=== PATIENT | female | born 1985 | race Hispanic/Latino ===

== ENCOUNTER 2018-03-04 10:01 | Emergency (ER) | payer OTHER, SELFPAY ==
--- OUTSIDE RECORDS SUMMARY | 2018-03-04 10:04 | XMS REPORT | Clinical Summary ---
:1985 Author Organization [facility] Address [address] [place] [address] Care Team Providers Name Role Phone Fany Escobar MD Primary Care Provider Allergies No Known Allergies Current Medications Prescription Sig. Disp. Refills Start Date End Date Status amoxicillin-pot Take 1 tablet by 20 tablet 0 06/23/2017 07/03/2017 clavulanate mouth 2 (two) (AUGMENTIN) 875-125 times a day for mg per tablet 10 days. traMADol-acetaminophe Take 1 tablet by 30 tablet 0 06/23/2017 06/28/2017 n (ULTRACET) 37.5-325 mouth every 6 mg per tablet (six) hours as needed for moderate pain for up to 5 days. amoxicillin-pot Take 1 tablet by 28 tablet 0 06/30/2017 07/14/2017 clavulanate mouth 2 (two) (AUGMENTIN) 875-125 times a day for mg per tablet 14 days. 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 Encounters Date Type Specialty Care Team Description 07/14/2017 Office Visit General Surgery Daisy Jalloh MD Diverticulitis of large intestine without perforation or abscess without bleeding (Primary Dx) 06/30/2017 Office Visit General Surgery Daisy Jalloh MD Diverticulitis of large intestine without perforation or abscess without bleeding (Primary Dx) 06/20/2017 - Hospital General Internal Alberto Albert Diverticulitis of 06/23/2017 Encounter Medicine jaylin Carl MD without perforation or Topher Whitehead abscess sandoval Wright MD bleeding (Primary Dx) after 03/03/2017 Social History Tobacco Use Types Packs/Day Years Used Date Never Smoker Alcohol Use Drinks/Week oz/Week Comments Yes socially Sex Assigned at Date Recorded Not on file Last Filed Vital Signs Vital Sign Reading Time Taken Blood Pressure 112/72 06/23/2017 12:00 PM CDT Pulse 79 06/23/2017 12:00 PM CDT Temperature 36 C (96.8 F) 06/23/2017 12:00 PM CDT Respiratory Rate 16 06/23/2017 12:00 PM CDT Oxygen Saturation 100% 06/23/2017 12:00 PM CDT Inhaled Oxygen Concentration - - Weight 79.4 kg (175 lb) 06/30/2017 10:12 AM CDT Height 157.5 cm (5' 2") 06/30/2017 10:12 AM CDT Body Mass Index 32.01 06/30/2017 10:12 AM CDT Plan of Treatment Health Maintenance Due Date Last Done Comments PAP SMEAR 2004 INFLUENZA VACCINE 05/30/2018 Results Estimated GFR (06/22/2017 4:33 AM)Only the most recent of2 resultswithin the time period is included. Component Value Ref Range GFR Non Af Amer >90 mL/min/1.73 m2 GFR Af Amer >90 mL/min/1.73 m2 Comment: Chronic kidney disease: <60 mL/min/1.73m2 Kidney failure: <15 mL/min/1.73m2 The estimated GFR is calculated from the IDMS-traceable Modification of Diet in Renal Disease Equation. The accuracy of the calculation is poor when the creatinine is normal. Calculated values >90 mL/min/1.73m2 are not reported. This equation has not been validated in children (<18 years), women, the elderly (>70 years), or ethnic groups other than Caucasians and Americans. Specimen Performing Laboratory Plasma specimen [facility] [address] [place] [address] CBC with platelet and differential (06/22/2017 4:33 AM)Only the most recent of2 resultswithin the time period is included. Component Value Ref Range WBC 5.6 4.5 - 11.0 k/uL RBC 3.92 (L) 4.20 - 5.50 m/uL HGB 12.4 12.0 - 16.0 g/dL HCT 36.8 (L) 37.0 - 47.0 % MCV 93.9 82.0 - 100.0 fL MCH 31.6 27.0 - 34.0 pg MCHC 33.7 31.0 - 37.0 g/dL RDW - SD 42.8 37.0 - 55.0 fL MPV 9.3 6.9 - 11.0 fL Platelet count 246 150 - 400 K/uL Nucleated RBC 0.00 /100 WBC Neutrophils 52.6 39.0 - 69.0 % Lymphocytes 37.1 25.0 - 45.0 % Monocytes 7.9 0.0 - 10.0 % Eosinophils 2.0 0.0 - 5.0 % Basophils 0.2 0.0 - 1.0 % Immature granulocytes 0.2 0.0 - 1.0 % Specimen Performing Laboratory Blood [facility] [address] [place] [phone] Basic metabolic panel (06/22/2017 4:33 AM) Component Value Ref Range Sodium 136 135 - 148 mEq/L Potassium 3.5 3.5 - 5.0 mEq/L Chloride 101 98 - 112 mEq/L CO2 23 (L) 24 - 31 mEq/L Anion gap 12 7 - 15 mEq/L Comment: Starting from January , anion gap calculation no longer incorporates potassium. Please note the change. BUN 5 (L) 6 - 20 mg/dL Creatinine 0.6 0.5 - 0.9 mg/dL Glucose 74 65 - 99 mg/dL Calcium 8.4 8.3 - 10.2 mg/dL Specimen Performing Laboratory Plasma specimen [facility] [address] [place] [id number] ECG ED Preliminary Interpretation - NOT AN ORDER (06/20/2017 6:49 PM) Narrative Alberto Albert MD 06/20/20176:49 PM ECG ED Preliminary Interpretation - Not an Order Performed by: ALBERTO ALBERT Authorized by: ALBERTO ALBERT ECG reviewed by ED Physician in the absence of a refinery process engineer: yes Interpretation: Interpretation: normal Rate: ECG rate:81 ECG rate assessment: normal Rhythm: Rhythm: sinus rhythm Ectopy: Ectopy: none QRS: QRS axis:Normal QRS intervals:Normal Conduction: Conduction: normal ST segments: ST segments:Normal T waves: T waves: normal CT Abdomen Pelvis W Contrast (06/20/2017 4:03 PM) Specimen Performing Laboratory [facility] [address] [place] [address] Narrative EXAMINATION:CT ABDOMEN PELVIS W CONTRAST CLINICAL HISTORY:Abdominal pain TECHNIQUE: Multiple axial images of the abdomen and pelvis were obtained following intravenous administration of iodinated contrast. Sagittal and coronal computerized reformatted images were also obtained. Approximately 100 cc of Omnipaque 300 was used. Oral contrast was also used. All CT scan performed using radiation dose reduction techniques. Technical factors are evaluated and adjusted to ensure appropriate moderation of exposure. Automated dose management technology is applied to adjust the radiation dose to minimize expose whileachieving a diagnostic quality image. COMPARISON:None. FINDINGS: Lung bases: The lung bases are clear. The visualized portion of the heart and thoracic aorta are unremarkable. Liver: There is no intrahepatic biliary dilatation or mass. The liver is normal in attenuation, contour and size. Gallbladder: Surgically absent.. Pancreas: The pancreas is normal in caliber and attenuation. No inflammatory process. The pancreatic duct is within normal limits. Spleen: The spleen is normal in appearance.. Kidneys and ureters: The kidneys function symmetrically. There is no enhancing renal lesion. No hydronephrosis or renal stone. The ureters are normal in course and caliber. Adrenal glands: Unremarkable. GI tract: The small bowel is normal in course and caliber. Scattered diverticula are seen of the descending colon and sigmoid colon. A short segment of luminal narrowing is seen of the distal sigmoid colon, series 3. The image #[id number]. Moderate retained fecal debris seen throughout the colon. The colon is otherwise unremarkable. No bowel wall thickening is identified. There is no acute inflammatory process. The appendix is surgically absent. No right lower quadrant inflammation is seen. The stomach is unremarkable. Ascites: None. Pelvis: The urinary bladder is within normal limits. Probable 2 cm right ovarian cyst is noted. Limited evaluation of the uterus and ovaries are otherwise unremarkable.. Bones: Unremarkable. Retroperitoneum: No retroperitoneal or mesenteric lymphadenopathy is seen. The abdominal aorta is normal in course and caliber. The visceral and mesenteric vascular branches are patent. Abdominal wall: A small umbilical hernia with fat is noted.. IMPRESSION: Mild diverticulosis.. Focal area of short segment luminal narrowing of the distal sigmoid colon, suggestive of focal spasm. No CT evidence of colitis or bowel obstruction. Moderate constipation noted. [facility]-[id number] Procedure Note Interface, Radiology Results Incoming - 06/20/2017 4:18 PM CDT EXAMINATION: CT ABDOMEN PELVIS W CONTRAST CLINICAL HISTORY: Abdominal pain TECHNIQUE: Multiple axial images of the abdomen and pelvis were obtained following intravenous administration of iodinated contrast. Sagittal and coronal computerized reformatted images were also obtained. Approximately 100 cc of Omnipaque 300 was used. Oral contrast was also used. All CT scan performed using radiation dose reduction techniques. Technical factors are evaluated and adjusted to ensure appropriate moderation of exposure. Automated dose management technology is applied to adjust the radiation dose to minimize expose while achieving a diagnostic quality image. COMPARISON: None. FINDINGS: Lung bases: The lung bases are clear. The visualized portion of the heart and thoracic aorta are unremarkable. Liver: There is no intrahepatic biliary dilatation or mass. The liver is normal in attenuation, contour and size. Gallbladder: Surgically absent.. Pancreas: The pancreas is normal in caliber and attenuation. No inflammatory process. The pancreatic duct is within normal limits. Spleen: The spleen is normal in appearance.. Kidneys and ureters: The kidneys function symmetrically. There is no enhancing renal lesion. No hydronephrosis or renal stone. The ureters are normal in course and caliber. Adrenal glands: Unremarkable. GI tract: The small bowel is normal in course and caliber. Scattered diverticula are seen of the descending colon and sigmoid colon. A short segment of luminal narrowing is seen of the distal sigmoid colon, series 3. The image #[id number]. Moderate retained fecal debris seen throughout the colon. The colon is otherwise unremarkable. No bowel wall thickening is identified. There is no acute inflammatory process. The appendix is surgically absent. No right lower quadrant inflammation is seen. The stomach is unremarkable. Ascites: None. Pelvis: The urinary bladder is within normal limits. Probable 2 cm right ovarian cyst is noted. Limited evaluation of the uterus and ovaries are otherwise unremarkable.. Bones: Unremarkable. Retroperitoneum: No retroperitoneal or mesenteric lymphadenopathy is seen. The abdominal aorta is normal in course and caliber. The visceral and mesenteric vascular branches are patent. Abdominal wall: A small umbilical hernia with fat is noted.. IMPRESSION: Mild diverticulosis.. Focal area of short segment luminal narrowing of the distal sigmoid colon, suggestive of focal spasm. No CT evidence of colitis or bowel obstruction. Moderate constipation noted. [facility]-[id number] ECG 12 lead (06/20/2017 2:52 PM) Component Value Ref Range Ventricular rate 81 Atrial rate 81 GA interval 168 QRSD interval 86 QT interval 382 QTC interval 443 P axis 1 15 QRS axis 1 5 T wave axis 18 EKG impression Normal sinus rhythm-Normal ECG-No previous ECGs available- Specimen Performing Laboratory [facility] MUSE [address] [place] [address] Beta hydroxybutyrate (06/20/2017 1:23 PM) Component Value Ref Range Beta hydroxybutyrate 0.05 0.02 - 0.27 mmol/L Specimen Performing Laboratory Blood [facility]INE [address] [place] [phone] Blood culture, aerobic & anaerobic (06/20/2017 1:23 PM)Only the most recent of2 resultswithin the time period is included. Component Value Ref Range Blood culture isolate No growth after 5 days of incubation. Comment: Specimen Information Specimen Source: Blood Specimen Site: Forearm, left Specimen Performing Laboratory Blood - Forearm, left [facility] DEPARTMENT OF PATHOLOGY AND GENOMIC MEDICINE [address] [place] [id number] Partial thromboplastin time, activated (06/20/2017 1:23 PM) Component Value Ref Range PTT 27.7 23.0 - 36.0 sec Comment: PTT therapeutic range for unfractionated heparin is 61.0-112.0 seconds which corresponds to Anti-Xa 0.3-0.7 U/ml. Specimen Performing Laboratory Blood [facility] DEPARTMENT OF PATHOLOGY AND [facility] [address] [place] [address] Prothrombin time with INR (06/20/2017 1:23 PM) Component Value Ref Range Prothrombin time 12.9 12.0 - 15.0 sec INR 1.0 Comment: The International Normalized Ratio (INR) is a therapeutic monitoring tool for patients who are stable on oral anticoagulant therapy. An INR of 2.0-3.0 is suggested for deep vein thrombosis/pulmonary embolism. Specimen Performing Laboratory Blood [facility] PATHOLOG[facility] GENOMIC MEDICINE [address] [place] [phone] hCG qualitative, serum screen (06/20/2017 1:23 PM) Component Value Ref Range hCG qualitative, serum NegativeComment: Sensitivity of HCG test: 25 mIU/mL Specimen Performing Laboratory Blood [facility] PATHOLOGY AND GENOMIC MEDICINE [address] [place] [phone] Magnesium level (06/20/2017 1:23 PM) Component Value Ref Range Magnesium 2.1 1.6 - 2.6 mg/dL Specimen Performing Laboratory Plasma specimen [facility] OF PATHOLOGY AND [address] [address] Lipase level (06/20/2017 1:23 PM) Component Value Ref Range Lipase 23 13 - 60 U/L Specimen Performing Laboratory Plasma specimen [facility] OF PATHOLOGY AND [address] [address] Lactic acid level (06/20/2017 1:23 PM) Component Value Ref Range Lactic acid 1.3 0.5 - 2.2 mmol/L Specimen Performing Laboratory Plasma specimen [facility] OF PATHOLOGY AND GENOMIC [address] [address] Venous blood gas (06/20/2017 1:23 PM) Component Value Ref Range pH, venous 7.30 (L) 7.32 - 7.42 pCO2, venous 54 (H) 45 - 51 mmHg pO2, venous 25 25 - 40 mmHg Base excess, venous -1 -2 - 2 mEq/L O2 saturation, venous 38 (L) 40 - 70 % Bicarbonate, venous 25.8 21.0 - 28.0 mmol/L Specimen Performing Laboratory Blood [facility] OF PATHOLOGY AND [address] [address] Amylase level (06/20/2017 1:23 PM) Component Value Ref Range Amylase 25 13 - 73 U/L Specimen Performing Laboratory Plasma specimen [facility] OF PATHOLOGY AND [address] [address] Comprehensive metabolic panel (06/20/2017 1:23 PM) Component Value Ref Range Sodium 139 135 - 148 mEq/L Potassium 4.0 3.5 - 5.0 mEq/L Chloride 102 98 - 112 mEq/L CO2 25 24 - 31 mEq/L Anion gap 12 7 - 15 mEq/L Comment: Starting from January , anion gap calculation no longer incorporates potassium. Please note the change. BUN 8 6 - 20 mg/dL Creatinine 0.6 0.5 - 0.9 mg/dL Glucose 80 65 - 99 mg/dL Calcium 9.4 8.3 - 10.2 mg/dL Protein 8.1 6.3 - 8.3 g/dL Albumin 4.6 3.5 - 5.0 g/dL A/G ratio 1.3 0.7 - 3.8 Alkaline phosphatase 59 35 - 104 U/L AST 13 10 - 35 U/L ALT 12 5 - 50 U/L Total bilirubin 0.3 0.2 - 1.2 mg/dL Specimen Performing Laboratory Plasma specimen [facility] OF PATHOLOGY AND GENOMIC MEDICINE [address] [place], [place] [id number] Urinalysis screen and microscopy, with reflex to culture (06/20/2017 1:20 PM) Component Value Ref Range Specimen site Clean catch Color, UA Straw Appearance, UA Clear Specific gravity, UA 1.005 1.001 - 1.030 pH, UA 6.0 5.0 - 9.0 Protein, UA Negative Negative Glucose, UA Negative Negative Ketones, UA Negative Negative Bilirubin, UA Negative Negative Blood, UA Negative Negative Nitrite, UA Negative Negative Urobilinogen, UA <2.0 <2.0 E.U./dL Leukocyte esterase, UA Negative Negative Round epithelial cells, UA <1 0 - 5 /HPF WBC, UA <1 0 - 4 /HPF RBC, UA 1 0 - 2 /HPF Bacteria, UA Few None seen Yeast, UA None seen Yeast with pseudohyphae, UA None seen Specimen Performing Laboratory Urine [facility] OF PATHOLOGY AND GENOMIC MEDICINE [address] [place] [phone] Urine culture (06/20/2017 1:20 PM) Component Value Ref Range Urine culture SEE COMMENTComment: Bacteriuria screen negative. Specimen Performing Laboratory [facility] OF PATHOLOGY AND GENOMIC MEDICINE [address] [place] [address] after 03/03/2017 Insurance Payer Benefit Plan / Group Subscriber ID Type Phone Address [facility] xxxxxxxxx O Home: [address] [phone] [place], [place] [address]
[2018-03-04 11:11] LABS: Urine Blood TRACE (NEG); Urine Glucose NEGATIVE (NEG); Urine Protein NEGATIVE (NEG); Urine Specific Gravity 1.015 (1.005-1.030); Urine pH 7.5 (5.0-7.0)
[2018-03-04 11:12] LABS: Absolute Lymphocytes (CBC) 2.3 K/uL (0.7-4.9); Absolute Monocytes 0.6 K/uL (0.1-1.3); Absolute Neutrophil 4.5 K/uL (1.8-8.0); Basophils % 0.5 % (0-1.3); Eosinophils % 2.4 % (0-4.4); Hematocrit 40.4 % (36.0-45.0); Lymphocytes % 30.1 % (15.3-44.8); MCH 30.6 pg (27.0-35.0); MCV 92.4 fL (80-100); Monocytes % 7.7 % (3.3-12.3); RBC Red Blood Cell Count 4.38 M/uL (3.86-4.86)
[2018-03-04 11:17] LABS: Bicarbonate 27 mEq/L (21-31); Glucose Level 87 mg/dL (65-120); Lipase 15 U/L (22-51); Potassium 3.8 mEq/L (3.6-5.0); Sodium Level 136 mEq/L (135-145)
[2018-03-04 11:23] LABS: ALT/SGPT 85 IU/L (10-60); AST/SGOT 35 IU/L (10-42); Albumin 4.3 g/dL (3.2-5.5); Alkaline Phosphatase 86 IU/L (42-121); BUN Blood Urea Nitrogen 11 mg/dL (6-20); Bilirubin Direct 0.1 mg/dL (0-0.2); Bilirubin Total 0.9 mg/dL (0.3-1.2); Protein, Total 8.1 g/dL (6.0-8.3)
[2018-03-04 11:33] LABS: HCG, Quantitative < 5.0 mIU/mL (<5)
[2018-03-04 11:48] LABS: Urine Bacteria <20 /HPF (<20); Urine Culture Reflex Order NOT NEEDED; Urine RBC <5 /HPF (NONE SEEN)
--- NOTE | 2018-03-04 12:34 | RAD REPORT ---
EXAM DESCRIPTION: CT - Stone Protocol - 03/04/2018 12:26 pm CLINICAL HISTORY: Flank pain. COMPARISON: 12/24/2017 TECHNIQUE: Axial images were obtained without oral or IV contrast. Lack of contrast limits solid org an and vascular assessment. The [id number] spans the entirety of the system partially obscuring uppermost abdomen and lung bases. Coronal reformatted images were obtained and reviewed. All CT scans are performed using dose optimization technique as appropriate and may include automated exposure control or mA/KV adjustment according to patient size. FINDINGS: The lower lung duong are clear. Imaged portions of the liver and spleen show no suspicious findings on non-contrast imaging. The panc reas and adrenal glands are normal. No pathologic lymphadenopathy in the abdomen or pelvis. Small fat containing umbilical hernia. No urinary tract stones or obstructive uropathy. No bowel obstruction, free air, free fluid or abscess. Appendectomy. No significant bony abnormality. IMPRESSION: No urinary tract stones or obstructive uropathy.
[2018-03-04] MEDS ORDERED: KETOROLAC 30 MG/ML INJ ONE (12:58)
--- NOTE | 2018-03-04 14:08 | RAD REPORT ---
EXAM DESCRIPTION: US - Pelvis Complete - 03/04/2018 1:49 pm CLINICAL HISTORY: Pelvic pain. COMPARISON: 05/17/2017 FINDINGS: The uterus is normal in size, shape and echotexture. The uterus measures 10.0 x 7.0 x 4.3 cm. The endometrial stripe measures 13 mm, normal. Both ovaries are normal in size, shape and echotexture. The right ovary measures 3.8 x 3.4 x 1.4 cm. The left ovary measures 3.0 x 2.1 x 1.4 cm. No ovarian or parovarian lesions. No adnexal masses. Normal Doppler blood flow was demonstrated to both ovaries. IMPRESSION: Unremarkable study.
--- NOTE | 2018-03-04 14:13 | EDPHYS ---
Physician Documentation [facility] Name: Mary Torres Age: 32 yrs Sex: Female : 1985 Arrival Date: 03/04/2018 Time: 10:04 Bed 8 Private MD: ED Physician Conor Tam HPI: 03/04 10:56 This 32 yrs old Female presents to ER via Ambulatory with complaints of rn Abdominal Pain. 10:56 The patient presents with abdominal pain in the lower abdomen. Onset: The rn symptoms/episode began/occurred 2. day(s) ago. The symptoms do not radiate. Associated signs and symptoms: Pertinent positives: nausea, Pertinent negatives: blood in stools, chest pain, constipation, diarrhea, dysuria, fever, vaginal discharge, vomiting blood. Modifying factors: The symptoms are alleviated by nothing, the symptoms are aggravated by touching the area. Severity of pain: At its worst the pain was mild in the emergency department the pain is unchanged. The patient has experienced similar episodes in the past. Reports hx of diverticulitis, this feels different, + lower abd pain, report 4 + preg tests at home, today was negative, no vaginal discharge/bleeding, no diarrhea, + nausea, has had tubal ligation.. 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 - Social history:: Smoking status: Patient/guardian denies using tobacco. - Family history:: not pertinent. - Hospitalizations: : No recent hospitalization is reported. ROS: 10:56 Constitutional: Negative for fever, chills, and weight loss, Eyes: Negative for injury, rn pain, redness, and discharge, Cardiovascular: Negative for chest pain, palpitations, and edema, Respiratory: Negative for shortness of breath, cough, wheezing, and pleuritic chest pain, Abdomen/GI: + abdominal pain and nausea : Negative for injury, bleeding, discharge, and swelling, MS/Extremity: Negative for injury and deformity, Skin: Negative for injury, rash, and discoloration, Neuro: Negative for headache, weakness, numbness, tingling, and seizure. Exam: 10:56 Constitutional: This is a well developed, well nourished patient who is awake, alert, rn and in no acute distress. Head/Face: Normocephalic, atraumatic. Eyes: Pupils equal round and reactive to light, extra-ocular motions intact. Lids and lashes normal. Conjunctiva and sclera are non-icteric and not injected. Cornea within normal limits. Periorbital areas with no swelling, redness, or edema. Cardiovascular: Regular rate and rhythm with a normal S1 and S2. No gallops, murmurs, or rubs. Normal PMI, no JVD. No pulse deficits. Respiratory: Lungs have equal breath sounds bilaterally, clear to auscultation and percussion. No rales, rhonchi or wheezes noted. No increased work of breathing, no retractions or nasal flaring. Abdomen/GI: soft, + suprapubic and LLQ tenderness, no rebound MS/ Extremity: Pulses equal, no cyanosis. Neurovascular intact. Full, normal range of motion. Equal circumference. Neuro: Awake and alert, GCS 15, oriented to person, place, time, and situation. Cranial nerves II-XII grossly intact. Motor strength 5/5 in all extremities. Sensory grossly intact. Vital Signs: 10:16 BP 123 / 89; Pulse 94; Resp 16; Temp 98.5; Pulse Ox 97% on R/A; Weight 81.65 kg; Height aj 5 ft. 2 in. (157.48 cm); Pain 8/10; 11:01 BP 119 / 78; Pulse 63; Resp 16; Pulse Ox 98% ; jl7 12:00 BP 110 / 80; Pulse 64; Resp 16; Pulse Ox 98% ; jl7 13:00 BP 115 / 78; Pulse 62; Resp 16; Pulse Ox 98% ; jl7 14:00 BP 111 / 79; Pulse 63; Resp 16; Pulse Ox 98% ; jl7 10:16 Body Mass Index 32.92 (81.65 kg, 157.48 cm) aj MDM: 10:20 Patient medically screened. rn 12:40 Differential diagnosis: appendicitis, diverticulitis, non-specific abd pain, rn Ureterolithiasis, urinary tract infection. 14:11 Data reviewed: vital signs, nurses notes, lab test result(s), radiologic studies, CT rn scan, ultrasound, and as a result, I will discharge patient. Counseling: I had a detailed discussion with the patient and/or guardian regarding: the historical points, exam findings, and any diagnostic results supporting the discharge/admit diagnosis, lab results, radiology results, the need for outpatient follow up, to return to the emergency department if symptoms worsen or persist or if there are any questions or concerns that arise at home. Special discussion: Based on the patient's Hx, exam, and Dx evaluation, there is no indication for emergent surgery or inpatient Tx. It is understood by the patient/guardian that if the Sx's persist or worsen they need to return immediately for re-evaluation. I discussed with the patient/guardian in detail that at this point there is no indication for admission to the hospital. It is understood, however, that if the symptoms persist or worsen the patient needs to return immediately for re-evaluation. 03/04 10:30 Order name: Quantitative Hcg; Complete Time: 03/04 10:30 Order name: Abo/rh Typing; Complete Time: 12: 03/04 10:30 Order name: Basic Metabolic Panel; Complete Time: 03/04 10:30 Order name: CBC with Diff; Complete Time: 03/04 10:30 Order name: Creatinine for Radiology; Complete Time: 03/04 10:30 Order name: Hepatic Function; Complete Time: 03/04 10:21 Order name: Urine Dipstick-Ancillary (obtain specimen); Complete Time: 10:56 03/04 10:30 Order name: Lipase; Complete Time: 03/04 10:30 Order name: Urine Microscopic Only; Complete Time: 12:35 03/04 10:39 Order name: Urine Dipstick--Ancillary (enter results); Complete Time: 03/04 10:39 Order name: Urine --Ancillary (enter results); Complete Time: 03/04 11:48 Order name: CT Stone Protocol; Complete Time: 12:35 03/04 12:43 Order name: US Pelvis Complete; Complete Time: 14:10 03/04 10:21 Order name: Urine Test (obtain specimen); Complete Time: 10:56 rn 03/04 10:30 Order name: IV Saline Lock; Complete Time: :56 rn 03/04 10:30 Order name: Labs collected and sent; Complete Time: :56 rn 03/04 10:30 Order name: NPO; Complete Time: 10:56 rn Administered Medications: 13:02 Drug: TORadol 30 mg Route: IVP; Site: right antecubital; jl7 13:30 Follow up: Response: No adverse reaction; Pain is decreased jl7 Disposition: 03/04/18 14:13 Discharged to Home. Impression: Lower abdominal pain, unspecified. - Condition is Stable. - Discharge Instructions: Abdominal Pain, Adult. - Medication Reconciliation Form, Thank You Letter, Antibiotic Education, Prescription Opioid Use form. - Follow up: Private Physician; When: As needed; Reason: Recheck today's complaints, Re-evaluation by your physician. - Problem is new. - Symptoms have improved. Signatures: Dispatcher [employer] EDNidia Bell RN Conor Tapia MD MD rn Leal, Jahala, RN RN jl7 Corrections: (The following items were deleted from the chart) 14:30 14:13 03/04/2018 14:13 Discharged to Home. Impression: Lower abdominal pain, jl7 unspecified. Condition is Stable. Forms are Medication Reconciliation Form, Thank You Letter, Antibiotic Education, Prescription Opioid Use. Follow up: Private Physician; When: As needed; Reason: Recheck today's complaints, Re-evaluation by your physician. Problem is new. Symptoms have improved. rn
--- NOTE | 2018-03-04 14:13 | ER ---
Nurse's Notes [facility] Name: Mary Torres Age: 32 yrs Sex: Female : 1985 Arrival Date: 03/04/2018 Time: 10:04 Bed 8 Private MD: Diagnosis: Lower abdominal pain, unspecified Presentation: 03/04 10:15 Presenting complaint: Patient states: LLQ pain since yesterday. + UPT at home. Denies aj bleeding. Transition of care: patient was not received from another setting of care. Onset of symptoms was March 03, 2018. Initial Sepsis Screen: Does the patient meet any 2 criteria? No. Patient's initial sepsis screen is negative. Does the patient have a suspected source of infection? No. Patient's initial sepsis screen is negative. Care prior to arrival: None. 10:15 Method Of Arrival: Ambulatory aj 10:15 Acuity: MARCELA 3 aj Triage Assessment: 10:16 General: Appears in no apparent distress. uncomfortable, Behavior is calm, cooperative, aj appropriate for age. Pain: Complains of pain in suprapubic area and left inguinal area Pain currently is 8 out of 10 on a pain scale. Neuro: Level of Consciousness is awake, alert, obeys commands, Oriented to person, place, time, situation, Appropriate for age. Respiratory: Airway is patent Respiratory effort is even, unlabored, Respiratory pattern is regular, symmetrical. GI: Reports nausea. : Reports pain in left lower quadrant(s). 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 - Social history:: Smoking status: Patient/guardian denies using tobacco. - Family history:: not pertinent. - Hospitalizations: : No recent hospitalization is reported. Screenin:01 Abuse screen: Denies threats or abuse. Denies injuries from another. Nutritional jl7 screening: No deficits noted. Tuberculosis screening: No symptoms or risk factors identified. Fall Risk IV access (20 points). Total Sanchez Fall Scale indicates No Risk (0-24 pts). Assessment: 10:20 General: Appears in no apparent distress. uncomfortable, Behavior is calm, cooperative, jl7 appropriate for age. Pain: Complains of pain in suprapubic area and left lower quadrant Pain does not radiate. Pain currently is 8 out of 10 on a pain scale. Quality of pain is described as pressure, sharp, Pain began 2-3 days ago. Is continuous. Neuro: Level of Consciousness is awake, alert, obeys commands, Oriented to person, place, time, situation. Cardiovascular: Patient's skin is warm and dry. Respiratory: Airway is patent Respiratory effort is even, unlabored, Respiratory pattern is regular, symmetrical. GI: Bowel sounds present X 4 quads. Abd is soft X 4 quads Abdomen is tender to palpation in suprapubic area and left lower quadrant. : No signs and/or symptoms were reported regarding the genitourinary system. Derm: Skin is pink, warm \T\ dry. Musculoskeletal: No signs and/or symptoms reported regarding the musculoskeletal system. 11:20 Reassessment: Patient and/or family updated on plan of care and expected duration. Pain jl7 level reassessed. Patient is alert, oriented x 3, equal unlabored respirations, skin warm/dry/pink. 12:20 Reassessment: Patient and/or family updated on plan of care and expected duration. Pain jl7 level reassessed. Patient is alert, oriented x 3, equal unlabored respirations, skin warm/dry/pink. 13:20 Reassessment: Patient and/or family updated on plan of care and expected duration. Pain jl7 level reassessed. Patient is alert, oriented x 3, equal unlabored respirations, skin warm/dry/pink. Vital Signs: 10:16 BP 123 / 89; Pulse 94; Resp 16; Temp 98.5; Pulse Ox 97% on R/A; Weight 81.65 kg; Height aj 5 ft. 2 in. (157.48 cm); Pain 8/10; 11:01 BP 119 / 78; Pulse 63; Resp 16; Pulse Ox 98% ; jl7 12:00 BP 110 / 80; Pulse 64; Resp 16; Pulse Ox 98% ; jl7 13:00 BP 115 / 78; Pulse 62; Resp 16; Pulse Ox 98% ; jl7 14:00 BP 111 / 79; Pulse 63; Resp 16; Pulse Ox 98% ; jl7 10:16 Body Mass Index 32.92 (81.65 kg, 157.48 cm) ED Course: 10:04 Patient arrived in ED. sb2 10:16 Triage completed. aj 10:16 Arm band placed on right wrist. Patient placed in an exam room. aj 10:19 Rodrigo Westfall RN is Primary Nurse. jl7 10:20 Conor Tam MD is Attending Physician. rn 10:50 Initial lab(s) drawn, by mi, sent to lab. Urine collected: clean catch specimen, clear. jl7 Inserted saline lock: 20 gauge in right antecubital area, using aseptic technique. Blood collected. 11:01 Patient has correct armband on for positive identification. Bed in low position. Call jl7 light in reach. Side rails up X 1. Pulse ox on. NIBP on. 12:26 CT Stone Protocol In Process Unspecified. EDMS 12:26 CT completed. Patient tolerated procedure well. Patient moved back from CT. vr 12:45 Radiology exam delayed due to pt filling bladder for u/s exam. ap2 13:29 Ultrasound completed. Patient tolerated well. ap2 14:00 No provider procedures requiring assistance completed. jl7 14:29 IV discontinued, intact, bleeding controlled, No redness/swelling at site. Pressure jl7 dressing applied. Administered Medications: 13:02 Drug: TORadol 30 mg Route: IVP; Site: right antecubital; jl7 13:30 Follow up: Response: No adverse reaction; Pain is decreased jl7 Outcome: 14:13 Discharge ordered by . rn 14:29 Discharged to home ambulatory. jl7 14:29 Condition: stable 14:29 Discharge instructions given to patient, Instructed on discharge instructions, follow up and referral plans. Demonstrated understanding of instructions, follow-up care. 14:30 Patient left the ED. jl7 Signatures: Dispatcher [employer] EDMS Nidia Chang RN RN aj Nieto, Roman, MD MD rn Davis, Victoria vr Rodrigo Westfall, DUARTE RAMACHANDRAN jlDebora Gardiner ap2 Romana Angelo sb2 Corrections: (The following items were deleted from the chart) 13:53 13:50 In radiology for Pelvis Complete+US.RAD.BRZ. EDAL ap2 14:29 14:00 IV discontinued, intact, bleeding controlled, No redness/swelling at site. jl7 Pressure dressing applied, jl7
== END 2018-03-04 14:30 | disposition home or self-care (01) ==
LOC: ER 10:01
DX: R10.30 Lower abdominal pain, unspecified (principal); Z88.5 Allergy status to narcotic agent
CPT/HCPCS: 36415; 74176; 76377; 76856; 80048; 80076; 81003; 81015; 81025; 83690; 84702; 85025; 86900; 86901; 96374; 99284

== ENCOUNTER 2018-03-13 18:53 | Emergency (ER) | payer OTHER ==
--- OUTSIDE RECORDS SUMMARY | 2018-03-13 18:55 | XMS REPORT | Clinical Summary ---
:1985 Author Organization [facility] Address [address] [place] [address] Care Team Providers Name Role Phone Fany [...] sandoval Wright MD bleeding (Primary Dx) after 03/12/2017 Social History Tobacco Use Types Packs/Day Years [...] and Americans. Specimen Performing Laboratory Plasma specimen [facility] DEPARTMENT OF PATHOLOGY AND GENOMIC MEDICINE [address] [place] [address] CBC with platelet and differential (06/22/2017 4:33 [...] - 1.0 % Specimen Performing Laboratory Blood [facility] DEPARTMENT OF PATHOLOGY AND GENOMIC MEDICINE [address] [place] [address] Basic metabolic panel (06/22/2017 4:33 AM) Component [...] 10.2 mg/dL Specimen Performing Laboratory Plasma specimen [facility] DEPARTMENT OF PATHOLOGY AND GENOMIC MEDICINE [address] [place] [address] ECG ED Preliminary Interpretation - NOT AN ORDER (06/20/2017 6:49 PM) Narrative Alberto Albert MD 06/20/20176:49 PM ECG ED Preliminary Interpretation - Not an Order Performed by: ALBERTO ALBERT Authorized by: ALBERTO ALBERT ECG reviewed by ED Physician in the absence of a vocational education teacher: yes Interpretation: Interpretation: normal Rate: ECG rate:81 ECG rate assessment: normal Rhythm: Rhythm: sinus rhythm Ectopy: Ectopy: none QRS: QRS axis:Normal QRS intervals:Normal Conduction: Conduction: normal ST segments: ST segments:Normal T waves: T waves: normal CT Abdomen Pelvis W Contrast (06/20/2017 4:03 PM) Specimen Performing Laboratory [facility] [address] [place] [address] Narrative EXAMINATION:CT ABDOMEN PELVIS W CONTRAST CLINICAL [...] or bowel obstruction. Moderate constipation noted. [facility]-[id number] Procedure Note Interface, Radiology Results Incoming - [...] or bowel obstruction. Moderate constipation noted. [facility]-[id number] ECG 12 lead (06/20/2017 2:52 PM) Component Value Ref Range Ventricular rate 81 Atrial rate 81 VT interval 168 QRSD interval 86 QT interval 382 QTC interval 443 P axis 1 15 QRS axis 1 5 T wave axis 18 EKG impression Normal sinus rhythm-Normal ECG-No previous ECGs available- Specimen Performing Laboratory [facility] [address] [place] [address] Beta hydroxybutyrate (06/20/2017 1:23 PM) Component Value Ref Range Beta hydroxybutyrate 0.05 0.02 - 0.27 mmol/L Specimen Performing Laboratory Blood [facility] DEPARTMENT OF PATHOLOGY AND GENOMIC MEDICINE [address] [place] [address] Blood culture, aerobic & anaerobic (06/20/2017 1:23 PM)Only the most recent of2 resultswithin the time period is included. Component Value Ref Range Blood culture isolate No growth after 5 days of incubation. Comment: Specimen Information Specimen Source: Blood Specimen Site: Forearm, left Specimen Performing Laboratory Blood - Forearm, left [facility] DEPARTMENT OF PATHOLOGY AND GENOMIC MEDICINE [address] [place] [address] Partial thromboplastin time, activated (06/20/2017 1:23 PM) Component Value Ref Range PTT 27.7 23.0 - 36.0 sec Comment: PTT therapeutic range for unfractionated heparin is 61.0-112.0 seconds which corresponds to Anti-Xa 0.3-0.7 U/ml. Specimen Performing Laboratory Blood [facility] DEPARTMENT OF PATHOLOGY AND [facility] MEDICINE [address] [place] [address] Prothrombin time with INR (06/20/2017 1:23 PM) Component Value Ref Range Prothrombin time 12.9 12.0 - 15.0 sec INR 1.0 Comment: The International Normalized Ratio (INR) is a therapeutic monitoring tool for patients who are stable on oral anticoagulant therapy. An INR of 2.0-3.0 is suggested for deep vein thrombosis/pulmonary embolism. Specimen Performing Laboratory Blood [facility] DEPARTMENT OF PATHOLOGY AND GENOMIC MEDICINE [address] [place] [address] hCG qualitative, serum screen (06/20/2017 1:23 PM) Component Value Ref Range hCG qualitative, serum NegativeComment: Sensitivity of HCG test: 25 mIU/mL Specimen Performing Laboratory Blood [facility] DEPARTMENT OF PATHOLOGY AND GENOMIC MEDICINE [address] [place] [address] Magnesium level (06/20/2017 1:23 PM) Component Value Ref Range Magnesium 2.1 1.6 - 2.6 mg/dL Specimen Performing Laboratory Plasma specimen [facility] DEPARTMENT OF PATHOLOGY AND [address] [address] Lipase level (06/20/2017 1:23 PM) Component Value Ref Range Lipase 23 13 - 60 U/L Specimen Performing Laboratory Plasma specimen [facility] DEPARTMENT OF PATHOLOGY AND [address] [address] Lactic acid level (06/20/2017 1:23 PM) Component Value Ref Range Lactic acid 1.3 0.5 - 2.2 mmol/L Specimen Performing Laboratory Plasma specimen [facility] DEPARTMENT OF PATHOLOGY AND GENOMIC [address] [address] Venous blood gas (06/20/2017 1:23 PM) Component Value Ref Range pH, venous 7.30 (L) 7.32 - 7.42 pCO2, venous 54 (H) 45 - 51 mmHg pO2, venous 25 25 - 40 mmHg Base excess, venous -1 -2 - 2 mEq/L O2 saturation, venous 38 (L) 40 - 70 % Bicarbonate, venous 25.8 21.0 - 28.0 mmol/L Specimen Performing Laboratory Blood [facility] DEPARTMENT OF PATHOLOGY AND [address] [address] Amylase level (06/20/2017 1:23 PM) Component Value Ref Range Amylase 25 13 - 73 U/L Specimen Performing Laboratory Plasma specimen [facility] DEPARTMENT OF PATHOLOGY AND [address] [address] Comprehensive metabolic panel (06/20/2017 1:23 PM) Component [...] 1.2 mg/dL Specimen Performing Laboratory Plasma specimen [facility] DEPARTMENT OF PATHOLOGY AND GENOMIC MEDICINE [address] [place], [place] [address] Urinalysis screen and microscopy, with reflex to [...] UA None seen Specimen Performing Laboratory Urine [facility] DEPARTMENT OF PATHOLOGY AND GENOMIC MEDICINE [address] [place] [address] Urine culture (06/20/2017 1:20 PM) Component Value Ref Range Urine culture SEE COMMENTComment: Bacteriuria screen negative. Specimen Performing Laboratory [facility] DEPARTMENT OF PATHOLOGY AND GENOMIC MEDICINE [address] [place] [address] after 03/12/2017 Insurance Payer Benefit Plan / Group Subscriber ID Type Phone Address [facility] O Home: [address] [phone] [place] [id number]
[2018-03-13 19:41] LABS: Urine Blood 2+ (NEG); Urine Glucose NEGATIVE (NEG); Urine Protein NEGATIVE (NEG); Urine Specific Gravity <1.005 (1.005-1.030); Urine pH 5.5 (5.0-7.0)
[2018-03-13] MEDS ORDERED: KETOROLAC 30 MG/ML INJ ONE (19:44)
--- NOTE | 2018-03-13 20:16 | RAD REPORT ---
EXAM DESCRIPTION: RAD - Chest Pa And Lat (2 Views) - 03/13/2018 8:02 pm CLINICAL HISTORY: Chest pain. Shortness of breath. COMPARISON: 02/24/2016 FINDINGS: The lungs are clear. The heart is normal in size. No displaced fractures. IMPRESSION: No acute or concerning finding suspected.
--- NOTE | 2018-03-13 20:28 | EDPHYS ---
Physician Documentation [facility] Name: Mary Torres Age: 32 yrs Sex: Female : 1985 Arrival Date: 03/13/2018 Time: 18:58 Bed 27 Private MD: None, None ED Physician Louis Costello HPI: 03/13 20:24 This 32 yrs old Female presents to ER via Ambulatory with complaints of Chest gs Pain. 20:24 The patient or guardian reports chest pain that is located primarily in the anterior gs chest wall, left. The pain radiates to left neck, Associated signs and symptoms: Pertinent negatives: abdominal pain, cough, diaphoresis, dizziness, shortness of breath, syncope, vomiting. The chest pain is described as sharp. Duration: The patient or guardian reports multiple episodes, that are intermittent, that wax and wane, with no pattern. Modifying factors: the symptoms are aggravated by movement, twisting torso. Severity of pain: At its worst the pain was moderate in the emergency department the pain has improved mildly. The patient has not experienced similar symptoms in the past. 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 - Social history:: Smoking status: Patient/guardian denies using tobacco, Patient/guardian denies using alcohol, street drugs. ROS: 20:24 All other systems are negative. gs Exam: 20:24 Head/Face: Normocephalic, atraumatic. Eyes: Pupils equal round and reactive to light, gs extra-ocular motions intact. Lids and lashes normal. Conjunctiva and sclera are non-icteric and not injected. Cornea within normal limits. Periorbital areas with no swelling, redness, or edema. ENT: Nares patent. No nasal discharge, no septal abnormalities noted. Tympanic membranes are normal and external auditory canals are clear. Oropharynx with no redness, swelling, or masses, exudates, or evidence of obstruction, uvula midline. Mucous membranes moist. Neck: Trachea midline, no thyromegaly or masses palpated, and no cervical lymphadenopathy. Supple, full range of motion without nuchal rigidity, or vertebral point tenderness. No Meningismus. 20:24 Cardiovascular: Regular rate and rhythm with a normal S1 and S2. No gallops, murmurs, or rubs. Normal PMI, no JVD. No pulse deficits. Respiratory: Lungs have equal breath sounds bilaterally, clear to auscultation and percussion. No rales, rhonchi or wheezes noted. No increased work of breathing, no retractions or nasal flaring. Abdomen/GI: Soft, non-tender, with normal bowel sounds. No distension or tympany. No guarding or rebound. No evidence of tenderness throughout. Back: No spinal tenderness. No costovertebral tenderness. Full range of motion. Skin: Warm, dry with normal turgor. Normal color with no rashes, no lesions, and no evidence of cellulitis. MS/ Extremity: Pulses equal, no cyanosis. Neurovascular intact. Full, normal range of motion. Neuro: Awake and alert, GCS 15, oriented to person, place, time, and situation. Cranial nerves II-XII grossly intact. Motor strength 5/5 in all extremities. Sensory grossly intact. Cerebellar exam normal. Normal gait. 20:24 Constitutional: The patient appears alert, awake. 20:24 Chest/axilla: Palpation: tenderness, inter scapula area on left reproduces symptoms. 20:24 ECG was reviewed by the Attending Physician. Vital Signs: 19:28 BP 119 / 91; Pulse 87; Resp 18 S; Temp 98.9(O); Pulse Ox 100% on R/A; Weight 81.65 kg bb (R); Height 5 ft. 2 in. (157.48 cm) (R); Pain 9/10; 20:40 BP 118 / 76; Pulse 85; Resp 17; Pulse Ox 100% on R/A; Pain 7/10; ed1 19:28 Body Mass Index 32.92 (81.65 kg, 157.48 cm) bb MDM: 19:35 Patient medically screened. gs 20:24 Differential diagnosis: chest wall pain, pleurisy, pneumonia, pneumothorax. Data gs reviewed: vital signs, nurses notes. Counseling: I had a detailed discussion with the patient and/or guardian regarding: the historical points, exam findings, and any diagnostic results supporting the discharge/admit diagnosis, lab results, radiology results. Medication response: Toradol markedly relieved the patient's pain. 20:28 ED course: pain description cw with ms thorax pain, coming mostly from upper medial gs scapular area and is tender will put on nsaids. 03/13 19:39 Order name: Urine Dipstick--Ancillary (enter results); Complete Time: 20:30 mw2 03/13 19:39 Order name: Urine --Ancillary (enter results); Complete Time: 20:30 mw2 03/13 19:35 Order name: XRAY Chest Pa And Lat (2 Views); Complete Time: 20:30 gs EC:24 Rate is 79 beats/min. Rhythm is regular. QRS interval is normal. QT interval is normal. gs No Q waves. T waves are Normal. No ST changes noted. Clinical impression: Normal ECG. Interpreted by me. Administered Medications: 19:47 Drug: TORadol 30 mg Route: IM; Site: left deltoid; ed1 20:37 Follow up: Response: Pain is decreased ed1 Disposition: 03/13/18 20:27 Discharged to Home. Impression: Chest pain, unspecified, Dorsalgia. - Condition is Stable. - Discharge Instructions: Nonspecific Chest Pain. - Prescriptions for Naprosyn 500 mg Oral Tablet - take 1 tablet by ORAL route 2 times per day take with food; 20 tablet. - Medication Reconciliation Form, Thank You Letter, Antibiotic Education, Prescription Opioid Use form. - Follow up: Private Physician; When: 2 - 3 days; Reason: Re-evaluation by your physician. Signatures: Dispatcher [employer] EDMS Bernie Hernández RN RN Maria A Shaw, INTERNATIONAL MANAGER INTERNATIONAL MANAGER ed1 Louis Costello MD MD gs Corrections: (The following items were deleted from the chart) 20:41 20:27 03/13/2018 20:27 Discharged to Home. Impression: Chest pain, unspecified; ed1 Dorsalgia. Condition is Stable. Forms are Medication Reconciliation Form, Thank You Letter, Antibiotic Education, Prescription Opioid Use. Follow up: Private Physician; When: 2 - 3 days; Reason: Re-evaluation by your physician.
--- NOTE | 2018-03-13 20:28 | ER ---
Nurse's Notes [facility] Name: Mary Torres Age: 32 yrs Sex: Female : 1985 Arrival Date: 03/13/2018 Time: 18:58 Bed 27 Private MD: None, None Diagnosis: Chest pain, unspecified;Dorsalgia Presentation: 03/13 19:12 Presenting complaint: Patient states: she has been having chest pain radiating to her bb left side of neck and left arm with SOB since Monday. Transition of care: patient was not received from another setting of care. Onset of symptoms was March 10, 2018. Initial Sepsis Screen: Does the patient meet any 2 criteria? No. Patient's initial sepsis screen is negative. Does the patient have a suspected source of infection? No. Patient's initial sepsis screen is negative. Care prior to arrival: None. 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 - Social history:: Smoking status: Patient/guardian denies using tobacco, Patient/guardian denies using alcohol, street drugs. Screenin:30 Abuse screen: Denies threats or abuse. Denies injuries from another. Nutritional ed1 screening: No deficits noted. Tuberculosis screening: No symptoms or risk factors identified. Fall Risk None identified. Assessment: 19:30 Pain: Complains of pain in chest Pain radiates to left arm Pain currently is 9 out of ed1 10 on a pain scale. Quality of pain is described as sharp, shooting, Pain began 2-3 days ago. Is intermittent. Cardiovascular: Reports chest pain, Heart tones S1 S2 present Capillary refill < 3 seconds in bilateral fingers JVD is absent Patient's skin is warm and dry. 20:37 Reassessment: Patient appears in no apparent distress at this time. Patient and/or ed1 family updated on plan of care and expected duration. Pain level reassessed. Patient is alert, oriented x 3, equal unlabored respirations, skin warm/dry/pink. Patient states feeling better. Patient states symptoms have improved. Vital Signs: 19:28 BP 119 / 91; Pulse 87; Resp 18 S; Temp 98.9(O); Pulse Ox 100% on R/A; Weight 81.65 kg bb (R); Height 5 ft. 2 in. (157.48 cm) (R); Pain 9/10; 20:40 BP 118 / 76; Pulse 85; Resp 17; Pulse Ox 100% on R/A; Pain 7/10; ed1 19:28 Body Mass Index 32.92 (81.65 kg, 157.48 cm) ED Course: 18:58 Patient arrived in ED. mr 18:58 None, None is Private Physician. mr 19:13 Louis Costello MD is Attending Physician. gs 19:18 Maria A Somers LVN is Primary Nurse. ed1 19:28 Triage completed. bb 19:28 Arm band placed on Patient placed in an exam room, on a stretcher, on academic success coordinator, bb on pulse oximetry. EKG completed in triage. Results shown to MD. 19:30 Patient has correct armband on for positive identification. Placed in gown. Bed in low ed1 position. Call light in reach. restrooms or lounges maid on. Pulse ox on. NIBP on. 19:30 Patient maintains SpO2 saturation greater than 95% on room air. ed1 19:58 Patient moved to radiology via wheelchair. bb2 19:59 X-ray completed. Patient tolerated procedure well. bb2 19:59 XRAY Chest Pa And Lat (2 Views) In Process Unspecified. EDMS 20:37 No provider procedures requiring assistance completed. Patient did not have IV access ed1 during this emergency room visit. Administered Medications: 19:47 Drug: TORadol 30 mg Route: IM; Site: left deltoid; ed1 20:37 Follow up: Response: Pain is decreased ed1 Outcome: 20:27 Discharge ordered by MD. gs 20:37 Discharged to home ambulatory. ed1 20:37 Condition: good 20:37 Discharge instructions given to patient, Instructed on discharge instructions, follow up and referral plans. Demonstrated understanding of instructions, follow-up care. 20:41 Patient left the ED. ed1 Signatures: Dispatcher [employer] Noemí Duenas mr Bernie Hernández, RN RN bb Maria A Somers, KASEY BRYANN ed1 Louis Costello MD MD gs Joy Boogie bb2
--- NOTE | 2018-03-14 08:48 | EKG ---
Test Date: 2018-03-13 Test Time: 19:26:03 Applications Development Analyst: ERNESTINA MEASUREMENT RESULTS: Intervals: Rate: 79 MN: 178 QRSD: 92 QT: 378 QTc: 433 [place]: P: 33 MN: 178 QRS: 35 T: 26 INTERPRETIVE STATEMENTS: Normal sinus rhythm Normal ECG Compared to ECG 02/24/2016 16:10:12 No significant changes Electronically Signed On 03-14-18 08:48:03 CDT by Obi Celaya
== END 2018-03-13 20:41 | disposition home or self-care (01) ==
LOC: ER 18:53
DX: M54.9 Dorsalgia, unspecified (principal); Z88.5 Allergy status to narcotic agent
CPT/HCPCS: 71046; 81003; 81025; 93005; 96372; 99284

== ENCOUNTER 2018-09-05 14:18 | Emergency (ER) | payer BC, OTHER ==
--- OUTSIDE RECORDS SUMMARY | 2018-09-05 14:34 | XMS REPORT | Summary of Care ---
:1985 Author Organization [facility] Address [address] [place] [id number]- Encounter HQ Jaymie(AVELINA) [id number] Date(s): 02/27/16 - 02/27/[address] [address]- Discharge Diagnosis: Chest pain Discharge Disposition: Home Attending Physician: Leon Christensen MD Vital Signs Most recent to oldest [Reference Range]: 1 2 Height 157.48 cm (02/27/16 6:12 PM) Temperature Oral [96.4-99.1 DegF] 98.0 DegF 99.1 DegF (02/27/16 8:00 PM) (02/27/16 6:12 PM) Blood Pressure [90-140/60-90 mmHg] 132/82 mmHg 146/90 mmHg (02/27/16 8:00 PM) *HI* (02/27/16 6:12 PM) Respiratory Rate [14-20 BRMIN] 18 BRMIN 20 BRMIN (02/27/16 8:00 PM) (02/27/16 6:12 PM) Peripheral Pulse Rate [60-100 bpm] 86 bpm 112 bpm (02/27/16 8:00 PM) *HI* (02/27/16 6:12 PM) Weight 75 kg (02/27/16 6:12 PM) Body Mass Index 30.24 m2 (02/27/16 6:12 PM) Problem List No data available for this section Allergies, Adverse Reactions, Alerts Substance Reaction Severity Status NKDA Active Medications No data available for this section Results ELECTROLYTES Most recent to oldest [Reference Range]: 1 Sodium Lvl [135-145 mEq/L] 143 mEq/L (02/27/16 6:55 PM) Potassium Lvl [3.5-5.1 mEq/L] 3.5 mEq/L (02/27/16 6:55 PM) Chloride Lvl [95-109 mEq/L] 107 mEq/L (02/27/16 6:55 PM) CO2 [24-32 mEq/L] 26 mEq/L (02/27/16 6:55 PM) AGAP [10.0-20.0 mEq/L] 13.5 mEq/L (02/27/16 6:55 PM) CHEM PANEL Most recent to oldest [Reference Range]: 1 Creatinine Lvl [0.50-1.40 mg/dL] 0.77 mg/dL (02/27/16 6:55 PM) eGFR 102 mL/min/1.73m2 1 *NA* (02/27/16 6:55 PM) BUN [7-22 mg/dL] 10 mg/dL (02/27/16 6:55 PM) B/C Ratio [6-25] 13 (02/27/16 6:55 PM) Glucose Lvl [70-99 mg/dL] 119 mg/dL *HI* (02/27/16 6:55 PM) Total Protein [6.4-8.4 g/dL] 7.3 g/dL (02/27/16 6:55 PM) Albumin Lvl [3.5-5.0 g/dL] 3.5 g/dL (02/27/16 6:55 PM) Globulin [2.0-4.0 g/dL] 3.8 g/dL (02/27/16 6:55 PM) A/G Ratio [0.7-1.6] 0.9 (02/27/16 6:55 PM) Calcium Lvl [8.5-10.5 mg/dL] 8.3 mg/dL *LOW* (02/27/16 6:55 PM) ALT [0-65 unit/L] 31 unit/L (02/27/16 6:55 PM) AST [0-37 unit/L] 9 unit/L (02/27/16 6:55 PM) Alk Phos [39-136 unit/L] 77 unit/L (02/27/16 6:55 PM) Bili Total [0.2-1.3 mg/dL] 0.2 mg/dL (02/27/16 6:55 PM) 1Result Comment: The eGFR is calculated using the CKD-EPI formula. In most young , healthy individualsthe eGFR will be >90 mL/min/1.73m2. The eGFR declines with age. An eGFR of 60-89 may be normal in some populations, particularly the elderly, for whom the CKD-EPI formula has not been extensively validated. Use of the eGFR is not recommended in the following populations: Individuals with unstable creatinine concentrations, including patients and those with serious co-morbid conditions. Patients with extremes in muscle mass or diet. The data above are obtained from the National Kidney Disease Education Program ( NKDEP) which additionally recommends that when the eGFR is used in patients with extremes of body mass index for purposesof drug dosing, the eGFR should be multiplied by the estimated BMI.CARDIAC ENZYMES Most recent to oldest [Reference Range]: 1 Total CK [12-191 unit/L] 44 unit/L (02/27/16 6:55 PM) CK MB [0.5-3.6 ng/mL] <0.5 ng/mL (02/27/16 6:55 PM) CK MB Index [0.0-2.5] <1.1 (02/27/16 6:55 PM) Troponin-I [0.00-0.40 ng/mL] <0.02 ng/mL (02/27/16 6:55 PM) DRUG SCREEN Most recent to oldest [Reference Range]: 1 U Amph Scr [Negative] Negative *NA* (02/27/16 7:10 PM) U Rosalia Scr [Negative] Negative *NA* (02/27/16 7:10 PM) U Benzodia Scr [Negative] Negative *NA* (02/27/16 7:10 PM) U Cocaine Scr [Negative] Negative *NA* (02/27/16 7:10 PM) U Opiate Scr [Negative] Negative *NA* (02/27/16 7:10 PM) U Phencyc Scr [Negative] Negative *NA* (02/27/16 7:10 PM) U Cannab Scr [Negative] Negative *NA* (02/27/16 7:10 PM) UDS Note See Note *NA* (02/27/16 7:10 PM) URINE CHEM Most recent to oldest [Reference Range]: 1 U Preg [Negative] Negative (02/27/16 7:10 PM) URINE AND STOOL Most recent to oldest [Reference Range]: 1 UA Turbidity [Clear] Clear (02/27/16 7:10 PM) UA Color [Yellow] Light Yellow *NA* (02/27/16 7:10 PM) UA pH [5.0-8.0] 6.0 (02/27/16 7:10 PM) UA Spec Grav [<=1.030] 1.013 (02/27/16 7:10 PM) UA Glucose [Negative mg/dL] Negative mg/dL *NA* (02/27/16 7:10 PM) UA Blood [Negative] Negative (02/27/16 7:10 PM) UA Ketones Negative *NA* (02/27/16 7:10 PM) UA Protein [Negative mg/dL] Negative mg/dL (02/27/16 7:10 PM) UA Urobilinogen [0.1-1.0 mg/dL] <=1.0 mg/dL *NA* (02/27/16 7:10 PM) UA Bili [Negative] Negative *NA* (02/27/16 7:10 PM) UA Leuk Est [Negative] Small *ABN* (02/27/16 7:10 PM) UA Nitrite [Negative] Negative (02/27/16 7:10 PM) UA WBC [0-5 /HPF] <1 /HPF (02/27/16 7:10 PM) UA RBC [0-2 /HPF] 1 /HPF (02/27/16 7:10 PM) UA Sq Epi [Few /LPF] Moderate /LPF *ABN* (02/27/16 7:10 PM) UA Mucus [None Seen /LPF] Few /LPF *NA* (02/27/16 7:10 PM) HEMATOLOGY Most recent to oldest [Reference Range]: 1 WBC [3.7-10.4 K/CMM] 7.6 K/CMM (02/27/16 6:55 PM) RBC [4.20-5.40 M/CMM] 3.99 M/CMM *LOW* (02/27/16 6:55 PM) Hgb [12.0-16.0 g/dL] 12.6 g/dL (02/27/16 6:55 PM) Hct [36.0-48.0 %] 38.2 % (02/27/16 6:55 PM) MCV [80.0-98.0 fL] 95.7 fL (02/27/16 6:55 PM) MCH [27.0-31.0 pg] 31.7 pg *HI* (02/27/16 6:55 PM) MCHC [32.0-36.0 g/dL] 33.1 g/dL (02/27/16 6:55 PM) RDW [11.5-14.5 %] 12.6 % (02/27/16 6:55 PM) Platelet [133-450 K/CMM] 287 K/CMM (02/27/16 6:55 PM) MPV [7.4-10.4 fL] 7.5 fL (02/27/16 6:55 PM) Segs [45.0-75.0 %] 56.4 % (02/27/16 6:55 PM) Lymphocytes [20.0-40.0 %] 36.3 % (02/27/16 6:55 PM) Monocytes [2.0-12.0 %] 6.3 % (02/27/16 6:55 PM) Eosinophils [0.0-4.0 %] 0.8 % (02/27/16 6:55 PM) Basophils [0.0-1.0 %] 0.2 % (02/27/16 6:55 PM) Segs-Bands # [1.5-8.1 K/CMM] 4.3 K/CMM (02/27/16 6:55 PM) Lymphocytes # [1.0-5.5 K/CMM] 2.7 K/CMM (02/27/16 6:55 PM) Monocytes # [0.0-0.8 K/CMM] 0.5 K/CMM (02/27/16 6:55 PM) Eosinophils # [0.0-0.5 K/CMM] 0.1 K/CMM (02/27/16 6:55 PM) Basophils # [0.0-0.2 K/CMM] 0.0 K/CMM (02/27/16 6:55 PM) Macrocyte [None Seen] 1+ *ABN* (02/27/16 6:55 PM) D-Dimer <0.22 ug/mL FEU *NA* (02/27/16 6:55 PM) Immunizations No data available for this section Procedures No data available for this section Social History Social History Type Response Smoking Status Former smoker; Type: Cigarettes; Exposure to Tobacco Smoke None ; Cigarette Smoking Last 365 Days No; Reg Smoking Cessation Counseling No Assessment and Plan No data available for this section
--- OUTSIDE RECORDS SUMMARY | 2018-09-05 14:34 | XMS REPORT ---
:1985 Author Organization [employer] Care Team Providers Name Role Phone [employer] Provider Role Unavailable Allergies, Adverse Reactions, Alerts Substance Reaction Event Type MORPHINE Info Not Available Drug Allergy Problems Problem Type Condition Code Onset Dates Condition Status Assessment Trigger finger of right thumb M65.311 Active Assessment Pain of left thumb M79.645 Active Assessment Trigger finger of left thumb M65.312 Active Assessment Right wrist pain M25.531 Active Problem Pain in right hand M79.641 Active Problem Right wrist pain M25.531 Active Problem Pain of left thumb M79.645 Active Assessment Pain in right hand M79.641 Active Problem Trigger finger of right thumb M65.311 Active Problem Trigger finger of left thumb M65.312 Active Medications Medication Code System Code Instructions Start Date End Date Status Dosage Ibuprofen [facility] [id number] 600 MG Oral Active TK 1 T PO Q 6 H PRN P SCALE 4 TO 6 Results No Known Results Summary Purpose PrimeloopinicalWorks Submission
--- OUTSIDE RECORDS SUMMARY | 2018-09-05 14:34 | XMS REPORT | Continuity of Care Document ---
:1985 Author Organization Interface Problems Problem Status Onset Classification Date Comments Source Date Reported Discharge 03/01/2016 [facility] Diagnosis: [facility] Chest pain SOB/ CHEST Active [facility] PAIN/ DIZZY [facility] Medications Medication Details Route Status Patient Ordering Order Source Instructions Provider Date Allergies, Adverse Reactions, Alerts Substance Category Reaction Severity Reaction Status Date Comments Source type Reported Immunizations Immunization Date Given Site Status Last Updated Comments Source Results Order Name Results Value Reference Date Interpretation Comments Source Range DRUG SCREEN U Phencyc Negative Negative 02/27 [facility] (02/27/16 7:10 PM) DRUG SCREEN U Cannab Scr Negative Negative 02/27 [facility] (02/27/16 7:10 PM) DRUG SCREEN U Opiate Scr Negative Negative 02/27 [facility] (02/27/16 7:10 PM) DRUG SCREEN U Cocaine Negative Negative 02/27 [facility] (02/27/16 7:10 PM) DRUG SCREEN U Rosalia Scr Negative Negative 02/27 [facility] (02/27/16 7:10 PM) DRUG SCREEN U Benzodia Negative Negative 02/27 [facility] (02/27/16 7:10 PM) DRUG SCREEN UDS Note See Note 02/27 [facility] (02/27/16 7:10 PM) DRUG SCREEN U Amph Scr Negative Negative 02/27 [facility] (02/27/16 7:10 PM) URINE AND UA <=1.0 0.1 - 1.0 02/27 [facility] Urobilinogen mg/dL [facility] URINE AND UA Ketones Negative 02/27 [facility] URINE AND UA pH 6.0 5.0 - 8.0 02/27 [facility]OOL [facility] URINE AND UA Turbidity Clear Clear 02/27 STOOL [facility] (02/27/16 7:10 PM) [facility] URINE AND UA Spec Grav 1.013 <=1.030 02/27 STOOL [facility] URINE AND UA Color Light Yellow Yellow 02/27 STOOL [facility] *NA* [facility] (02/27/16 7:10 PM) URINE AND UA Blood Negative Negative 02/27 [facility]OL [facility] (02/27/16 7:10 PM) [facility] URINE AND UA Nitrite Negative Negative 02/27 [facility]OOL [facility] (02/27/16 7:10 PM) [facility] URINE AND UA RBC 1 /HPF 0 - 2 02/27 STOOL [facility] URINE AND UA Mucus Few /LPF None Seen 02/27 [facility]OOL /LPF [facility] URINE AND UA Sq Epi Moderate Few /LPF 02/27 [facility]OL /LPF [facility] URINE AND UA WBC null 0 - 5 02/27 [facility] URINE AND UA Leuk Est Small Negative 02/27 [facility] *ABN* [facility] (02/27/16 7:10 PM) URINE AND UA Protein Negative Negative 02/27 [facility] mg/dL mg/dL [facility] URINE AND UA Bili Negative Negative 02/27 STOOL [facility] *NA* [facility] (02/27/16 7:10 PM) URINE AND UA Glucose Negative Negative 02/27 [facility]OOL mg/dL mg/dL [facility] URINE CHEM U Preg Negative Negative 02/27 [facility] (02/27/16 7:10 PM) [facility] CARDIAC CK MB null 0.5 - 3.6 02/26 [facility] CARDIAC Total CK 44 unit/L 12 - 191 02/26 EN[facility]YMES [facility] CARDIAC Troponin-I null 0.00 - 02/26 ENZYMES 0.40 [facility] CARDIAC CK MB Index null 0.0 - 2.5 02/26 ENZYMES [facility] ELECTROLYTE Potassium 3.5 meq/L 3.5 - 5.1 02/26 S Lvl [facility] ELECTROLYTE Sodium Lvl 143 meq/L 135 - 145 02/26 S [facility] ELECTROLYTE Calcium Lvl 8.3 mg/dL 8.5 - 10.5 02/26 S [facility] ELECTROLYTE Chloride Lvl 107 meq/L 95 - 109 02/26 S [facility] ELECTROLYTE Globulin 3.8 g/dL 2.0 - 4.0 02/26 [facility] ELECTROLYTE A/G Ratio 0.9 0.7 - 1.6 02/26 [facility] ELECTROLYTE eGFR 102 02/26 Result Comment: The eGFR is calculated using the CKD-EPI formula. In most young, healthy individuals the eGFR will be > 90 mL/min/1.73m2. The eGFR declines with age. An eGFR of 60-89 may be normal in mL/min/1.7 /2016 some populations, particularly the elderly, for whom the CKD-EPI formula has not been extensively validated. Use of the eGFR is not recommended in the following populations: [address] Individuals with unstable creatinine concentrations, including patients and those with serious co-morbid conditions. Patients with extremes in muscle mass or diet. The data above are obtained from the National Kidney Disease Education Program (NKDEP) which additionally recommends that when the eGFR is used in patients with extremes of body mass index for purposes of drug dosing, the eGFR should be multiplied by the estimated BMI. ELECTROLYTE Glucose Lvl 119 mg/dL 70 - 99 02/26 [facility] ELECTROLYTE Albumin Lvl 3.5 g/dL 3.5 - 5.0 02/26 [facility] ELECTROLYTE BUN 10 mg/dL 7 - 22 02/26 [facility] ELECTROLYTE Creatinine 0.77 mg/dL 0.50 - 02/26 Lvl 1.40 [facility] ELECTROLYTE CO2 26 meq/L 24 - 32 02/26 [facility] ELECTROLYTE Total 7.3 g/dL 6.4 - 8.4 02/26 S [facility] ELECTROLYTE ALT 31 unit/L 0 - 65 02/26 [facility] ELECTROLYTE AST 9 unit/L 0 - 37 02/26 [facility] ELECTROLYTE Alk Phos 77 unit/L 39 - 136 02/26 [facility] ELECTROLYTE Bili Total 0.2 mg/dL 0.2 - 1.3 02/26 [facility] ELECTROLYTE AGAP 13.5 meq/L 10.0 - 02/26 S 20.0 [facility] ELECTROLYTE B/C Ratio 13 6 - 25 02/26 [facility] HEMATOLOGY D-Dimer null 02/26 [facility] HEMATOLOGY MPV 7.5 fL 7.4 - 10.4 02/26 [facility] HEMATOLOGY WBC 7.6 K/CMM 3.7 - 10.4 02/26 [facility] HEMATOLOGY Hgb 12.6 g/dL 12.0 - 02/26 MH 16.0 /2015 [facility] HEMATOLOGY RBC 3.99 M/CMM 4.20 - 02/26 MH 5.40 /2015 [facility] HEMATOLOGY MCV 95.7 fL 80.0 - 02/26 MH 98.0 /2015 [facility] HEMATOLOGY MCHC 33.1 g/dL 32.0 - 02/26 MH 36.0 [facility] HEMATOLOGY RDW 12.6 % 11.5 - 02/26 MH 14.5 /2015 [facility] HEMATOLOGY MCH 31.7 pg 27.0 - 02/26 MH 31.0 [facility] HEMATOLOGY Platelet 287 K/CMM 133 - 450 02/26 [facility] HEMATOLOGY Hct 38.2 % 36.0 - 02/26 MH 48.0 /2015 [facility] HEMATOLOGY Monocytes 6.3 % 2.0 - 12.0 02/26 [facility] HEMATOLOGY Lymphocytes 2.7 K/CMM 1.0 - 5.5 02/26 MH # /2015 [facility] HEMATOLOGY Eosinophils 0.8 % 0.0 - 4.0 02/26 [facility] HEMATOLOGY Basophils 0.2 % 0.0 - 1.0 02/26 [facility] HEMATOLOGY Segs-Bands # 4.3 K/CMM 1.5 - 8.1 02/26 [facility] HEMATOLOGY Monocytes # 0.5 K/CMM 0.0 - 0.8 02/26 [facility] HEMATOLOGY Eosinophils 0.1 K/CMM 0.0 - 0.5 02/26 # /2015 [facility] HEMATOLOGY Basophils # 0.0 K/CMM 0.0 - 0.2 02/26 [facility] HEMATOLOGY Macrocyte 1+ None Seen 02/26 [facility]* [facility] (02/27/16 6:55 PM) HEMATOLOGY Segs 56.4 % 45.0 - 02/26 MH 75.0 [facility] HEMATOLOGY Lymphocytes 36.3 % 20.0 - 02/26 MH 40.0 [facility] Chest 1view Chest 1view Clinical History : , Chest pain 02/26 - DX DX /2015 - [facility] Exam : Portable AP view of the chest 02/27/2016 6:15 PM CDT Read by: Juni Hutchinson MD Dictated Date/time: 02/27/16 19:13 Electronically Signed by: Juni Hutchinson MD 02/27/16 19:13 FINAL REPORT Comparisons : none Findings : The lungs are clear without focal consolidation or pleural effusion. The heart is normal in size. The mediastinal contours are normal in appearance. The thoracic spine is age appropriate. The shoulders are unremarkable. Limited evaluation of the upper abdomen demonstrates no gross abnormalities. Impression: No acute cardiopulmonary disease Vital Signs Vital Sign Value Date Comments Source Temperature Oral (F) 98.0 F 02/28/2016 [facility] Systolic (mm Hg) 132 02/28/2016 [facility] Diastolic (mm Hg) 82 02/28/2016 [facility] Heart Rate 86 02/28/2016 [facility] Respitory Rate 18 02/28/2016 [facility] Heart Rate 112 02/27/2016 [facility] Respitory Rate 20 02/27/2016 [facility] Temperature Oral (F) 99.1 F 02/27/2016 [facility] Systolic (mm Hg) 146 02/27/2016 [facility] Diastolic (mm Hg) 90 02/27/2016 [facility] Weight 75 02/27/2016 [facility] Height 157.48 cm 02/27/2016 [facility] BMI Calculated 30.24 02/27/2016 [facility] Encounters Location Location Encounter Encounter Reason Attending ADM DC Status Source Details Type Number For Provider Date Date Visit [facility] [id number] Ejieroghene 02/26 02/27 [facility] [place] /2015 [facility] Hospital Procedures Procedure Code Date Perfomer Comments Source
--- OUTSIDE RECORDS SUMMARY | 2018-09-05 14:34 | XMS REPORT | Clinical Summary ---
:1985 Author Organization [facility] Address [address] [place] [address] Care Team Providers Name Role Phone Fany Escobar MD Primary Care Provider Allergies Active Allergy Reactions Severity Noted Date Comments Morphine 04/04/2018 Migraine Current Medications Prescription Sig. Disp. Refills Start Date End Date Status levoFLOXacin Take 1 tablet 4 tablet 0 03/30/2018 04/01/2018 (LEVAQUIN) 500 MG (500 mg tablet total) by mouth daily for 2 days. NON FORMULARY Take by 04/06/2018 Discontinued mouth. Flagyl, dose unknown Lactobacillus Take 1 tablet 90 tablet 0 04/06/2018 05/06/2018 acidoph-L.bulgar by mouth 3 (FLORANEX) 1 million (three) times cell tablet a day for 30 days. Active Problems Problem Noted Date Left lower quadrant pain 04/04/2018 Diverticulitis of large intestine without perforation or abscess without 06/20 bleeding Sigmoid stricture (HCC) 06/20/2017 Encounters Date Type Specialty Care Team Description 04/13/2018 Office Visit General Surgery Daisy Jalloh MD Diverticulitis of large intestine without perforation or abscess without bleeding (Primary Dx) 04/04/2018 - Emergency General Internal Mark Valentino Left lower quadrant 04/06/2018 Medicine Dereck RUFFIN MD pain (Primary Dx) Jeferson Albert MD Lakhva, Asma, MD Philips, Mary Clifford, MD 03/30/2018 Office Visit General Surgery Daisy Jalloh MD Diverticulitis of large intestine without perforation or abscess without bleeding (Primary Dx); Sigmoid stricture after 09/04/2017 Social History Tobacco Use Types Packs/Day Years Used Date Never Smoker Smokeless Tobacco: Never Used Alcohol Use Drinks/Week oz/Week Comments Yes socially Sex Assigned at Date Recorded Not on file Last Filed Vital Signs Vital Sign Reading Time Taken Blood Pressure 106/57 04/06/2018 11:39 AM CDT Pulse 54 04/06/2018 11:39 AM CDT Temperature 36.2 C (97.2 F) 04/06/2018 11:39 AM CDT Respiratory Rate 18 04/06/2018 11:39 AM CDT Oxygen Saturation 99% 04/06/2018 11:39 AM CDT Inhaled Oxygen Concentration - - Weight 79.4 kg (175 lb) 04/13/2018 11:02 AM CDT Height 162.6 cm (5' 4") 04/13/2018 11:02 AM CDT Body Mass Index 30.04 04/13/2018 11:02 AM CDT Plan of Treatment Date Type Specialty Care Team Description 10/12/2018 Office Visit [place] [id number] [id number] Health Maintenance Due Date Last Done Comments CERVICAL CANCER SCREENING 2004 INFLUENZA VACCINE 05/30/2018 Procedures Procedure Name Priority Date/Time Associated Comments Diagnosis ZZESTIMATED GFR Routine 04/06/2018 4:20 Results for this AM CDT procedure are in the results section. BASIC METABOLIC PANEL Routine 04/06/2018 4:20 Results for this AM CDT procedure are in the results section. HC COMPLETE BLD COUNT Routine 04/06/2018 4:20 Results for this W/AUTO DIFF AM CDT procedure are in the results section. GASTROINTESTINAL PANEL Routine 04/05/2018 10:00 Results for this PM CDT procedure are in the results section. ZZESTIMATED GFR Routine 04/05/2018 5:10 Results for this AM CDT procedure are in the results section. COMPREHENSIVE METABOLIC Routine 04/05/2018 5:10 Results for this PANEL AM CDT procedure are in the results section. HC COMPLETE BLD COUNT Routine 04/05/2018 5:10 Results for this W/AUTO DIFF AM CDT procedure are in the results section. LACTIC ACID LEVEL, Routine 04/05/2018 1:05 Results for this SEPSIS - NOW AND REPEAT AM CDT procedure are in 2X EVERY 3 HOURS the results section. CLOSTRIDIUM DIFFICILE Routine 04/04/2018 9:20 Results for this TOXIN PM CDT procedure are in the results section. URINALYSIS, AUTOMATED STAT 04/04/2018 8:30 Results for this WITH MICROSCOPY PM CDT procedure are in the results section. VENOUS BLOOD GAS Routine 04/04/2018 8:30 Results for this PM CDT procedure are in the results section. GRAM STAIN Routine 04/04/2018 8:30 Results for this PM CDT procedure are in the results section. URINE CULTURE Routine 04/04/2018 8:30 Results for this PM CDT procedure are in the results section. CT ABDOMEN PELVIS W STAT 04/04/2018 7:35 Results for this CONTRAST PM CDT procedure are in the results section. VENOUS BLOOD GAS STAT 04/04/2018 6:04 Results for this PM CDT procedure are in the results section. BLOOD CULTURE, AEROBIC & Routine 04/04/2018 5:48 Results for this ANAEROBIC PM CDT procedure are in the results section. BLOOD CULTURE, AEROBIC & Routine 04/04/2018 5:43 Results for this ANAEROBIC PM CDT procedure are in the results section. LACTIC ACID LEVEL, Timed 04/04/2018 5:42 Results for this SEPSIS - NOW AND REPEAT PM CDT procedure are in 2X EVERY 3 HOURS the results section. ZZESTIMATED GFR STAT 04/04/2018 5:00 Results for this PM CDT procedure are in the results section. LIPASE LEVEL STAT 04/04/2018 5:00 Results for this PM CDT procedure are in the results section. AMYLASE LEVEL STAT 04/04/2018 5:00 Results for this PM CDT procedure are in the results section. BETA HYDROXYBUTYRATE STAT 04/04/2018 5:00 Results for this PM CDT procedure are in the results section. HCG QUALITATIVE, SERUM STAT 04/04/2018 5:00 Results for this SCREEN PM CDT procedure are in the results section. PARTIAL THROMBOPLASTIN STAT 04/04/2018 5:00 Results for this TIME (PTT) PM CDT procedure are in the results section. PROTHROMBIN TIME WITH STAT 04/04/2018 5:00 Results for this INR PM CDT procedure are in the results section. MAGNESIUM LEVEL STAT 04/04/2018 5:00 Results for this PM CDT procedure are in the results section. COMPREHENSIVE METABOLIC STAT 04/04/2018 5:00 Results for this PANEL PM CDT procedure are in the results section. HC COMPLETE BLD COUNT STAT 04/04/2018 5:00 Results for this W/AUTO DIFF PM CDT procedure are in the results section. after 09/04/2017 Results Estimated GFR (04/06/2018 4:20 AM)Only the most recent of3 resultswithin the time period is included. GFR Non Af Amer >90 mL/min/1.73 m2 [facility] DEPARTMENT OF PATHOLOGY AND GENOMIC MEDICINE GFR Af Amer >90 mL/min/1.73 m2 [facility] DEPARTMENT OF Comment: PATHOLOGY AND GENOMIC Chronic kidney disease: <60 mL/min/1.73m2 MEDICINE Kidney failure: <15 mL/min/1.73m2 The estimated GFR is calculated from the IDMS-traceable Modification of Diet in Renal Disease Equation. The accuracy of the calculation is poor when the creatinine is normal. Calculated values >90 mL/min/1.73m2 are not reported. This equation has not been validated in children (<18 years), women, the elderly (>70 years), or ethnic groups other than Caucasians and Americans. Specimen Plasma specimen Performing Organization Address City/State/Zipcode Phone Number [facility] DEPARTMENT OF PATHOLOGY [address] [place] [address] AND [employer] [facility] CBC with platelet and differential (04/06/2018 4:20 AM)Only the most recent of3 resultswithin the time period is included. WBC 6.3 4.5 - 11.0 k/uL [facility] DEPARTMENT OF PATHOLOGY AND GENOMIC MEDICINE RBC 3.83 (L) 4.20 - 5.50 m/uL [facility] DEPARTMENT OF PATHOLOGY AND GENOMIC MEDICINE HGB 12.1 12.0 - 16.0 g/dL [facility] DEPARTMENT OF PATHOLOGY AND GENOMIC MEDICINE HCT 35.7 (L) 37.0 - 47.0 % [facility] DEPARTMENT OF PATHOLOGY AND GENOMIC MEDICINE MCV 93.2 82.0 - 100.0 fL [facility] DEPARTMENT OF PATHOLOGY AND GENOMIC MEDICINE MCH 31.6 27.0 - 34.0 pg [facility] DEPARTMENT OF PATHOLOGY AND GENOMIC MEDICINE MCHC 33.9 31.0 - 37.0 g/dL [facility] DEPARTMENT OF PATHOLOGY AND GENOMIC MEDICINE RDW - SD 43.8 37.0 - 55.0 fL [facility] DEPARTMENT OF PATHOLOGY AND GENOMIC MEDICINE MPV 9.2 6.9 - 11.0 fL [facility] DEPARTMENT OF PATHOLOGY AND GENOMIC MEDICINE Platelet count 257 150 - 400 K/uL [facility] DEPARTMENT OF PATHOLOGY AND GENOMIC MEDICINE Nucleated RBC 0.00 /100 WBC [facility] DEPARTMENT OF PATHOLOGY AND GENOMIC MEDICINE Neutrophils 52.9 39.0 - 69.0 % [facility] DEPARTMENT OF PATHOLOGY AND GENOMIC MEDICINE Lymphocytes 36.3 25.0 - 45.0 % [facility] DEPARTMENT OF PATHOLOGY AND GENOMIC MEDICINE Monocytes 7.6 0.0 - 10.0 % [facility] DEPARTMENT OF PATHOLOGY AND GENOMIC MEDICINE Eosinophils 2.7 0.0 - 5.0 % [facility] DEPARTMENT OF PATHOLOGY AND GENOMIC MEDICINE Basophils 0.3 0.0 - 1.0 % [facility] DEPARTMENT OF PATHOLOGY AND GENOMIC MEDICINE Immature granulocytes 0.2 0.0 - 1.0 % [facility] DEPARTMENT OF PATHOLOGY AND GENOMIC MEDICINE Specimen Blood Performing Organization Address City/[facility] Phone Number [facility] DEPARTMENT OF PATHOLOGY [address] [place] [address] AND [employer] Basic metabolic panel (04/06/2018 4:20 AM) Sodium 138 135 - 148 mEq/L [facility] DEPARTMENT OF PATHOLOGY AND GENOMIC MEDICINE Potassium 3.7 3.5 - 5.0 mEq/L [facility] DEPARTMENT OF PATHOLOGY AND GENOMIC MEDICINE Chloride 104 98 - 112 mEq/L [facility] DEPARTMENT OF PATHOLOGY AND GENOMIC MEDICINE CO2 21 (L) 24 - 31 mEq/L [facility] DEPARTMENT OF PATHOLOGY AND GENOMIC MEDICINE Anion gap 13@ANIO 7 - 15 mEq/L [facility] DEPARTMENT OF PATHOLOGY AND GENOMIC MEDICINE BUN 5 (L) 6 - 20 mg/dL [facility] DEPARTMENT OF PATHOLOGY AND GENOMIC MEDICINE Creatinine 0.7 0.5 - 0.9 mg/dL [facility] DEPARTMENT OF PATHOLOGY AND GENOMIC MEDICINE Glucose 83 65 - 99 mg/dL [facility] DEPARTMENT OF PATHOLOGY AND GENOMIC MEDICINE Calcium 8.1 (L) 8.3 - 10.2 mg/dL [facility] DEPARTMENT OF PATHOLOGY AND GENOMIC MEDICINE Specimen Plasma specimen Performing Organization Address City/[facility] Centercode Phone Number [facility] DEPARTMENT OF PATHOLOGY [address] [place] [id number] AND [employer] Gastrointestinal panel (04/05/2018 10:00 PM) Gastrointestinal panel Negative for all pathogens tested: [facility] DEPARTMENT OF Negative for Salmonella PATHOLOGY AND GENOMIC Negative for Campylobacter MEDICINE Negative for Diarrheagenic E coli/Shigella Negative for Shiga-like toxin-producing E coli Negative for Plesiomonas shigelloides Negative for Yersinia enterocolitica Negative for Vibrio species Negative for Clostridium difficile (Toxin A/B) Negative for Cryptosporidium Negative for Giardia lamblia Negative for Cyclospora cayeteanensis Negative for Entamoeba histolytica Negative for Adenovirus F 40/41 Negative for Astrovirus Negative for Norovirus GI/GII Negative for Rotavirus A Negative for Sapovirus Negative for Clostridium difficile toxin Negative for E coli 0157 This real-time PCR assay detects the presence of nucleic acids (RNA or DNA) for the gastrointestinal pathogens listed. A result of "Not-detected" does not exclude the possibility of the presence of one or more pathogens at concentrations less than the detectable limits of the assay. Comment: Specimen Information Specimen Source: Stool Specimen Site: Nonpreserved Specimen Stool - Nonpreserved Performing Organization Address City/State/Zipcode Phone Number [facility] DEPARTMENT OF PATHOLOGY AND [address] [place] [address] [employer] [facility] Comprehensive metabolic panel (04/05/2018 5:10 AM)Only the most recent of2 resultswithin the time period is included. Sodium 139 135 - 148 mEq/L [facility] DEPARTMENT OF PATHOLOGY AND GENOMIC MEDICINE Potassium 3.9 3.5 - 5.0 mEq/L [facility] DEPARTMENT OF PATHOLOGY AND GENOMIC MEDICINE Chloride 106 98 - 112 mEq/L [facility] DEPARTMENT OF PATHOLOGY AND GENOMIC MEDICINE CO2 22 (L) 24 - 31 mEq/L [facility] DEPARTMENT OF PATHOLOGY AND GENOMIC MEDICINE Anion gap 11@ANIO 7 - 15 mEq/L [facility] DEPARTMENT OF PATHOLOGY AND GENOMIC MEDICINE BUN 7 6 - 20 mg/dL [facility] DEPARTMENT OF PATHOLOGY AND GENOMIC MEDICINE Creatinine 0.7 0.5 - 0.9 mg/dL [facility] DEPARTMENT OF PATHOLOGY AND GENOMIC MEDICINE Glucose 86 65 - 99 mg/dL [facility] DEPARTMENT OF PATHOLOGY AND GENOMIC MEDICINE Calcium 7.9 (L) 8.3 - 10.2 mg/dL [facility] DEPARTMENT OF PATHOLOGY AND GENOMIC MEDICINE Protein 6.3 6.3 - 8.3 g/dL [facility] DEPARTMENT OF PATHOLOGY AND GENOMIC MEDICINE Albumin 3.3 (L) 3.5 - 5.0 g/dL [facility] DEPARTMENT OF PATHOLOGY AND GENOMIC MEDICINE A/G ratio 1.1 0.7 - 3.8 [facility] DEPARTMENT OF PATHOLOGY AND GENOMIC MEDICINE Alkaline phosphatase 61 35 - 104 U/L [facility] DEPARTMENT OF PATHOLOGY AND GENOMIC MEDICINE AST 18 10 - 35 U/L [facility] DEPARTMENT OF PATHOLOGY AND GENOMIC MEDICINE ALT 16 5 - 50 U/L [facility] DEPARTMENT OF PATHOLOGY AND GENOMIC MEDICINE Total bilirubin 0.5 0.2 - 1.2 mg/dL [facility] DEPARTMENT OF PATHOLOGY AND GENOMIC MEDICINE Specimen Plasma specimen Performing Organization Address City/[facility]/Zipcode Phone Number [facility] DEPARTMENT OF PATHOLOGY [address] [place] [address] AND [facility] Lactic acid level, SEPSIS - Now and repeat 2x every 3 hours (04/05/2018 1:05 AM )Only the most recent of2 resultswithin the time period is included. Lactic acid 0.6 0.5 - 2.2 mmol/L [facility] DEPARTMENT OF PATHOLOGY AND GENOMIC MEDICINE Specimen Plasma specimen Performing Organization Address City/[facility] Centercode Phone Number [facility] DEPARTMENT OF PATHOLOGY [id number] [place] [phone] AND [facility] C difficile toxin (04/04/2018 9:20 PM) Clostridium difficile No Clostridium difficle toxin present [facility] DEPARTMENT OF toxin Comment: PATHOLOGY AND GENOMIC Specimen Information MEDICINE Specimen Source: Stool Specimen Site: Nonpreserved Specimen Stool - Nonpreserved Performing Organization Address City/[facility] Centercode Phone Number [facility] DEPARTMENT OF PATHOLOGY AND [address] [place] [phone] [place] [address] MEDICINE Urinalysis, automated with microscopy (04/04/2018 8:30 PM) Color, UA Yellow [facility] DEPARTMENT OF PATHOLOGY AND GENOMIC MEDICINE Appearance, UA Sl Cloudy [facility] DEPARTMENT OF PATHOLOGY AND GENOMIC MEDICINE Specific gravity, UA 1.014 1.001 - 1.030 [facility] DEPARTMENT OF PATHOLOGY AND GENOMIC MEDICINE pH, UA 6.0 5.0 - 9.0 [facility] DEPARTMENT OF PATHOLOGY AND GENOMIC MEDICINE Protein, UA Negative Negative [facility] DEPARTMENT OF PATHOLOGY AND GENOMIC MEDICINE Glucose, UA Negative Negative [facility] DEPARTMENT OF PATHOLOGY AND GENOMIC MEDICINE Ketones, UA Negative Negative [facility] DEPARTMENT OF PATHOLOGY AND GENOMIC MEDICINE Bilirubin, UA Negative Negative [facility] DEPARTMENT OF PATHOLOGY AND GENOMIC MEDICINE Blood, UA Negative Negative [facility] DEPARTMENT OF PATHOLOGY AND GENOMIC MEDICINE Nitrite, UA Negative Negative [facility] DEPARTMENT OF PATHOLOGY AND GENOMIC MEDICINE Urobilinogen, UA <2.0 <2.0 E.U./dL [facility] DEPARTMENT OF PATHOLOGY AND GENOMIC MEDICINE Leukocyte esterase, UA Moderate (A) Negative [facility] DEPARTMENT OF PATHOLOGY AND GENOMIC MEDICINE Epithelial cells, UA 7 /HPF [facility] DEPARTMENT OF PATHOLOGY AND GENOMIC MEDICINE Round epithelial cells, UA <1 0 - 5 /HPF [facility] DEPARTMENT OF PATHOLOGY AND GENOMIC MEDICINE WBC, UA 3 0 - 4 /HPF [facility] DEPARTMENT OF PATHOLOGY AND GENOMIC MEDICINE RBC, UA 1 0 - 5 /HPF [facility] DEPARTMENT OF PATHOLOGY AND GENOMIC MEDICINE Bacteria, UA Few None seen [facility] DEPARTMENT OF PATHOLOGY AND GENOMIC MEDICINE Yeast, UA None seen [facility] DEPARTMENT OF PATHOLOGY AND GENOMIC MEDICINE Yeast with pseudohyphae, UA None seen [facility] DEPARTMENT OF PATHOLOGY AND GENOMIC MEDICINE Specimen Urine Performing Organization Address City/[facility]/Zipcode Phone Number [facility] DEPARTMENT OF PATHOLOGY [address] [place] [address] AND GENOMIC MEDICINE Gram stain (04/04/2018 8:30 PM) Gram stain result Few WBC's [facility] DEPARTMENT OF PATHOLOGY Occasional Gram positive rods AND GENOMIC MEDICINE Comment: Specimen Information Specimen Source: Urine Specimen Site: Urine, clean catch Specimen Urine - Urine, clean catch Performing Organization Address City/[facility]ercode Phone Number [facility] DEPARTMENT OF PATHOLOGY AND [address] [place] [phone] [place] [address] MEDICINE Urine culture (04/04/2018 8:30 PM) Urine culture isolate Lactobacillus species [facility] DEPARTMENT OF 10-4 cfu/ml PATHOLOGY AND GENOMIC (A) MEDICINE Comment: Specimen Information Specimen Source: Urine Specimen Site: Urine, clean catch Urine culture isolate Mixed Gram positive kim [facility] DEPARTMENT OF <10-1 cfu/ml PATHOLOGY AND GENOMIC (A) MEDICINE Specimen Urine - Urine, clean catch Performing Organization Address City/[facility] Centercoco Phone Number [facility] DEPARTMENT OF PATHOLOGY AND [address] [place] [phone] [facility] Venous blood gas (04/04/2018 8:30 PM)Only the most recent of2 resultswithin the time period is included. pH, venous 7.37 7.32 - 7.42 [facility] DEPARTMENT OF PATHOLOGY AND GENOMIC MEDICINE pCO2, venous 43 (L) 45 - 51 mmHg [facility] DEPARTMENT OF PATHOLOGY AND GENOMIC MEDICINE pO2, venous 51 (H) 25 - 40 mmHg [facility] DEPARTMENT OF PATHOLOGY AND GENOMIC MEDICINE Base excess, venous -1 -2 - 2 mEq/L [facility] DEPARTMENT OF PATHOLOGY AND GENOMIC MEDICINE O2 saturation, venous 83 (H) 40 - 70 % [facility] DEPARTMENT OF PATHOLOGY AND GENOMIC MEDICINE Bicarbonate, venous 23.9 21.0 - 28.0 mmol/L [facility] DEPARTMENT OF PATHOLOGY AND GENOMIC MEDICINE Specimen Blood Performing Organization Address City/[facility] Centercode Phone Number [facility] DEPARTMENT OF PATHOLOGY [address] [facility] [place] [address] [address] [employer] MEDICINE CT Abdomen Pelvis W Contrast (04/04/2018 7:35 PM) Narrative Performed At EXAMINATION:CT ABDOMEN PELVIS W CONTRAST [facility] CLINICAL HISTORY:IV and PO contrastAbdominal painLLQ2 weekshx of diverticulitiscurrently taking abx without improvement TECHNIQUE: Multiple axial images of the abdomen and pelvis were obtained following intravenous administration of iodinated contrast. Sagittal and coronal computerized reformatted images were also obtained. CT imaging was performed with iterative reconstruction technique and/or automated exposure control to reduce radiation dose. COMPARISON:06/20/2017 FINDINGS: Abdomen: Heart size is within normal limits.. Lung bases are within normal limits.. Liver is fatty. Gallbladder is absent. Spleen, pancreas, and adrenals are within normal limits. Kidneys are also within normal limits. The abdominal aorta is unremarkable. Appendix is not seen. Pelvis: There is no enlarged pelvic lymph node.Bladder is unremarkable.Bones are age appropriate.Sigmoid diverticula are present without evidence of diverticulitis. IMPRESSION: Fatty liver. [facility]-[id number] Procedure Note Interface, Radiology Results Incoming - 04/04/2018 7:53 PM CDT EXAMINATION: CT ABDOMEN PELVIS W CONTRAST CLINICAL HISTORY: IV and PO contrast Abdominal pain LLQ 2 weeks hx of diverticulitis currently taking abx without improvement TECHNIQUE: Multiple axial images of the abdomen and pelvis were obtained following intravenous administration of iodinated contrast. Sagittal and coronal computerized reformatted images were also obtained. CT imaging was performed with iterative reconstruction technique and/or automated exposure control to reduce radiation dose. COMPARISON: 06/20/2017 FINDINGS: Abdomen: Heart size is within normal limits.. Lung bases are within normal limits.. Liver is fatty. Gallbladder is absent. Spleen, pancreas, and adrenals are within normal limits. Kidneys are also within normal limits. The abdominal aorta is unremarkable. Appendix is not seen. Pelvis: There is no enlarged pelvic lymph node. Bladder is unremarkable. Bones are age appropriate. Sigmoid diverticula are present without evidence of diverticulitis. IMPRESSION: Fatty liver. [facility]-[id number] Performing Organization Address City/State/Zipcode Phone Number [facility] [address] [place] [address] Blood culture, aerobic & anaerobic (04/04/2018 5:48 PM)Only the most recent of2 resultswithin the time period is included. Blood culture isolate No growth after 5 days of incubation. [facility] DEPARTMENT OF Comment: PATHOLOGY AND GENOMIC Specimen Information MEDICINE Specimen Source: Blood Specimen Site: Antecubital, right Specimen Blood - Antecubital, right Performing Organization Address City/State/Zipcode Phone Number [facility] DEPARTMENT OF PATHOLOGY AND [address] [place] [address] [facility] MEDICINE Beta hydroxybutyrate (04/04/2018 5:00 PM) Beta hydroxybutyrate 0.05 0.02 - 0.27 mmol/L [facility] DEPARTMENT OF PATHOLOGY AND GENOMIC MEDICINE Specimen Blood Performing Organization Address [facility] Centercode Phone Number [facility] DEPARTMENT OF PATHOLOGY [address] [place] [address] AND [facility] Partial thromboplastin time, activated (04/04/2018 5:00 PM) PTT 27.9 23.0 - 36.0 sec [facility] DEPARTMENT OF Comment: PATHOLOGY AND GENOMIC PTT therapeutic range for unfractionated heparin is MEDICINE 61.0-112.0 seconds which corresponds to Anti-Xa 0.3-0.7 U/ml. Specimen Blood Performing Organization Address [facility] Centercode Phone Number [facility] DEPARTMENT OF PATHOLOGY [address] [place] [address] AND [facility] Prothrombin time with INR (04/04/2018 5:00 PM) Prothrombin time 12.1 12.0 - 15.0 sec [facility] DEPARTMENT OF PATHOLOGY AND GENOMIC MEDICINE INR 0.9 [facility] DEPARTMENT OF Comment: PATHOLOGY AND GENOMIC The International Normalized Ratio (INR) is a therapeutic MEDICINE monitoring tool for patients who are stable on oral anticoagulant therapy. An INR of 2.0-3.0 is suggested for deep vein thrombosis/pulmonary embolism. Specimen Blood Performing Organization Address City/[facility] Centercode Phone Number [facility] DEPARTMENT OF PATHOLOGY [phone] [place] [address] AND [facility] hCG qualitative, serum screen (04/04/2018 5:00 PM) hCG qualitative, serum NegativeComment: [facility] DEPARTMENT OF Sensitivity of HCG test: 25 PATHOLOGY AND GENOMIC mIU/mL MEDICINE Specimen Blood Performing Organization Address City/[facility] Cent[facility]ode Phone Number [facility] DEPARTMENT OF PATHOLOGY [address] [place] [address]. [place] [address] AND GENOMIC MEDICINE Magnesium level (04/04/2018 5:00 PM) Magnesium 2.1 1.6 - 2.6 mg/dL [facility] DEPARTMENT OF PATHOLOGY AND GENOMIC MEDICINE Specimen Plasma specimen Performing Organization Address City/[facility]/Zipcode Phone Number [facility] DEPARTMENT OF PATHOLOGY [address] [place] [address]. [place] [address] AND GENOMIC MEDICINE Lipase level (04/04/2018 5:00 PM) Lipase 20 13 - 60 U/L [facility] DEPARTMENT OF PATHOLOGY AND GENOMIC MEDICINE Specimen Plasma specimen Performing Organization Address City/[facility] Centercode Phone Number [facility] DEPARTMENT OF PATHOLOGY [address] [place] [address]. [place] [address] AND GENOMIC MEDICINE Amylase level (04/04/2018 5:00 PM) Amylase 22 13 - 73 U/L [facility] DEPARTMENT OF PATHOLOGY AND GENOMIC MEDICINE Specimen Plasma specimen Performing Organization Address [facility] Centercoco Phone Number [facility] DEPARTMENT OF PATHOLOGY [address] [place] [address]. [place] [address] AND GENOMIC MEDICINE after 09/04/2017 Insurance Payer Benefit Plan / Group Subscriber ID Type Phone Address AETNA AETNA HMO,POS,EPO, MC/EC xxxxxxxxxx HMO MEDICAID MEDICAID xxxxxxxxx Medicaid Home: [address] [phone] [place] [id number]
--- NOTE | 2018-09-05 16:11 | EDPHYS ---
Physician Documentation [facility] Name: Mary Torres Age: 33 yrs Sex: Female : 1985 Arrival Date: 09/05/2018 Time: 14:20 Bed 28 Private MD: Fany Escobar K ED Physician Conor Tam HPI: 09/05 15:38 This 33 yrs old Female presents to ER via Ambulatory with complaints of Flu kb Symptoms. 15:38 The patient presents with sore throat. The patient describes throat pain as constant. kb Onset: The symptoms/episode began/occurred yesterday. Severity of symptoms: At their worst the symptoms were moderate, in the emergency department the symptoms are unchanged. Modifying factors: The symptoms are alleviated by nothing, the symptoms are aggravated by swallowing, Patient's oral intake status: good. Associated signs and symptoms: Pertinent positives: cough, fever, flu-like symptoms, myalgias, headache, Sore throat. The patient has not experienced similar symptoms in the past. The patient has not recently seen a physician. 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 - Social history:: Smoking status: Patient/guardian denies using tobacco. - Ebola Screening: : Patient denies travel to an Ebola-affected area in the 21 days before illness onset. ROS: 15:38 Neck: Negative for injury, pain, and swelling, Cardiovascular: Negative for chest pain, kb palpitations, and edema, Abdomen/GI: Negative for abdominal pain, nausea, vomiting, diarrhea, and constipation, Back: Negative for injury and pain, MS/Extremity: Negative for injury and deformity, Skin: Negative for injury, rash, and discoloration. 15:38 Constitutional: Positive for body aches, fatigue, fever, malaise, Negative for chills, poor PO intake, weight loss. 15:38 ENT: Positive for sore throat. 15:38 Respiratory: Positive for cough, with no reported sputum. 15:38 Neuro: Positive for headache. Exam: 15:38 Constitutional: This is a well developed, well nourished patient who is awake, alert, kb and in no acute distress. Head/Face: Normocephalic, atraumatic. ENT: Nares patent. No nasal discharge, no septal abnormalities noted. Tympanic membranes are normal and external auditory canals are clear. Oropharynx with no redness, swelling, or masses, exudates, or evidence of obstruction, uvula midline. Mucous membranes moist. Neck: Trachea midline, no thyromegaly or masses palpated, and no cervical lymphadenopathy. Supple, full range of motion without nuchal rigidity, or vertebral point tenderness. No Meningismus. Chest/axilla: Normal chest wall appearance and motion. Nontender with no deformity. No lesions are appreciated. Cardiovascular: Regular rate and rhythm with a normal S1 and S2. No gallops, murmurs, or rubs. Normal PMI, no JVD. No pulse deficits. Respiratory: Lungs have equal breath sounds bilaterally, clear to auscultation and percussion. No rales, rhonchi or wheezes noted. No increased work of breathing, no retractions or nasal flaring. Abdomen/GI: Soft, non-tender, with normal bowel sounds. No distension or tympany. No guarding or rebound. No evidence of tenderness throughout. Skin: Warm, dry with normal turgor. Normal color with no rashes, no lesions, and no evidence of cellulitis. MS/ Extremity: Pulses equal, no cyanosis. Neurovascular intact. Full, normal range of motion. Neuro: Awake and alert, GCS 15, oriented to person, place, time, and situation. Cranial nerves II-XII grossly intact. Motor strength 5/5 in all extremities. Sensory grossly intact. Cerebellar exam normal. Normal gait. Vital Signs: 14:39 BP 119 / 76; Pulse 80; Resp 16; Temp 98.4; Pulse Ox 100% on R/A; Weight 83.91 kg (R); aj1 Height 5 ft. 2 in. (157.48 cm) (R); Pain 8/10; 14:39 Body Mass Index 33.84 (83.91 kg, 157.48 cm) aj1 MDM: 14:41 Patient medically screened. kb 15:39 Data reviewed: vital signs, nurses notes. Data interpreted: Pulse oximetry: on room air kb is 100 %. Interpretation: normal. 16:10 Counseling: I had a detailed discussion with the patient and/or guardian regarding: the kb historical points, exam findings, and any diagnostic results supporting the discharge/admit diagnosis, lab results, the need for outpatient follow up, a family practitioner, to return to the emergency department if symptoms worsen or persist or if there are any questions or concerns that arise at home. 09/05 15:03 Order name: Strep; Complete Time: 15:29 kb 09/05 15:03 Order name: Flu; Complete Time: 16:05 kb 09/05 15:27 Order name: Throat Culture EDMS Administered Medications: No medications were administered Disposition: 16:54 Co-signature as Attending Physician, Conor Tam MD. rn Disposition: 09/05/18 16:10 Discharged to Home. Impression: Acute pharyngitis. - Condition is Stable. - Discharge Instructions: Pharyngitis, [id number], Viral Respiratory Infection, [id number]. - Medication Reconciliation Form, Thank You Letter, Antibiotic Education, Prescription Opioid Use form. - Follow up: Emergency Department; When: As needed; Reason: Worsening of condition. Follow up: Private Physician; When: 2 - 3 days; Reason: Recheck today's complaints, Continuance of care, Re-evaluation by your physician. Signatures: Dispatcher [employer] EDMS Becka Seay, PROTECTION SPECIALIST-C PROTECTION SPECIALIST-Monet Echevarria RN RN aj1 Conor Tam MD MD rn Reaves, Karey, RN RN kr2 Corrections: (The following items were deleted from the chart) 16:14 16:10 09/05/2018 16:10 Discharged to Home. Impression: Acute pharyngitis. Condition is kr2 Stable. Forms are Medication Reconciliation Form, Thank You Letter, Antibiotic Education, Prescription Opioid Use. Follow up: Emergency Department; When: As needed; Reason: Worsening of condition. Follow up: Private Physician; When: 2 - 3 days; Reason: Recheck today's complaints, Continuance of care, Re-evaluation by your physician. kb
--- NOTE | 2018-09-05 16:11 | ER ---
Nurse's Notes [facility] Name: Mary Torres Age: 33 yrs Sex: Female : 1985 Arrival Date: 09/05/2018 Time: 14:20 Bed 28 Private MD: Fany Escobar K Diagnosis: Acute pharyngitis Presentation: 09/05 14:35 Presenting complaint: Patient states: Sore throat, headache, body aches, fever, nausea aj1 since yesterday. TMax of 101.2. Transition of care: patient was not received from another setting of care. Onset of symptoms was September 04, 2018. Risk Assessment: Do you want to hurt yourself or someone else? Patient reports no desire to harm self or others. Initial Sepsis Screen: Does the patient meet any 2 criteria? No. Patient's initial sepsis screen is negative. Does the patient have a suspected source of infection? No. Patient's initial sepsis screen is negative. Care prior to arrival: None. 14:35 Method Of Arrival: Ambulatory aj1 14:35 Acuity: MARCELA 4 aj1 Triage Assessment: 14:39 General: Appears in no apparent distress. comfortable, Behavior is calm, cooperative, aj1 appropriate for age. Pain: Pain currently is 8 out of 10 on a pain scale. EENT: Reports difficulty swallowing sore throat. Neuro: Level of Consciousness is awake, alert, obeys commands. Cardiovascular: Patient's skin is warm and dry. Respiratory: Airway is patent Respiratory effort is even, unlabored, Respiratory pattern is regular, symmetrical. 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 - Social history:: Smoking status: Patient/guardian denies using tobacco. - Ebola Screening: : Patient denies travel to an Ebola-affected area in the 21 days before illness onset. Screenin:45 Abuse screen: Denies threats or abuse. Denies injuries from another. Nutritional kr2 screening: No deficits noted. Tuberculosis screening: No symptoms or risk factors identified. Fall Risk None identified. Assessment: 14:45 General: Appears in no apparent distress. comfortable, well groomed, well developed, kr2 Behavior is calm, cooperative, appropriate for age. Pain: Complains of pain in entire body Pain currently is 6 out of 10 on a pain scale. Quality of pain is described as aching, Pain began 1 day ago. Is continuous, Alleviated by nothing. Neuro: Level of Consciousness is awake, alert, obeys commands, Oriented to person, place, time, situation. Cardiovascular: Capillary refill < 3 seconds in bilateral fingers Patient's skin is warm and dry. Respiratory: Reports cough that is dry, Airway is patent Respiratory effort is even, unlabored, Respiratory pattern is regular, symmetrical. GI: Abdomen is flat, non-distended, Reports nausea, Patient currently denies vomiting. : Denies burning with urination. EENT: Nares are clear bilaterally Oral mucosa is moist. EENT: Throat is pink. Derm: Skin is intact, is healthy with good turgor, Skin is pink, warm \T\ dry. Musculoskeletal: Circulation, motion, and sensation intact. 16:03 Reassessment: Patient appears in no apparent distress at this time. Patient and/or kr2 family updated on plan of care and expected duration. Pain level reassessed. Patient is alert, oriented x 3, equal unlabored respirations, skin warm/dry/pink. Vital Signs: 14:39 BP 119 / 76; Pulse 80; Resp 16; Temp 98.4; Pulse Ox 100% on R/A; Weight 83.91 kg (R); aj1 Height 5 ft. 2 in. (157.48 cm) (R); Pain 8/10; 14:39 Body Mass Index 33.84 (83.91 kg, 157.48 cm) aj1 ED Course: 14:20 Patient arrived in ED. as 14:21 Fany Escobar MD is Private Physician. as 14:38 Triage completed. aj1 14:38 Becka Seay FNP-C [facility]. kb 14:38 Conor Tam MD is Attending Physician. kb 14:39 Arm band placed on Patient placed in an exam room. aj1 14:45 Patient has correct armband on for positive identification. Bed in low position. Call kr2 light in reach. Side rails up X 1. Pulse ox on. NIBP on. Head of bed elevated. 16:01 Janneth Castorena, RN is Primary Nurse. kr2 16:14 No provider procedures requiring assistance completed. Patient did not have IV access kr2 during this emergency room visit. Administered Medications: No medications were administered Outcome: 16:10 Discharge ordered by . kb 16:14 Discharged to home ambulatory. kr2 16:14 Condition: good 16:14 Discharge instructions given to patient, Instructed on discharge instructions, follow up and referral plans. Demonstrated understanding of instructions, follow-up care. 16:14 Patient left the ED. kr2 Signatures: Becka Seay, PRECINCT POLICE CAPTAIN-C PRECINCT POLICE CAPTAIN-CkMonet Coronel, RN RN aj1 Swati Ambrosio as Janneth Castorena, RN RN kr2
== END 2018-09-05 16:14 | disposition home or self-care (01) ==
LOC: ER 14:18
DX: J02.9 Acute pharyngitis, unspecified (principal); Z88.5 Allergy status to narcotic agent
CPT/HCPCS: 87070; 87081; 87804; 99283

== ENCOUNTER 2019-01-12 17:46 | Emergency (ER) | payer BC ==
--- OUTSIDE RECORDS SUMMARY | 2019-01-12 17:49 | XMS REPORT | Clinical Summary ---
:1985 Author Organization [facility] Address [address] [place] [address] Care Team Providers Name Role Phone Fany Escobar MD Primary Care Provider Allergies Active Allergy Reactions Severity Noted Date Comments Morphine 04/04/2018 Migraine Medications Medication Sig Dispensed Refills Start Date End Date Status levoFLOXacin Take 1 tablet 4 tablet 0 03/30/2018 (LEVAQUIN) 500 MG (500 mg total) 8 tablet by mouth daily for 2 days. NON FORMULARY Take by mouth. 0 Discontinued Flagyl, dose 8 unknown Lactobacillus Take 1 tablet 90 tablet 0 04/06/2018 acidoph-L.bulgar by mouth 3 8 (FLORANEX) 1 million (three) times cell tablet a day for 30 days. acetaminophen-codein Take 1-2 15 tablet 0 10/13/2018 e (TYLENOL WITH tablets by 8 CODEINE #3) 300-30 mouth every 6 mg per tablet (six) hours as needed for moderate pain for up to 4 days. ondansetron ODT Take 1 tablet 15 tablet 0 10/13/2018 (ZOFRAN ODT) 4 MG (4 mg total) 8 disintegrating by mouth every tablet 8 (eight) hours as needed for nausea or vomiting for up to 5 days. 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 Encounters Date Type Specialty Care Team Description 10/12/2018 - Emergency Emergency Medicine Ayush Herring, Left lower quadrant 10/13/2018 pain (Primary Dx) 04/13/2018 Office Visit General Surgery Daisy Jalloh [...] without bleeding (Primary Dx); Sigmoid stricture after 01/11/2018 Social History Tobacco Use Types Packs/Day Years Used Date Never Smoker Smokeless Tobacco: Never Used Alcohol Use Drinks/Week oz/Week Comments Yes socially Sex Assigned at Date Recorded Not on file Job Start Date Occupation Industry Not on file Not on file Not on file Travel History Travel Start Travel End No recent travel history available. Last Filed Vital Signs Vital Sign Reading Time Taken Blood Pressure 128/82 10/13/2018 1:50 AM [employer] Pulse 67 10/13/2018 1:50 AM [employer] Temperature 35.7 C (96.3 F) 10/13/2018 12:37 AM [employer] Respiratory Rate 16 10/13/2018 1:50 AM [employer] Oxygen Saturation 100% 10/13/2018 1:50 AM [employer] Inhaled Oxygen Concentration - - Weight 79.4 kg (175 lb) 04/13/2018 11:02 AM CDT Height 162.6 cm (5' 4") 04/13/2018 11:02 AM CDT Body Mass Index 30.04 04/13/2018 11:02 AM CDT Plan of Treatment Health Maintenance Due Date Last Done Comments CERVICAL CANCER SCREENING 2004 INFLUENZA VACCINE 05/30/2018 Procedures Procedure Name Priority Date/Time Associated Comments Diagnosis CT ABDOMEN PELVIS W STAT 10/13/2018 12:32 Results for this CONTRAST AM [employer] procedure are in the results section. ESTIMATED GFR STAT 10/12/2018 11:15 Results for this PM [employer] procedure are in the results section. LIPASE LEVEL STAT 10/12/2018 11:15 Results for this PM [employer] procedure are in the results section. AMYLASE LEVEL STAT 10/12/2018 11:15 Results for this PM [employer] procedure are in the results section. COMPREHENSIVE METABOLIC STAT 10/12/2018 11:15 Results for this PANEL PM [employer] procedure are in the results section. HC COMPLETE BLD COUNT STAT 10/12/2018 11:15 Results for this W/AUTO DIFF PM [employer] procedure are in the results section. URINALYSIS SCREEN AND STAT 10/12/2018 8:50 Results for this MICROSCOPY, WITH REFLEX PM [employer] procedure are in TO CULTURE the results section. HCG QUALITATIVE, URINE STAT 10/12/2018 8:50 Results for this SCREEN PM [employer] procedure are in the results section. URINE CULTURE STAT 10/12/2018 8:50 Results for this PM [employer] procedure are in the results section. ZZESTIMATED GFR Routine 04/06/2018 4:20 Results for [...] procedure are in the results section. after 01/11/[address] Abdomen Pelvis W Contrast (10/13/2018 12:32 AM [employer])Only the most recent of2 resultswithin the time period is included. Narrative Performed At CT ABDOMEN PELVIS W CONTRAST [facility] CLINICAL INDICATION:LLQ Abdominal Painhistory of diverticulitis TECHNIQUE: Multidetector CT of the abdomen and pelvis was performed following intravenous administration of iodinated contrast with multiplanar reformats. CT scans are performed using radiation dose reduction techniques (iterative reconstruction and/or automated exposure control). Technical factors are evaluated and adjusted to ensure appropriate moderation of exposure. Automated dose management technology is applied to adjust radiation exposure while achieving a diagnostic quality image. COMPARISON:10/13/2018 abdomen/pelvis CT. FINDINGS: Lung bases:Clear. Liver:Normal. Gallbladder and biliary:The gallbladder is absent. Clips within the gallbladder fossa. Pancreas:Normal. Spleen:Normal. Gastrointestinal:Large and small bowel are normal in caliber. Diffuse colon diverticulosis without evidence of acute inflammatory change. Prior appendectomy. Adrenals:Normal. Kidneys and ureters:No mass or hydronephrosis. Urinary bladder:Normal. Lymph nodes:No enlarged lymph nodes in the abdomen or pelvis. Peritoneum:No ascites or free air. Vascular:Unremarkable. Reproductive organs:Uterus is normal. Unremarkable adnexae. Abdominal wall:Unremarkable. Bones:No acute osseous abnormalities. IMPRESSION: Negative CT for acute pathology within the abdomen and pelvis. [facility]-[id number] Procedure Note Interface, Radiology Results Incoming - 10/13/2018 12:[address] [address] ABDOMEN PELVIS W CONTRAST CLINICAL INDICATION: LLQ Abdominal Pain history of diverticulitis TECHNIQUE: Multidetector CT of the abdomen and pelvis was performed following intravenous administration of iodinated contrast with multiplanar reformats. CT scans are performed using radiation dose reduction techniques (iterative reconstruction and/or automated exposure control). Technical factors are evaluated and adjusted to ensure appropriate moderation of exposure. Automated dose management technology is applied to adjust radiation exposure while achieving a diagnostic quality image. COMPARISON: 10/13/2018 abdomen/pelvis CT. FINDINGS: Lung bases: Clear. Liver: Normal. Gallbladder and biliary: The gallbladder is absent. Clips within the gallbladder fossa. Pancreas: Normal. Spleen: Normal. Gastrointestinal: Large and small bowel are normal in caliber. Diffuse colon diverticulosis without evidence of acute inflammatory change. Prior appendectomy. Adrenals: Normal. Kidneys and ureters: No mass or hydronephrosis. Urinary bladder: Normal. Lymph nodes: No enlarged lymph nodes in the abdomen or pelvis. Peritoneum: No ascites or free air. Vascular: Unremarkable. Reproductive organs: Uterus is normal. Unremarkable adnexae. Abdominal wall: Unremarkable. Bones: No acute osseous abnormalities. IMPRESSION: Negative CT for acute pathology within the abdomen and pelvis. [facility]-[id number] Performing Organization Address City/State/Zipcode Phone Number [facility] [address] [place] [address] Estimated GFR (10/12/2018 11:15 PM [employer]) Estimated GFR >=90 mL/min/1.73 m2 [facility] CatergoryUnitsInterpretation G1 >=90 Normal or high G2 60-89Mildly decreased [id number] to moderately decreased [id number] to severely decreased G4 15-29Severely decreased G5 <15Kidney failure The eGFR was calculated using the Chronic Kidney Disease Epidemiology Collaboration (CKD-EPI) equation. Interpretation is based on recommendations of the National Kidney Foundation-Kidney Disease Outcomes Quality Initiative (NKF-KDOQI) published in 2014. Specimen Plasma specimen Performing Organization Address City/State/Zipcode Phone Number [facility] DEPARTMENT OF PATHOLOGY [address] [place] [address] AND GENOMIC MEDICINE [facility] [address] [place] [address] HOSPITAL CBC with platelet and differential (10/12/2018 11:15 PM [employer])Only the most recent of4 resultswithin the time period is included. WBC 9.8 4.5 - 11.0 k/uL [facility] RBC 4.11 (L) 4.20 - 5.50 m/uL [facility] HGB 13.0 12.0 - 16.0 g/dL [facility] HCT 39.1 37.0 - 47.0 % [facility] MCV 95.1 82.0 - 100.0 fL [facility] MCH 31.6 27.0 - 34.0 pg [facility] MCHC 33.2 31.0 - 37.0 g/dL [facility] RDW - SD 42.9 37.0 - 55.0 fL [facility] MPV 9.8 6.9 - 11.0 fL [facility] Platelet count 295 150 - 400 K/uL [facility] Nucleated RBC 0.00 /100 WBC [facility] Neutrophils 52.4 39.0 - 69.0 % [facility] Lymphocytes 38.7 25.0 - 45.0 % [facility] Monocytes 6.4 0.0 - 10.0 % [facility] Eosinophils 2.0 0.0 - 5.0 % [facility] Basophils 0.3 0.0 - 1.0 % [facility] Immature granulocytes 0.2 0.0 - 1.0 % [facility] Specimen Blood Performing Organization Address City/State/Zipcode Phone Number [facility] DEPARTMENT OF PATHOLOGY [address] [place] [address] Lipase level (10/12/2018 11:15 PM [employer])Only the most recent of2 resultswithin the time period is included. Lipase 25 13 - 60 U/L [facility] Specimen Plasma specimen Performing Organization Address City/[facility]/Zipcode Phone Number [facility] DEPARTMENT OF PATHOLOGY [address] [place] [address] Amylase level (10/12/2018 11:15 PM [employer])Only the most recent of2 resultswithin the time period is included. Amylase 23 13 - 73 U/L [facility] Specimen Plasma specimen Performing Organization Address City/[facility] Phone Number [facility] DEPARTMENT OF PATHOLOGY [address] [place] [address] Comprehensive metabolic panel (10/12/2018 11:15 PM [employer])Only the most recent of3 resultswithin the time period is included. Sodium 139 135 - 148 mEq/L [facility] Potassium 4.1 3.5 - 5.0 mEq/L [facility] Chloride 102 98 - 112 mEq/L [facility] CO2 25 24 - 31 mEq/L [facility] Anion gap 12@ANIO 7 - 15 mEq/L [facility] BUN 12 6 - 20 mg/dL [facility] Creatinine 0.76 0.50 - 0.90 mg/dL [facility] Glucose 93 65 - 99 mg/dL [facility] Calcium 9.5 8.3 - 10.2 mg/dL [facility] Protein 7.8 6.3 - 8.3 g/dL [facility] Albumin 4.5 3.5 - 5.0 g/dL [facility] A/G ratio 1.4 0.7 - 3.8 [facility] Alkaline phosphatase 82 35 - 104 U/L [facility] AST 19 10 - 35 U/L [facility] ALT 12 5 - 50 U/L [facility] Total bilirubin <0.2 0.2 - 1.2 mg/dL [facility] Specimen Plasma specimen Performing Organization Address City/[facility]/Zipcode Phone Number [facility] DEPARTMENT OF PATHOLOGY [address] [place] [address] AND GENOMIC MEDICINE [facility] [address] Urinalysis screen and microscopy, with reflex to culture (10/12/2018 8:50 PM [employer]) Specimen site Clean catch [facility] Color, UA Straw [facility] Appearance, UA Clear [facility] Specific gravity, UA 1.009 1.001 - 1.030 [facility] pH, UA 7.0 5.0 - 9.0 [facility] Protein, UA Negative Negative [facility] Glucose, UA Negative Negative [facility] Ketones, UA Negative Negative [facility] Bilirubin, UA Negative Negative [facility] Blood, UA Negative Negative [facility] Nitrite, UA Negative Negative [facility] Urobilinogen, UA <2.0 <2.0 E.U./dL [facility] Leukocyte esterase, UA Negative Negative [facility] Epithelial cells, UA 4 /HPF [facility] Round epithelial cells, UA <1 0 - 5 /HPF [facility] WBC, UA <1 0 - 4 /HPF [facility] RBC, UA 1 0 - 5 /HPF [facility] Bacteria, UA Few None seen [facility] Yeast, UA None seen [facility] Yeast with pseudohyphae, UA None seen [facility] Specimen Urine Performing Organization Address City/State/[facility] Cent[facility] Phone Number [facility] DEPARTMENT OF PATHOLOGY [address] [place] [address] hCG qualitative, urine screen (10/12/2018 8:50 PM [employer]) hCG qualitative, urine NegativeComment: [facility] Sensitivity of HCG test: 25 [facility] mIU/ml Specimen Urine Performing Organization Address [facility] Cent[facility]ode Phone Number [facility] DEPARTMENT OF PATHOLOGY [address] [place] [address] Urine culture (10/12/2018 8:50 PM [employer])Only the most recent of2 resultswithin the time period is included. Urine culture SEE COMMENTComment: Bacteriuria [facility] screen negative. HOSPITAL Performing Organization Address [facility] Phone Number [facility] DEPARTMENT OF PATHOLOGY [address] [place] [address] Estimated GFR (04/06/2018 4:20 AM CDT)Only the most recent of3 resultswithin the time period is included. GFR Non Af Amer >90 mL/min/1.73 m2 [facility] DEPARTMENT OF PATHOLOGY AND GENOMIC MEDICINE GFR Af Amer >90 mL/min/1.73 m2 [facility] DEPARTMENT OF Comment: PATHOLOGY AND GENOMIC Chronic [...] Americans. Specimen Plasma specimen Performing Organization Address City/[facility] Phone Number [facility] DEPARTMENT OF PATHOLOGY [address] [place] [address]. [place] [address] AND [facility] Basic metabolic panel (04/06/2018 4:20 AM CDT) Sodium 138 135 - 148 mEq/L [facility] DEPARTMENT OF PATHOLOGY AND GENOMIC MEDICINE Potassium 3.7 3.5 - 5.0 mEq/L [facility] DEPARTMENT OF PATHOLOGY AND GENOMIC MEDICINE Chloride 104 98 - 112 mEq/L [facility] DEPARTMENT OF PATHOLOGY AND GENOMIC MEDICINE CO2 21 (L) 24 - 31 mEq/L [facility] DEPARTMENT OF PATHOLOGY AND GENOMIC MEDICINE Anion gap 13@ANIO 7 - 15 mEq/L [facility] DEPARTMENT OF PATHOLOGY AND GENOMIC MEDICINE BUN 5 (L) 6 - 20 mg/dL [facility] DEPARTMENT OF PATHOLOGY AND GENOMIC MEDICINE Creatinine 0.7 0.5 - 0.9 mg/dL [facility] DEPARTMENT OF PATHOLOGY AND GENOMIC MEDICINE Glucose 83 65 - 99 mg/dL [facility] DEPARTMENT OF PATHOLOGY AND GENOMIC MEDICINE Calcium 8.1 (L) 8.3 - 10.2 mg/dL [facility] DEPARTMENT OF PATHOLOGY AND GENOMIC MEDICINE Specimen Plasma specimen Performing Organization Address City/State/Zipcode Phone Number [facility] DEPARTMENT OF PATHOLOGY [address] [place] [address] AND [employer] MEDICINE Gastrointestinal panel (04/05/2018 10:00 PM CDT) Gastrointestinal panel Negative for all pathogens tested: [facility] DEPARTMENT OF Negative for Salmonella PATHOLOGY AND [...] Nonpreserved Performing Organization Address City/State/Zipcode Phone Number [facility] DEPARTMENT OF PATHOLOGY AND [address] [place] [address] CORD:[facility] Lactic acid level, SEPSIS - Now and repeat 2x every 3 hours (04/05/2018 1:05 AM CDT)Only the most recent of2 resultswithin the time period is included. Lactic acid 0.6 0.5 - 2.2 mmol/L [facility] DEPARTMENT OF PATHOLOGY AND GENOMIC MEDICINE Specimen Plasma specimen Performing Organization Address City/State/Zipcode Phone Number [facility] DEPARTMENT OF PATHOLOGY [address] [place] [address] AND [facility] C difficile toxin (04/04/2018 9:20 PM CDT) Clostridium difficile No Clostridium difficle toxin present [facility] DEPARTMENT OF toxin Comment: PATHOLOGY AND GENOMIC Specimen Information MEDICINE Specimen Source: Stool Specimen Site: Nonpreserved Specimen Stool - Nonpreserved Performing Organization Address City/State/Zipcode Phone Number [facility] DEPARTMENT OF PATHOLOGY AND [address] [place] [address] [facility] Urinalysis, automated with microscopy (04/04/2018 8:30 PM CDT) Color, UA Yellow [facility] DEPARTMENT OF PATHOLOGY AND GENOMIC MEDICINE Appearance, UA Sl Cloudy [facility] DEPARTMENT OF PATHOLOGY AND GENOMIC MEDICINE Specific gravity, UA 1.014 1.001 - 1.030 [facility] DEPARTMENT OF PATHOLOGY AND GENOMIC MEDICINE pH, UA 6.0 5.0 - 9.0 [facility] DEPARTMENT OF PATHOLOGY AND GENOMIC MEDICINE Protein, UA Negative Negative [facility] DEPARTMENT OF PATHOLOGY AND GENOMIC MEDICINE Glucose, UA Negative Negative [facility] DEPARTMENT OF PATHOLOGY AND GENOMIC MEDICINE Ketones, UA Negative Negative [facility] DEPARTMENT OF PATHOLOGY AND GENOMIC MEDICINE Bilirubin, UA Negative Negative [facility] DEPARTMENT OF PATHOLOGY AND GENOMIC MEDICINE Blood, UA Negative Negative [facility] DEPARTMENT OF PATHOLOGY AND GENOMIC MEDICINE Nitrite, UA Negative Negative [facility] DEPARTMENT OF PATHOLOGY AND GENOMIC MEDICINE Urobilinogen, UA <2.0 <2.0 E.U./dL [facility] DEPARTMENT OF PATHOLOGY AND GENOMIC MEDICINE Leukocyte esterase, UA Moderate (A) Negative [facility] DEPARTMENT OF PATHOLOGY AND GENOMIC MEDICINE Epithelial cells, UA 7 /HPF [facility] DEPARTMENT OF PATHOLOGY AND GENOMIC MEDICINE Round epithelial cells, UA <1 0 - 5 /HPF [facility] DEPARTMENT OF PATHOLOGY AND GENOMIC MEDICINE WBC, UA 3 0 - 4 /HPF [facility] DEPARTMENT OF PATHOLOGY AND GENOMIC MEDICINE RBC, UA 1 0 - 5 /HPF [facility] DEPARTMENT OF PATHOLOGY AND GENOMIC MEDICINE Bacteria, UA Few None seen [facility] DEPARTMENT OF PATHOLOGY AND GENOMIC MEDICINE Yeast, UA None seen [facility] DEPARTMENT OF PATHOLOGY AND GENOMIC MEDICINE Yeast with pseudohyphae, UA None seen [facility] DEPARTMENT OF PATHOLOGY AND GENOMIC MEDICINE Specimen Urine Performing Organization Address City/[facility]/Zipcode Phone Number [facility] DEPARTMENT OF PATHOLOGY [id number] [place] [address] AND [facility] MEDICINE Gram stain (04/04/2018 8:30 PM CDT) Gram stain result Few WBC's [facility] DEPARTMENT OF PATHOLOGY Occasional Gram positive rods AND GENOMIC MEDICINE Comment: Specimen Information Specimen Source: Urine Specimen Site: Urine, clean catch Specimen Urine - Urine, clean catch Performing Organization Address City/[facility]/Zipcode Phone Number [facility] DEPARTMENT OF PATHOLOGY AND [address] [place] [address] [facility] Venous blood gas (04/04/2018 8:30 PM CDT)Only the most recent of2 resultswithin the time period is included. pH, venous 7.37 7.32 - 7.42 [facility] DEPARTMENT OF PATHOLOGY AND GENOMIC MEDICINE pCO2, venous 43 (L) 45 - 51 mmHg [facility] DEPARTMENT OF PATHOLOGY AND GENOMIC MEDICINE pO2, venous 51 (H) 25 - 40 mmHg [facility] DEPARTMENT OF PATHOLOGY AND GENOMIC MEDICINE Base excess, venous -1 -2 - 2 mEq/L [facility] DEPARTMENT OF PATHOLOGY AND GENOMIC MEDICINE O2 saturation, venous 83 (H) 40 - 70 % [facility] DEPARTMENT OF PATHOLOGY AND GENOMIC MEDICINE Bicarbonate, venous 23.9 21.0 - 28.0 mmol/L [facility] DEPARTMENT OF PATHOLOGY AND GENOMIC MEDICINE Specimen Blood Performing Organization Address City/[facility] Phone Number [facility] DEPARTMENT OF PATHOLOGY [id number] [place] [id number] AND [facility] Blood culture, aerobic & anaerobic (04/04/2018 5:48 PM CDT)Only the most recent of2 resultswithin the time period is included. Blood culture isolate No growth after 5 days of incubation. [facility] DEPARTMENT OF Comment: PATHOLOGY AND GENOMIC Specimen Information MEDICINE Specimen Source: Blood Specimen Site: Antecubital, right Specimen Blood - Antecubital, right Performing Organization Address City/State/Zipcode Phone Number [facility] DEPARTMENT OF PATHOLOGY AND [address] [place] [address] [facility] MEDICINE Beta hydroxybutyrate (04/04/2018 5:00 PM CDT) Beta hydroxybutyrate 0.05 0.02 - 0.27 mmol/L [facility] DEPARTMENT OF PATHOLOGY AND GENOMIC MEDICINE Specimen Blood Performing Organization Address [facility]ode Phone Number [facility] DEPARTMENT OF PATHOLOGY [address] [place] [address]. [place] [address] AND [facility] Partial thromboplastin time, activated (04/04/2018 5:00 PM CDT) PTT 27.9 23.0 - 36.0 sec [facility] DEPARTMENT OF Comment: PATHOLOGY AND [facility] PTT therapeutic range for unfractionated heparin is MEDICINE 61.0-112.0 seconds which corresponds to Anti-Xa 0.3-0.7 U/ml. Specimen Blood Performing Organization Address [facility] Phone Number [facility] DEPARTMENT OF PATHOLOGY [address] [place] [address]. [place] [address] AND [facility] Prothrombin time with INR (04/04/2018 5:00 PM CDT) Prothrombin time 12.1 12.0 - 15.0 sec [facility] DEPARTMENT OF PATHOLOGY AND GENOMIC MEDICINE INR 0.9 [facility] DEPARTMENT OF Comment: PATHOLOGY AND GENOMIC The International Normalized Ratio (INR) is a therapeutic MEDICINE monitoring tool for patients who are stable on oral anticoagulant therapy. An INR of 2.0-3.0 is suggested for deep vein thrombosis/pulmonary embolism. Specimen Blood Performing Organization Address [facility] Phone Number [facility] DEPARTMENT OF PATHOLOGY [address] [place] [address]. [place] [address] AND [facility] hCG qualitative, serum screen (04/04/2018 5:00 PM CDT) hCG qualitative, serum NegativeComment: [facility] DEPARTMENT OF Sensitivity of HCG test: 25 PATHOLOGY AND GENOMIC mIU/mL MEDICINE Specimen Blood Performing Organization Address [facility] Phone Number [facility] DEPARTMENT OF PATHOLOGY [address] [place] [address] AND [facility] Magnesium level (04/04/2018 5:00 PM CDT) Magnesium 2.1 1.6 - 2.6 mg/dL [facility] DEPARTMENT OF PATHOLOGY AND GENOMIC MEDICINE Specimen Plasma specimen Performing Organization Address City/[facility]/Zipcode Phone Number [facility] DEPARTMENT OF PATHOLOGY [address] [place] [address]. [place], [place] [address] AND GENOMIC MEDICINE after 01/11/2018 Insurance Payer Benefit Plan / Group Subscriber ID Type Phone Address [facility] OUT OF STATE xxxxxxxxxxxxxxx PPO Advance Directives Patient has advance care planning documents on file. For more information, please contact:Raciel [id number] [place] [address]
--- OUTSIDE RECORDS SUMMARY | 2019-01-12 17:49 | XMS REPORT ---
[...] Start Date End Date Status Dosage Ibuprofen [facility] [id number] 600 MG Oral Active TK 1 T PO Q 6 H PRN P SCALE 4 TO 6 Results No Known Results Summary Purpose MxBiode[employer]Works Submission
--- OUTSIDE RECORDS SUMMARY | 2019-01-12 17:49 | XMS REPORT ---
:1985 [facility] Address [address] [place] [address] Care Team Providers Name Role Phone Unavailable Unavailable Unavailable Problems This patient has no known problems. Allergies, Adverse Reactions, Alerts This patient has no known allergies or adverse reactions. Medications This patient has no known medications.
[2019-01-12 18:48] LABS: Absolute Lymphocytes (CBC) 2.7 K/uL (0.7-4.9); Absolute Monocytes 0.7 K/uL (0.1-1.3); Absolute Neutrophil 8.1 K/uL (1.8-8.0); Basophils % 0.7 % (0-1.3); Eosinophils % 1.5 % (0-4.4); Hematocrit 39.5 % (36.0-45.0); Lymphocytes % 23.4 % (15.3-44.8); MPV 7.7 fL (7.6-11.3); Monocytes % 5.6 % (3.3-12.3); RBC Red Blood Cell Count 4.33 M/uL (3.86-4.86)
[2019-01-12] MEDS ORDERED: FENTANYL CITR 100 MCG/2 ML ONE ×2 (18:52→21:51)
[2019-01-12] MEDS ORDERED: NA CHLORIDE 0.9% 1,000 ML ONE (18:53)
[2019-01-12] MEDS ORDERED: ONDANSETRON 4 MG/2 ML VIAL ONE (18:53)
[2019-01-12 19:09] LABS: ALT/SGPT 21 U/L (12-78); AST/SGOT 13 U/L (15-37); Albumin 3.9 g/dL (3.4-5.0); Alkaline Phosphatase 85 U/L (45-117); BUN Blood Urea Nitrogen 11 mg/dL (7-18); Bicarbonate 26 mmol/L (21-32); Bilirubin Direct 0.1 mg/dL (0-0.2); Bilirubin Total 0.6 mg/dL (0.2-1.0); Glucose Level 87 mg/dL (74-106); Lipase 70 U/L (73-393); Potassium 3.8 mmol/L (3.5-5.1); Protein, Total 7.9 g/dL (6.4-8.2); Sodium Level 137 mmol/L (136-145)
--- NOTE | 2019-01-12 19:48 | RAD REPORT ---
EXAM DESCRIPTION: CTAbdomen Pelvis W Contrast - 01/12/2019 7:42 pm CLINICAL HISTORY: Abdominal pain. LLQ abdominal pain COMPARISON: Abdomen Pelvis W Contrast dated 12/24/2017; Abdomen Pelvis W Contrast dated 06/02/2017 TECHNIQUE: Biphasic CT imaging of the abdomen and pelvis was performed with 100 ml non-ionic IV cont rast. All CT scans are performed using dose optimization technique as appropriate and may include automated exposure control or mA/KV adjustment according to patient size. FINDINGS: The lung bases are clear.Cholecystectomy clips. The liver, spleen, pancreas, adrenal glands and kidneys are within normal limits. No bowel obstruction, free air, free fluid or abscess. Sigmoid diverticulosis is present. There is garcia btle peridiverticular fat stranding in the left lower quadrant. Appendectomy. No evidence of signifi cant lymphadenopathy. No suspicious bony findings. IMPRESSION: Early/subtle findings of acute diverticulitis in the left lower quadrant sigmoid colon.
[2019-01-12 19:57] LABS: Urine Blood TRACE (NEG); Urine Glucose NEGATIVE (NEG); Urine Protein NEGATIVE (NEG); Urine Specific Gravity 1.025 (1.005-1.030); Urine pH 5.5 (5.0-7.0)
--- NOTE | 2019-01-12 20:22 | ER ---
Nurse's Notes [facility] Name: Mary Torres Age: 33 yrs Sex: Female : 1985 Arrival Date: 01/12/2019 Time: 17:48 Bed 5 Private MD: Fany Escobar K Diagnosis: Diverticulitis of large intestine without perforation or abscess without bleeding Presentation: 01/12 18:05 Presenting complaint: Patient states: abd pain to LLQ radiating to left flank/left low aa5 back that began 3-4 days ago. Pt reports nausea, denies vomiting. Pt denies urinary symptoms. Transition of care: patient was not received from another setting of care. Onset of symptoms was December 2018. Risk Assessment: Do you want to hurt yourself or someone else? Patient reports no desire to harm self or others. Initial Sepsis Screen: Does the patient meet any 2 criteria? No. Patient's initial sepsis screen is negative. Does the patient have a suspected source of infection? No. Patient's initial sepsis screen is negative. Care prior to arrival: None. 18:05 Method Of Arrival: Ambulatory aa5 18:05 Acuity: MARCELA 3 aa5 Triage Assessment: 18:21 General: Appears in no apparent distress. uncomfortable, Behavior is calm, cooperative, hj appropriate for age. Pain: Complains of pain in L flank. 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 - Social history:: Smoking status: Patient/guardian denies using tobacco. - Ebola Screening: : No symptoms or risks identified at this time. Screenin:21 Abuse screen: Denies threats or abuse. Denies injuries from another. Nutritional hj screening: No deficits noted. Tuberculosis screening: No symptoms or risk factors identified. Fall Risk None identified. Assessment: 18:22 General: Appears in no apparent distress. uncomfortable, Behavior is calm, cooperative, hj appropriate for age. Pain: Complains of pain in L flank. Neuro: Level of Consciousness is awake, alert, obeys commands, Oriented to person, place, time, situation, Appropriate for age. Cardiovascular: Capillary refill < 3 seconds Patient's skin is warm and dry. Respiratory: Airway is patent Respiratory effort is even, unlabored, Respiratory pattern is regular, symmetrical. GI: No signs and/or symptoms were reported involving the gastrointestinal system. : No signs and/or symptoms were reported regarding the genitourinary system. EENT: No signs and/or symptoms were reported regarding the EENT system. Derm: No signs and/or symptoms reported regarding the dermatologic system. Musculoskeletal: No signs and/or symptoms reported regarding the musculoskeletal system. 19:07 Reassessment: Patient appears in no apparent distress at this time. Patient and/or jd3 family updated on plan of care and expected duration. Pain level reassessed. Patient is alert, oriented x 3, equal unlabored respirations, skin warm/dry/pink. awaiting CT Patient states feeling better. 19:07 Pain: Complains of pain in posterior aspect of right lateral abdomen and left lower jd3 quadrant. 20:18 Reassessment: Patient appears in no apparent distress at this time. Patient and/or jd3 family updated on plan of care and expected duration. Pain level reassessed. Patient is alert, oriented x 3, equal unlabored respirations, skin warm/dry/pink. awaiting orders form provider. 21:47 Reassessment: Patient appears in no apparent distress at this time. Patient and/or jd3 family updated on plan of care and expected duration. Pain level reassessed. Patient is alert, oriented x 3, equal unlabored respirations, skin warm/dry/pink. Patient states feeling better. Vital Signs: 18:07 BP 123 / 99; Pulse 84; Resp 16 S; Temp 97.5(TE); Pulse Ox 99% on R/A; Weight 86.18 kg aa5 (R); Height 5 ft. 2 in. (157.48 cm) (R); Pain 10/10; 19:07 BP 102 / 72; Pulse 62; Resp 17 S; Pulse Ox 95% on R/A; jd3 20:19 BP 94 / 58; Pulse 69; Resp 16 S; Pulse Ox 100% on R/A; jd3 21:47 BP 99 / 65; Pulse 63; Resp 17 S; Pulse Ox 100% on R/A; jd3 18:07 Body Mass Index 34.75 (86.18 kg, 157.48 cm) aa5 ED Course: 17:48 Patient arrived in ED. rg4 17:48 Fany Escobar MD is Private Physician. rg4 18:05 Arm band placed on. aa5 18:06 Triage completed. aa5 18:14 Perico Hale, DUARTE is Primary Nurse. hj 18:21 Ezekiel Mayo NP is PHCP. pm1 18:21 Conor Tam MD is Attending Physician. pm1 18:22 Patient has correct armband on for positive identification. Placed in gown. Bed in low hj position. Call light in reach. Side rails up X 1. Adult w/ patient. 18:30 Urine collected: clean catch specimen, cloudy, honey colored. jb1 18:40 Inserted saline lock: 20 gauge in right antecubital area, using aseptic technique. pc1 18:41 Inserted saline lock: 22 gauge in right forearm, using aseptic technique. pc1 18:45 Basic Metabolic Panel Sent. hj 18:45 CBC with Diff Sent. hj 18:45 Creatinine for Radiology Sent. hj 18:45 Hepatic Function Sent. hj 18:46 Lipase Sent. hj 19:43 CT Abd/Pelvis - W/Contrast: IV contrast only In Process Unspecified. EDMS 21:48 No provider procedures requiring assistance completed. IV discontinued, intact, jd3 bleeding controlled, No redness/swelling at site. Pressure dressing applied. Administered Medications: 18:35 Drug: NS 0.9% 1000 ml Route: IV; Rate: 1000 ml; Site: right antecubital; hj 18:44 Follow up: IV Status: Infusion continued hj 18:35 Drug: fentaNYL (PF) 50 mcg Route: IVP; Site: right antecubital; hj 18:45 Follow up: Response: No adverse reaction; Pain is decreased hj 18:35 Drug: Zofran 4 mg Route: IVP; Site: right antecubital; hj 18:45 Follow up: Response: No adverse reaction; Nausea is decreased hj 20:35 Drug: Flagyl 500 mg Volume: 100 ml; Route: IVPB; Rate: 200 ml/hr; Infused Over: 30 ea mins; Site: right antecubital; 21:47 Follow up: Response: No adverse reaction; IV Status: Completed infusion jd3 20:35 Drug: Cipro 500 mg Route: PO; ea 21:46 Follow up: Response: No adverse reaction jd3 21:40 Drug: fentaNYL (PF) 25 mcg Route: IVP; Site: right antecubital; jd3 21:46 Follow up: Response: Medication administered at discharge. jd3 Outcome: 20:19 Discharge ordered by MD. pm1 21:48 Discharged to home ambulatory, with family. jd3 21:48 Condition: stable 21:48 Discharge instructions given to patient, family, Instructed on discharge instructions, follow up and referral plans. medication usage, Demonstrated understanding of instructions, follow-up care, medications, Prescriptions given X 4. 21:50 Patient left the ED. jd3 Signatures: Dispatcher [employer] EDMS Jeferson Cowan jb1 Shauna Cruz, RN RN aa5 Perico Hale RN RN hj Ezekiel Mayo, SLUBBER OPERATOR SLUBBER OPERATOR pm1 Henna Smith rg4 Kristan Marc RN RN ea Davies, Jonathon, RN RN jd3 Cantu, Patrick pc1 Corrections: (The following items were deleted from the chart) 19:09 19:07 Reassessment: Patient appears in no apparent distress at this time. Patient jd3 and/or family updated on plan of care and expected duration. Pain level reassessed. Patient is alert, oriented x 3, equal unlabored respirations, skin warm/dry/pink. jd3
--- NOTE | 2019-01-12 20:22 | EDPHYS ---
Physician Documentation [facility] Name: Mary Torres Age: 33 yrs Sex: Female : 1985 Arrival Date: 01/12/2019 Time: 17:48 Bed 5 Private MD: Fany Escobar K ED Physician Conor Tam HPI: 01/12 18:25 This 33 yrs old Female presents to ER via Ambulatory with complaints of Left pm1 Flank Pain and LLQ pain. 18:26 The patient presents with abdominal pain in the left lower quadrant. Onset: The pm1 symptoms/episode began/occurred 4 day(s) ago. The symptoms radiate to the left flank. Associated signs and symptoms: Pertinent positives: nausea, Loose stool, Pertinent negatives: diarrhea, dysuria, fever. The symptoms are described as achy. Modifying factors: The symptoms are alleviated by nothing, the symptoms are aggravated by nothing. Severity of pain: in the emergency department the pain is actually worse. The patient has experienced similar episodes in the past, several times, today's symptoms are similar, to previous diverticulitis. The patient has not recently seen a physician. 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 - Social history:: Smoking status: Patient/guardian denies using tobacco. - Ebola Screening: : No symptoms or risks identified at this time. ROS: 18:26 Constitutional: Negative for fever, chills, and weight loss, Eyes: Negative for injury, pm1 pain, redness, and discharge, ENT: Negative for injury, pain, and discharge, Neck: Negative for injury, pain, and swelling, Cardiovascular: Negative for chest pain, palpitations, and edema, Respiratory: Negative for shortness of breath, cough, wheezing, and pleuritic chest pain. 18:26 : Negative for injury, bleeding, discharge, and swelling, MS/Extremity: Negative for injury and deformity, Skin: Negative for injury, rash, and discoloration, Neuro: Negative for headache, weakness, numbness, tingling, and seizure. 18:26 Abdomen/GI: Positive for abdominal pain, nausea, Negative for vomiting, diarrhea, constipation. 18:26 Back: Positive for flank pain, on the left. Exam: 18:26 Constitutional: This is a well developed, well nourished patient who is awake, alert, pm1 and in no acute distress. Head/Face: Normocephalic, atraumatic. Eyes: Pupils equal round and reactive to light, extra-ocular motions intact. Lids and lashes normal. Conjunctiva and sclera are non-icteric and not injected. Cornea within normal limits. Periorbital areas with no swelling, redness, or edema. ENT: Nares patent. No nasal discharge, no septal abnormalities noted. Tympanic membranes are normal and external auditory canals are clear. Oropharynx with no redness, swelling, or masses, exudates, or evidence of obstruction, uvula midline. Mucous membranes moist. Neck: Trachea midline, no thyromegaly or masses palpated, and no cervical lymphadenopathy. Supple, full range of motion without nuchal rigidity, or vertebral point tenderness. No Meningismus. Chest/axilla: Normal chest wall appearance and motion. Nontender with no deformity. No lesions are appreciated. Cardiovascular: Regular rate and rhythm with a normal S1 and S2. No gallops, murmurs, or rubs. Normal PMI, no JVD. No pulse deficits. Respiratory: Lungs have equal breath sounds bilaterally, clear to auscultation and percussion. No rales, rhonchi or wheezes noted. No increased work of breathing, no retractions or nasal flaring. Back: No spinal tenderness. No costovertebral tenderness. Full range of motion. Skin: Warm, dry with normal turgor. Normal color with no rashes, no lesions, and no evidence of cellulitis. MS/ Extremity: Pulses equal, no cyanosis. Neurovascular intact. Full, normal range of motion. Neuro: Awake and alert, GCS 15, oriented to person, place, time, and situation. Cranial nerves II-XII grossly intact. Motor strength 5/5 in all extremities. Sensory grossly intact. Cerebellar exam normal. Normal gait. 18:26 Abdomen/GI: Inspection: abdomen appears normal, Bowel sounds: normal, Palpation: soft, mild abdominal tenderness, in the left lower quadrant, mass, is not appreciated, rebound tenderness, is not appreciated. Vital Signs: 18:07 BP 123 / 99; Pulse 84; Resp 16 S; Temp 97.5(TE); Pulse Ox 99% on R/A; Weight 86.18 kg aa5 (R); Height 5 ft. 2 in. (157.48 cm) (R); Pain 10/10; 19:07 BP 102 / 72; Pulse 62; Resp 17 S; Pulse Ox 95% on R/A; jd3 20:19 BP 94 / 58; Pulse 69; Resp 16 S; Pulse Ox 100% on R/A; jd3 21:47 BP 99 / 65; Pulse 63; Resp 17 S; Pulse Ox 100% on R/A; jd3 18:07 Body Mass Index 34.75 (86.18 kg, 157.48 cm) aa5 MDM: 18:21 Patient medically screened. pm1 18:29 Data reviewed: vital signs. Data interpreted: Pulse oximetry: on room air is 99 %. pm1 Interpretation: normal. 20:18 Counseling: I had a detailed discussion with the patient and/or guardian regarding: the pm1 historical points, exam findings, and any diagnostic results supporting the discharge/admit diagnosis, lab results, radiology results, the need for outpatient follow up, to return to the emergency department if symptoms worsen or persist or if there are any questions or concerns that arise at home. 01/12 18:25 Order name: Basic Metabolic Panel; Complete Time: 20:15 pm1 01/12 18:25 Order name: CBC with Diff; Complete Time: 19:09 pm1 01/12 18:25 Order name: Creatinine for Radiology; Complete Time: 19:08 pm1 01/12 18:25 Order name: Hepatic Function; Complete Time: 20:15 pm1 01/12 18:25 Order name: Lipase; Complete Time: 20:15 pm1 01/12 18:34 Order name: Urine Dipstick--Ancillary (enter results); Complete Time: 20:15 eb 01/12 18:25 Order name: CT Abd/Pelvis - W/Contrast: IV contrast only; Complete Time: 20:15 pm1 01/12 18:34 Order name: Urine --Ancillary (enter results); Complete Time: 20:15 eb 01/12 18:25 Order name: IV Saline Lock; Complete Time: 18:44 pm1 01/12 18:25 Order name: Labs collected and sent; Complete Time: 18:44 pm1 Administered Medications: 18:35 Drug: NS 0.9% 1000 ml Route: IV; Rate: 1000 ml; Site: right antecubital; hj 18:44 Follow up: IV Status: Infusion continued hj 18:35 Drug: fentaNYL (PF) 50 mcg Route: IVP; Site: right antecubital; hj 18:45 Follow up: Response: No adverse reaction; Pain is decreased hj 18:35 Drug: Zofran 4 mg Route: IVP; Site: right antecubital; hj 18:45 Follow up: Response: No adverse reaction; Nausea is decreased hj 20:35 Drug: Flagyl 500 mg Volume: 100 ml; Route: IVPB; Rate: 200 ml/hr; Infused Over: 30 ea mins; Site: right antecubital; 21:47 Follow up: Response: No adverse reaction; IV Status: Completed infusion jd3 20:35 Drug: Cipro 500 mg Route: PO; ea 21:46 Follow up: Response: No adverse reaction jd3 21:40 Drug: fentaNYL (PF) 25 mcg Route: IVP; Site: right antecubital; jd3 21:46 Follow up: Response: Medication administered at discharge. jd3 Disposition: 01/13 09:59 Co-signature as Attending Physician, Conor Tam MD. rn Disposition: 01/12/19 20:19 Discharged to Home. Impression: Diverticulitis of large intestine without perforation or abscess without bleeding. - Condition is Stable. - Discharge Instructions: Diverticulitis. - Prescriptions for Bentyl 20 mg Oral Tablet - take 1 tablet by ORAL route every 6 hours As needed; 20 tablet. Flagyl 500 mg Oral Tablet - take 1 tablet by ORAL route every 8 hours for 10 days; 30 tablet. Zofran 4 mg Oral Tablet - take 1 tablet by ORAL route every 12 hours As needed; 20 tablet. Cipro 500 mg Oral Tablet - take 1 tablet by ORAL route every 12 hours for 10 days; 20 tablet. - Medication Reconciliation Form, Thank You Letter, Antibiotic Education, Prescription Opioid Use form. - Follow up: Emergency Department; When: As needed; Reason: Worsening of condition. Follow up: Private Physician; When: 2 - 3 days; Reason: Recheck today's complaints, Continuance of care, Re-evaluation by your physician. - Problem is new. - Symptoms have improved. Signatures: Dispatcher [employer] EDMS Conor Tam MD MD rn Calderon, Audri RN RN aa5 Perico Hale RN RN Ezekiel Mayo, LINE SERVICE PERSON LINE SERVICE PERSON pm1 Kristan Marc RN Jose Bennett ea, RN RN jd3 Corrections: (The following items were deleted from the chart) 01/12 21:50 20:19 01/12/2019 20:19 Discharged to Home. Impression: Diverticulitis of large jd3 intestine without perforation or abscess without bleeding. Condition is Stable. Forms are Medication Reconciliation Form, Thank You Letter, Antibiotic Education, Prescription Opioid Use. Follow up: Emergency Department; When: As needed; Reason: Worsening of condition. Follow up: Private Physician; When: 2 - 3 days; Reason: Recheck today's complaints, Continuance of care, Re-evaluation by your physician. Problem is new. Symptoms have improved. pm1
[2019-01-12] MEDS ORDERED: METRONIDAZOLE 500mg IVPB 500 MG/100 ML BAG IV ONE (20:45)
[2019-01-12] MEDS ORDERED: CIPROFLOXACIN HCL 500 MG TAB ONE (20:45)
== END 2019-01-12 21:50 | disposition home or self-care (01) ==
LOC: ER 17:46
DX: K57.32 Diverticulitis of large intestine without perforation or abscess without bleeding (principal); Z88.5 Allergy status to narcotic agent
CPT/HCPCS: 36415; 74177; 80048; 80076; 81003; 81025; 83690; 85025; 96365; 96375; 99284; J2405; J3010; J7030; Q9967

== ENCOUNTER 2019-03-18 21:06 | Emergency (ER) | payer BC ==
--- OUTSIDE RECORDS SUMMARY | 2019-03-18 21:09 | XMS REPORT ---
[...] Start Date End Date Status Dosage Ibuprofen [facility] [id number] 600 MG Oral Active TK 1 T PO Q 6 H PRN P SCALE 4 TO 6 Results No Known Results Summary Purpose [employer]S Interactive[employer]Works Submission
--- OUTSIDE RECORDS SUMMARY | 2019-03-18 21:09 | XMS REPORT ---
:1985 [facility] Address [address] [place] [id number] Care Team Providers Name Role Phone Unavailable Unavailable Unavailable Problems This patient has no known problems. Allergies, Adverse Reactions, Alerts This patient has no known allergies or adverse reactions. Medications This patient has no known medications.
--- OUTSIDE RECORDS SUMMARY | 2019-03-18 21:09 | XMS REPORT | Clinical Summary ---
:1985 Author Organization [facility] Address [address] [place] [address] Care Team Providers Name Role Phone Fany [...] or vomiting for up to 5 days. ciprofloxacin Take 1 tablet 14 tablet 0 03/04/2019 (CIPRO) 500 MG (500 mg total) 9 tablet by mouth 2 (two) times a day for 7 days. metroNIDAZOLE Take 1 tablet 21 tablet 0 03/04/2019 (FLAGYL) 500 MG (500 mg total) 9 tablet by mouth 3 (three) times a day for 7 days. ondansetron ODT Take 1 tablet 15 tablet 0 03/04/2019 (ZOFRAN ODT) 4 MG (4 mg total) 9 disintegrating by mouth every tablet 8 (eight) hours as needed for nausea or vomiting for up to 5 days. 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 Encounters Date Type Specialty Care Team Description 03/07/2019 Office Visit General Surgery Daisy Jalloh MD Sigmoid stricture (HCC) (Primary Dx) 03/04/2019 Emergency Emergency Medicine Danielle Gonzalez Diverticulitis ( Primary Dx); Crespo MD Abdominal pain, unspecified abdominal location; Diarrhea, unspecified type; Nausea 10/12/2018 - Emergency Emergency Medicine Ayush Herring, Left lower quadrant 10/13/2018 pain (Primary Dx) 04/13/2018 Office Visit General Surgery Daisy Jalloh MD Diverticulitis of large intestine without perforation or abscess without bleeding (Primary Dx) 04/04/2018 - Emergency General Internal Mark Valentino Left lower quadrant 04/06/2018 Medicine Dereck RUFFIN MD pain (Primary Dx) Jeferson Albert MD Lakhva, MD John Massey Mary Clifford, MD 03/30/2018 Office Visit General Surgery Daisy Jalloh MD Diverticulitis of large intestine without perforation or abscess without bleeding (Primary Dx); Sigmoid stricture after 03/17/2018 Social History Tobacco Use Types Packs/Day Years [...] Vital Sign Reading Time Taken Blood Pressure 119/68 03/04/2019 3:31 PM CDT Pulse 64 03/04/2019 3:31 PM CDT Temperature 36.6 C (97.9 F) 03/04/2019 3:31 PM CDT Respiratory Rate 18 03/04/2019 3:31 PM CDT Oxygen Saturation 100% 03/04/2019 3:31 PM CDT Inhaled Oxygen Concentration - - Weight 79.4 kg (175 lb) 04/13/2018 11:02 AM CDT Height 157.5 cm (5' 2") 03/04/2019 12:11 PM CDT Body Mass Index 30.04 04/13/2018 11:02 AM CDT Plan of Treatment Health Maintenance Due Date Last Done Comments CERVICAL CANCER SCREENING 2004 INFLUENZA VACCINE 05/30/2019 Procedures Procedure Name Priority Date/Time Associated Comments Diagnosis CT ABDOMEN PELVIS W STAT 03/04/2019 2:59 Results for this CONTRAST PM CDT procedure are in the results section. ESTIMATED GFR STAT 03/04/2019 1:35 Results for this PM CDT procedure are in the results section. HCG QUALITATIVE, SERUM STAT 03/04/2019 1:35 Results for this SCREEN PM CDT procedure are in the results section. LIPASE LEVEL STAT 03/04/2019 1:35 Results for this PM CDT procedure are in the results section. COMPREHENSIVE METABOLIC STAT 03/04/2019 1:35 Results for this PANEL PM CDT procedure are in the results section. HC COMPLETE BLD COUNT STAT 03/04/2019 1:35 Results for this W/AUTO DIFF PM CDT procedure are in the results section. URINALYSIS SCREEN AND STAT 03/04/2019 1:30 Results for this MICROSCOPY, WITH REFLEX PM CDT procedure are in TO CULTURE the results section. URINE CULTURE STAT 03/04/2019 1:30 Results for this PM CDT procedure are in the results section. CT ABDOMEN PELVIS W STAT 10/13/2018 12:32 Results for this CONTRAST AM [employer]INICAL RESEARCH ASSOCIATE procedure are in the results section. ESTIMATED GFR STAT 10/12/2018 11:15 Results for this PM [employer]ICAL RESEARCH ASSOCIATE procedure are in the results section. LIPASE LEVEL STAT 10/12/2018 11:15 Results for this PM [employer]INICAL RESEARCH ASSOCIATE procedure are in the results section. AMYLASE LEVEL STAT 10/12/2018 11:15 Results for this PM [employer]INICAL RESEARCH ASSOCIATE procedure are in the results section. COMPREHENSIVE METABOLIC STAT 10/12/2018 11:15 Results for this PANEL PM CLINICAL RESEARCH ASSOCIATE procedure are in the results section. HC COMPLETE BLD COUNT STAT 10/12/2018 11:15 Results for this W/AUTO DIFF PM CLINICAL RESEARCH ASSOCIATE procedure are in the results section. URINALYSIS SCREEN AND STAT 10/12/2018 8:50 Results for this MICROSCOPY, WITH REFLEX PM CLINICAL RESEARCH ASSOCIATE procedure are in TO CULTURE the results section. HCG QUALITATIVE, URINE STAT 10/12/2018 8:50 Results for this SCREEN PM CLINICAL RESEARCH ASSOCIATE procedure are in the results section. URINE CULTURE STAT 10/12/2018 8:50 Results for this PM CLINICAL RESEARCH ASSOCIATE procedure are in the results section. ZZESTIMATED [...] procedure are in the results section. after 03/17/[address] Abdomen Pelvis W Contrast (03/04/2019 2:59 PM CDT)Only the most recent of3 resultswithin the time period is included. Specimen Narrative Performed At EXAMINATION: [facility] CT ABDOMEN PELVIS W CONTRAST CLINICAL HISTORY: Abd painunspecified TECHNIQUE: Multiple computed tomographic images taken of the abdomen and pelvis after the administration of oral and IV contrast. This is followed by reformats in the coronal and sagittal planes. CT imaging was performed with iterative reconstruction techniques and/or automated exposure control to reduce radiation dose. COMPARISON: Abdomen and pelvis CT 10/13/2018 FINDINGS: Status post cholecystectomy and appendectomy. A few scattered colonic diverticula are seen with mild graying of the adjacent mesenteric fat within the region of the junction of the descending and sigmoid colon suggestive of early mild diverticulitis. The remainder of the visualized aspects of the lung bases, liver, stomach, pancreas, adrenals, kidneys, spleen, GI tract, bony and soft tissue structures is unchanged. IMPRESSION: Findings consistent with mild diverticulitis. [facility]-[id number] Procedure Note Interface, Radiology Results Incoming - 03/04/2019 3:17 PM CDT EXAMINATION: CT ABDOMEN PELVIS W CONTRAST CLINICAL HISTORY: Abd pain unspecified TECHNIQUE: Multiple computed tomographic images taken of the abdomen and pelvis after the administration of oral and IV contrast. This is followed by reformats in the coronal and sagittal planes. CT imaging was performed with iterative reconstruction techniques and/or automated exposure control to reduce radiation dose. COMPARISON: Abdomen and pelvis CT 10/13/2018 FINDINGS: Status post cholecystectomy and appendectomy. A few scattered colonic diverticula are seen with mild graying of the adjacent mesenteric fat within the region of the junction of the descending and sigmoid colon suggestive of early mild diverticulitis. The remainder of the visualized aspects of the lung bases, liver, stomach, pancreas, adrenals, kidneys, spleen, GI tract, bony and soft tissue structures is unchanged. IMPRESSION: Findings consistent with mild diverticulitis. [facility]-[id number] Performing Organization Address City/[facility]/Zipcode Phone Number [facility] [address] [place] [address] Estimated GFR (03/04/2019 1:35 PM CDT)Only the most recent of2 resultswithin the time period is included. Estimated GFR >=90 mL/min/1.73 [facility] Comment: [address] CatergoryUnitsInterpretation HOSPITAL G1 >=90 Normal or high G2 60-89Mildly decreased [id number] to moderately decreased [id number] to severely decreased G4 15-29Severely decreased G5 <15Kidney failure The eGFR was calculated using the Chronic Kidney Disease Epidemiology Collaboration (CKD-EPI) equation. Interpretation is based on recommendations of the National Kidney Foundation-Kidney Disease Outcomes Quality Initiative (NKF-KDOQI) published in 2014. Specimen Plasma specimen Performing Organization Address City/State/Zipcode Phone Number [facility] DEPARTMENT OF PATHOLOGY [address] [place] [address] [facility] [address] CBC with platelet and differential (03/04/2019 1:35 PM CDT)Only the most recent of5 resultswithin the time period is included. WBC 7.2 4.5 - 11.0 k/uL [facility] RBC 4.06 (L) 4.20 - 5.50 [facility] m/uL [facility] HGB 12.9 12.0 - 16.0 [facility] g/dL [facility] HCT 38.3 37.0 - 47.0 % [facility] MCV 94.3 82.0 - 100.0 fL [facility] MCH 31.8 27.0 - 34.0 pg [facility] MCHC 33.7 31.0 - 37.0 [facility] g/dL [facility] RDW - SD 43.8 37.0 - 55.0 fL [facility] MPV 9.5 6.9 - 11.0 fL [facility] Platelet count 312 150 - 400 K/uL [facility] Nucleated RBC 0.00 /100 WBC [facility] Neutrophils 55.5 39.0 - 69.0 % [facility] Lymphocytes 36.1 25.0 - 45.0 % [facility] Monocytes 6.0 0.0 - 10.0 % [facility] Eosinophils 1.9 0.0 - 5.0 % [facility] Basophils 0.4 0.0 - 1.0 % [facility] Immature granulocytes 0.1 0.0 - 1.0 % [facility] Specimen Blood Performing Organization Address City/[facility]/Zipcode Phone Number [facility] DEPARTMENT OF PATHOLOGY [id number] [place] [address] [facility] [id number] [place] [address] HOSPITAL hCG qualitative, serum screen (03/04/2019 1:35 PM CDT)Only the most recent of2 resultswithin the time period is included. hCG qualitative, NegativeComment: [facility] serum Sensitivity of HCG ELGIN test: 25 mIU/mL HOSPITAL Specimen Blood Performing Organization Address City/[facility]/Zipcode Phone Number [facility] DEPARTMENT OF PATHOLOGY [address] [place] [address] [place] [address] HOSPITAL Lipase level (03/04/2019 1:35 PM CDT)Only the most recent of3 resultswithin the time period is included. Lipase 26 13 - 60 U/L [facility] Specimen Plasma specimen Performing Organization Address City/[facility]/Zipcode Phone Number [facility] DEPARTMENT OF PATHOLOGY [address] [place] [address] Comprehensive metabolic panel (03/04/2019 1:35 PM CDT)Only the most recent of4 resultswithin the time period is included. Sodium 142 135 - 148 mEq/L [facility] Potassium 4.3 3.5 - 5.0 mEq/L [facility] Chloride 105 98 - 112 mEq/L [facility] CO2 27 24 - 31 mEq/L [facility] Anion gap 10@ANIO 7 - 15 mEq/L [facility] BUN 14 6 - 20 mg/dL [facility] Creatinine 0.60 0.50 - 0.90 [facility]/dL [facility] Glucose 89 65 - 99 mg/dL [facility] Calcium 9.4 8.3 - 10.2 mg/dL [facility] Protein 7.5 6.3 - 8.3 g/dL [facility] Albumin 4.3 3.5 - 5.0 g/dL [facility] A/G ratio 1.3 0.7 - 3.8 [facility] Alkaline phosphatase 102 35 - 104 U/L [facility] AST 21 10 - 35 U/L [facility] ALT 67 (H) 5 - 50 U/L [facility] Total bilirubin <0.2 0.2 - 1.2 mg/dL [facility] Specimen Plasma specimen Performing Organization Address City/[facility]/Zipcode Phone Number [facility] DEPARTMENT OF PATHOLOGY [address] [place] [address] AND [place] [phone] HOSPITAL Urinalysis screen and microscopy, with reflex to culture (03/04/2019 1:30 PM CDT)Only the most recent of2 resultswithin the time period is included. Specimen site Clean catch [facility] Color, UA Straw [facility] Appearance, UA Clear [facility] Specific gravity, UA 1.012 1.001 - 1.030 [facility] pH, UA 5.0 5.0 - 9.0 [facility] Protein, UA Negative Negative [facility] Glucose, UA Negative Negative [facility] Ketones, UA Negative Negative [facility] Bilirubin, UA Negative Negative [facility] Blood, UA Negative Negative [facility] Nitrite, UA Negative Negative [facility] Urobilinogen, UA <2.0 <2.0 E.U./dL [facility] Leukocyte esterase, Negative Negative [facility] Epithelial cells, UA 1 /HPF [facility] WBC, UA None seen 0 - 4 /HPF [facility] RBC, UA 1 0 - 5 /HPF [facility] Bacteria, UA Few None seen [facility] Yeast, UA None seen [facility] Yeast with None seen [facility] pseudohyphae, UA [facility] Specimen Urine Performing Organization Address City/[facility]/Zipcode Phone Number [facility] DEPARTMENT OF PATHOLOGY [address] [place] [address] [place] [address] HOSPITAL Urine culture (03/04/2019 1:30 PM CDT)Only the most recent of3 resultswithin the time period is included. Urine culture SEE COMMENTComment: [facility] Bacteriuria screen [facility] negative. Specimen Performing Organization Address City/State/Zipcode Phone Number [facility] DEPARTMENT OF PATHOLOGY [address] [place] [address] AND GENOMIC MEDICINE [address] Amylase level (10/12/2018 11:15 PM CLINICAL RESEARCH ASSOCIATE)Only the most recent of2 resultswithin the time period is included. Amylase 23 13 - 73 U/L [facility] Specimen Plasma specimen Performing Organization Address City/[facility]/Zipcode Phone Number [facility] DEPARTMENT OF PATHOLOGY [id number] [place] [address] AND GENOMIC MEDICINE [address] hCG qualitative, urine screen (10/12/2018 8:50 PM CLINICAL RESEARCH ASSOCIATE) Pathologist [facility] hCG qualitative, NegativeComment: [facility] urine Sensitivity of HCG ELGIN test: 25 mIU/ml HOSPITAL Specimen Urine Performing Organization Address City/[facility]/Zipcode Phone Number [facility] DEPARTMENT OF PATHOLOGY [address] [place] [address] Estimated GFR (04/06/2018 4:20 AM CDT)Only the most recent of3 resultswithin the time period is included. Pathologist [facility] GFR Non Af Amer >90 mL/min/1.73 [facility] DEPARTMENT OF m2 PATHOLOGY AND GENOMIC MEDICINE GFR Af Amer >90 mL/min/1.73 [facility] DEPARTMENT OF Comment: PATHOLOGY AND Chronic kidney disease: <60 mL/min/1.73m2 GENOMIC MEDICINE Kidney failure: <15 mL/min/1.73m2 The estimated [...] specimen Performing Organization Address City/State/Zipcode Phone Number [facility] DEPARTMENT OF PATHOLOGY [address] [place] [address] AND [facility] Basic metabolic panel (04/06/2018 4:20 AM CDT) Pathologist [facility] Sodium 138 135 - 148 mEq/L [facility] DEPARTMENT OF PATHOLOGY AND GENOMIC MEDICINE Potassium 3.7 3.5 - 5.0 mEq/L [facility] DEPARTMENT OF PATHOLOGY AND GENOMIC MEDICINE Chloride 104 98 - 112 mEq/L [facility] DEPARTMENT OF PATHOLOGY AND GENOMIC MEDICINE CO2 21 (L) 24 - 31 mEq/L [facility] DEPARTMENT OF PATHOLOGY AND GENOMIC MEDICINE Anion gap 13@ANIO 7 - 15 mEq/L [facility] DEPARTMENT OF PATHOLOGY AND GENOMIC MEDICINE BUN 5 (L) 6 - 20 mg/dL [facility] DEPARTMENT OF PATHOLOGY AND GENOMIC MEDICINE Creatinine 0.7 0.5 - 0.9 mg/dL [facility] DEPARTMENT OF PATHOLOGY AND GENOMIC MEDICINE Glucose 83 65 - 99 mg/dL [facility] DEPARTMENT OF PATHOLOGY AND GENOMIC MEDICINE Calcium 8.1 (L) 8.3 - 10.2 mg/dL [facility] DEPARTMENT OF PATHOLOGY AND GENOMIC MEDICINE Specimen Plasma specimen Performing Organization Address City/State/Zipcode Phone Number [facility] DEPARTMENT OF PATHOLOGY [address] [place] [address] AND [employer] Gastrointestinal panel (04/05/2018 10:00 PM CDT) [facility] Gastrointestinal panel Negative for all pathogens tested: [facility] DEPARTMENT Negative for Salmonella OF PATHOLOGY Negative for Campylobacter AND GENOMIC Negative for Diarrheagenic E coli/Shigella MEDICINE Negative for Shiga-like toxin-producing E coli Negative [...] Nonpreserved Performing Organization Address City/State/Zipcode Phone Number [facility] DEPARTMENT OF PATHOLOGY AND [address] [place] [address] [employer] Lactic acid level, SEPSIS - Now and repeat 2x every 3 hours (04/05/2018 1:05 AM CDT)Only the most recent of2 resultswithin the time period is included. Pathologist [facility] Lactic acid 0.6 0.5 - 2.2 mmol/L [facility] DEPARTMENT OF PATHOLOGY AND GENOMIC MEDICINE Specimen Plasma specimen Performing Organization Address City/[facility]/Zipcode Phone Number [facility] DEPARTMENT OF PATHOLOGY [address] [place] [address] AND [facility] C difficile toxin (04/04/2018 9:20 PM CDT) Clostridium No Clostridium difficle toxin present [facility] DEPARTMENT OF difficile toxin Comment: PATHOLOGY AND Specimen Information [facility] MEDICINE Specimen Source: Stool Specimen Site: Nonpreserved Specimen Stool - Nonpreserved Performing Organization Address City/[facility] Phone Number [facility] DEPARTMENT OF PATHOLOGY AND [address] [place] [phone] [place] [address] Urinalysis, automated with microscopy (04/04/2018 8:30 PM CDT) Color, UA Yellow [facility] DEPARTMENT OF PATHOLOGY AND GENOMIC MEDICINE Appearance, UA Sl Cloudy [facility] DEPARTMENT OF PATHOLOGY AND GENOMIC MEDICINE Specific gravity, 1.014 1.001 - 1.030 [facility] DEPARTMENT OF UA PATHOLOGY AND GENOMIC MEDICINE pH, UA 6.0 5.0 - 9.0 [facility] DEPARTMENT OF PATHOLOGY AND GENOMIC MEDICINE Protein, UA Negative Negative [facility] DEPARTMENT OF PATHOLOGY AND GENOMIC MEDICINE Glucose, UA Negative Negative [facility] DEPARTMENT OF PATHOLOGY AND GENOMIC MEDICINE Ketones, UA Negative Negative [facility] DEPARTMENT OF PATHOLOGY AND GENOMIC MEDICINE Bilirubin, UA Negative Negative [facility] DEPARTMENT OF PATHOLOGY AND GENOMIC MEDICINE Blood, UA Negative Negative [facility] DEPARTMENT OF PATHOLOGY AND GENOMIC MEDICINE Nitrite, UA Negative Negative [facility] DEPARTMENT OF PATHOLOGY AND GENOMIC MEDICINE Urobilinogen, UA <2.0 <2.0 E.U./dL [facility] DEPARTMENT OF PATHOLOGY AND GENOMIC MEDICINE Leukocyte esterase, Moderate (A) Negative [facility] DEPARTMENT OF PATHOLOGY AND GENOMIC MEDICINE Epithelial cells, 7 /HPF [facility] DEPARTMENT OF UA PATHOLOGY AND GENOMIC MEDICINE Round epithelial <1 0 - 5 /HPF [facility] DEPARTMENT OF cells, UA PATHOLOGY AND GENOMIC MEDICINE WBC, UA 3 0 - 4 /HPF [facility] DEPARTMENT OF PATHOLOGY AND GENOMIC MEDICINE RBC, UA 1 0 - 5 /HPF [facility] DEPARTMENT OF PATHOLOGY AND GENOMIC MEDICINE Bacteria, UA Few None seen [facility] DEPARTMENT OF PATHOLOGY AND GENOMIC MEDICINE Yeast, UA None seen [facility] DEPARTMENT OF PATHOLOGY AND GENOMIC MEDICINE Yeast with None seen [facility] DEPARTMENT OF pseudohyphae, UA PATHOLOGY AND GENOMIC MEDICINE Specimen Urine Performing Organization Address City/[facility]/Zipcode Phone Number [facility] DEPARTMENT OF PATHOLOGY [address] [place] [address] AND [facility] MEDICINE Gram stain (04/04/2018 8:30 PM CDT) Pathologist [facility] Gram stain result Few WBC's [facility] DEPARTMENT OF Occasional Gram positive rods PATHOLOGY AND GENOMIC MEDICINE Comment: Specimen Information Specimen Source: Urine Specimen Site: Urine, clean catch Specimen Urine - Urine, clean catch Performing Organization Address City/State/Zipcode Phone Number [facility] DEPARTMENT OF PATHOLOGY AND [address] [place] [id number] [facility] Venous blood gas (04/04/2018 8:30 PM CDT)Only the most recent of2 resultswithin the time period is included. Pathologist [facility] pH, venous 7.37 7.32 - 7.42 [facility] DEPARTMENT OF PATHOLOGY AND GENOMIC MEDICINE pCO2, venous 43 (L) 45 - 51 mmHg [facility] DEPARTMENT OF PATHOLOGY AND GENOMIC MEDICINE pO2, venous 51 (H) 25 - 40 mmHg [facility] DEPARTMENT OF PATHOLOGY AND GENOMIC MEDICINE Base excess, venous -1 -2 - 2 mEq/L [facility] DEPARTMENT OF PATHOLOGY AND GENOMIC MEDICINE O2 saturation, 83 (H) 40 - 70 % [facility] DEPARTMENT OF venous PATHOLOGY AND GENOMIC MEDICINE Bicarbonate, venous 23.9 21.0 - 28.0 [facility] DEPARTMENT OF mmol/L PATHOLOGY AND GENOMIC MEDICINE Specimen Blood Performing Organization Address City/[facility] Phone Number [facility] DEPARTMENT OF PATHOLOGY [address] [place] [address] AND [facility] Blood culture, aerobic & anaerobic (04/04/2018 5:48 PM CDT)Only the most recent of2 resultswithin the time period is included. Pathologist [facility] Blood culture No growth after 5 days of incubation. [facility] DEPARTMENT OF isolate Comment: PATHOLOGY AND Specimen Information GENOMIC MEDICINE Specimen Source: Blood Specimen Site: Antecubital, right Specimen Blood - Antecubital, right Performing Organization Address City/State/Zipcode Phone Number [facility] DEPARTMENT OF PATHOLOGY AND [address] [place] [id number] [facility] MEDICINE Beta hydroxybutyrate (04/04/2018 5:00 PM CDT) Pathologist [facility] Beta hydroxybutyrate 0.05 0.02 - 0.27 [facility] DEPARTMENT OF mmol/L PATHOLOGY AND GENOMIC MEDICINE Specimen Blood Performing Organization Address City/[facility] Phone Number [facility] DEPARTMENT OF PATHOLOGY [address] [place] [address] AND GENOMIC MEDICINE Partial thromboplastin time, activated (04/04/2018 5:00 PM CDT) PTT 27.9 23.0 - 36.0 [facility] DEPARTMENT OF Comment: sec PATHOLOGY AND PTT therapeutic range for unfractionated heparin is GENOMIC MEDICINE 61.0-112.0 seconds which corresponds to Anti-Xa 0.3-0.7 U/ml. Specimen Blood Performing Organization Address City/[facility]/Zipcode Phone Number [facility] DEPARTMENT OF PATHOLOGY [phone] [place] [address]. [place] [address] AND [employer] [facility] Prothrombin time with INR (04/04/2018 5:00 PM CDT) Prothrombin time 12.1 12.0 - 15.0 [facility] DEPARTMENT sec OF PATHOLOGY AND GENOMIC MEDICINE INR 0.9 [facility] DEPARTMENT Comment: OF PATHOLOGY AND The International Normalized Ratio (INR) is a therapeutic GENOMIC MEDICINE monitoring tool for patients who are stable on oral anticoagulant therapy. An INR of 2.0-3.0 is suggested for deep vein thrombosis/pulmonary embolism. Specimen Blood Performing Organization Address City/[facility] Phone Number [facility] DEPARTMENT OF PATHOLOGY [phone] [place] [address]. [place] [address] AND [employer] [facility] Magnesium level (04/04/2018 5:00 PM CDT) Pathologist [facility] Magnesium 2.1 1.6 - 2.6 mg/dL [facility] DEPARTMENT OF PATHOLOGY AND GENOMIC MEDICINE Specimen Plasma specimen Performing Organization Address City/State/[facility] Phone Number [facility] DEPARTMENT OF PATHOLOGY [id number] [place] [address]. [place] [address] AND [facility] after 03/17/2018 Advance Directives Patient has advance care planning documents on file. For more information, please contact:[address] [address]
[2019-03-18] MEDS ORDERED: FENTANYL CITR 100 MCG/2 ML ONE (23:18)
[2019-03-18] MEDS ORDERED: KETOROLAC 30 MG/ML INJ ONE (23:18)
[2019-03-19 00:28] LABS: Urine Blood NEGATIVE (NEG); Urine Glucose NEGATIVE (NEG); Urine Protein NEGATIVE (NEG)
--- NOTE | 2019-03-19 00:36 | ER ---
Nurse's Notes [facility] Name: Mary Torres Age: 33 yrs Sex: Female : 1985 Arrival Date: 03/18/2019 Time: 21:08 Bed 18 Private MD: Diagnosis: Low back pain;Radiculopathy, lumbosacral region-left leg Presentation: 03/18 21:29 Presenting complaint: Patient states: My lower back is killing me. I bent down doing ed1 laundry and I felt a little pinch. Transition of care: patient was not received from another setting of care. Onset of symptoms was March 18, 2019. Risk Assessment: Do you want to hurt yourself or someone else? Patient reports no desire to harm self or others. Initial Sepsis Screen: Does the patient meet any 2 criteria? No. Patient's initial sepsis screen is negative. Does the patient have a suspected source of infection? No. Patient's initial sepsis screen is negative. Care prior to arrival: None. 21:29 Method Of Arrival: Wheelchair ed1 21:29 Acuity: MARCELA 4 ed1 Triage Assessment: 21:31 General: Appears uncomfortable, Behavior is calm, cooperative. Pain: Complains of pain ed1 in low back area Pain currently is 10 out of 10 on a pain scale. Musculoskeletal: Circulation, motion, and sensation intact. Range of motion: intact in all extremities, Swelling absent. 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 - Social history:: Smoking status: Patient/guardian denies using tobacco. - Ebola Screening: : Patient denies travel to an Ebola-affected area in the 21 days before illness onset No symptoms or risks identified at this time. Screenin:32 Abuse screen: Denies threats or abuse. Nutritional screening: No deficits noted. ea Tuberculosis screening: No symptoms or risk factors identified. Fall Risk None identified. Assessment: 22:15 General: Appears uncomfortable, Behavior is calm, cooperative, appropriate for age. ea Pain: Complains of pain in low back area Pain radiates to left leg Pain currently is 10 out of 10 on a pain scale. Quality of pain is described as sharp. Neuro: Level of Consciousness is awake, alert, obeys commands, Oriented to person, place, time. Cardiovascular: Patient's skin is warm and dry. Respiratory: Airway is patent Respiratory effort is even, unlabored, Respiratory pattern is regular, symmetrical. Derm: Skin is pink, warm \T\ dry. Musculoskeletal: Reports pain in low back area. 23:42 Reassessment: Patient and/or family updated on plan of care and expected duration. Pain ea level reassessed. Patient is alert, oriented x 3, equal unlabored respirations, skin warm/dry/pink. Awaiting on x ray results. Vital Signs: 21:31 BP 123 / 86; Pulse 77; Resp 18; Temp 98.3; Pulse Ox 97% on R/A; Weight 86.18 kg; Height ed1 5 ft. 2 in. (157.48 cm); Pain 10/10; 23:43 BP 122 / 76; Pulse 68; Resp 18; Pulse Ox 98% on R/A; ea 03/19 00:50 BP 112 / 64; Pulse 60; Resp 18; Pulse Ox 99% on R/A; ea 03/18 21:31 Body Mass Index 34.75 (86.18 kg, 157.48 cm) ed1 ED Course: 03/18 21:08 Patient arrived in ED. am2 21:29 Triage completed. ed1 21:31 Arm band placed on right wrist. Patient placed in waiting room, Patient notified of ed1 wait time. 22:01 Kristan Marc, DUARTE is Primary Nurse. ea 22:29 Donald Foley PA is PHCP. cp 22:29 Donald Benito MD is Attending Physician. cp 22:33 Patient has correct armband on for positive identification. Bed in low position. Call ea light in reach. 23:24 Patient moved to radiology via wheelchair. kw 23:24 X-ray completed. Patient tolerated procedure well. Patient moved back from radiology. kw 23:25 XRAY Lumbar Spine (3 Views) In Process Unspecified. EDMS 03/19 00:55 No provider procedures requiring assistance completed. Patient did not have IV access ea during this emergency room visit. Administered Medications: 03/18 23:10 Drug: fentaNYL (PF) 25 mcg Route: IM; Site: right deltoid; ea 23:15 Drug: TORadol 60 mg Route: IM; Site: left gluteus; ea Outcome: 03/19 00:35 Discharge ordered by MD. cp 00:55 Discharged to home ambulatory, with family. ea 00:55 Condition: improved 00:55 Discharge instructions given to patient, Instructed on discharge instructions, follow up and referral plans. medication usage, Demonstrated understanding of instructions, follow-up care, medications, Prescriptions given X 3. 01:00 Patient left the ED. ea Signatures: Dispatcher [employer] EDMS Maria A Somers, RN RN ed1 Mey Dinero Corey, PA PA cp Moreno, Amanda am2 Kristan Marc RN RN ea
--- NOTE | 2019-03-19 00:36 | EDPHYS ---
Physician Documentation [facility] Name: Mary Torres Age: 33 yrs Sex: Female : 1985 Arrival Date: 03/18/2019 Time: 21:08 Bed 18 Private MD: ED Physician Donald Benito HPI: 03/18 23:00 This 33 yrs old Female presents to ER via Wheelchair with complaints of Back cp Pain. 23:00 The patient presents with pain that is acute. The symptoms are located in the low back. cp Onset: The symptoms/episode began/occurred suddenly, today. The pain radiates to the left leg. Associated signs and symptoms: Pertinent negatives: abdominal pain, constipation, dysuria, fever, incontinence, numbness, urinary retention, weakness. 23:00 The problem was sustained pain started after bending down doing laundry. The patient cp has not experienced similar symptoms in the past. 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 - Social history:: Smoking status: Patient/guardian denies using tobacco. - Ebola Screening: : Patient denies travel to an Ebola-affected area in the 21 days before illness onset No symptoms or risks identified at this time. ROS: 23:30 Constitutional: Negative for body aches, chills, fever, poor PO intake. cp 23:30 Eyes: Negative for injury, pain, redness, and discharge. cp 23:30 ENT: Negative for drainage from ear(s), ear pain, sore throat, difficulty swallowing, difficulty handling secretions. 23:30 Neck: Negative for pain with movement, pain at rest, stiffness, tenderness. 23:30 Cardiovascular: Negative for chest pain, edema, palpitations. 23:30 Respiratory: Negative for cough, shortness of breath, wheezing. 23:30 Abdomen/GI: Negative for abdominal pain, vomiting, diarrhea, constipation, bowel incontinence. 23:30 Back: Positive for pain at rest, pain with movement, painful ROM. 23:30 : Negative for urinary symptoms, difficulty urinating, bladder incontinence. 23:30 Skin: Negative for rash. 23:30 Neuro: Negative for altered mental status, numbness, tingling, weakness. 23:30 All other systems are negative. Exam: 23:45 Constitutional: The patient appears in no acute distress, alert, awake, well developed, cp well nourished, uncomfortable. 23:45 Head/Face: Normocephalic, atraumatic. cp 23:45 Eyes: Periorbital structures: appear normal, Conjunctiva: normal, no exudate, no injection, Sclera: no appreciated abnormality, Lids and lashes: appear normal, bilaterally. 23:45 ENT: External ear(s): are unremarkable, Nose: is normal, Mouth: is normal, Posterior pharynx: Airway: no evidence of obstruction, patent. 23:45 Neck: ROM/movement: is normal, is supple, without pain, no range of motions limitations. 23:45 Chest/axilla: Inspection: normal. 23:45 Cardiovascular: Rate: normal, Edema: is not appreciated. 23:45 Respiratory: the patient does not display signs of respiratory distress, Respirations: normal, no use of accessory muscles, no retractions, no splinting, no tachypnea. 23:45 Abdomen/GI: Inspection: abdomen appears normal, Palpation: abdomen is soft and non-tender, in all quadrants, voluntary guarding, is not appreciated, involuntary guarding, is not appreciated. 23:45 Back: pain, that is moderate, of the lumbar area and left low back, ROM is painful, with all movement, Straight leg raises: of both lower extremities does not illicit pain. 23:45 Skin: no rash present. 23:45 Neuro: Orientation: is normal, Mentation: is normal, Motor: moves all fours, strength is normal, Sensation: is normal, Gait: is steady, Deep tendon reflexes are 2+ (normal) in the right patellar, right Achilles, left patellar and left Achilles. Vital Signs: 21:31 BP 123 / 86; Pulse 77; Resp 18; Temp 98.3; Pulse Ox 97% on R/A; Weight 86.18 kg; Height ed1 5 ft. 2 in. (157.48 cm); Pain 10/10; 23:43 BP 122 / 76; Pulse 68; Resp 18; Pulse Ox 98% on R/A; ea 03/19 00:50 BP 112 / 64; Pulse 60; Resp 18; Pulse Ox 99% on R/A; ea 03/18 21:31 Body Mass Index 34.75 (86.18 kg, 157.48 cm) ed1 MDM: 03/18 22:30 Patient medically screened. [facility] 23:30 Differential diagnosis: ruptured disc, sprain, cauda equina, spinal stenosis, sciatica. cp 03/19 00:35 Data reviewed: vital signs, lab test result(s), radiologic studies, plain films. cp Counseling: I had a detailed discussion with the patient and/or guardian regarding: the historical points, exam findings, and any diagnostic results supporting the discharge/admit diagnosis, the need for outpatient follow up, a family practitioner, to return to the emergency department if symptoms worsen or persist or if there are any questions or concerns that arise at home. Response to treatment: the patient's symptoms have markedly improved after treatment, VSS. Pain markedly improved with meds. Will discharge to home for continued monitoring. 03/18 23:22 Order name: Urine Dipstick--Ancillary (enter results); Complete Time: 00:33 ed1 03/18 23:22 Order name: Urine --Ancillary (enter results); Complete Time: 00:33 ed1 03/18 22:55 Order name: Urine Dipstick-Ancillary (obtain specimen); Complete Time: 23:21 cp 03/18 22:55 Order name: XRAY Lumbar Spine (3 Views) 03/18 22:55 Order name: Urine Test (obtain specimen); Complete Time: 23:21 cp Administered Medications: 03/18 23:10 Drug: fentaNYL (PF) 25 mcg Route: IM; Site: right deltoid; ea 23:15 Drug: TORadol 60 mg Route: IM; Site: left gluteus; ea Disposition: 03/19 06:32 Co-signature as Attending Physician, Donald Benito MD I agree with the assessment and [facility] plan of care. Disposition: 03/19/19 00:35 Discharged to Home. Impression: Low back pain, Radiculopathy, lumbosacral region - left leg. - Condition is Stable. - Discharge Instructions: Back Pain, Adult, Back Exercises, [id number]. - Prescriptions for Cyclobenzaprine 10 mg Oral Tablet - take 1 tablet by ORAL route every 8 hours As needed no driving while taking medication; 20 tablet. Tramadol 50 mg Oral Tablet - take 1 tablet by ORAL route every 8 hours as needed; 12 tablet. Medrol (Govind) 4 mg Oral Tablets, Dose Pack - take 1 tablet by ORAL route as directed - follow package instructions. no driving while taking medication; 1 packet. - Medication Reconciliation Form, Thank You Letter, Antibiotic Education, Prescription Opioid Use form. - Follow up: Private Physician; When: 2 - 3 days; Reason: Recheck today's complaints. - Problem is new. - Symptoms have improved. Signatures: Dispatcher [employer] EDMS Donald Benito MD MD cha Riggs, Erika RN RN ed1 Donald Foley PA PA Kristan Parker, RN RN ea Corrections: (The following items were deleted from the chart) 01:00 00:35 03/19/2019 00:35 Discharged to Home. Impression: Low back pain; Radiculopathy, ea lumbosacral region - left leg. Condition is Stable. Forms are Medication Reconciliation Form, Thank You Letter, Antibiotic Education, Prescription Opioid Use. Follow up: Private Physician; When: 2 - 3 days; Reason: Recheck today's complaints. Problem is new. Symptoms have improved. cp
--- NOTE | 2019-03-19 08:29 | RAD REPORT ---
EXAM DESCRIPTION: RAD - Lumbar Spine 3 Views - 03/18/2019 11:30 pm CLINICAL HISTORY: PAIN Radiculopathy COMPARISON: SPINE LUMBAR W OBLIQUE dated 10/16/2014 FINDINGS: Vertebral body heights appear maintained. No compression fracture noted. Disc spaces are m aintained. No spondylolysis or spondylolisthesis. IMPRESSION: Negative study.
== END 2019-03-19 01:00 | disposition home or self-care (01) ==
LOC: ER 21:06
DX: M54.17 Radiculopathy, lumbosacral region (principal)
CPT/HCPCS: 72100; 81003; 81025; 96372; 99283; J3010

== ENCOUNTER 2019-06-30 11:45 | Emergency (ER) | payer BC ==
--- OUTSIDE RECORDS SUMMARY | 2019-06-30 11:47 | XMS REPORT ---
:1985 [facility] Address [address] [place] [id number] Care Team Providers Name Role Phone Unavailable Unavailable Unavailable Problems This patient has no known problems. Allergies, Adverse Reactions, Alerts This patient has no known allergies or adverse reactions. Medications This patient has no known medications.
--- OUTSIDE RECORDS SUMMARY | 2019-06-30 11:47 | XMS REPORT | Summary of Care ---
:1985 Author Organization [facility] - Health Address [address] [place] [address] Care Team Providers Name Role Phone Jazmyne Humphries Denise [facility] Primary Care Provider Encounter Details Date Type Department Care Team Description 06/13/2019 Orders Only [facility] Doctor Unassigned, No [address] [facility] [place] [address] [address] [place] [address] Allergies Active Allergy Reactions Severity Noted Date Comments Morphine Other - See comments 04/23/2018 Reports migraines. documented as of this encounter (statuses as of 06/13/2019) Medications No known medicationsdocumented as of this encounter (statuses as of 06/13/2019) Active Problems Problem Noted Date Dyslipidemia 04/23/2019 Family history of premature CAD 04/23/2019 Essential hypertension 04/23/2019 Chest pain 04/22/2019 Back pain 04/23/2018 Pain pelvic 05/09/2017 Cervical high risk human papillomavirus (HPV) DNA test positive 12/14/2016 Obesity (BMI 30.0-34.9) 12/07/2016 History of bilateral tubal ligation 12/07/2016 Dysmenorrhea 12/07/2016 Lump or mass in breast 06/26/2013 Overview: IMPRESSION: LEFT BREAST: Solid mass on ultrasound at 2 o'clock, unchanged. Benign, no evidence of malignancy. Age appropriate exams. As per ACR and ACS guidelines, mammmograms recommended starting at age 40. documented as of this encounter (statuses as of 06/13/2019) Resolved Problems Problem Noted Date Resolved Date Well woman exam 12/07/2016 04/18/2018 Abdominal pain 12/27/2014 12/07/2016 Breast pain in female 06/26/2013 04/18/2018 documented as of this encounter (statuses as of 06/13/2019) Immunizations Name Administration Dates Next Due Tdap 07/29/2011 documented as of this encounter Social History Tobacco Use Types Packs/Day Years Used Date Never Smoker Smokeless Tobacco: Never Used Alcohol Use Drinks/Week oz/Week Comments No Sex Assigned at Date Recorded Not on file Job Start Date Occupation Industry Not on file Not on file Not on file Travel History Travel Start Travel End No recent travel history available. documented as of this encounter Last Filed Vital Signs Not on filedocumented in this encounter Plan of Treatment Health Maintenance Due Date Last Done Comments VARICELLA VACCINES (1 of 2 1996 - 13+ 2-dose series) INFLUENZA VACCINE (#1) 2019 PAP SMEAR 01/02/2021 01/02/2018, 12/07/2016, 08/02/2011, Additional history exists DTaP,Tdap,and Td Vaccines 07/29/2021 07/29/2011 (2 - Td) PNEUMOCOCCAL 0-64 YEARS Aged Out No longer eligible COMBINED SERIES based on patient's age to complete this topic documented as of this encounter Procedures Procedure Name Priority Date/Time Associated Diagnosis Comments CONSENT/REFUSAL FOR Routine 06/13/2019 6:29 PM CDT DIAGNOSIS AND TREATMENT documented in this encounter Results Not on filedocumented in this encounter Insurance Payer Benefit Plan Subscriber ID Effective Phone Address Type / Group Dates [place] BCBS OF [id number] 2018-Prese [phone] [address] PPO/POS [place] - OUT nt 87 [id number] [place] [address] [place] [place] [id number] xxxxxxxxx 2017-Prese [phone] [address] Medicaid [place]OMEN nt 00 [id number] [place] [address] documented as of this encounter Advance Directives Name Relationship Healthcare Agent Relationship Communication Elida Tobar Mother Primary healthcare agent Adan Tobar [facility] Primary healthcare agent
--- OUTSIDE RECORDS SUMMARY | 2019-06-30 11:47 | XMS REPORT ---
[...] Start Date End Date Status Dosage Ibuprofen [facility] [id number] 600 MG Oral Active TK 1 T PO Q 6 H PRN P SCALE 4 TO 6 Results No Known Results Summary Purpose [employer] Submission
--- OUTSIDE RECORDS SUMMARY | 2019-06-30 11:47 | XMS REPORT | Clinical Summary ---
:1985 Author Organization [facility] Address [address] [place] [address] Care Team Providers Name Role Phone Fany Escobar MD Primary Care Provider Allergies Active Allergy Reactions Severity Noted Date Comments Morphine 04/04/2018 Migraine Medications Medication Sig Dispensed Refills Start Date End Date Status acetaminophen-codeine Take 1-2 15 tablet 0 10/13/2018 10/17/2018 (TYLENOL WITH CODEINE tablets by #3) 300-30 mg per mouth every 6 tablet (six) hours as needed for moderate pain for up to 4 days. ondansetron ODT Take 1 tablet 15 tablet 0 10/13/2018 10/18/2018 (ZOFRAN ODT) 4 MG (4 mg total) by disintegrating tablet mouth every 8 (eight) hours as needed for nausea or vomiting for up to 5 days. ciprofloxacin (CIPRO) Take 1 tablet 14 tablet 0 03/04/2019 03/11/2019 500 MG tablet (500 mg total) by mouth 2 (two) times a day for 7 days. metroNIDAZOLE (FLAGYL) Take 1 tablet 21 tablet 0 03/04/2019 03/11/2019 500 MG tablet (500 mg total) by mouth 3 (three) times a day for 7 days. ondansetron ODT Take 1 tablet 15 tablet 0 03/04/2019 03/09/2019 (ZOFRAN ODT) 4 MG (4 mg total) by disintegrating tablet mouth every 8 (eight) hours as needed for nausea [...] Left lower quadrant 10/13/2018 pain (Primary Dx) after 06/29/2018 Social History Tobacco Use Types Packs/Day Years [...] Vital Signs Vital Sign Reading Time Taken Comments Blood Pressure 119/68 03/04/2019 3:31 PM CDT Pulse 64 03/04/2019 3:31 PM CDT Temperature 36.6 C (97.9 F) 03/04/2019 3:31 PM CDT Respiratory Rate 18 03/04/2019 3:31 PM CDT Oxygen Saturation 100% 03/04/2019 3:31 PM CDT Inhaled Oxygen Concentration - - Weight - - Height 157.5 cm (5' 2") 03/04/2019 12:11 PM CDT Body Mass Index - - Plan of Treatment Health Maintenance Due Date [...] procedure are in the results section. COMPREHENSIVE STAT 03/04/2019 1:35 Results for this METABOLIC PANEL PM CDT procedure are in the results section. HC COMPLETE BLD COUNT STAT 03/04/2019 1:35 Results for this W/AUTO DIFF PM CDT procedure are in the results section. URINALYSIS SCREEN AND STAT 03/04/2019 1:30 Results for this MICROSCOPY, WITH PM CDT procedure are in REFLEX TO CULTURE the results section. URINE CULTURE STAT 03/04/2019 1:30 Results for this PM CDT procedure are in the results section. CT ABDOMEN PELVIS W STAT 10/13/2018 12:32 Results for this CONTRAST AM OFFICE MACHINE TECHNICIAN procedure are in the results section. ESTIMATED GFR STAT 10/12/2018 11:15 Results for this PM OFFICE MACHINE TECHNICIAN procedure are in the results section. LIPASE LEVEL STAT 10/12/2018 11:15 Results for this PM OFFICE MACHINE TECHNICIAN procedure are in the results section. AMYLASE LEVEL STAT 10/12/2018 11:15 Results for this PM OFFICE MACHINE TECHNICIAN procedure are in the results section. COMPREHENSIVE STAT 10/12/2018 11:15 Results for this METABOLIC PANEL PM OFFICE MACHINE TECHNICIAN procedure are in the results section. HC COMPLETE BLD COUNT STAT 10/12/2018 11:15 Results for this W/AUTO DIFF PM OFFICE MACHINE TECHNICIAN procedure are in the results section. URINALYSIS SCREEN AND STAT 10/12/2018 8:50 Results for this MICROSCOPY, WITH PM OFFICE MACHINE TECHNICIAN procedure are in REFLEX TO CULTURE the results section. HCG QUALITATIVE, URINE STAT 10/12/2018 8:50 Results for this SCREEN PM OFFICE MACHINE TECHNICIAN procedure are in the results section. URINE CULTURE STAT 10/12/2018 8:50 Results for this PM OFFICE MACHINE TECHNICIAN procedure are in the results section. after 06/29/[address] Abdomen Pelvis W Contrast (03/04/2019 2:59 PM CDT)Only the most recent of2 resultswithin the time period is included. Specimen Narrative Performed At EXAMINATION: [facility] CT ABDOMEN PELVIS W CONTRAST CLINICAL [...] unchanged. IMPRESSION: Findings consistent with mild diverticulitis. [facility]-[id number] Procedure Note Interface, Radiology Results Incoming - [...] unchanged. IMPRESSION: Findings consistent with mild diverticulitis. [facility]-[id number] Performing Organization Address City/[facility]/Zipcode Phone Number [facility] [address] [place] [address] Estimated GFR (03/04/2019 1:35 PM CDT)Only the most recent of2 resultswithin the time period is included. Pathologist [facility] Estimated GFR >=90 mL/min/1.73 [facility] Comment: [address]oryUnAd[facility] G1 >=90 Normal or high G2 60-89Mildly decreased [id number] to moderately decreased [id number] to severely decreased G4 15-29Severely decreased G5 <15Kidney failure The eGFR was calculated using the Chronic Kidney Disease Epidemiology Collaboration (CKD-EPI) equation. Interpretation is based on recommendations of the National Kidney Foundation-Kidney Disease Outcomes Quality Initiative (NKF-KDOQI) published in 2014. Specimen Plasma specimen Performing Organization Address City/[facility]/Zipcode Phone Number [facility] DEPARTMENT OF PATHOLOGY [address] [place] [address] AND GENOMIC MEDICINE [facility] [address] CBC with platelet and differential (03/04/2019 1:35 PM CDT)Only the most recent of2 resultswithin the time period is included. Pathologist [facility] WBC 7.2 4.5 - 11.0 k/uL [facility] RBC 4.06 (L) 4.20 - 5.50 [facility] m/uL [facility] HGB 12.9 12.0 - 16.0 [facility] g/dL [facility] HCT 38.3 37.0 - 47.0 % [facility] MCV 94.3 82.0 - 100.0 fL [facility] MCH 31.8 27.0 - 34.0 pg [facility] MCHC 33.7 31.0 - 37.0 [facility] g/dL [facility] RDW - SD 43.8 37.0 - 55.0 fL [facility] MPV 9.5 6.9 - 11.0 fL [facility] Platelet count 312 150 - 400 K/uL [facility] Nucleated RBC 0.00 /100 WBC [facility] Neutrophils 55.5 39.0 - 69.0 % [facility] Lymphocytes 36.1 25.0 - 45.0 % [facility] Monocytes 6.0 0.0 - 10.0 % [facility] Eosinophils 1.9 0.0 - 5.0 % [facility] Basophils 0.4 0.0 - 1.0 % [facility] Immature granulocytes 0.1 0.0 - 1.0 % [facility] Specimen Blood Performing Organization Address City/[facility]/Zipcode Phone Number [facility] DEPARTMENT OF PATHOLOGY [address] [place] [address] [address] hCG qualitative, serum screen (03/04/2019 1:35 PM CDT) Pathologist [facility] hCG qualitative, NegativeComment: [facility] serum Sensitivity of HCG [place] test: 25 mIU/mL [facility]OSPITAL Specimen Blood Performing Organization Address City/State/Zipcode Phone Number [facility] DEPARTMENT OF PATHOLOGY [address] [place] [address] AND GENOMIC MEDICINE [address] Lipase level (03/04/2019 1:35 PM CDT)Only the most recent of2 resultswithin the time period is included. Lipase 26 13 - 60 U/L [facility] Specimen Plasma specimen Performing Organization Address City/State/Zipcode Phone Number [facility] DEPARTMENT OF PATHOLOGY [id number] [place] [address] Comprehensive metabolic panel (03/04/2019 1:35 PM CDT)Only the most recent of2 resultswithin the time period is included. Sodium 142 135 - 148 mEq/L [facility] Potassium 4.3 3.5 - 5.0 mEq/L [facility] Chloride 105 98 - 112 mEq/L [facility] CO2 27 24 - 31 mEq/L [facility] Anion gap 10@ANIO 7 - 15 mEq/L [facility] BUN 14 6 - 20 mg/dL [facility] Creatinine 0.60 0.50 - 0.90 [facility] mg/dL [facility] Glucose 89 65 - 99 mg/dL [facility] Calcium 9.4 8.3 - 10.2 mg/dL [facility] Protein 7.5 6.3 - 8.3 g/dL [facility] Albumin 4.3 3.5 - 5.0 g/dL [facility] A/G ratio 1.3 0.7 - 3.8 [facility] Alkaline phosphatase 102 35 - 104 U/L [facility] AST 21 10 - 35 U/L [facility] ALT 67 (H) 5 - 50 U/L [facility] Total bilirubin <0.2 0.2 - 1.2 mg/dL [facility] Specimen Plasma specimen Performing Organization Address City/State/Zipcode Phone Number [facility] DEPARTMENT OF PATHOLOGY [id number] [place] [address] Urinalysis screen and microscopy, with reflex to culture (03/04/2019 1:30 PM CDT)Only the most recent of2 resultswithin the time period is included. Specimen site Clean catch [facility] Color, UA Straw [facility] Appearance, UA Clear [facility] Specific gravity, UA 1.012 1.001 - 1.030 [facility] pH, UA 5.0 5.0 - 9.0 [facility] Protein, UA Negative Negative [facility] Glucose, UA Negative Negative [facility] Ketones, UA Negative Negative [facility] Bilirubin, UA Negative Negative [facility] Blood, UA Negative Negative [facility] Nitrite, UA Negative Negative [facility] Urobilinogen, UA <2.0 <2.0 E.U./dL [facility] Leukocyte esterase, Negative Negative [facility] Epithelial cells, UA 1 /HPF [facility] WBC, UA None seen 0 - 4 /HPF [facility] RBC, UA 1 0 - 5 /HPF [facility] Bacteria, UA Few None seen [facility] Yeast, UA None seen [facility] Yeast with None seen [facility] pseudohyphae, UA [facility] Specimen Urine Performing Organization Address City/[facility]/Zipcode Phone Number [facility] DEPARTMENT OF PATHOLOGY [id number] [place] [address] [place] [address] HOSPITAL Urine culture (03/04/2019 1:30 PM CDT)Only the most recent of2 resultswithin the time period is included. Urine culture SEE COMMENTComment: [facility] Bacteriuria screen [facility] negative. Specimen Performing Organization Address City/State/Zipcode Phone Number [facility] DEPARTMENT OF PATHOLOGY [id number] [place] [address] AND [facility] [address] MEDICINE [facility] [id number] [place] [address] HOSPITAL Amylase level (10/12/2018 11:15 PM OFFICE MACHINE TECHNICIAN) Amylase 23 13 - 73 U/L [facility] Specimen Plasma specimen Performing Organization Address City/[facility]/Zipcode Phone Number [facility] DEPARTMENT OF PATHOLOGY [id number] [place] [address] AND GENOMIC MEDICINE [facility] [id number] [place] [address] hCG qualitative, urine screen (10/12/2018 8:50 PM OFFICE MACHINE TECHNICIAN) hCG qualitative, NegativeComment: [facility] urine Sensitivity of HCG [place] test: 25 mIU/ml [facility]OSPITAL Specimen Urine Performing Organization Address City/State/Zipcode Phone Number [facility] DEPARTMENT OF PATHOLOGY [address] [place] [address] AND GENOMIC [facility] [address] [place] [address] HOSPITAL after 06/29/2018 [phone] [address] Kathy Boyd ([place]) [place] [phone] Advance Directives For more information, please contact: [phone] Type Date 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
--- OUTSIDE RECORDS SUMMARY | 2019-06-30 11:48 | XMS REPORT | Summary of Care ---
:1985 Author Organization [facility] Address [address] [place] [address] Care Team Providers Name Role Phone Fany Escobar Primary Care Provider Reason for Referral MRI/CAT Scan (MARIIA) Status Reason Specialty Diagnoses / Referred By Referred To Procedures Contact Contact New Request Diagnostic Diagnoses Generalized abdominal pain Farooq Haider Radiology Procedures CT ABDOMEN PELVIS W CONTRAST III, PA [address] [place] [address] DR BROOKS [place] [id number] MRI/CAT Scan (MARIIA) Status Reason Specialty Diagnoses / Referred By Referred To Procedures Contact Contact New Request Diagnostic Diagnoses Generalized abdominal pain Farooq Haider Radiology Procedures CT ABDOMEN PELVIS W CONTRAST III, PA [address] [place] [address] [place] [address] Reason for Visit Reason Comments Abdominal Pain LLQ Auth/Cert Status Reason Specialty Diagnoses / Referred By Referred To Procedures Contact Contact [facility] [address] [place] [address] Dr Brooks [place] [id number] Encounter Details Date Type Department Care Team Description 06/20/2019 Emergency [facility]-Emergency Farooq Haider III, Generalized abdominal pain (Primary Dx); Department PA LLQ abdominal pain [address] [place] [address] [place] [address] DR Brooks [facility] [place] [address] [phone] Allergies Active Allergy Reactions Severity Noted Date Comments Morphine Other - See comments 04/23/2018 Reports migraines. documented as of this encounter (statuses as of 06/20/2019) Medications Medication Sig Dispensed Refills Start Date End Date Status ciprofloxacin HCl Take 1 tablet 20 tablet 0 06/13/2019 Active 500 mg by mouth 2 tabletIndications: (two) times Pain of upper daily. abdomen, Diverticulitis metroNIDAZOLE 500 mg Take 1 tablet 20 tablet 0 06/13/2019 Active tabletIndications: by mouth 2 Pain of upper (two) times abdomen, daily. NO Diverticulitis ALCOHOL USE predniSONE 10 mg Take 4 tablets 12 tablet 0 06/20/2019 Active tabletIndications: by mouth daily 9 Generalized for 3 days. abdominal pain, LLQ abdominal pain ondansetron (ZOFRAN Take 1 tablet 6 tablet 0 06/20/2019 Active ODT) 4 mg by mouth every disintegrating 8 (eight) tabletIndications: hours as Generalized needed for abdominal pain, LLQ Nausea and abdominal pain Vomiting (N/V). traMADol (ULTRAM) 50 Take 1 tablet 9 tablet 0 06/20/2019 Active mg by mouth every tabletIndications: 8 (eight) Generalized hours as abdominal pain, LLQ needed for abdominal pain Pain (scale 4-6). ondansetron (ZOFRAN Take 1 tablet 6 tablet 0 06/13/2019 Discontinued ODT) 4 mg by mouth every 9 disintegrating 8 (eight) tabletIndications: hours as Pain of upper needed for abdomen, Nausea and Diverticulitis Vomiting (N/V). documented as of this encounter (statuses as of 06/20/2019) Active Problems Problem Noted Date Dyslipidemia 04/23/2019 [...] as of this encounter (statuses as of 06/20/2019) Resolved Problems Problem Noted Date Resolved Date Well woman exam 12/07/2016 04/18/2018 Abdominal pain 12/27/2014 12/07/2016 Breast pain in female 06/26/2013 04/18/2018 documented as of this encounter (statuses as of 06/20/2019) Immunizations Name Administration Dates Next Due Tdap [...] of this encounter Last Filed Vital Signs Vital Sign Reading Time Taken Comments Blood Pressure 114/86 06/20/2019 12:35 PM CDT Pulse 72 06/20/2019 12:35 PM CDT Temperature 36.9 C (98.4 F) 06/20/2019 12:35 PM CDT Respiratory Rate 16 06/20/2019 12:35 PM CDT Oxygen Saturation 99% 06/20/2019 12:35 PM CDT Inhaled Oxygen Concentration - - Weight 86.2 kg (190 lb) 06/20/2019 12:35 PM CDT Height 157.5 cm (5' 2") 06/20/2019 12:35 PM CDT Body Mass Index 34.75 06/20/2019 12:35 PM CDT documented in this encounter Discharge Instructions InstructionsMoFarooq meade III, PA - 06/20/2019 @@@@@@@@@@@@@@@@@@@@@@@@@@@@@@@@@@@@@@@@@@@@@@@@@@@@@ [facility] RETURN TO WORK / SCHOOL EXCUSE Mary Torres WAS SEEN IN THE ER AND DISCHARGED 06/20/2019 TODAY, 2:32 PM & May return to Work / School / Incarceration on 06/21/19 with No limitations unless indicated below. ___The following limitations apply until pt is seen by Physician and cleared to return to normal activity. ___ Light duty ___ No Sports ___ No work ___ Do not return until fever free for 24 hours. ___ No school Ed Vitaly JIANG [facility] EM[facility]GENC[facility]PRT[facility] [address] [place] [address] [place] [address] If you are unprepared to return to work tomorrow due to pain please give this note to your employer and make a follow up appointment with your MD for further evaluation and limitations. ### The patient may have been given Narcotic pain medications during their stay in the ED that may show up on a Drug Screen. The hospital discharge paper work will identify these medications. @@@@@@@@@@@@@@@@@@@@@@@@@@@@@@@@@@@@@@@@@@@@@@@@@@@@@ Thank you for trusting us with your care. The emergency room is the first stop in the medical management of your complaint . Our primary pupose is to identify life threatening emergancies and to rapidly address those issues. We are releasing you today after evaluation for emergency or life threatening problems related to your complaint. At this time we are comfortable that your condition is stable enough to go home, take oral medications and follow up for further care. If you can't afford a doctor OR MEDICATIONS consider [facility], [address] [place] [address]; [phone] Medications [employer] WILL SHOW YOU WHERE YOU CAN GET YOUR MEDICATIONS CHEAPEST. 1. Call your doctor and let them know you were seen for ICD-10-CM ICD-9-CM 1. Generalized abdominal pain R10.84 789.07 2. LLQ abdominal pain R10.32 789.04 2. Schedule a follow up within 3 days of your ER visit. 3. Take your prescriptions to the pharmacy and get them filled today. 4. Take the medications as prescribed and until completed. 5. You have been referred for further care 6. You may need additional tests Your doctors will help you figure out what you need and how to get them done. 7. Please read all paperwork provided to you. Additional instructions See Attached documented in this encounter Plan of Treatment Name Type Priority Associated Diagnoses Date/Time URINE CULTURE LAB STAT Generalized abdominal pain 06/20/2019 2:07 PM CDT Name Type Priority Associated Diagnoses Order Schedule URINE CULTURE LAB Routine Generalized abdominal pain ONCE for 1 Occurrences starting 06/20/2019 until 06/20/2019 Health Maintenance Due Date Last Done Comments [...] Procedure Name Priority Date/Time Associated Diagnosis Comments CT ABDOMEN PELVIS W MARIIA 06/20/2019 2:11 Generalized Results for this CONTRAST PM CDT abdominal pain procedure are in the results section. POCT TEST Routine 06/20/2019 1:30 Generalized Results for this PM CDT abdominal pain procedure are in the results section. URINALYSIS STAT 06/20/2019 1:21 Generalized Results for this PM CDT abdominal pain procedure are in the results section. CBC WITH DIFFERENTIAL STAT 06/20/2019 1:13 Generalized Results for this PM CDT abdominal pain procedure are in the results section. CBC WITH DIFF Routine 06/20/2019 1:13 Generalized Results for this PM CDT abdominal pain procedure are in the results section. COMP. METABOLIC PANEL STAT 06/20/2019 1:13 Generalized Results for this (22122) PM CDT abdominal pain procedure are in the results section. LIPASE STAT 06/20/2019 1:13 Generalized Results for this PM CDT abdominal pain procedure are in the results section. NOTICE OF PRIVACY Routine 06/20/2019 12:34 PRACTICES PM CDT CONSENT/REFUSAL FOR Routine 06/20/2019 12:25 DIAGNOSIS AND PM CDT TREATMENT documented in this encounter Results CT ABDOMEN PELVIS W CONTRAST (06/20/2019 2:11 PM CDT) Specimen Narrative Performed At CT Abdomen and Pelvis with intravenous contrast. PACS/VR/DOSE CLINICAL HISTORY: Acute generalized abdominal pain. DOSE: Up-to-date CT equipment and radiation dose reduction techniques were employed. CTDIvol: 13.25 mGy. DLP: 658 mGy-cm. TECHNIQUE : Contiguous axial imaging from the level of the lung bases through the pubic symphysis were performed after the uncomplicated administration of Omnipaque contrast material. Coronal and sagittal reconstructions were obtained. Auto mA and/or iterative reconstruction were used to reduce radiation dose. FINDINGS: Lower lungs: Clear. No pleural effusion or pericardial effusion. Liver, Gallbladder and Spleen: S/P cholecystectomy. Unremarkable liver and spleen. Biliary ducts and the pancreatic duct are of normal size. Liver is 17.4 cm and spleen is 11.7 x 3 cm. Peritoneum: No free air or free fluid. No lymphadenopathy. Pancreas and Adrenals:Unremarkable pancreas and adrenal glands. Mild left adrenal gland hypertrophy noted. Kidneys and Ureters:No visible calculi in the renal collecting systems. No hydroureter or hydronephrosis. Vessels: Normal. Retroperitoneum: No abnormal fluid or lymphadenopathy. Bowel: Probable appendectomy. Diverticulosis of the sigmoid and descending colon noted without any localized CT findings of acute diverticulitis. Small bowel gas pattern is unremarkable. Bladder and Reproductive Organs: Bilateral tubal ligation suspected. Cystic lesions are seen in both ovaries including corpus luteum of 2 cm size in the left ovary. Small amount of free fluid is in the pelvis, possibly physiologic. Urinary bladder is not opacified by the intravenously injected contrast medium. Bones: Schmorl's node in the upper plate of L2 and lower endplate of T11. No acute compression fracture. No aggressive bone lesions. Soft tissues: Small fat-containing umbilical hernia. CONCLUSION: No acute findings detected in CT scan of abdomen and pelvis. Procedure Note [facility], Radiant Results Inft User - 06/20/2019 2:[address] Abdomen and Pelvis with intravenous contrast. CLINICAL HISTORY: Acute generalized abdominal pain. DOSE: Up-to-date CT equipment and radiation dose reduction techniques were employed. CTDIvol: 13.25 mGy. DLP: 658 mGy-cm. TECHNIQUE : Contiguous axial imaging from the level of the lung bases through the pubic symphysis were performed after the uncomplicated administration of Omnipaque contrast material. Coronal and sagittal reconstructions were obtained. Auto mA and/or iterative reconstruction were used to reduce radiation dose. FINDINGS: Lower lungs: Clear. No pleural effusion or pericardial effusion. Liver, Gallbladder and Spleen: S/P cholecystectomy. Unremarkable liver and spleen. Biliary ducts and the pancreatic duct are of normal size. Liver is 17.4 cm and spleen is 11.7 x 3 cm. Peritoneum: No free air or free fluid. No lymphadenopathy. Pancreas and Adrenals: Unremarkable pancreas and adrenal glands. Mild left adrenal gland hypertrophy noted. Kidneys and Ureters: No visible calculi in the renal collecting systems. No hydroureter or hydronephrosis. Vessels: Normal. Retroperitoneum: No abnormal fluid or lymphadenopathy. Bowel: Probable appendectomy. Diverticulosis of the sigmoid and descending colon noted without any localized CT findings of acute diverticulitis. Small bowel gas pattern is unremarkable. Bladder and Reproductive Organs: Bilateral tubal ligation suspected. Cystic lesions are seen in both ovaries including corpus luteum of 2 cm size in the left ovary. Small amount of free fluid is in the pelvis, possibly physiologic. Urinary bladder is not opacified by the intravenously injected contrast medium. Bones: Schmorl's node in the upper plate of L2 and lower endplate of T11. No acute compression fracture. No aggressive bone lesions. Soft tissues: Small fat-containing umbilical hernia. CONCLUSION: No acute findings detected in CT scan of abdomen and pelvis. Performing Organization Address City/State/Zipcode Phone Number PACS/VR/DOSE POCT TEST (06/20/2019 1:30 PM CDT) POCT PREG negative On board controls acceptable present with C Line POCT PREG LOT # [id number] POCT PREG TEST DATE 10-29-2020 Specimen Urine URINALYSIS (06/20/2019 1:21 PM CDT) APPEARANCE Clear Clear [facility] COLOR Yellow Yellow [facility] PH 7.0 4.8 - 8.0 [facility] SP GRAVITY 1.020 1.003 - 1.030 [facility] GLU U QUAL Negative Negative [facility] BLOOD Negative Negative [facility] KETONES Negative Negative [facility] PROTEIN Negative Negative [facility] UROBILIN 0.2 mg/dL 0-1.0 mg/dL [facility] BILIRUBIN Negative Negative [facility] NITRITE Negative Negative [facility] LEUK ELYSIA Moderate (A) Negative [facility] RBC/HPF 0 0 - 3 HPF [facility] WBC/HPF 9 (H) 0 - 5 HPF [facility] BACTERIA Moderate (A) Negative [facility] SQ EPITH 1 HPF [facility] Specimen Urine - URINE, CLEAN CATCH Performing Organization Address City/State/Zipcode Phone Number [facility] CLIA: [id number], [address] [place] [address] CBC WITH DIFFERENTIAL (06/20/2019 1:13 PM CDT) WBC 7.85 4.30 - 11.10 [facility] 10*3/L [facility] RBC 4.09 3.93 - 5.25 [facility] 10*6/L [facility] HGB 13.1 11.6 - 15.0 g/dL [facility] HCT 38.3 35.7 - 45.2 % [facility] MCV 93.6 80.6 - 95.5 fL [facility] MCH 32.0 25.9 - 32.8 pg [facility] MCHC 34.2 31.6 - 35.1 g/dL [facility] RDW-SD 43.8 39.0 - 49.9 fL [facility] RDW-CV 12.6 12.0 - 15.5 % [facility] PLT 260 166 - 358 [facility] 10*3/L [facility] MPV 9.7 9.5 - 12.9 fL [facility] NRBC/100 WBC 0.0 0.0 - 10.0 /100 [facility] WBCs [facility] NRBC x10^3 <0.01 10*3/L [facility] GRAN MAT (NEUT) % 56.7 % [facility] IMM GRAN % 0.50 % [facility] LYMPH % 33.1 % [facility] MONO % 7.6 % [facility] EOS % 1.8 % [facility] BASO % 0.3 % [facility] GRAN MAT x10^3(ANC) 4.45 1.88 - 7.09 [facility] 10*3/uL HOSPITAL LAB[facility]ORY IMM GRAN x10^3 0.04 0.00 - 0.06 [facility] 10*3/uL [facility] LYMPH x10^3 2.60 1.32 - 3.29 [facility] 10*3/uL [facility]ITAL [facility] MONO x10^3 0.60 0.33 - 0.92 [facility] 10*3/uL H[facility]ITAL [facility] EOS x10^3 0.14 0.03 - 0.39 [facility] 10*3/uL [facility] BASO x10^3 <0.03 0.01 - 0.07 [facility] 10*3/uL [facility] Specimen Blood - VENOUS Performing Organization Address City/[facility]/Zipcode Phone Number [facility] CLIA: [id number], [address] [place] [address] LIPASE (06/20/2019 1:13 PM CDT) LIPASE 54 0 - 220 U/L [facility] Specimen Blood - VENOUS Performing Organization Address [facility] Phone Number [facility] CLIA: [id number], [address] [place] [address] COMP. METABOLIC PANEL (03414) (06/20/2019 1:13 PM CDT) NA 142 135 - 145 mmol/L [facility] K 3.7 3.5 - 5.0 mmol/L [facility] CL 107 98 - 108 mmol/L [facility] CO2 TOTAL 23 23 - 31 mmol/L [facility] AGAP 12 2 - 16 [facility] BUN 13 7 - 23 mg/dL [facility] GLUCOSE 104 70 - 110 mg/dL [facility] CREATININE 0.62 0.50 - 1.04 [facility] mg/dL HOSPITAL LAB[facility]ORY TOTAL BILI 0.5 0.1 - 1.1 mg/dL [facility] CALCIUM 9.2 8.6 - 10.6 mg/dL [facility] T PROTEIN 7.9 6.3 - 8.2 g/dL [facility] ALBUMIN 4.3 3.5 - 5.0 g/dL [facility] ALK PHOS 67 34 - 122 U/L [facility] ALT(SGPT) 16 9 - 51 U/L [facility] AST(SGOT) 21 13 - 40 U/L [facility] eGFR Calculation 109.5 mL/min/1.73m2 [facility] (Non-) [facility] eGFR Calculation 132.8 mL/min/1.73m2 [facility] () [facility] Specimen Blood - VENOUS Narrative Performed At Association of Glomerular Filtration Rate (GFR) [facility] and Staging of Kidney Disease* + + +- + | GFR (mL/min/1.73 m2)| With Kidney Damage|Without Kidney Damage + + +- + |>90| Stage one| Normal + + +- + |60-89|S tage two| Decreased GFR + + +- + |30-59|S tage three| Stage three + + +- + |15-29|S tage four | Stage four + + +- + |<15 (or dialysis)|Stage five | Stage five + + +- + *Each stage assumes the associated GFR level has been in effect for at least three months.Stages 1 to 5, with or without kidney disease, indicate chronic kidney disease. Notes: Determination of stages one and two (with eGFR >59mL/min/1.73 m2) requires estimation of kidney damage for at least three months as defined by structural or functional abnormalities of the kidney, manifested by either: Pathological abnormalities or Markers of kidney damage (including abnormalities in the composition of the blood or urine or abnormalities in imaging tests). Performing Organization Address City/State/Zipcode Phone Number [facility] CLIA: [id number], [address] [place] [address] [facility] [address] documented in this encounter Visit Diagnoses Diagnosis Generalized abdominal pain - Primary Abdominal pain, generalized LLQ abdominal pain Abdominal pain, left lower quadrant documented in this encounter Administered Medications Medication Order MAR Action Action Date Dose Rate Site iohexol (OMNIPAQUE 350 BULK-150 Given 06/20/2019 2:00 PM CDT 120 mL mL) injection 120 mL 120 mL, Intravenous, ONCE, 1 dose, Christen 06/20/19 at 1400, Routine NaCl 0.9% (NS) bolus infusion New Bag 06/20/2019 1:46 PM CDT 1,000 mL 999 mL/hr 1,000 mL at 999 mL/hr, 1,000 mL, IV Infusion, ONCE, 1 dose, Christen 06/20/19 at 1245, STAT traMADol (ULTRAM) tablet 50 mg Given 06/20/2019 2:12 PM CDT 50 mg 50 mg, Oral, ONCE NOW, 1 dose, Christen 06/20/19 at 1515, Routine documented in this encounter Insurance Payer Benefit Plan Subscriber ID Effective Dates Phone Address Type / Group [employer] [facility] [id number] 2018-Adonis [phone] [address] PPO/POS [place] - OUT OF t [phone] [place] [address] documented as of this encounter Advance Directives Name Relationship Healthcare Agent Relationship Communication Elida Tobar Mother Primary healthcare agent Adan Tobar Father Primary healthcare agent
--- OUTSIDE RECORDS SUMMARY | 2019-06-30 11:48 | XMS REPORT | Summary of Care ---
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 Care Provider Reason for Referral Radiology Services (MARIIA) Status Reason Specialty Diagnoses / Referred By Referred To Procedures Contact Contact New Request Diagnostic Diagnoses Pain of upper abdomen Farooq Haider Radiology Procedures XR ABDOMEN ACUTE SERIES III, [place] [address] [place] [address] [place] [address] Radiology Services (MARIIA) Status Reason Specialty Diagnoses / Referred By Referred To Procedures Contact Contact New Request Diagnostic Diagnoses Pain of upper abdomen Farooq Haider Radiology Procedures XR ABDOMEN ACUTE SERIES III, PA [address] [place] [address] [place] [address] Reason for Visit Reason Comments Abdominal Pain Auth/Cert Status Reason Specialty Diagnoses / Referred By Referred To Procedures Contact Contact [facility] [address] [place] [address] [place] [address] Encounter Details Date Type Department Care Team Description 06/13/2019 - Emergency [facility]Emergency Farooq Haider Pain of upper abdomen (Primary Dx); 06/14/2019 Department III, PA Diverticulitis [address] [place] [address] [place] [address] [phone] [place] [address] [phone] Allergies Active Allergy Reactions Severity Noted Date Comments Morphine Other - See comments 04/23/2018 Reports migraines. documented as of this encounter (statuses as of 06/14/2019) Medications Medication Sig Dispensed Refills Start Date End Date Status ciprofloxacin HCl Take 1 tablet 20 tablet 0 06/13/2019 Active 500 mg by mouth 2 tabletIndications: (two) times Pain of upper daily. abdomen, Diverticulitis ondansetron (ZOFRAN Take 1 tablet 6 tablet 0 06/13/2019 Active ODT) 4 mg by mouth every disintegrating 8 (eight) tabletIndications: hours as Pain of upper needed for abdomen, Nausea and Diverticulitis Vomiting (N/V). metroNIDAZOLE 500 mg Take 1 tablet 20 tablet 0 06/13/2019 Active tabletIndications: by mouth 2 Pain of upper (two) times abdomen, daily. NO Diverticulitis ALCOHOL USE metroNIDAZOLE 500 mg Take 1 tablet 20 tablet 0 06/13/2019 Discontinued tabletIndications: by mouth 2 9 Pain of upper (two) times abdomen, daily for 10 Diverticulitis days. NO ALCOHOL USE metroNIDAZOLE 500 mg Take 1 tablet 20 tablet 0 06/13/2019 Discontinued tabletIndications: by mouth 2 9 Pain of upper (two) times abdomen, daily. NO Diverticulitis ALCOHOL USE documented as of this encounter (statuses as of 06/14/2019) Active Problems Problem Noted Date Dyslipidemia 04/23/2019 [...] as of this encounter (statuses as of 06/14/2019) Resolved Problems Problem Noted Date Resolved Date Well woman exam 12/07/2016 04/18/2018 Abdominal pain 12/27/2014 12/07/2016 Breast pain in female 06/26/2013 04/18/2018 documented as of this encounter (statuses as of 06/14/2019) Immunizations Name Administration Dates Next Due Tdap [...] Sign Reading Time Taken Comments Blood Pressure 120/79 06/13/2019 11:00 PM CDT Pulse 68 06/13/2019 11:00 PM CDT Temperature 36.8 C (98.2 F) 06/13/2019 6:41 PM CDT Respiratory Rate 16 06/13/2019 8:00 PM CDT Oxygen Saturation 99% 06/13/2019 11:00 PM CDT Inhaled Oxygen Concentration - - Weight 88.5 kg (195 lb) 06/13/2019 6:41 PM CDT Height 157.5 cm (5' 2") 06/13/2019 6:41 PM CDT Body Mass Index 35.67 06/13/2019 6:41 PM CDT documented in this encounter Discharge Instructions Farooq Villarreal III, PATIENCE - 06/13/2019 @@@@@@@@@@@@@@@@@@@@@@@@@@@@@@@@@@@@@@@@@@@@@@@@@@@@@ [facility] RETURN TO WORK / SCHOOL EXCUSE Mary Torres WAS SEEN IN THE ER AND DISCHARGED 06/13/2019 TODAY, 8:52 PM & May return to Work / School / Incarceration on 06/14/19 with No limitations unless indicated below. ___The following limitations apply until pt is seen by Physician and cleared to return to normal activity. ___ Light duty ___ No Sports ___ No work ___ Do not return until fever free for 24 hours. ___ No school Ed Vitaly JIANG [facility] EMERGENCY DEPRTMENT [address] [place] [address] [place] [address] If you are unprepared to return to [...] can't afford a doctor OR MEDICATIONS consider Clinic [facility], [address] [place] [address]; [phone] Medications [employer] WILL SHOW YOU WHERE YOU CAN GET YOUR MEDICATIONS CHEAPEST. 1. Call your doctor and let them know you were seen for ICD-10-CM ICD-9-CM 1. Pain of upper abdomen R10.10 789.09 2. Diverticulitis K57.92 562.11 2. Schedule a follow up within 3 [...] documented in this encounter Plan of Treatment Health [...] encounter Procedures Procedure Name Priority Date/Time Associated Comments Diagnosis XR ABDOMEN ACUTE MARIIA 06/13/2019 8:31 Pain of upper Results for this SERIES PM CDT abdomen procedure are in the results section. POCT TEST Routine 06/13/2019 7:12 Pain of upper Results for this PM CDT abdomen procedure are in the results section. CBC WITH DIFFERENTIAL STAT 06/13/2019 7:07 Pain of upper Results for this PM CDT abdomen procedure are in the results section. URINALYSIS STAT 06/13/2019 7:07 Pain of upper Results for this PM CDT abdomen procedure are in the results section. CBC WITH DIFF Routine 06/13/2019 7:07 Pain of upper Results for this PM CDT abdomen procedure are in the results section. COMP. METABOLIC PANEL STAT 06/13/2019 7:07 Pain of upper Results for this (89344) PM CDT abdomen procedure are in the results section. NOTICE OF PRIVACY Routine 06/13/2019 6:30 PRACTICES PM CDT documented in this encounter Results XR ABDOMEN ACUTE SERIES (06/13/2019 8:31 PM CDT) Specimen Impressions Performed At PACS/VR/DOSE No acute cardiopulmonary process. Nonobstructive bowel gas pattern. IAlexi MD., have reviewed this study and agree with the above report. Narrative Performed At * * * * * * * * ORIGINAL REPORT * * * * * * * * PACS/VR/DOSE XR ABDOMEN ACUTE SERIES COMPARISON: None available HISTORY: abd pain FINDINGS: Scattered bilateral basal subsegmental atelectasis is seen. The lungs are otherwise clear with no focal consolidation. No pleural effusion or pneumothorax is present. The cardiomediastinal silhouette is normal Intermixed gas and a moderate amount of stool fill the colon and rectum. The bowel gas pattern is nonobstructive. No evidence of free subdiaphragmatic air is present. No organomegaly. No abnormal calcifications, radiopaque stones or masses are identified. No acute osseous abnormality. Right upper quadrant cholecystomy clips are present. Procedure Note [facility], Radiant Results Inft User - 06/13/2019 11:28 PM CDT * * * * * * * * ORIGINAL REPORT * * * * * * * * XR ABDOMEN ACUTE SERIES COMPARISON: None available HISTORY: abd pain FINDINGS: Scattered bilateral basal subsegmental atelectasis is seen. The lungs are otherwise clear with no focal consolidation. No pleural effusion or pneumothorax is present. The cardiomediastinal silhouette is normal Intermixed gas and a moderate amount of stool fill the colon and rectum. The bowel gas pattern is nonobstructive. No evidence of free subdiaphragmatic air is present. No organomegaly. No abnormal calcifications, radiopaque stones or masses are identified. No acute osseous abnormality. Right upper quadrant cholecystomy clips are present. IMPRESSION No acute cardiopulmonary process. Nonobstructive bowel gas pattern. IMark MD., have reviewed this study and agree with the above report. Performing Organization Address City/State/Zipcode Phone Number PACS/VR/DOSE POCT TEST (06/13/2019 7:12 PM CDT) Pathologist [facility] POCT PREG Negative On board controls acceptable Present with C Line POCT PREG LOT # [id number] POCT PREG TEST DATE 10/29/2020 Specimen Urine CBC WITH DIFFERENTIAL (06/13/2019 7:07 PM CDT) [facility] WBC 8.16 4.30 - 11.10 [facility] 10*3/L HOSPITAL LABORATORY RBC 4.32 3.93 - 5.25 [facility] 10*6/L [facility] HGB 13.8 11.6 - 15.0 g/dL [facility] HCT 40.3 35.7 - 45.2 % [facility] MCV 93.3 80.6 - 95.5 fL [facility] MCH 31.9 25.9 - 32.8 pg [facility] MCHC 34.2 31.6 - 35.1 g/dL [facility] RDW-SD 42.8 39.0 - 49.9 fL [facility] RDW-CV 12.4 12.0 - 15.5 % [facility] PLT 265 166 - 358 [facility] 10*3/L [facility] MPV 9.9 9.5 - 12.9 fL [facility] NRBC/100 WBC 0.0 0.0 - 10.0 /100 [facility] WBCs HOSPITAL LABORATORY NRBC x10^3 <0.01 10*3/L [facility] GRAN MAT (NEUT) % 53.7 % [facility] IMM GRAN % 0.20 % [facility] LYMPH % 38.1 % [facility] MONO % 6.3 % [facility] EOS % 1.3 % [facility] BASO % 0.4 % [facility] GRAN MAT x10^3(ANC) 4.38 1.88 - 7.09 [facility] 10*3/uL HOSPITAL LABORATORY IMM GRAN x10^3 <0.03 0.00 - 0.06 [facility] 10*3/uL HOSPITAL LAB[facility]ORY LYMPH x10^3 3.11 1.32 - 3.29 [facility] 10*3/uL HOSPITAL LAB[facility]ORY MONO x10^3 0.51 0.33 - 0.92 [facility] 10*3/uL HOSPITAL LAB[facility]ORY EOS x10^3 0.11 0.03 - 0.39 [facility] 10*3/uL HOSPITAL LAB[facility]ORY BASO x10^3 0.03 0.01 - 0.07 [facility] 10*3/uL HOSPITAL LABORATORY Specimen Blood - ARM, RIGHT Performing Organization Address City/State/Zipcode Phone Number [facility] CLIA: [id number], [address] [place] [address] URINALYSIS (06/13/2019 7:07 PM CDT) APPEARANCE Slightly Hazy (A) Clear [facility] COLOR Pale Yellow (A) Yellow [facility] PH 6.0 4.8 - 8.0 [facility] SP GRAVITY 1.015 1.003 - 1.030 [facility] GLU U QUAL Negative Negative [facility] BLOOD Trace (A) Negative [facility] KETONES Negative Negative [facility] PROTEIN Negative Negative [facility] UROBILIN 0.2 mg/dL 0-1.0 mg/dL [facility] BILIRUBIN Negative Negative [facility] NITRITE Negative Negative [facility] LEUK ELYSIA Negative Negative [facility] RBC/HPF 2 0 - 3 HPF [facility] WBC/HPF 2 0 - 5 HPF [facility] BACTERIA Many (A) Negative [facility] MUCOUS Slight (A) Negative LPF [facility] SQ EPITH 5 HPF [facility] Specimen Urine - URINE, CLEAN CATCH Performing Organization Address City/State/Zipcode Phone Number [facility] CLIA: [id number], [address] [place] [address] COMP. METABOLIC PANEL (39413) (06/13/2019 7:07 PM CDT) NA 141 135 - 145 [facility] mmol/L [facility] K 3.9 3.5 - 5.0 [facility] mmol/L [facility] CL 108 98 - 108 mmol/L [facility] CO2 TOTAL 23 23 - 31 mmol/L [facility] AGAP 10 2 - 16 [facility] BUN 12 7 - 23 mg/dL [facility] GLUCOSE 92 70 - 110 mg/dL [facility] CREATININE 0.58 0.50 - 1.04 [facility] mg/dL [facility] TOTAL BILI 0.4 0.1 - 1.1 mg/dL [facility] CALCIUM 9.1 8.6 - 10.6 [facility] mg/dL [facility] T PROTEIN 8.4 (H) 6.3 - 8.2 g/dL [facility] ALBUMIN 4.6 3.5 - 5.0 g/dL [facility] ALK PHOS 75 34 - 122 U/L [facility] ALT(SGPT) 13 9 - 51 U/L [facility] AST(SGOT) 20 13 - 40 U/L [facility] eGFR Calculation 118.3 mL/min/1.73m2 [facility] ([facility] LABORATORY Lebanese) eGFR Calculation 143.4 mL/min/1.73m2 [facility] () [facility] Specimen Blood - ARM, RIGHT Narrative Performed At Association of Glomerular Filtration Rate (GFR) [facility] and Staging of Kidney Disease* + [...] tests). Performing Organization Address City/State/Zipcode Phone Number [facility] CLIA: [id number], [address] [place] [address] documented in this encounter Visit Diagnoses Diagnosis Pain of upper abdomen - Primary Abdominal pain, other specified site Diverticulitis Diverticulitis of colon (without mention of hemorrhage) documented in this encounter Administered Medications Medication Order MAR Action Action Date Dose Rate Site ciprofloxacin in 5 % dextrose Given 06/13/2019 8:15 PM CDT 400 mg (CIPRO) piggyback 400 mg 400 mg, IV Piggyback, Administer over 60 Minutes, Q12H ABX, First dose on Mon06/13/19 at 2030, Until Discontinued, MARIIA, Reason for Anti-Infective: Documented Infection, Documented Infection Site: Abdominal, Duration of Therapy: Other (see Comments) metroNIDAZOLE (FLAGYL I.V.) Piggyback 500 mg Given 06/13/2019 9:32 PM CDT 500 mg 500 mg, IV Piggyback, Q8H ABX, First dose on Mon06/13/19 at 2115, Until Discontinued, 100 mL, Reason for Anti-Infective: Documented Infection, Documented Infection Site: Abdominal, Duration of Therapy: Other (see Comments) Medication Order MAR Action Action Date Dose Rate Site FENTanyl PF (SUBLIMAZE (PF)) Given 06/13/2019 8:15 PM CDT 50 mcg injection 50 mcg 50 mcg, Slow IV Push, ONCE, 1 dose, Christen 8/15/19 at 2030, Routine NaCl 0.9% (NS) bolus infusion New Bag 06/13/2019 7:08 PM CDT 1,000 mL 999 mL/hr 1,000 mL at 999 mL/hr, 1,000 mL, IV Infusion, ONCE, 1 dose, Christen 06/13/19 at 2000, STAT ondansetron (ZOFRAN (PF)) injection 4 mg Given 06/13/2019 7:08 PM CDT 4 mg 4 mg, Slow IV Push, ONCE, 1 dose, Christen 06/13/19 at 2000, MARIIA ondansetron (ZOFRAN (PF)) injection 4 mg Given 06/13/2019 10:14 PM CDT 4 mg 4 mg, Slow IV Push, ONCE, 1 dose, Christen 06/13/19 at 2315, MARIIA documented in this encounter Insurance Payer Benefit Plan Subscriber ID Effective Dates Phone Address Type / Group [facility] [id number] 2018-Adonis [phone] [address] PPO/POS [place] - OUT OF 87 [id number] [place] [address] documented as of this encounter Advance Directives Name Relationship Healthcare Agent Relationship Communication Elida Tobar Mother Primary healthcare agent Adan Tobar Father Primary healthcare agent
--- NOTE | 2019-06-30 12:28 | ER ---
Nurse's Notes [facility] Name: Mary Torres Age: 33 yrs Sex: Female : 1985 Arrival Date: 06/30/2019 Time: 11:49 Bed Waiting Private MD: Fany Escobar K Diagnosis: Pain in left toe(s) Presentation: 06/30 11:51 Presenting complaint: Patient states: Last night I fell and now my left second toe is la1 hurting me. Transition of care: patient was not received from another setting of care. Onset of symptoms was June 30, 2019. Risk Assessment: Do you want to hurt yourself or someone else? Patient reports no desire to harm self or others. Initial Sepsis Screen: Does the patient meet any 2 criteria? No. Patient's initial sepsis screen is negative. Does the patient have a suspected source of infection? No. Patient's initial sepsis screen is negative. Care prior to arrival: None. 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 - Social history:: Smoking status: Patient/guardian denies using tobacco. - Ebola Screening: : No symptoms or risks identified at this time. Screenin:40 Abuse screen: Denies threats or abuse. Nutritional screening: No deficits noted. la1 Tuberculosis screening: No symptoms or risk factors identified. Fall Risk None identified. Assessment: 12:39 General: Appears in no apparent distress. Behavior is calm, cooperative. Pain: la1 Complains of pain in left second toe. Neuro: Level of Consciousness is awake, alert, obeys commands. Cardiovascular: Patient's skin is warm and dry. Respiratory: Airway is patent Respiratory effort is even, unlabored. Musculoskeletal: Circulation, motion, and sensation intact. Capillary refill < 3 seconds, is brisk, in bilateral toes. Vital Signs: 11:52 BP 132 / 82; Pulse 66; Resp 16; Temp 97.4; Pulse Ox 100% on R/A; Weight 86.18 kg; la1 Height 5 ft. 2 in. (157.48 cm); 11:52 Body Mass Index 34.75 (86.18 kg, 157.48 cm) la1 ED Course: 11:49 Patient arrived in ED. mr 11:49 Fany Escobar MD is Private Physician. mr 11:51 Triage completed. la1 11:52 Arm band placed on right wrist. la1 11:57 Becka Seay FNP-C [facility]. kb 11:57 Donald Benito MD is Attending Physician. kb 12:12 Foot Left 3 View XRAY In Process Unspecified. EDMS 12:40 Patient has correct armband on for positive identification. la1 12:40 No provider procedures requiring assistance completed. Patient did not have IV access la1 during this emergency room visit. Administered Medications: 12:49 Drug: [place] 5 mg-325 mg 1 tabs {Note: RASS=0.} Route: PO; la1 12:50 Follow up: Response: No adverse reaction; RASS: Drowsy (-1) la1 Outcome: 12:27 Discharge ordered by . kb 12:40 Discharged to home ambulatory. la1 12:40 Condition: stable 12:40 Discharge instructions given to patient, Instructed on discharge instructions, follow up and referral plans. Demonstrated understanding of instructions, follow-up care. 12:50 Patient left the ED. la1 Signatures: Dispatcher [employer] EDKY Becka Seay FNP-C FNP-Ckb RiveraMarifer RickyleydaBenedicto, RN RN la1
--- NOTE | 2019-06-30 12:29 | EDPHYS ---
Physician Documentation [facility] Name: Mary Torres Age: 33 yrs Sex: Female : 1985 Arrival Date: 06/30/2019 Time: 11:49 Bed Waiting Private MD: Fany Escobar K ED Physician Donald Benito HPI: 06/30 12:44 This 33 yrs old Female presents to ER via Wheelchair with complaints of Fall kb Injury, Toe Injury. 12:44 Details of fall: The patient fell from an upright position, while walking. Onset: The kb symptoms/episode began/occurred today. Associated injuries: The patient sustained left second toe, painful injury. Severity of symptoms: At their worst the symptoms were mild, moderate, in the emergency department the symptoms are unchanged. The patient has not experienced similar symptoms in the past. The patient has not recently seen a physician. 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 - Social history:: Smoking status: Patient/guardian denies using tobacco. - Ebola Screening: : No symptoms or risks identified at this time. ROS: 12:20 Constitutional: Negative for fever, chills, and weight loss, Cardiovascular: Negative kb for chest pain, palpitations, and edema, Respiratory: Negative for shortness of breath, cough, wheezing, and pleuritic chest pain, Abdomen/GI: Negative for abdominal pain, nausea, vomiting, diarrhea, and constipation, Skin: Negative for injury, rash, and discoloration, Neuro: Negative for headache, weakness, numbness, tingling, and seizure. 12:20 MS/extremity: Positive for pain, of the left second toe. Exam: 12:43 Constitutional: This is a well developed, well nourished patient who is awake, alert, kb and in no acute distress. Head/Face: Normocephalic, atraumatic. Chest/axilla: Normal chest wall appearance and motion. Nontender with no deformity. No lesions are appreciated. Cardiovascular: Regular rate and rhythm with a normal S1 and S2. No gallops, murmurs, or rubs. Normal PMI, no JVD. No pulse deficits. Respiratory: Lungs have equal breath sounds bilaterally, clear to auscultation and percussion. No rales, rhonchi or wheezes noted. No increased work of breathing, no retractions or nasal flaring. Abdomen/GI: Soft, non-tender, with normal bowel sounds. No distension or tympany. No guarding or rebound. No evidence of tenderness throughout. Back: No spinal tenderness. No costovertebral tenderness. Full range of motion. Skin: Warm, dry with normal turgor. Normal color with no rashes, no lesions, and no evidence of cellulitis. MS/ Extremity: Pulses equal, no cyanosis. Neurovascular intact. Full, normal range of motion. Neuro: Awake and alert, GCS 15, oriented to person, place, time, and situation. Cranial nerves II-XII grossly intact. Motor strength 5/5 in all extremities. Sensory grossly intact. Cerebellar exam normal. Normal gait. Vital Signs: 11:52 BP 132 / 82; Pulse 66; Resp 16; Temp 97.4; Pulse Ox 100% on R/A; Weight 86.18 kg; la1 Height 5 ft. 2 in. (157.48 cm); 11:52 Body Mass Index 34.75 (86.18 kg, 157.48 cm) la1 MDM: 12:20 Data reviewed: vital signs, nurses notes. Data interpreted: Pulse oximetry: on room air kb is 100 %. Interpretation: normal. Test interpretation: by ED physician or midlevel provider: plain radiologic studies, fracture second digit. Counseling: I had a detailed discussion with the patient and/or guardian regarding: the historical points, exam findings, and any diagnostic results supporting the discharge/admit diagnosis, radiology results, the need for outpatient follow up, a orthopedic surgeon, to return to the emergency department if symptoms worsen or persist or if there are any questions or concerns that arise at home. 12:27 Patient medically screened. kb 06/30 11:52 Order name: Foot Left 3 View XRAY; Complete Time: 12:38 la1 Administered Medications: 12:49 Drug: Osakis 5 mg-325 mg 1 tabs {Note: RASS=0.} Route: PO; la1 12:50 Follow up: Response: No adverse reaction; RASS: Drowsy (-1) la1 Disposition: 07/01 09:19 Co-signature as Attending Physician, Donald Benito MD I agree with the assessment and dale plan of care. Disposition: 06/30/19 12:27 Discharged to Home. Impression: Pain in left toe(s). - Condition is Stable. - Discharge Instructions: Musculoskeletal Pain. - Medication Reconciliation Form, Thank You Letter, Antibiotic Education, Prescription Opioid Use, Work release form form. - Follow up: Emergency Department; When: As needed; Reason: Worsening of condition. Follow up: Private Physician; When: 2 - 3 days; Reason: Recheck today's complaints, Continuance of care, Re-evaluation by your physician. Signatures: Dispatcher [employer] EDMS Becka Seay, EQUINE BREEDER-C EQUINE BREEDER-Donald Wood MD MD cha Attema, Lee RN RN la1 Corrections: (The following items were deleted from the chart) 06/30 12:38 12:27 Ortho shoe ordered. kb kb 12:39 12:27 06/30/2019 12:27 Discharged to Home. Impression: Displaced fracture of medial kb phalanx of left lesser toe(s). Condition is Stable. Forms are Medication Reconciliation Form, Thank You Letter, Antibiotic Education, Prescription Opioid Use. Follow up: Emergency Department; When: As needed; Reason: Worsening of condition. Follow up: Private Physician; When: 2 - 3 days; Reason: Recheck today's complaints, Continuance of care, Re-evaluation by your physician. kb 12:50 12:39 06/30/2019 12:27 Discharged to Home. Impression: Pain in left toe(s). Condition la1 is Stable. Discharge Instructions: Toe Fracture, [id number]. Forms are Medication Reconciliation Form, Thank You Letter, Antibiotic Education, Prescription Opioid Use. Follow up: Emergency Department; When: As needed; Reason: Worsening of condition. Follow up: Private Physician; When: 2 - 3 days; Reason: Recheck today's complaints, Continuance of care, Re-evaluation by your physician. kb
--- NOTE | 2019-06-30 12:31 | RAD REPORT ---
EXAM DESCRIPTION: RAD - Foot Left 3 View - 06/30/2019 12:12 pm CLINICAL HISTORY: Left Foot pain FINDINGS: No fracture or dislocation is seen. Large calcaneal spurs are present
[2019-06-30] MEDS ORDERED: HYDROCODONE/APAP 5/325 MG TAB ONE (12:46)
== END 2019-06-30 12:50 | disposition home or self-care (01) ==
LOC: ER 11:45
DX: M25.572 Pain in left ankle and joints of left foot (principal); W18.30XA Fall on same level, unspecified, initial encounter; Y93.9 Activity, unspecified; Y92.9 Unspecified place or not applicable; Z88.6 Allergy status to analgesic agent
CPT/HCPCS: 99283

== ENCOUNTER 2019-09-25 06:08 | Day surgery (SDC) | payer BC ==
[2019-09-23 11:06] LABS: Absolute Lymphocytes (CBC) 2.7 K/uL (0.7-4.9); Basophils % 0.4 % (0-1.3); Hematocrit 38.7 % (36.0-45.0); Lymphocytes % 36.3 % (15.3-44.8); MPV 8.1 fL (7.6-11.3); RBC Red Blood Cell Count 4.11 M/uL (3.86-4.86)
[2019-09-23 11:10] LABS: Urine Appearance CLEAR; Urine Bilirubin NEGATIVE (NEG); Urine Blood NEGATIVE (NEG); Urine Color YELLOW; Urine Glucose NEGATIVE (NEG); Urine Protein NEGATIVE (NEG); Urine Specific Gravity 1.025 (1.005-1.030); Urine Urobilinogen 0.2 mg/dL (0.2-1.0)
[2019-09-23 11:19] LABS: Urine Microscopic Reflex NO UMIC
--- OUTSIDE RECORDS SUMMARY | 2019-09-25 06:15 | XMS REPORT ---
:1985 [facility] Address [address] [place] [address] Care Team Providers Name Role Phone Unavailable Unavailable Unavailable Problems This patient has no known problems. Allergies, Adverse Reactions, Alerts This patient has no known allergies or adverse reactions. Medications This patient has no known medications.
--- OUTSIDE RECORDS SUMMARY | 2019-09-25 06:15 | XMS REPORT ---
[...] Date End Date Status Dosage Ibuprofen [facility] [id number] 600 MG Oral Active TK 1 T PO Q 6 H PRN P SCALE 4 TO 6 Results No Known Results Summary Purpose [employer] Submission
[2019-09-25] MEDS ORDERED: Ringers Lactate 1,000 ML IV ONE ×2 (06:25→09:01)
[2019-09-25] MEDS ORDERED: SCOPOLAMINE HYDROBROMIDE PATCH TD ONE (06:26)
[2019-09-25 06:30] LABS: Specific Gravity 1.025 (1.005-1.030)
[2019-09-25] MEDS ORDERED: NA CHLORIDE 0.9% 1,000 ML ONE (07:12)
[2019-09-25] MEDS ORDERED: GLYCOPYRROLATE 0.2 MG/ML SYR ONE (07:16)
[2019-09-25] MEDS ORDERED: ROCURONIUM 50 MG/5 ML VIAL IV ONE (07:16)
[2019-09-25] MEDS ORDERED: MIDAZOLAM HCL 2 MG/2 ML INJ ONE (07:16)
[2019-09-25] MEDS ORDERED: LIDOCAINE 2% MPF 5 ML VIAL ONE (07:16)
[2019-09-25] MEDS ORDERED: dexAMETHasone 10 MG/ML VIAL ONE (07:16)
[2019-09-25] MEDS ORDERED: FENTANYL CITR 250 MCG/5 ML ONE (07:16)
[2019-09-25] MEDS ORDERED: PROPOFOL 200 MG/20 ML VIAL IV ONE (07:16)
[2019-09-25] MEDS: CEFAZOLIN/SWI 2gm 2 GM/20 ML SYR ONE ×2 (07:59→08:10)
[2019-09-25] MEDS: CEFAZOLIN/SWI 1gm 1 GM/10 ML SYR ONE ×2 (07:59→08:10)
[2019-09-25] MEDS: BUPIVACA 0.5%/EPI 0.0005%/PF 30 ML VIAL ONE ×2 (08:20→08:50)
[2019-09-25] MEDS ORDERED: KETOROLAC 30 MG/ML INJ ONE (09:00)
[2019-09-25] MEDS: MEPERIDINE HCL 50 MG/ML ONE ×2 (09:41→09:48)
[2019-09-25] MEDS ORDERED: ONDANSETRON 4 MG/2 ML VIAL ONE (09:42)
[2019-09-25] MEDS ORDERED: MEPERIDINE HCL 50 MG/ML ONE (09:57)
[2019-09-25] MEDS ORDERED: HYDROCODONE/APAP 5/325 MG TAB ONE (10:38)
[2019-09-25] MEDS ORDERED: HYDROCODONE/APAP 5/325 MG TAB PO ONE (10:40)
[2019-09-25] MEDS ORDERED: dexAMETHasone 4 MG/ML VIAL ONE ×2 (11:22→11:24)
[2019-09-25] MEDS ORDERED: dexAMETHasone 4 MG/ML VIAL IV ONE (11:25)
[2019-09-25 12:14] VITALS: BP 116/66; TEMP 98.5; O2SAT 98
--- NOTE | 2019-09-25 19:50 | OP ---
Date of Procedure: 09/25/2019 Surgeon: Maribell Rodríguez MD Shingles Roofer: Chelsy Kirby. Preoperative Diagnoses: 1.Menorrhagia. 2.Pelvic pain. 3.History of pelvic inflammatory disease. Postoperative Diagnoses: 1.Pelvic pain. 2.Menorrhagia. 3.Hydrosalpinges. 4.Endometriosis. Procedures Performed: 1.Hysteroscopy. 2.Endometrial ablation with NovaSure. 3.Laparoscopy. 4.Bilateral salpingectomy. 5.Endometriosis excision. Anesthesia: General endotracheal. Specimens: Endometriosis, right uterosacral and bilateral tubes. Complications: No complications. Drains: No drains. Condition: Patient's condition stable. Findings: Ablation done, cavity length 5 cm, width 4.3, power 118 elam, time of ablation 90 seconds . Excellent ablation globally. Cavity rinsed out with a hysteroscope and visualized post ablation. Bilateral tubes were swollen on the left side, appeared to have endometriosis. Right uterosacral en dometriosis in posterior cul-de-sac slightly obliterated, but no evident endometriotic nodules visual ized. Description Of Procedure: After informed consent was verified, patient was taken back to OR and plac ed in supine fashion on the operating table. After general anesthesia was given, she was placed in s upine fashion on the operating table. She was placed in a dorsal lithotomy position. Pelvic exam pe rformed. Abdomen was prepped with ChloraPrep, vagina with Betadine, and draped in a sterile fashion. He placed to drain the bladder. Speculum placed to expose the cervix. Anterior lip grasped wit h 2 Allis clamps. SlimLine hysteroscope used to perform direct hysteroscopy. Cavity empty. Endomet rium thickened. Sounding length was 10.5 cm. Calculated cavity length was 5 cm. Then, the scope re moved and dilated to 12-Macanese. Then, the NovaSure device was deployed in the usual fashion, 4.3 cm cavity width. Cavity integrity test was passed and then ablation cycle was started and this was inte rrupted and was conducted in 90 seconds. The device was undeployed in the usual fashion. Hysterosco py performed. The ablated tissue removed and rinsed out and ablation effect was global and appeared to be satisfactory. Diagnostic VCare was introduced and this area was draped and He was attached to drainage bag. A 1 cm infraumbilical incision made with a scalpel using the open laparoscopy technique. Fascia was incised after 0.25% Marcaine with epinephrine was injected locally. Then, fascia was tagged with 2-0 Vicryl sutures. S-retractors placed after the peritoneal cavity was entered bluntly. Alexa was in troduced. Site of entry was checked, unremarkable. Upper abdominal surface was unremarkable as well . Peritoneum unremarkable. Patient was placed in Trendelenburg position. Five suprapubic and left lower quadrant ports were placed after Marcaine was injected. Ports were placed under direct vision. Bilateral hydrosalpinges were seen and endometriosis on the left distal tube. A 5 mm LigaSure was used to remove the tubes on both sides. Then, endometriosis in the right distal uterosacral medial c ul-de-sac was picked up and excised and handed off for permanent pathology. No other endometriotic l esions were seen anteriorly. Anterior cul-de-sac had scar, but no endometriosis was seen. Thorough irrigation was conducted. All the tubes were removed and handed out for permanent pathology through the umbilical port using a 5 scope through the left. Then, all the ports were removed under direct v ision and injected with Marcaine. Fascia closed at the umbilicus with 0 Vicryl tied together and all skin incisions closed with the help of 4-0 Vicryl interrupted sutures. All instruments were removed . VCare and He were removed. Instrument, needle, and sponge counts were done and were correct at the end of the case. Patient tolerated the procedure well. She will follow up with me in 1 week. AIME/LONDON Voice ID: [id number] Report ID: [id number]
== END 2019-09-25 11:58 | disposition home or self-care (01) ==
LOC: OR 06:08
PROVIDERS: ATTEND Obstetrics & Gynecology
PROC: 0UB44ZZ Excision of Uterine Supporting Structure, Percutaneous Endoscopic Approach (ICD-10-PCS; 2019-09-25)
PROC: 0U5B8ZZ Destruction of Endometrium, Via Natural or Artificial Opening Endoscopic (ICD-10-PCS; 2019-09-25)
PROC: 0UT74ZZ Resection of Bilateral Fallopian Tubes, Percutaneous Endoscopic Approach (ICD-10-PCS; principal; 2019-09-25 07:30)
DX: N92.0 Excessive and frequent menstruation with regular cycle (principal); N70.11 Chronic salpingitis; N80.3 Endometriosis of pelvic peritoneum; N83.8 Other noninflammatory disorders of ovary, fallopian tube and broad ligament; N71.1 Chronic inflammatory disease of uterus; R10.2 Pelvic and perineal pain; R01.1 Cardiac murmur, unspecified; K21.9 Gastro-esophageal reflux disease without esophagitis; M19.90 Unspecified osteoarthritis, unspecified site; F32.9 Major depressive disorder, single episode, unspecified; E66.9 Obesity, unspecified; Z68.37 Body mass index [BMI] 37.0-37.9, adult; Z88.6 Allergy status to analgesic agent
CPT/HCPCS: 58661; 58662; 58563; 85025; 36415; 86900; 86850; 81025; 86901; 88302; 88305; 81003; J2704; J2250; J3010; J1100; J2175 ×2; J0690 ×2; J7120 ×2; J7030; J2405

== ENCOUNTER 2020-01-29 10:47 | Emergency (ER) | payer BC ==
--- OUTSIDE RECORDS SUMMARY | 2020-01-29 10:49 | XMS REPORT ---
:1985 [facility] Address [address] [place] [id number] Care Team Providers Name Role Phone Unavailable Unavailable Unavailable Problems This patient has no known problems. Allergies, Adverse Reactions, Alerts This patient has no known allergies or adverse reactions. Medications This patient has no known medications.
--- OUTSIDE RECORDS SUMMARY | 2020-01-29 10:49 | XMS REPORT ---
[...] Start Date End Date Status Dosage Ibuprofen [facility] [id number] 600 MG Oral Active TK 1 T PO Q 6 H PRN P SCALE 4 TO 6 Results No Known Results Summary Purpose [employer] Submission
--- OUTSIDE RECORDS SUMMARY | 2020-01-29 10:51 | XMS REPORT | Summary of Care ---
:1985 Author Organization [facility] - Health Address [address] [place] [address] Care Team Providers Name Role Phone Fany Escobar Primary Care Provider Encounter Details Date Type Department Care Team Description 11/17/2019 Orders Only [facility] Doctor Unassigned, No [address] [facility] [place] [address] [address] [place] [address] Allergies Active Allergy Reactions Severity Noted Date Comments Morphine Other - See comments 04/23/2018 Reports migraines. documented as of this encounter (statuses as of 11/17/2019) Medications Medication Sig Dispensed Refills Start Date End Date Status ciprofloxacin HCl 500 Take 1 tablet by 20 tablet 0 06/13/2019 Active mg tabletIndications: mouth 2 (two) Pain of upper abdomen, times daily. Diverticulitis metroNIDAZOLE 500 mg Take 1 tablet by 20 tablet 0 06/13/2019 Active tabletIndications: Pain mouth 2 (two) of upper abdomen, times daily. NO Diverticulitis ALCOHOL USE ondansetron (ZOFRAN Take 1 tablet by 6 tablet 0 06/20/2019 Active ODT) 4 mg mouth every 8 disintegrating (eight) hours as tabletIndications: needed for Nausea Generalized abdominal and Vomiting pain, LLQ abdominal (N/V). pain traMADol (ULTRAM) 50 mg Take 1 tablet by 9 tablet 0 06/20/2019 Active tabletIndications: mouth every 8 Generalized abdominal (eight) hours as pain, LLQ abdominal needed for Pain pain (scale 4-6). 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 TREATMENT documented in this encounter Results Not on filedocumented in this encounter Insurance Payer Benefit Plan Subscriber ID Effective Phone Address Type / Group Dates [place] OF [id number] 2018-Prese [phone] [address] PPO/POS [place] [facility] nt [id number] [place] [address] [facility] xxxxxxxxx 2017-Prese [phone] [address] Medicaid WOMEN nt 00 [id number] [place] [address] documented as of this encounter Advance Directives Name Relationship Healthcare Agent Relationship Communication Elida Tobar Mother Primary healthcare agent Adan Louisill Father Primary healthcare agent
--- OUTSIDE RECORDS SUMMARY | 2020-01-29 10:52 | XMS REPORT | Summary of Care ---
:1985 Author Organization [facility] - [facility] Address [address] [place] [address] Care Team Providers Name Role Phone Pcp, Patient Does Not Have A Primary Care Provider Reason for Referral Radiology Services (STAT) Status Reason Specialty Diagnoses / Referred By Referred To Procedures Contact Contact New Request Diagnostic Diagnoses Fever in other diseases Nimo Hinojosa Radiology Procedures XR CHEST 2 VW G, APPOINTMENT SETTER [id number] [place] [address] Reason for Visit Reason Comments Headache Chest Pain Auth/Cert Status Reason Specialty Diagnoses / Referred By Referred To Procedures Contact Contact [facility] [address] [place] [address] [place] [address] Encounter Details Date Type Department Care Team Description 11/17/2019 Emergency [facility]-Emergency Nimo Hinojosa G, Fever in other diseases (Primary Dx); Department APPOINTMENT SETTER Influenza A; [address] [place] [address] Myalgia; [place] [address] [id number] Nausea; [phone] [place], [place] Elevated blood pressure reading without diagnosis of hypertension [id number] Allergies Active Allergy Reactions Severity Noted Date Comments Morphine Other - See comments 04/23/2018 Reports migraines. documented as of this encounter (statuses as of 11/17/2019) Medications Medication Sig Dispensed Refills Start Date End Date Status oseltamivir 75 mg Take 1 capsule 10 capsule 0 11/17/2019 Active capsuleIndications: by mouth 2 0 Fever in other (two) times diseases daily for 5 days. benzonatate 100 mg Take 2 20 capsule 0 11/17/2019 Active capsuleIndications: capsules by Fever in other mouth 3 diseases (three) times daily as needed for Cough. phenylephrine-promet Take 5 mL by 118 mL 0 11/17/2019 Active hazine-codeine mouth 4 (four) (PROMETHAZINE times daily as VC-CODEINE) needed for 6.25-5-10 mg/5 mL Cough. syrupIndications: Fever in other diseases ondansetron 4 mg Take 1 tablet 12 tablet 0 11/17/2019 Active disintegrating by mouth every tabletIndications: 8 (eight) Nausea hours as needed for Nausea and Vomiting (N/V). ciprofloxacin HCl Take 1 tablet 20 tablet 0 06/13/2019 Discontinued 500 mg by mouth 2 0 tabletIndications: (two) times Pain of upper daily. abdomen, Diverticulitis metroNIDAZOLE 500 mg Take 1 tablet 20 tablet 0 06/13/2019 Discontinued tabletIndications: by mouth 2 0 Pain of upper (two) times abdomen, daily. NO Diverticulitis ALCOHOL USE ondansetron (ZOFRAN Take 1 tablet 6 tablet 0 06/20/2019 Discontinued ODT) 4 mg by mouth every 0 disintegrating 8 (eight) tabletIndications: hours as Generalized needed for abdominal pain, LLQ Nausea and abdominal pain Vomiting (N/V). traMADol (ULTRAM) 50 Take 1 tablet 9 tablet 0 06/20/2019 Discontinued mg by mouth every 0 tabletIndications: 8 (eight) Generalized hours as abdominal pain, LLQ needed for abdominal pain Pain (scale 4-6). documented as of this encounter [...] Sign Reading Time Taken Comments Blood Pressure 151/91 11/17/2019 5:34 PM [facility] Pulse 108 11/17/2019 5:34 PM [facility] Temperature 37.1 C (98.8 F) 11/17/2019 5:34 PM [facility] Respiratory Rate 18 11/17/2019 5:34 PM [facility] Oxygen Saturation 96% 11/17/2019 5:34 PM [facility] Inhaled Oxygen Concentration - - Weight 90.7 kg (200 lb) 11/17/2019 5:34 PM [facility] Height 177.8 cm (5' 10") 11/17/2019 5:34 PM [facility] Body Mass Index 28.7 11/17/2019 5:34 PM [facility] documented in this encounter Discharge Instructions Nimo Whitehead NP - 11/17/2019Diagnosis: Influenza A Malaise Fever Prescriptions for tessalon perle, promethazine VC-Codeine , zofran ,and Tamiflu sent to your [facility] pharmacy Use scheduled doses of Tylenol 650 mg every 4 hours and ibuprofen 600 mg ever 6 hours to manage muscle aches and headache No work until free of fever for twenty four hours without the use of Tylenol or Ibuprofen Increase your clear fluid intake Use humidifier in your room at night AttachmentsThe following attachments cannot be sent through Care Everywhere.( Influenza), The Flu (Chilean)documented in this encounter Plan of Treatment Name Type Priority Associated Diagnoses Date/Time THROAT CULTURE LAB STAT Fever in other diseases 11/17/2019 5:40 PM [facility] Name Type Priority Associated Diagnoses Order Schedule THROAT CULTURE LAB Routine Fever in other diseases ONCE for 1 Occurrences starting 11/17/2019 until 11/17/2019 Health Maintenance Due Date Last Done Comments VARICELLA VACCINES (1 of 2 1984 - 2-dose childhood series) INFLUENZA VACCINE (#1) 2019 PAP SMEAR 01/02/2021 01/02/2018, 12/07/2016, 08/02/2011, Additional history exists DTaP,Tdap,and Td Vaccines 07/29/2021 07/29/2011 (2 - Td) PNEUMOCOCCAL 0-64 YEARS Aged Out No longer eligible COMBINED SERIES based on patient's age to complete this topic documented as of this encounter Procedures Procedure Name Priority Date/Time Associated Diagnosis Comments XR CHEST 2 VW STAT 11/17/2019 6:49 PM Fever in other Results for this [facility] diseases procedure are in the results section. POCT TEST MARIIA 11/17/2019 6:43 PM Fever in other Results for this [facility] diseases procedure are in the results section. ADC,CLC OR [facility] ONLY STAT 11/17/2019 5:40 PM Fever in other Results for this - INFLUENZA A & B [facility] diseases procedure are in DIRECT ANTIGEN the results section. RAPID STREP SCREEN STAT 11/17/2019 5:40 PM Fever in other Results for this FOR GROUP A [facility] diseases procedure are in the results section. documented in this encounter Results XR CHEST 2 VW (11/17/2019 6:49 PM [facility]) Specimen Impressions Performed At PACS/VR/DOSE No acute cardiopulmonary process. Preliminary Report Dictated by Resident: Jay Mejias I, Pepe Cesar MD., have reviewed this study and agree with the above report. Narrative Performed At PROCEDURE: XR CHEST 2 VW PACS/VR/DOSE CLINICAL INDICATION: cough COMPARISON: 04/22/2019 TECHNIQUE: Frontal and lateral views of the chest were obtained. FINDINGS: The lungs are well-expanded and clear without focal consolidation, pleural effusion, or pneumothorax. The cardiac silhouette is normal in size. No acute osseous abnormality. Procedure Note [facility], Radiant Results Inft User - 11/17/2019 7:09 PM [facility] PROCEDURE: XR CHEST 2 VW CLINICAL INDICATION: cough COMPARISON: 04/22/2019 TECHNIQUE: Frontal and lateral views of the chest were obtained. FINDINGS: The lungs are well-expanded and clear without focal consolidation, pleural effusion, or pneumothorax. The cardiac silhouette is normal in size. No acute osseous abnormality. IMPRESSION No acute cardiopulmonary process. Preliminary Report Dictated by Resident: Jay Mejias I, Pepe Cesar MD., have reviewed this study and agree with the above report. Performing Organization Address City/[facility]/Zipcode Phone Number PACS/VR/DOSE POCT TEST (11/17/2019 6:43 PM [facility]) POCT PREG negative On board controls acceptable present with C Line POCT PREG LOT # [id number] POCT PREG TEST DATE , Specimen Urine - URINE, CLEAN CATCH ADC,CLC OR LCC ONLY - INFLUENZA A & B DIRECT ANTIGEN (11/17/2019 5:40 PM [facility]) Influenza A Positive (A) Negative [facility] Influenza B Negative Negative [facility] Specimen Swab - NARE, LEFT SIDE Performing Organization Address [facility] Phone Number [facility] CLIA: [id number], [address] [place] [address] RAPID STREP SCREEN FOR GROUP A (11/17/2019 5:40 PM [facility]) Streptococcus pyogenes Negative Negative [facility] (group A) antigen [facility] Specimen Swab - THROAT Performing Organization Address [facility] Phone Number [facility] CLIA: [id number], [address] [place] [address] documented in this encounter Visit Diagnoses Diagnosis Fever in other diseases - Primary Influenza A Influenza with other respiratory manifestations Myalgia Mylagia and myositis, unspecified Nausea Nausea alone Elevated blood pressure reading without diagnosis of hypertension documented in this encounter Administered Medications Medication Order MAR Action Action Date Dose Rate Site benzonatate (TESSALON PERLES) Given 11/17/2019 7:21 PM [facility] 200 mg capsule 200 mg 200 mg, Oral, ONCE NOW, 1 dose, 11/17/19 at 2015, Routine HYDROcodone-acetaminophen (NORCO 5) 5-325 Given 11/17/2019 7:20 PM [facility] 2 tablets mg tablet 2 tablet 2 tablet, Oral, ONCE, 1 dose, 11/17/19 at 2015, MARIIA ibuprofen (IBU) tablet 800 mg Given 11/17/2019 7:21 PM [facility] 800 mg 800 mg, Oral, ONCE, 1 dose, 11/17/19 at 2015, MARIIA ondansetron (ZOFRAN-ODT) disintegrating tablet Given 11/17/2019 6:24 PM [facility] 4 mg 4 mg 4 mg, Oral, ONCE, 1 dose, 11/17/19 at 1845, Routine documented in this encounter Insurance Payer Benefit Plan Subscriber ID Effective Dates Phone Address Type / Group [facility] [id number] 2019-Adonis [phone] [address] PPO/POS [place] - OUT OF 87 [id number] [place] [address] documented as of this encounter Advance Directives Name Relationship Healthcare Agent Communication Relationship Elida Edmondson Mother Primary healthcare agent Adan Edmondson Father Primary healthcare agent
[2020-01-29 11:31] LABS: Absolute Lymphocytes (CBC) 2.7 K/uL (0.7-4.9); Basophils % 0.6 % (0-1.3); Hematocrit 41.2 % (36.0-45.0); Lymphocytes % 35.7 % (15.3-44.8); MPV 7.6 fL (7.6-11.3); RBC Red Blood Cell Count 4.45 M/uL (3.86-4.86)
[2020-01-29 11:31] LABS: Urine Blood NEGATIVE (NEG); Urine Glucose NEGATIVE (NEG); Urine Protein NEGATIVE (NEG)
[2020-01-29 11:36] LABS: ALT/SGPT 59 U/L (12-78); AST/SGOT 39 U/L (15-37); Albumin 3.6 g/dL (3.4-5.0); Alkaline Phosphatase 85 U/L (45-117); Bilirubin Direct < 0.1 mg/dL (0-0.2); Bilirubin Total 0.3 mg/dL (0.2-1.0); Lipase 77 U/L (73-393); Protein, Total 8.1 g/dL (6.4-8.2)
[2020-01-29 11:39] LABS: Potassium 3.7 mmol/L (3.5-5.1)
[2020-01-29] MEDS ORDERED: ONDANSETRON 4 MG/2 ML VIAL ONE (11:56)
--- NOTE | 2020-01-29 12:10 | RAD REPORT ---
EXAM DESCRIPTION: CTAbdomen Pelvis W Contrast - 01/29/2020 12:00 pm CLINICAL HISTORY: Abdominal pain. ABD PAIN COMPARISON: Abdomen Pelvis W Contrast dated 01/12/2019; Abdomen Pelvis W Contrast dated 12/24/2017 ; Abdomen Pelvis W Contrast dated 06/02/2017 TECHNIQUE: Biphasic CT imaging of the abdomen and pelvis was performed with 100 ml non-ionic IV cont rast. All CT scans are performed using dose optimization technique as appropriate and may include automated exposure control or mA/KV adjustment according to patient size. FINDINGS: The lung bases are clear.Cholecystectomy clips. The liver, spleen, pancreas, adrenal glands and kidneys are within normal limits. No bowel obstruction, free air, free fluid or abscess. Diverticulosis is present involving the descen ding colon and sigmoid colon. There subtle reticulation of the fat surrounding the sigmoid colon in t he left lower quadrant suspicious for early findings of acute diverticulitis. Appendectomy. No evide nce of significant lymphadenopathy. No suspicious bony findings. IMPRESSION: Early findings of acute left lower quadrant diverticulitis. No abscess or other complica tion evident.
--- NOTE | 2020-01-29 12:18 | ER ---
Nurse's Notes [facility] Name: Mary Torres Age: 34 yrs Sex: Female : 1985 Arrival Date: 01/29/2020 Time: 10:51 Bed 14 Private MD: Fany Escobar K Diagnosis: Diverticulitis of large intestine without perforation or abscess without bleeding;Elevated blood-pressure reading, without diagnosis of hypertension Presentation: 01/28 10:54 Chief complaint: Patient states: LLQ pain radiating to left low back that began 1-2 aa5 weeks ago. Pt reports nausea, denies vomiting/diarrhea. 10:54 Coronavirus screen: Patient denies fever greater than 100.4F, cough, shortness of aa5 breath, or difficulty breathing. Ebola Screen: Patient negative for fever greater than or equal to 101.5 degrees Fahrenheit, and additional compatible Ebola Virus Disease symptoms. Initial Sepsis Screen: Does the patient meet any 2 criteria? No. Patient's initial sepsis screen is negative. Does the patient have a suspected source of infection? No. Patient's initial sepsis screen is negative. Risk Assessment: Do you want to hurt yourself or someone else? Patient reports no desire to harm self or others. 10:54 Acuity: MARCELA 3 aa5 10:54 Method Of Arrival: Ambulatory aa5 CELLULAR BIOLOGIST: 11:01 LMP N/A - Uterine Ablation aa5 Historical: - Allergies: 10:54 Morphine; aa5 - PMHx: 10:54 Diverticulitis; aa5 - PSHx: 11:01 Uterine ablation; aa5 - Immunization history:: Flu vaccine is not up to date. - Social history:: Smoking status: Patient denies any tobacco usage or history of. - Family history:: not pertinent. Screenin:56 Abuse screen: Denies threats or abuse. Denies injuries from another. Nutritional ph screening: No deficits noted. Tuberculosis screening: No symptoms or risk factors identified. Fall Risk None identified. Assessment: 11:16 General: Appears in no apparent distress. comfortable, well groomed, Behavior is calm, ph cooperative, appropriate for age, Denies. Pain: Complains of pain in left lower quadrant. Neuro: Level of Consciousness is awake, alert, obeys commands, Oriented to person, place, time, situation. Cardiovascular: Capillary refill < 3 seconds in bilateral fingers Patient's skin is warm and dry. Respiratory: Airway is patent Respiratory effort is even, unlabored, Respiratory pattern is regular, symmetrical. GI: Abdomen is round non-distended, Reports lower abdominal pain, diarrhea, nausea. : Reports pain in left in lower back. Derm: Skin is intact, is healthy with good turgor, Skin is pink, warm \T\ dry. Musculoskeletal: Circulation, motion, and sensation intact. Range of motion: intact in all extremities. 12:13 Reassessment: Patient appears in no apparent distress at this time. Patient and/or ph family updated on plan of care and expected duration. Pain level reassessed. Patient is alert, oriented x 3, equal unlabored respirations, skin warm/dry/pink. Awaiting CT results. Vital Signs: 10:54 BP 129 / 98; Pulse 96; Resp 16 S; Temp 97.5(TE); Pulse Ox 100% on R/A; Weight 86.18 kg; aa5 Height 5 ft. 2 in. (157.48 cm) (R); Pain 7/10; 11:45 BP 118 / 78; Pulse 85; Resp 18; Temp 97.9; Pulse Ox 99% on R/A; ph 10:54 Body Mass Index 34.75 (86.18 kg, 157.48 cm) aa5 ED Course: 10:51 Patient arrived in ED. am2 10:51 Fany Escobar MD is Private Physician. am2 10:54 Ana Bryan, RN is Primary Nurse. ph 10:54 Arm band placed on Patient placed in an exam room, on a stretcher. aa5 10:56 Modesto Chavez DO is Attending Physician. ms3 10:58 Patient has correct armband on for positive identification. Placed in gown. Bed in low ph position. Call light in reach. Side rails up X 1. Pulse ox on. NIBP on. 10:59 Triage completed. aa5 11:10 Initial lab(s) drawn, by me, sent to lab. Urine collected:. Inserted saline lock: 24 ph gauge in right antecubital area, using aseptic technique. Blood collected. 11:23 Radiology exam delayed due to lab results not completed at this time. (BUN/Creatinine). 11:29 Urine --Ancillary (enter results) Sent. mh5 11:29 Urine Dipstick--Ancillary (enter results) Sent. [facility] 11:30 Urine collected: clean catch specimen, clear. [facility] 12:01 CT Abd/Pelvis - IV Contrast Only In Process Unspecified. EDMS 12:30 No provider procedures requiring assistance completed. IV discontinued, intact, ph bleeding controlled, No redness/swelling at site. Pressure dressing applied. Administered Medications: 12:11 Drug: Zofran (Ondansetron) 4 mg Route: IVP; Site: right antecubital; ph 12:30 Follow up: Response: No adverse reaction ph Outcome: 12:17 Discharge ordered by MD. ms3 12:32 Discharged to home ambulatory. ph 12:32 Condition: good 12:32 Discharge instructions given to patient, Instructed on discharge instructions, follow up and referral plans. medication usage, Demonstrated understanding of instructions, follow-up care, medications, Prescriptions given X 1. 12:33 Patient left the ED. ph Signatures: Dispatcher [employer] Marli Leon Audri RN RN 5 Ana Bryan RN RN Noemí Ambrosio 5 Nidia Abernathy am2 Modesto Chavez DO DO ms3
--- NOTE | 2020-01-29 12:18 | EDPHYS ---
Physician Documentation [facility] Name: Mary Torres Age: 34 yrs Sex: Female : 1985 Arrival Date: 01/29/2020 Time: 10:51 Bed 14 Private MD: Fany Escobar K ED Physician Modesto Chavez HPI: 01/28 11:02 This 34 yrs old Female presents to ER via Ambulatory with complaints of LLQ ms3 abdominal pain. 11:03 The patient presents with abdominal pain. The patient presents with abdominal pain in ms3 the left lower quadrant. Onset: The symptoms/episode began/occurred 2 week(s) ago. The symptoms do not radiate. Associated signs and symptoms: Pertinent positives: Pertinent negatives: nausea and vomiting, blood in stools, diarrhea. The symptoms are described as dull. Modifying factors: The symptoms are alleviated by nothing, the symptoms are aggravated by laying on L side. Severity of pain: At its worst the pain was moderate in the emergency department the pain is unchanged. The patient has experienced a previous episode, The patient has experienced similar episodes in the past, Diverticulitis. [employer]: 11:01 LMP N/A - Uterine Ablation aa5 Historical: - Allergies: 10:54 Morphine; aa5 - PMHx: 10:54 Diverticulitis; aa5 - PSHx: 11:01 Uterine ablation; aa5 - Immunization history:: Flu vaccine is not up to date. - Social history:: Smoking status: Patient denies any tobacco usage or history of. - Family history:: not pertinent. ROS: 11:03 Constitutional: Negative for fever, and chills. Neck: Negative for injury, pain, and ms3 swelling, Cardiovascular: Negative for chest pain, and palpitations. Respiratory: Negative for shortness of breath, cough, wheezing, and pleuritic chest pain. 11:03 Back: Negative for injury and pain, : Negative for injury, bleeding, discharge, and swelling. 11:03 Abdomen/GI: Positive for abdominal pain, Negative for nausea, vomiting, and diarrhea. 11:03 All other systems are negative. Exam: 11:03 Constitutional: This is a well developed, well nourished patient who is awake, alert, ms3 and in no acute distress. Head/Face: Normocephalic, atraumatic. Neck: Trachea midline, no cervical lymphadenopathy. Supple, full range of motion without nuchal rigidity, or vertebral point tenderness. No Meningismus. Chest/axilla: Normal chest wall appearance and motion. Nontender with no deformity. Cardiovascular: Regular rate and rhythm Respiratory: No increased work of breathing, no retractions or nasal flaring. 11:03 Skin: Warm, dry with normal turgor. Normal color with no rashes, no lesions, and no evidence of cellulitis. MS/ Extremity: Pulses equal, no cyanosis. Neurovascular intact. Full, normal range of motion. Neuro: Awake and alert, GCS 15, oriented to person, place, time, and situation. Cranial nerves II-XII grossly intact. Motor strength 5/5 in all extremities. Sensory grossly intact. Cerebellar exam normal. Normal gait. Psych: Awake, alert, with orientation to person, place and time. Behavior, mood, and affect are within normal limits. 11:03 Abdomen/GI: Inspection: abdomen appears normal, Bowel sounds: Palpation: soft, in all quadrants, mild abdominal tenderness, in the left lower quadrant, Indicators: Vital Signs: 10:54 BP 129 / 98; Pulse 96; Resp 16 S; Temp 97.5(TE); Pulse Ox 100% on R/A; Weight 86.18 kg; aa5 Height 5 ft. 2 in. (157.48 cm) (R); Pain 7/10; 11:45 BP 118 / 78; Pulse 85; Resp 18; Temp 97.9; Pulse Ox 99% on R/A; ph 10:54 Body Mass Index 34.75 (86.18 kg, 157.48 cm) aa5 MDM: 10:59 Patient medically screened. ms3 11:03 Differential diagnosis: bowel obstruction, diverticulitis, non-specific abd pain, ms3 Ovarian Torsion, urinary tract infection. 12:21 Data reviewed: vital signs, nurses notes, lab test result(s), CBC, electrolytes, ms3 hepatic panel, urinalysis, radiologic studies, CT scan. Medical screen evaluation completed. EMTALA emergency medical condition absent. 12:26 ED course: Discussed labs and CT with pt. Pt tolerating PO, NAD, non-toxic, abdomen ms3 benign. Pt to follow up with her PMD within 48 hours. Pt understands/ agrees with plan. All questions answered. Return precautions discussed.. 01/28 11:02 Order name: Creatinine for Radiology; Complete Time: 11:37 ms3 01/28 11:41 Interpretation: Within normal limits. ms3 01/28 11:02 Order name: Hepatic Function; Complete Time: 11:37 ms3 01/28 11:41 Interpretation: Normal except: AST 39. ms3 01/28 11:02 Order name: Lipase; Complete Time: 11:37 ms3 01/28 11:41 Interpretation: Within normal limits. ms3 01/28 11:16 Order name: Basic Metabolic Panel; Complete Time: 11:39 ph 01/28 11:40 Interpretation: Within normal limits. ms3 01/28 11:16 Order name: CBC with Diff; Complete Time: 11:37 ph 01/28 11:42 Interpretation: Within normal limits. ms3 01/28 11:28 Order name: Urine Dipstick--Ancillary (enter results); Complete Time: 11:37 bd 01/28 11:02 Order name: CT Abd/Pelvis - IV Contrast Only; Complete Time: 12:27 ms3 01/28 11:09 Order name: Urine Dipstick-Ancillary (obtain specimen); Complete Time: 11:15 ms3 01/28 11:16 Order name: IV Saline Lock; Complete Time: 11:15 ph 01/28 11:16 Order name: Labs collected and sent; Complete Time: 11:15 ph 01/28 11:28 Order name: Urine --Ancillary (enter results); Complete Time: 11:37 bd 01/28 11:42 Interpretation: Within normal limits. ms3 Administered Medications: 12:11 Drug: Zofran (Ondansetron) 4 mg Route: IVP; Site: right antecubital; ph 12:30 Follow up: Response: No adverse reaction ph Disposition: 12:26 Co-signature as Attending Physician, Modesto Chavez DO. ms3 Disposition: 01/29/20 12:17 Discharged to Home. Impression: Diverticulitis of large intestine without perforation or abscess without bleeding, Elevated blood-pressure reading, without diagnosis of hypertension. - Condition is Stable. - Discharge Instructions: Diverticulitis, Hypertension. - Prescriptions for Augmentin 875- 125 mg Oral Tablet - take 1 tablet by ORAL route every 12 hours for 10 days; 20 tablet. - Medication Reconciliation Form, Thank You Letter, Antibiotic Education, Prescription Opioid Use form. - Follow up: Private Physician; When: 1 - 2 days; Reason: Re-evaluation by your physician. - Problem is new. - Symptoms are unchanged. Signatures: Dispatcher [employer] Shauna Flores, RN RN aa5 Ana Bryan RN RN ph Modesto Chavez DO DO ms3 Corrections: (The following items were deleted from the chart) 12:33 12:17 01/29/2020 12:17 Discharged to Home. Impression: Diverticulitis of large ph intestine without perforation or abscess without bleeding; Elevated blood-pressure reading, without diagnosis of hypertension. Condition is Stable. Forms are Medication Reconciliation Form, Thank You Letter, Antibiotic Education, Prescription Opioid Use. Follow up: Private Physician; When: 1 - 2 days; Reason: Re-evaluation by your physician. Problem is new. Symptoms are unchanged. ms3
[2020-01-29 13:02] VITALS: BP 129/98; TEMP 97.5; O2SAT 100
== END 2020-01-29 12:33 | disposition home or self-care (01) ==
LOC: ER 10:47
DX: K57.32 Diverticulitis of large intestine without perforation or abscess without bleeding (principal); R03.0 Elevated blood-pressure reading, without diagnosis of hypertension; Z88.5 Allergy status to narcotic agent
CPT/HCPCS: 85025; 80048; 36415; 81025; 80076; 81003; 83690; 74177; Q9967; J2405; 96374; 99284

== ENCOUNTER 2022-05-21 18:46 | Emergency (ER) | payer BC, OTHER ==
--- OUTSIDE RECORDS SUMMARY | 2022-05-21 18:50 | XMS REPORT | Continuity of Care Document ---
:1985 Author Organization [facility] t Address [address] [place] [address] Care Team Providers Name Role Phone ANGELA MERCHANTEDISON Primary Care Physician Unavailable MANISHA Attending Clinician Unavailable TRACIE Attending Clinician Unavailable MARGE COLLINS Attending Clinician Unavailable STEVEN Attending Clinician Unavailable Steven TIERNEY Attending Clinician Doctor Unassigned, Name Attending Clinician Unavailable Lydia Attending Clinician Unavailable Vanessa MALIN Attending Clinician Unavailable MD IAN DYER Attending Clinician Unavailable Denise WHITE Attending Clinician Unavailable AWILDA GRAZA Admitting Clinician Unavailable STEVEN Admitting Clinician Unavailable Lydia Admitting Clinician Unavailable MANISHA Admitting Clinician Unavailable MD IAN DYER Admitting Clinician Unavailable Payers Payer Name Policy Type Policy Number Effective Date Expiration Date S [place] [facility] - [id number] 2019 OUT OF STATE 00:00:00 AETNA HMO POS QPOS [id number] 2021 00:00:00 AETNA COMMERCIAL [id number] 2021 OUT OF NETWORK 00:00:00 [place] [id number] 2019 00:00:00 Problems Condition Condition Condition Status Onset Resolution Last Treating Co mments Source Name Details Category Date Date Treatment Clinician Date Dyslipidem Dyslipidem Disease Active U nivers ia ia 6-25 ity of 00:00: [place] [facility] Family Family Disease Active Univers history of history of 6-25 [place] of premature premature [place] CAD CAD 00 [place] Essential Essential Disease Active Uni vers hypertensi hypertensi 6-25 it y of on on 00:00: [place] [facility] Chest pain Chest pain Disease Active U nivers 6-24 ity of 00:00: [place] [facility] Back pain Back pain Disease Active Uni vers 6-25 ity of 00:00: [place] [facility] Pain Pain Disease Active Univers pelvic pelvic 7-11 ity of 00:00: [place] [facility] Cervical Cervical Disease Active Unive rs high risk high risk 2-15 ity of human human 00:00: [place] papillomav papillomav 00 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 IMPRESSIO N:LEFT BREAST: Solid mass on ultrasoun d at 2 o'clock, unchanged . Benign, no evidence of malignanc y. Age appropria te exams. As per ACR and ACS guideline s, mammmogra ms recommend ed starting at age 40. Trigger Trigger Problem Active Common finger of finger of Spir it right right - [facility] thumb thumb [facility] Pain of Pain of Problem Active Common left thumb left thumb Sp yosvany [facility] Trigger Trigger Problem Active Common finger of finger of Spir it left thumb left thumb - [facility] Right Right Problem Active Common wrist pain wrist pain Sp [facility] Pain in Pain in Diagnosis Active Commo n right hand right hand Sp [facility] Allergies, Adverse Reactions, Alerts Allergy Allergy Status Severity Reaction(s) Onset Inactive Treating Comm ents Source Name Type Date Date Clinician MORPHINE Allergy Active N\\T\\V St 04-21 [facility]: [address] MORPHINE DRUG Active Other-Cmnt Univ ers INGREDI 04-23 ity of 00:00: [address] Morphine Propensi Active Other - See Reports Univers ty to comments 04-23 migraines ity o f adverse 00:00: . [place] reaction [address] [place] [address] MORPHINE Adverse Active Info Not Commo n Reaction Available [facility] t [facility] Social History Social Habit Start Date Stop Date Quantity Comments Source Exposure to 2022-04-11 2022-04-21 Not sure [facility] SARS-CoV-2 00:00:00 12:44:00 [facility] (event) Calcium Alcohol intake 2021-03-31 2021-03-31 [facility] 00:00:00 00:00:00 non-drinker of [facility] alcohol Branch (finding) Sex Ass[birth year] At [birth year] Universit y of 00:00:00 00:00:00 [facility] Smoking Status Start Date Stop Date Source Never smoker [facility] Medications Ordered Filled Start Stop Current Ordering Indication Dosage Frequency Signature Comments Components Source Medication Medication Date Date Medication? Clinician (SIG) Name Name ondansetron No 4mg 4 mg, Slow Univers (ZOFRAN 04-22 IV Push, ity of (PF)) 03:15: 02:12 ONCE, 1 [place] injection 4 00 :00 dose, On Medi rosalba mg Christen Branch 04/21/22 at 2215, MARIIA FENTanyl PF No 75ug 75 mcg, Un marley (SUBLIMAZE 04-22 Slow IV ity o f (PF)) 03:15: 02:12 Push, [place] injection 00 :00 ONCE, 1 Medical 75 mcg dose, On Branch Christen 04/21/22 at 2215, Routine FENTanyl PF 2021- No 75ug 75 mcg, Un marley (SUBLIMAZE 04-21 Slow IV ity o f (PF)) 23:45: 22:35 Push, [place] injection 00 :00 ONCE, 1 Medical 75 mcg dose, On Branch Christen 04/21/22 at 1845, STAT FENTanyl PF No 75ug 75 mcg, Un marley (SUBLIMAZE 04-21 Slow IV ity o f (PF)) 21:30: 20:48 Push, [place] injection 00 :00 ONCE, 1 Medical 75 mcg dose, On Branch [facility] 04/21/22 at 1630, STAT piperacilli No 3.375g 3.375 g, Univers n-tazobacta 04-21 IV ity of m (ZOSYN) 20:30: 20:32 [place]gyback, [place] 3.375 g in 00 :00 ONCE, 1 Medica l NaCl 0.9% dose, On Branch (NS) 50 mL Christen MINI-BAG 04/21/22 at 1530, Administer over 30 Minutes, 50 mL
R segundo for Anti-Infec tive: Documented Infection< br>Documen jared Infection Site: Abdominal< br>Duratio n of Therapy: Other (see Comments) ondansetron No 4mg 4 mg, Slow Univers (ZOFRAN 04-21 IV Push, ity of (PF)) 19:30: 18:37 ONCE, 1 [place] injection 4 00 :00 dose, On Medi rosalba mg Christen Branch 04/21/22 at 1430, MARIIA FENTanyl PF No 75ug 75 mcg, Un marley (SUBLIMAZE 04-21 Slow IV ity o f (PF)) 19:30: 18:37 Push, [place] injection 00 :00 ONCE, 1 Medical 75 mcg dose, On Branch Christen 04/21/22 at 1430, STAT iopamidol 0 2021- No [id number] 60mL 60 mL, U nivers (ISOVUE 04-21- Intravenou ity o f 370-500 mL) 18:50: 18:50 s, ONCE, 1 [place] injection 00 :00 dose, On Medica l 60 mL Christen Branch 04/21/22 at 1400, Routine benzonatate 2020-0 Yes [id number] 200mg Take 2 Univers 100 mg 1-19 capsules ity of capsule 00:00: [place] mouth 3 [place] 00 (three) Medical times Branch daily as needed for Cough. phenylephri 2020-0 Yes [id number] 5mL Take 5 mL Univers ne-prometha 1-19 by mouth 4 it y of zine-codein 00:00: (four[place] 00 times Medical (PROMETHAZI daily as Bran ch NE needed for VC-CODEINE) Cough. 6.25-5-10 mg/5 mL syrup ondansetron 2020-0 Yes [id number] 4mg Take 1 Univers 4 mg 1-19 tablet by ity of disintegrat 00:00: mouth [place] ing tablet 00 every 8 Medica l (eight) Branch hours as needed for Nausea and Vomiting (N/V). benzonatate 2020-0 Yes [id number] 200mg Take 2 Univers 100 mg 1-19 capsules ity of capsule 00:00: [place] mouth 3 [place] 00 (three) Medical times Branch daily as needed for Cough. phenylephri 2020-0 Yes [id number] 5mL Take 5 mL Univers ne-prometha 1-19 by mouth 4 it y of zine-codein 00:00: (four[place] 00 times Medical (PROMETHAZI daily as Bran ch NE needed for VC-CODEINE) Cough. 6.25-5-10 mg/5 mL syrup ondansetron 2020-0 Yes [id number] 4mg Take 1 Univers 4 mg 1-19 tablet by ity of disintegrat 00:00: mouth [place] ing tablet 00 every 8 Medica l (eight) Branch hours as needed for Nausea and Vomiting (N/V). Ibuprofen Ibuprofen Yes Mark GOLDSTEIN 1 T PO Common [facility] Q 6 H PRN Spirit P SCALE 4 - [facility] TO 6 [facility] Immunizations Ordered Filled Immunization Date Status Comments Sourc e Immunization Name Name TDAP 2011-07-29 Completed [facility] 00:00:00 [facility] TDAP 2011-07-29 Completed [facility] 00:00:00 [facility] Vital Signs Vital Name Observation Time Observation Value Comments Source WEIGHT 2022-04-22 14:00:00 95.074 kg WEIGHT 2022-04-22 14:00:00 95.074 kg Systolic blood 2022-04-22 02:00:00 138 mm[Hg] Univer sity of pressure [facility] Diastolic blood 2022-04-22 02:00:00 99 mm[Hg] Unive [facility] Heart rate 2022-04-22 02:00:00 80 /min [facility] Respiratory rate 2022-04-22 02:00:00 15 /min [facility] Oxygen saturation in 2022-04-22 02:00:00 98 /min [facility] Arterial blood by [facility] Pulse oximetry Calcium Body temperature 2022-04-21 17:43:15 36.89 [facility] Body height 2022-04-21 17:32:00 160 cm [facility] Body weight 2022-04-21 17:32:00 90.719 kg [facility] BMI 2022-04-21 17:32:00 35.43 kg/m2 [facility] Procedures Procedure Date / Time Performing Clinician Source Performed LACTIC ACID WHOLE BLOOD 2022-04-22 00:39:00 Karyn Villegas [facility] LACTIC ACID WHOLE BLOOD 2022-04-21 23:42:00 Claudy [facility] COVID-19 (ID NOW RAPID 2022-04-21 20:47:00 [facility] CT ABDOMEN PELVIS W 2022-04-21 18:54:00 Claudy Harris [facility] CONTRAST [facility] POCT TEST 2022-04-21 18:03:00 Claudy Harris [facility] PROTHROMBIN TIME / INR 2022-04-21 17:54:00 [facility] ACTIVATED PARTIAL 2022-04-21 17:54:00 Claudy Harris [facility] THRMPLAS BIJAN [facility] URINALYSIS 2022-04-21 17:54:00 Claudy Harris [facility] LIPASE 2022-04-21 17:53:00 Claudy Harris [facility] TROPONIN I 2022-04-21 17:53:00 Claudy Harris [facility] COMP. METABOLIC PANEL 2022-04-21 17:53:00 Claudy Harris [facility] ([id number]) [facility] CBC WITH DIFF 2022-04-21 17:53:00 Claudy Harris [facility] NOTICE OF PRIVACY 2022-04-21 17:29:34 Doctor Unassigned, No Univ [facility] PRACTICES Name Medical Branch CONSENT/REFUSAL FOR 2022-04-21 17:28:00 Doctor Unassigned, No [facility]AT[facility] Name [facility] Encounters Start End Encounter Admission Attending Care Care Encounter Source Date/Time Date/Time Type Type Clinicians Facility Department ID 2021-08-29 Emergency [facility] [id number] Univers [facility]-08-29 Emergency [facility] [id number] Univers 10:52:06 [facility] 2021-03-06 Outpatient MANISHA ANTIONE [facility] [id number] [place] 03:47:14 Health 2022-04-21 2022-04-25 Inpatient [address] [facility] Gastro [id number] [facility] 22:05:00 13:40:00 HENRIQUE 2022-04-22 2022-04-22 [facility] [id number] [facility] 00:00:00 23:59:00 Criss dyer of Medicin e 2022-04-21 2022-04-21 Emergency [facility] [id number] Univers 12:35:00 21:21:00 CLAUDY aldridge [facility] 2022-04-21 2022-04-21 [facility] [id number] Univers 12:35:00 21:21:00 Claudy CREWS 350.1.13.10 i ty of CHE[place] 4.2.7.2.686 [facility] [id number] [place] [id number] Branch 2022-04-21 2022-04-21 Orders Doctor ALBERTO [id number] Univers 00:00:00 00:00:00 Only Unassigned, TATUM 350.1.13.10 [facility] 4.2.7.2.686 Stanley as [id number] [facility] 009 Branch 2021-04-09 2021-04-09 Outpatient Goldfarb_D [facility] [id number] [place] 02:18:00 02:18:00 [id number] [facility] 2020-10-29 2020-10-29 Outpatient [facility] [id number] Univers 16:20:00 16:20:00 [id number] ity of [facility] 2020-10-28 2020-10-28 Outpatient R [facility] [id number] Univers 09:40:00 09:40:00 [id number] ity of [facility] 2020-10-20 2020-10-20 Outpatient R [facility] [id number] Univers 14:20:00 14:20:00 [id number] ity of [facility] 2020-10-20 2020-10-20 Outpatient R KIMO, [facility] [id number] Univers 14:20:00 14:20:00 RANDA ity [facility] 2020-08-11 2020-08-12 Inpatient ANTIONE DYER [facility] [id number] [place] 00:00:00 00:00:[address] 2020-08-04 2020-08-04 Outpatient ANTIONE DYER [facility] [id number] [place] 00:00:00 00:00:[address] 2019-05-16 2019-05-16 Outpatient R CINDY [facility] [id number] Univers 00:00:00 00:00:00 ROSHUNDA ity o f [facility] 2018-05-28 2018-05-28 Outpatient [facility] [id number] Common 09:00:00 09:00:00 [facility] Results Test Description Test Time Test Comments Results Result Comments Source BLOOD CULTURE 2022-04-27 00:00:10 Test Item Value Reference Range Interpretation Comme nts CULTURE (BEAKER) (test code = 1095) No growth in 5 days The specimen volume collected for this blood culture was below the optimum (10 mL per bottle or 20 mL total). Use of lower volumes may adversely affect recovery and/or detection times of some organisms.[id number] 13:42:54 Test Item Value Reference Range Interpretation Comments RPR SCREEN (BEAKER) (test code = Nonreactive Nonreactive 420) [id number] 05:00:20 Test Item Value Reference Range Interpretation Comments MAGNESIUM (BEAKER) (test code = 2.0 mg/dL 1.6-2.6 627) General Accountant ID - TD [id number] 05:00:20 Test Item Value Reference Range Interpretation Comments PHOSPHORUS (BEAKER) (test code = 2.8 mg/dL 2.3-4.7 604) General Accountant ID - TD GBASIC METABOLIC [id number] 05:00:19 Test Item Value Reference Range Interpretation Comments SODIUM (BEAKER) 140 meq/L 136-145 (test code = 381) POTASSIUM (BEAKER) 3.4 meq/L 3.5-5.1 L (test code = 379) CHLORIDE (BEAKER) 108 meq/L 98-107 H (test code = 382) CO2 (BEAKER) (test 24 meq/L 22-29 code = 355) BLOOD UREA NITROGEN 4 mg/dL 7-21 L (BEAKER) (test code = 354) CREATININE (BEAKER) 0.70 mg/dL 0.57-1.25 (test code = 358) GLUCOSE RANDOM 95 mg/dL 70-105 (BEAKER) (test code = 652) CALCIUM (BEAKER) 8.8 mg/dL 8.4-10.2 (test code = 697) EGFR (BEAKER) (test 94 mL/min/1.73 ESTIMA JARED GFR IS code = 1092) sq m NOT ACCURATE CREATININE CLEARANCE IN PREDICTING GLOMERULAR FILTRATION RATE . ESTIMATED GFR I S NOT APPLICABLE FOR DIALYSIS PATIEN TS. General Accountant ID - TD GCBC W/PLT COUNT & AUTO [id number] 04:20:46 Test Item Value Reference Range Interpretation Comments WHITE BLOOD CELL COUNT (BEAKER) 8.1 K/ L 3.5-10.5 (test code = 775) RED BLOOD CELL COUNT (BEAKER) 3.83 M/ L 3.93-5.22 L (test code = 761) HEMOGLOBIN (BEAKER) (test code = 12.0 GM/DL 11.2-15.7 410) HEMATOCRIT (BEAKER) (test code = 35.5 % 34.1-44.9 411) MEAN CORPUSCULAR VOLUME (BEAKER) 92.7 fL 79.4-94.8 (test code = 753) MEAN CORPUSCULAR HEMOGLOBIN 31.3 pg 25.6-32.2 (BEAKER) (test code = 751) MEAN CORPUSCULAR HEMOGLOBIN CONC 33.8 GM/DL 32.2-35.5 (BEAKER) (test code = 752) RED CELL DISTRIBUTION WIDTH 12.3 % 11.7-14.4 (BEAKER) (test code = 412) PLATELET COUNT (BEAKER) (test 308 K/CU MM 150-450 code = 756) MEAN PLATELET VOLUME (BEAKER) 9.3 fL 9.4-12.3 L (test code = 754) NUCLEATED RED BLOOD CELLS 0 /100 WBC 0-0 (BEAKER) (test code = 413) NEUTROPHILS RELATIVE PERCENT 51 % (BEAKER) (test code = 429) LYMPHOCYTES RELATIVE PERCENT 41 % (BEAKER) (test code = 430) MONOCYTES RELATIVE PERCENT 6 % (BEAKER) (test code = 431) EOSINOPHILS RELATIVE PERCENT 2 % (BEAKER) (test code = 432) BASOPHILS RELATIVE PERCENT 0 % (BEAKER) (test code = 437) NEUTROPHILS ABSOLUTE COUNT 4.10 K/ L 1.56-6.13 (BEAKER) (test code = 670) LYMPHOCYTES ABSOLUTE COUNT 3.29 K/ L 1.18-3.74 (BEAKER) (test code = 414) MONOCYTES ABSOLUTE COUNT (BEAKER) 0.50 K/ L 0.24-0.36 H (test code = 415) EOSINOPHILS ABSOLUTE COUNT 0.17 K/ L 0.04-0.36 (BEAKER) (test code = 416) BASOPHILS ABSOLUTE COUNT (BEAKER) 0.03 K/ L 0.01-0.08 (test code = 417) IMMATURE GRANULOCYTES-RELATIVE 0 % 0-1 PERCENT (BEAKER) (test code = 2801) POCT-GLUCOSE [id number] 18:19:14 Test Item Value Reference Range Interpretation Comments POC-GLUCOSE METER 74 mg/dL 70-110 : TESTED A T [facility] 6720 (BEAKER) (test code = [facility], 1538) [address]389: General Accountant/Techni luis ID = [id number] for SARAY FREY POCT-GLUCOSE [id number] 07:29:39 Test Item Value Reference Range Interpretation Comments POC-GLUCOSE METER 100 mg/dL 70-110 : TESTED A T [facility] 6720 (BEAKER) (test code = [facility] Denise [facility], 1538) 83669: General Accountant/Techni luis ID = [id number] for Ca suzanne, Tran [id number] 05:48:58 Test Item Value Reference Range Interpretation Comments MAGNESIUM (BEAKER) (test code = 2.1 mg/dL 1.6-2.6 627) General Accountant ID - [id number] 05:48:58 Test Item Value Reference Range Interpretation Comments PHOSPHORUS (BEAKER) (test code = 2.8 mg/dL 2.3-4.7 604) General Accountant ID - ADMINBASIC METABOLIC [id number] 05:48:57 Test Item Value Reference Range Interpretation Comments SODIUM (BEAKER) 138 meq/L 136-145 (test code = 381) POTASSIUM (BEAKER) 3.8 meq/L 3.5-5.1 (test code = 379) CHLORIDE (BEAKER) 107 meq/L 98-107 (test code = 382) CO2 (BEAKER) (test 23 meq/L 22-29 code = 355) BLOOD UREA NITROGEN 3 mg/dL 7-21 L (BEAKER) (test code = 354) CREATININE (BEAKER) 0.74 mg/dL 0.57-1.25 (test code = 358) GLUCOSE RANDOM 98 mg/dL 70-105 (BEAKER) (test code = 652) CALCIUM (BEAKER) 8.3 mg/dL 8.4-10.2 L (test code = 697) EGFR (BEAKER) (test 88 mL/min/1.73 ESTIMA JARED GFR IS code = 1092) sq m NOT ACCURATE CREATININE CLEARANCE IN PREDICTING GLOMERULAR FILTRATION RATE . ESTIMATED GFR I S NOT APPLICABLE FOR DIALYSIS PATIEN TS. General Accountant ID - ADMINPOCT-GLUCOSE [id number] 18:12:55 Test Item Value Reference Range Interpretation Comments POC-GLUCOSE METER 76 mg/dL 70-110 : TESTED A T [facility] 6720 ([facility]) (test code = [facility] Denise [facility], 1538) 80445: General Accountant/Techni luis ID = [id number] for SARAY FREY POCT-GLUCOSE [id number] 12:32:12 Test Item Value Reference Range Interpretation Comments POC-GLUCOSE METER 88 mg/dL 70-110 : TESTED A T [facility] 6720 ([facility]) (test code = YIFAN Walker [facility], 1538) 13726: General Accountant/Techni luis ID = [id number] for SARAY FREY TSH/FREE T4 IF [id number] 10:08:44 Test Item Value Reference Range Interpretation Comments THYROID STIMULATING HORMONE 1.890 uIU/mL 0.350-4.940 (BEAKER) (test code = 772) General Accountant ID - SILVIA MHEMOGLOBIN [id number] 09:25:35 Test Item Value Reference Range Interpretation Comments HEMOGLOBIN A1C 5.4 % See_Comment [Automated m essage] [facility] The system which (test code = 3811) generated this result transmitted ref erence range: <=5.6%. The reference range was not used to int erpret this result as normal/abnormal . "The A1c is measured using a [facility]-certified method. HbA1c value equal to or greater than 6.5% as thediagnosis cutoff for diabetes. An HbA1c value of 5.7- 6.4% indicates increased risk for diabetes (prediabetes)."General Accountant ID - ADM [id number] 08:05:46 Test Item Value Reference Range Interpretation Comments MAGNESIUM (BEAKER) (test code = 2.0 mg/dL 1.6-2.6 627) General Accountant ID - SILVIA [id number] 08:05:46 Test Item Value Reference Range Interpretation Comments PHOSPHORUS (BEAKER) (test code = 2.8 mg/dL 2.3-4.7 604) General Accountant ID - SILVIA MLIPID [id number] 08:05:46 Test Item Value Reference Range Interpretation Comments TRIGLYCERIDES (BEAKER) (test code = 146 mg/dL 540) CHOLESTEROL (BEAKER) (test code = 169 mg/dL 631) HDL CHOLESTEROL (BEAKER) (test code 39 mg/dL = 976) LDL CHOLESTEROL CALCULATED (BEAKER) 101 mg/dL (test code = 633) Triglyceride Reference Range: Low Risk <150 Borderline 150-199 High Risk 200-499 Very High Risk >=500Cholesterol Reference Range: Low Risk <200 Borderline 200-239 High Risk >240HDL Cholesterol Reference Range: Low Risk >=60 High Risk <40LDL Cholesterol Reference Range: Optimal <100 Near Optimal 100-129 Borderline 130-159 High 160-189 Very High >=190 General Accountant ID - SILVIA EPATIC FUNCTION [id number] 08:05:46 Test Item Value Reference Range Interpretation Comments TOTAL PROTEIN (BEAKER) (test code = 6.4 gm/dL 6.0-8.3 770) ALBUMIN (BEAKER) (test code = 1145) 3.5 g/dL 3.5-5.0 BILIRUBIN TOTAL (BEAKER) (test code 0.6 mg/dL 0.2-1.2 = 377) BILIRUBIN DIRECT (BEAKER) (test 0.3 mg/dL 0.1-0.5 code = 706) ALKALINE PHOSPHATASE (BEAKER) (test 103 U/L 40-150 code = 346) AST (SGOT) (BEAKER) (test code = 53 U/L 5-34 H 353) ALT (SGPT) (BEAKER) (test code = 91 U/L 6-55 H 347) General Accountant ID - SILVIA MBASIC METABOLIC [id number] 08:05:45 Test Item Value Reference Range Interpretation Comments SODIUM (BEAKER) 138 meq/L 136-145 (test code = 381) POTASSIUM (BEAKER) 3.3 meq/L 3.5-5.1 L (test code = 379) CHLORIDE (BEAKER) 104 meq/L 98-107 (test code = 382) CO2 (BEAKER) (test 24 meq/L 22-29 code = 355) BLOOD UREA NITROGEN 5 mg/dL 7-21 L (BEAKER) (test code = 354) CREATININE (BEAKER) 0.78 mg/dL 0.57-1.25 (test code = 358) GLUCOSE RANDOM 105 mg/dL 70-105 (BEAKER) (test code = 652) CALCIUM (BEAKER) 8.1 mg/dL 8.4-10.2 L (test code = 697) EGFR (BEAKER) (test 83 mL/min/1.73 ESTIMA JARED GFR IS code = 1092) sq m NOT ACCURATE CREATININE CLEARANCE IN PREDICTING GLOMERULAR FILTRATION RATE . ESTIMATED GFR I S NOT APPLICABLE FOR DIALYSIS PATIEN TS. General Accountant ID - SILVIA MVITAMIN D, [id number] 06:16:40 Test Item Value Reference Range Interpretation Comments VITAMIN D 25-OH (BEAKER) (test 22.8 ng/mL 6.6-49.9 code = 2764) Effective 08/09/2017: Reference Range ChangeNew: 6.6-49.9 ng/mL Previous: 13.0-47.8 ng/mLRecommended Vitamin D Target Range: 30.0-40.0 ng/mLOperator ID - SILVIA MHIV-1 ANTIGEN WITH HIV-1/2 [id number] 06:16:40 Test Item Value Reference Range Interpretation Comments HIV-1 ANTIGEN WITH HIV 1\\T\\2 Nonreactive Nonreactive ANTIBODY (2) (BEAKER) (test code = 2586) General Accountant ID - SILVIA LIBIA, TIBC, % SAT. (WITHOUT FERRITIN)2022-04-23 05:51:46 Test Item Value Reference Range Interpretation Comments IRON (BEAKER) (test code = 547) 75.0 ug/dL 40.0-160.0 TOTAL IRON BINDING CAPACITY 304 ug/dL 250-450 (BEAKER) (test code = 769) IRON % SATURATION (2) (BEAKER) 25 % 20-55 (test code = 2590) General Accountant ID - SILVIA MCBC W/PLT COUNT & AUTO [id number] 05:45:30 Test Item Value Reference Range Interpretation Comments WHITE BLOOD CELL COUNT (BEAKER) 7.8 K/ L 3.5-10.5 (test code = 775) RED BLOOD CELL COUNT (BEAKER) 3.68 M/ L 3.93-5.22 L (test code = 761) HEMOGLOBIN (BEAKER) (test code = 11.6 GM/DL 11.2-15.7 410) HEMATOCRIT (BEAKER) (test code = 35.4 % 34.1-44.9 411) MEAN CORPUSCULAR VOLUME (BEAKER) 96.2 fL 79.4-94.8 H (test code = 753) MEAN CORPUSCULAR HEMOGLOBIN 31.5 pg 25.6-32.2 (BEAKER) (test code = 751) MEAN CORPUSCULAR HEMOGLOBIN CONC 32.8 GM/DL 32.2-35.5 (BEAKER) (test code = 752) RED CELL DISTRIBUTION WIDTH 12.5 % 11.7-14.4 (BEAKER) (test code = 412) PLATELET COUNT (BEAKER) (test 250 K/CU MM 150-450 code = 756) MEAN PLATELET VOLUME (BEAKER) 9.6 fL 9.4-12.3 (test code = 754) NUCLEATED RED BLOOD CELLS 0 /100 WBC 0-0 (BEAKER) (test code = 413) NEUTROPHILS RELATIVE PERCENT 60 % (BEAKER) (test code = 429) LYMPHOCYTES RELATIVE PERCENT 32 % (BEAKER) (test code = 430) MONOCYTES RELATIVE PERCENT 8 % (BEAKER) (test code = 431) EOSINOPHILS RELATIVE PERCENT 1 % (BEAKER) (test code = 432) BASOPHILS RELATIVE PERCENT 0 % (BEAKER) (test code = 437) NEUTROPHILS ABSOLUTE COUNT 4.61 K/ L 1.56-6.13 (BEAKER) (test code = 670) LYMPHOCYTES ABSOLUTE COUNT 2.45 K/ L 1.18-3.74 (BEAKER) (test code = 414) MONOCYTES ABSOLUTE COUNT (BEAKER) 0.58 K/ L 0.24-0.36 H (test code = 415) EOSINOPHILS ABSOLUTE COUNT 0.08 K/ L 0.04-0.36 (BEAKER) (test code = 416) BASOPHILS ABSOLUTE COUNT (BEAKER) 0.02 K/ L 0.01-0.08 (test code = 417) IMMATURE GRANULOCYTES-RELATIVE 0 % 0-1 PERCENT (BEAKER) (test code = 2801) POCT-GLUCOSE [id number] 00:21:13 Test Item Value Reference Range Interpretation Comments POC-GLUCOSE METER 85 mg/dL 70-110 : TESTED [place] T [facility] 6720 (BEAKER) (test code = YIFAN NUNEZ [place], 1538) [address]: General Accountant/Techni luis ID = [id number] for RACHELLE العراقي POCT-GLUCOSE [id number] 16:59:37 Test Item Value Reference Range Interpretation Comments POC-GLUCOSE METER 98 mg/dL 70-110 : Notified RN/MD: Pt. (INES) (test code = refuse d rpt tst: TESTED 1538) AT [place] [address] [address] [facility], [facility] 30: General Accountant/Techni luis ID = [id number] for Nidia Hannon POCT-GLUCOSE [id number] 12:19:19 Test Item Value Reference Range Interpretation Comments POC-GLUCOSE METER 102 mg/dL 70-110 : Notified RN/MD: Pt. (INES) (test code = refuse d rpt tst: TESTED 1538) AT [place] [address] [address] [facility], [facility] 30: General Accountant/Techni luis ID = [id number] for Nidia Shea SARS-COV2/RT-PCR ([facility])2022-04-22 11:06:43 Test Item Value Reference Range Interpretation Comments SARS-COV2/RT-PCR Negative Negative The SARS-Co V-2 target (test code = nucleic acids a re not [id number]) detected in thi s specimen. Negative result s do not preclude SARS-C oV-2 infection and s hould not be used as the herrera e basis for patient managem ent decisions. Nega tive results must be combine d with clinical observ ations, patient history , and epidemiological information. A false negativ e result may occur if a spec imen is improperly lio ected, transported or handled. This SARS CoV-2 test is a rapid, real-bijan e RT-PCR test intended for th e qualitative detection of nu cleic acid from SARS-CoV-2 in a nasopharyngeal swab specimen collected from individuals suspected of CO VID-19 by their healthcar e provider. This test has been authorized by FDA under an EUA for use by authorized laboratories. This test is only authorized for the duration of the declaration that circumstances exist justifying the authorization of emergency use of in vitro diagnostic tests for detection and/or diagnosis of COVID-19 under Section 564(b)(1) of the Federal Food, Drug and Cosmetic Act, 21 U.S.C. 360bbb- 3(b)(1), unless the authorization is terminated or revoked sooner. Fact Sheet for Healthcare Providers: https://www.[employer].AutoRef.com/Documents/Xpert%20Xpress%20SARS%20CoV-2/Fact%20Sheets/302-3802%20SARS-COV -2%20HEALTHCARE%20PROVIDERS%20FACT%20SHEET.pdf Fact Sheet for Healthcare Patients: https://www.[employer]/Documents/Xpert %20Xpress%20SARS%20CoV-2/Fact%20Sheets/302-3801%80BJHM-OYC-1%20PATIENT%20FACT%20 SHEET.pdfPOCT-GLUCOSE [id number] 07:28:56 Test Item Value Reference Range Interpretation Comments POC-GLUCOSE METER 103 mg/dL 70-110 : Notified RN/MD: Pt. (BEAKER) (test code = refuse d rpt tst: TESTED 1538) AT [facility] [address] [facility] [place], [address] 30: General Accountant/Techni luis ID = [id number] for Pe Nidia sewell [id number] 06:46:26 Test Item Value Reference Range Interpretation Comments MAGNESIUM (BEAKER) (test code = 1.8 mg/dL 1.6-2.6 627) General Accountant ID - ADMINHEPATIC FUNCTION [id number] 06:46:26 Test Item Value Reference Range Interpretation Comments TOTAL PROTEIN (BEAKER) (test code = 6.6 gm/dL 6.0-8.3 770) ALBUMIN (BEAKER) (test code = 1145) 3.7 g/dL 3.5-5.0 BILIRUBIN TOTAL (BEAKER) (test code 1.0 mg/dL 0.2-1.2 = 377) BILIRUBIN DIRECT (BEAKER) (test 0.5 mg/dL 0.1-0.5 code = 706) ALKALINE PHOSPHATASE (BEAKER) (test 95 U/L 40-150 code = 346) AST (SGOT) (BEAKER) (test code = 113 U/L 5-34 H 353) ALT (SGPT) (BEAKER) (test code = 70 U/L 6-55 H 347) General Accountant ID - ADMINBASIC METABOLIC [id number] 06:46:25 Test Item Value Reference Range Interpretation Comments SODIUM (BEAKER) 137 meq/L 136-145 (test code = 381) POTASSIUM (BEAKER) 3.6 meq/L 3.5-5.1 (test code = 379) CHLORIDE (BEAKER) 104 meq/L 98-107 (test code = 382) CO2 (BEAKER) (test 23 meq/L 22-29 code = 355) BLOOD UREA NITROGEN 8 mg/dL 7-21 (BEAKER) (test code = 354) CREATININE (BEAKER) 0.75 mg/dL 0.57-1.25 (test code = 358) GLUCOSE RANDOM 102 mg/dL 70-105 (BEAKER) (test code = 652) CALCIUM (BEAKER) 8.3 mg/dL 8.4-10.2 L (test code = 697) EGFR (BEAKER) (test 86 mL/min/1.73 ESTIMA JARED GFR IS code = 1092) sq m NOT ACCURATE CREATININE CLEARANCE IN PREDICTING GLOMERULAR FILTRATION RATE . ESTIMATED GFR I S NOT APPLICABLE FOR DIALYSIS PATIEN TS. General Accountant ID - ADMINPOCT-GLUCOSE [id number] 06:20:16 Test Item Value Reference Range Interpretation Comments POC-GLUCOSE METER 89 mg/dL 70-110 : TESTED A T [facility] 6720 (BEAKER) (test code = KYLERBRENNA Walker [facility], 1538) [address]: General Accountant/Techni luis ID = [id number] for SCARLET CONNER VELMA PROTHROMBIN TIME/[id number] 05:54:42 Test Item Value Reference Range Interpretation Comments PROTIME (BEAKER) 14.0 seconds 11.9-14.2 (test code = 759) INR (BEAKER) (test 1.10 See_Comment [Automat ed message] code = 370) The system [employer] generated this result transmitted ref erence range: <=5.90. The reference range was not used to int erpret this result as normal/abnormal . RECOMMENDED COUMADIN/WARFARIN INR THERAPY RANGESSTANDARD DOSE: 2.0 - 3.0 Includes: PROPHYLAXIS forvenous thrombosis, systemic embolization; TREATMENT for venous thrombosis and/or pulmonary embolus.HIGH RISK: Target INR is 2.5-3.5 for patients with mechanical heart valves.CBC W/PLT COUNT & AUTO DIFFERENTIAL 2022-04-22 05:39:39 Test Item Value Reference Range Interpretation Comments WHITE BLOOD CELL COUNT (BEAKER) 10.2 K/ L 3.5-10.5 (test code = 775) RED BLOOD CELL COUNT (BEAKER) 3.67 M/ L 3.93-5.22 L (test code = 761) HEMOGLOBIN (BEAKER) (test code = 11.6 GM/DL 11.2-15.7 410) HEMATOCRIT (BEAKER) (test code = 34.5 % 34.1-44.9 411) MEAN CORPUSCULAR VOLUME (BEAKER) 94.0 fL 79.4-94.8 (test code = 753) MEAN CORPUSCULAR HEMOGLOBIN 31.6 pg 25.6-32.2 (BEAKER) (test code = 751) MEAN CORPUSCULAR HEMOGLOBIN CONC 33.6 GM/DL 32.2-35.5 (BEAKER) (test code = 752) RED CELL DISTRIBUTION WIDTH 12.6 % 11.7-14.4 (BEAKER) (test code = 412) PLATELET COUNT (BEAKER) (test 256 K/CU MM 150-450 code = 756) MEAN PLATELET VOLUME (BEAKER) 9.6 fL 9.4-12.3 (test code = 754) NUCLEATED RED BLOOD CELLS 0 /100 WBC 0-0 (BEAKER) (test code = 413) NEUTROPHILS RELATIVE PERCENT 68 % (BEAKER) (test code = 429) LYMPHOCYTES RELATIVE PERCENT 26 % (BEAKER) (test code = 430) MONOCYTES RELATIVE PERCENT 6 % (BEAKER) (test code = 431) EOSINOPHILS RELATIVE PERCENT 0 % (BEAKER) (test code = 432) BASOPHILS RELATIVE PERCENT 0 % (BEAKER) (test code = 437) NEUTROPHILS ABSOLUTE COUNT 6.90 K/ L 1.56-6.13 H (BEAKER) (test code = 670) LYMPHOCYTES ABSOLUTE COUNT 2.62 K/ L 1.18-3.74 (BEAKER) (test code = 414) MONOCYTES ABSOLUTE COUNT (BEAKER) 0.60 K/ L 0.24-0.36 H (test code = 415) EOSINOPHILS ABSOLUTE COUNT 0.03 K/ L 0.04-0.36 L (BEAKER) (test code = 416) BASOPHILS ABSOLUTE COUNT (BEAKER) 0.02 K/ L 0.01-0.08 (test code = 417) IMMATURE GRANULOCYTES-RELATIVE 0 % 0-1 PERCENT (BEAKER) (test code = 2801) Lactic Acid Whole [id number] 00:48:27 Test Item Value Reference Range Interpretation Comments LACTIC ACID (test code = 0.86 mmol/L 0.50-2.20 1493824274) Lab Interpretation (test code = Normal 48521-2) [facility] [id number] 00:00:02 Test Item Value Reference Range Interpretation Comments POC-GLUCOSE METER 123 mg/dL 70-110 H : TESTED A T [facility] 6720 (INES) (test code = YIF[place], 1538) [address]: General Accountant/Techni luis ID = [id number] for VELMA LUDWIG Lactic Acid Whole [id number] 23:45:10 Test Item Value Reference Range Interpretation Comments LACTIC ACID (test code = 0.89 mmol/L 0.50-2.20 5431893086) Lab Interpretation (test code = Normal 49843-6) [facility]CT[facility] AC[facility], [id number] 23:44:05 Test Item Value Reference Range Interpretation Comments LACTATE BLOOD VENOUS 0.90 mmol/L 0.50-2.20 Specime n slightly (2) (INES) (test hemolyzed code = 2872) General Accountant ID - ADMINACTIVATED PARTIAL THRMPLAS [id number] 18:58:02 Test Item Value Reference Range Interpretation Comments APTT Patient (test See_Comment [Automat ed code = 3173-2) message] The system which generated this result transmitted reference range : 23 - 38 Seconds . The reference range was not used to interpr et this result as normal/abnormal . VICKY (test code = VICKY) The [facility] patient population mean normal value for aPTT is 30 seconds. Lab Interpretation Normal (test code = 54840-0) [facility] NorthwestPROTHROMBIN TIME / [id number] 18:56:00 Test Item Value Reference Range Interpretation Comments PROTIME PATIENT (test See_Comment [Auto mated message] code = 5964-2) The system wh ich generated this result transmitted ref erence range: 12.0 - 1 4.7 Seconds. The re ference range was not u sed to interpret this result as normal/abnor mal. INR (test code = 6301-6) Nor mal INR <1.1; Warfarin Therap eutic range 2.0 to 3. 0 or 2.5 to 3.5, dep ending upon the indica tions. Lab Interpretation (test Normal code = 90147-2) [facility] NorthwestTRSORAYAN [id number] 18:31:55 Test Item Value Reference Interpretation Comments Range TROPONIN I (test 0.001 ng/mL See_Comment [Automated code = 4882489650) message] The system which generated this result transmitted reference range : <=0.034. The reference range was not used to interpret this result as normal/abnormal . VICKY (test code = Reference (Normal) VICKY) Range (defined by the 99th percentile reference limit): <= 0.034 ng/mL Note: Cardiac troponin begins to rise 3-4 hours after the onset of ischemia. Repeat in 4-6 hours if the sample was drawn within 3-4 hours of the onset of the symptom and found normal. Diagnosis of myocardial injury is made with acute changes in cTn concentrations with at least one serial sample above the 99th percentile upper reference limit (URL), taken together with the patient's clinical presentation. Biotin has been reported to cause a negative bias, interpret results relative to patient's use of biotin. Lab Interpretation Normal (test code = 91865-9) [facility] NorthwestCOMP. METABOLIC PANEL ([id number])2022-04-21 18:19:51 Test Item Value Reference Range Interpretation Comments NA (test code = 139 mmol/L 135-145 0541487818) K (test code = 4.5 mmol/L 3.5-5.0 2036675381) CL (test code = 101 mmol/L 98-108 7267748755) CO2 TOTAL (test code = 27 mmol/L - 6821573117) AGAP (test code = 2-16 0283104580) BUN (test code = 9 mg/dL 7-23 2877335559) GLUCOSE (test code = 127 mg/dL 70-110 H 2034426664) CREATININE (test code = 0.65 mg/dL 0.50-1.04 3272019829) TOTAL BILI (test code = 0.6 mg/dL 0.1-1.2 8066587591) CALCIUM (test code = 9.7 mg/dL 8.6-10.6 9419995381) T PROTEIN (test code = 7.7 g/dL 6.3-8.2 3303326938) ALBUMIN (test code = 4.6 g/dL 3.5-5.0 4660365569) ALK PHOS (test code = 77 U/L 34-122 7975445285) ALTv (test code = 11 U/L 5-35 1742-6) AST(SGOT) (test code = 17 U/L 13-40 8705650918) eGFR (test code = mL/min/1.73m2 5387180084) VICKY (test code = VICKY) Association of Glomerular Filtration Rate (GFR) and Staging of Kidney Disease* + --+ --+ ------+| GFR (mL/min/1.73 m2) ?| With Kidney Damage ?| ?Without Kidney Damage+ --------+ --------+ +| ?>90 ?| ?Stage one ?| ? Normal ?+ ---+ ---+ -------+| ?60-89 ?| ?Stage two ?| ? Decreased GFR ? + --+ --+ ------+| ?30-59 ?| ?Stage three ?| ? Stage three ? + --+ --+ ------+| ?15-29 ?| ?Stage four ? | ? Stage four ?+ ---+ ---+ -------+| ?<15 (or dialysis) ? ?| ?Stage five ? | ? Stage five ?+ ---+ ---+ -------+ *Each stage assumes the associated GFR level has been in effect for at least three months. ?Stages 1 to 5, with or without kidney disease, indicate chronic kidney disease. Notes: Determination of stages one and two (with eGFR >59mL/min/1.73 m2) requires estimation of kidney damage for at least three months as defined by structural or functional abnormalities of the kidney, manifested by either:Pathological abnormalities or Markers of kidney damage (including abnormalities in the composition of the blood or urine or abnormalities in imaging tests). Lab Interpretation Abnormal (test code = 94273-2) [facility] NorthwestLIPASE2022-06-23 18:19:16 Test Item Value Reference Range Interpretation Comments LIPASE (test code = 9569689537) 35 U/L 0-220 Lab Interpretation (test code = Normal 96242-6) [facility] WITH [id number] 18:09:30 Test Item Value Reference Range Interpretation Comments WBC (test code = See_Comment H [Automated 6690-2) message] The system which generated this result transmit jared reference range : 4.30 - 11.10 10*3/?L. The reference range was not used to interpret this result as normal/abnormal . RBC (test code = See_Comment [Automated 789-8) message] The system which generated this result transmit jared reference range : 3.93 - 5.25 10*6/?L. The reference range was not used to interpret this result as normal/abnormal . HGB (test code = 13.8 g/dL 11.6-15.0 718-7) HCT (test code = 39.6 % 35.7-45.2 4544-3) MCV (test code = 91.7 fL 80.6-95.5 787-2) MCH (test code = 31.9 pg 25.9-32.8 785-6) MCHC (test code = 34.8 g/dL 31.6-35.1 786-4) RDW-SD (test code = 41.1 fL 39.0-49.9 38755-8) RDW-CV (test code = 12.3 % 12.0-15.5 788-0) PLT (test code = See_Comment [Automated 777-3) message] The system which generated this result transmit jared reference range : 166 - 358 10*3/ ?L. The reference range was not u sed to interpret th is result as normal/abnormal . MPV (test code = 9.6 fL 9.5-12.9 81059-0) NRBC/100 WBC (test See_Comment [Automat ed code = 7083360248) message] The system which generated this result transmit jared reference range : 0.0 - 10.0 /100 WBCs. The reference range was not used to interpret this result as normal/abnormal . NRBC x10^3 (test code <0.01 See_Comment [Auto mated = 5371433149) message] The system which generated this result transmit jared reference range : 10*3/?L. The reference range was not used to interpret this result as normal/abnormal . GRAN MAT (NEUT) % 77.5 % (test code = 770-8) IMM GRAN % (test code 0.50 % = 5215731209) LYMPH % (test code = 16.2 % 736-9) MONO % (test code = 5.3 % 5905-5) EOS % (test code = 0.3 % 713-8) BASO % (test code = 0.2 % 706-2) GRAN MAT x10^3(ANC) 11.03 10*3/uL 1.88-7.09 H (test code = 9576454862) IMM GRAN x10^3 (test 0.07 10*3/uL 0.00-0.06 H code = 7448593613) LYMPH x10^3 (test code 2.31 10*3/uL 1.32-3.29 = 731-0) MONO x10^3 (test code 0.75 10*3/uL 0.33-0.92 = 742-7) EOS x10^3 (test code = 0.04 10*3/uL 0.03-0.39 711-2) BASO x10^3 (test code 0.03 10*3/uL 0.01-0.07 = 704-7) Lab Interpretation Abnormal (test code = 75233-7) [facility] NorthwestPOCT [id number] 18:03:00 Test Item Value Reference Range Interpretation Comments POCT PREG (test code = 1605) negative On board controls acceptable with yes C Line (test code = 3574) POCT PREG LOT # (test code = 3575) [id number] POCT PREG TEST DATE (test 08/29/2023 code = 3576) Lab Interpretation (test code = Normal 85938-5) [facility] NorthwestSARS-CoV-2 (COVID-19) RNA [Presence] in Respiratory specimen by CONSTANTIN with probe [id number] 09:38:17 Test Item Value Reference Range Interpretation Comments SARS-CoV-2 (COVID-19) RNA Not detected Not-Detected [Presence] in Respiratory specimen by CONSTANTIN with probe detection (test code = 06658-8) SARS-CoV-2 (COVID-19) RNA [Presence] in Respiratory specimen by CONSTANTIN with probe [id number] 16:44:16 Test Item Value Reference Range Interpretation Comments SARS-CoV-2 (COVID-19) RNA Not detected Not-Detected [Presence] in Respiratory specimen by CONSTANTIN with probe detection (test code = 24334-2)
[2022-05-21 20:06] LABS: Urine Blood Negative (Negative); Urine Glucose Negative (Negative); Urine Protein Negative (Negative); Urine Specific Gravity 1.025 (1.005-1.030); Urine pH 5.5 (5.0-7.0)
[2022-05-21 20:13] LABS: Urine Specific Gravity/Preg 1.025 (1.005-1.030)
[2022-05-21] MEDS ORDERED: NA CHLORIDE 0.9% 1,000 ML ONE (20:14)
[2022-05-21 20:33] LABS: Urine Bacteria 20-50 /HPF (<20); Urine Mucus 1+ /HPF (None Seen); Urine RBC <5 /HPF (None Seen)
[2022-05-21 20:33] LABS: Absolute Lymphocytes (CBC) 3.6 K/uL (0.7-4.9); Hematocrit 38.7 % (36.0-45.0); Lymphocytes % 40.5 % (15.3-44.8); MCV 91.7 fL (80-100); MPV 7.5 fL (7.6-11.3); RBC Red Blood Cell Count 4.22 M/uL (3.86-4.86)
[2022-05-21 20:44] LABS: Albumin 4.2 g/dL (3.4-5.0); Bilirubin Total 0.6 mg/dL (0.2-1.0); Potassium 3.7 mmol/L (3.5-5.1); Protein, Total 7.9 g/dL (6.4-8.2)
--- NOTE | 2022-05-21 21:59 | RAD REPORT ---
EXAM DESCRIPTION: CTAbdomen Pelvis W Contrast - 05/21/2022 9:22 pm CLINICAL HISTORY: LLQ abdominal pain COMPARISON: Abdomen Pelvis W Contrast dated 01/29/2020; Abdomen Pelvis W Contrast dated 01/12/2019; Abdomen Pelvis W Contrast dated 12/24/2017; Abdomen Pelvis W Contrast dated 06/02/2017 TECHNIQUE: CT of the abdomen and pelvis was performed with contrast. All CT scans are performed using dose optimization technique as appropriate and may include automated exposure control or mA/KV adjustment according to patient size. FINDINGS: Lower chest: No acute abnormality. Liver: No acute abnormality or suspicious lesions. Biliary: No biliary ductal dilatation. Stomach: No significant focal abnormality. Duodenum: No significant focal abnormality. Pancreas: No significant abnormality. Spleen: No significant abnormality. Adrenal: No suspicious lesions. Kidney/ureter: No hydronephrosis. No renal calculi. Retroperitoneum: No retroperitoneal adenopathy. Vascular: No aneurysm. Bowel: No significant focal abnormality. Appendectomy. Sigmoid anastomosis. Peritoneum: No ascites or free air. Bladder: Grossly unremarkable. Reproductive: No adnexal masses. Bones: No acute fracture. Other: n/a IMPRESSION: No acute intra-abdominal or pelvic finding.
--- NOTE | 2022-05-21 22:20 | EDPHYS ---
Physician Documentation [facility] Name: Mary Torres Age: 36 yrs Sex: Female : 1985 Arrival Date: 05/21/2022 Time: 18:49 Bed 4 Private MD: ED Physician Modesto Chavez HPI: 05/21 22:20 This 36 yrs old Female presents to ER via Ambulatory with complaints of ms3 Abdominal Pain - diverticulitis. 22:20 36-year-old female with past medical history of diverticulitis presents for left lower ms3 quadrant abdominal pain that began yesterday. Patient states that the discomfort is moderate and described as aching. Patient endorses nausea. Patient denies vomiting, diarrhea, fever. Patient denies alleviating or inciting factors.. 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 - Social history:: Smoking status: Patient denies any tobacco usage or history of. ROS: 22:20 Constitutional: Negative for fever, and chills. Neck: Negative for injury, pain, and ms3 swelling, Cardiovascular: Negative for chest pain, and palpitations. Respiratory: Negative for shortness of breath, cough, wheezing, and pleuritic chest pain. 22:20 Skin: Negative for injury, rash, and discoloration, Psych: Negative for depression, anxiety, suicide ideation, homicidal ideation, and hallucinations. 22:20 Abdomen/GI: Positive for nausea. 22:20 All other systems are negative. Exam: 22:20 Constitutional: This is a well developed, well nourished patient who is awake, alert, ms3 and in no acute distress. Eyes: Pupils equal round and reactive to light, extra-ocular motions intact. Lids and lashes normal. Conjunctiva and sclera are non-icteric and not injected. Periorbital areas with no swelling, redness, or edema. Neck: Trachea midline, no cervical lymphadenopathy. Supple, full range of motion without nuchal rigidity, or vertebral point tenderness. No Meningismus. Chest/axilla: Normal chest wall appearance and motion. Nontender with no deformity. Cardiovascular: Regular rate and rhythm with a normal S1 and S2. No gallops, murmurs, or rubs. Normal PMI, no JVD. No pulse deficits. Respiratory: Lungs have equal breath sounds bilaterally, clear to auscultation and percussion. No rales, rhonchi or wheezes noted. No increased work of breathing, no retractions or nasal flaring. Skin: Warm, dry with normal turgor. Normal color with no rashes, no lesions, and no evidence of cellulitis. MS/ Extremity: Pulses equal, no cyanosis. Neurovascular intact. Full, normal range of motion. Psych: Awake, alert, with orientation to person, place and time. Behavior, mood, and affect are within normal limits. 22:20 Abdomen/GI: Inspection: abdomen appears normal, Bowel sounds: normal, Palpation: mild abdominal tenderness, in the left lower quadrant. Vital Signs: 19:52 BP 128 / 85; Pulse 73; Resp 18; Temp 97.3; Pulse Ox 100% ; Weight 79.38 kg; Height 5 bh1 ft. 5 in. (165.10 cm); Pain 8/10; 21:27 BP 118 / 80; Pulse 66; Resp 16 S; Pulse Ox 98% on R/A; as6 22:26 BP 117 / 87; Pulse 63; Resp 16 S; Pulse Ox 97% on R/A; as6 19:52 Body Mass Index 29.12 (79.38 kg, 165.10 cm) bh1 MDM: 19:48 Patient medically screened. ms3 22:20 Differential diagnosis: bowel obstruction, diverticulitis, non-specific abd pain. Data ms3 reviewed: vital signs, nurses notes, lab test result(s), radiologic studies, and as a result, I will discharge patient. Data interpreted: Pulse oximetry: on room air is 97 %. Interpretation: normal. Counseling: I had a detailed discussion with the patient and/or guardian regarding: the historical points, exam findings, and any diagnostic results supporting the discharge/admit diagnosis, lab results, radiology results, the need for outpatient follow up, to return to the emergency department if symptoms worsen or persist or if there are any questions or concerns that arise at home. Special discussion: Based on the patient's Hx, exam, and Dx evaluation, there is no indication for emergent surgery or inpatient Tx. It is understood by the patient/guardian that if the Sx's persist or worsen they need to return immediately for re-evaluation. ED course: On re-evaluation patient is improved, A/O x4, nad, non-toxic, ambulatory in ED, speaking full sentences.. 05/21 19:49 Order name: CBC with Diff; Complete Time: 20:35 ms3 05/21 19:49 Order name: CMP; Complete Time: 22:16 ms3 05/21 19:49 Order name: Lipase; Complete Time: 22:16 ms3 05/21 19:49 Order name: Urine Microscopic Only; Complete Time: 20:35 ms3 05/21 20:06 Order name: Urine Dipstick-Ancillary; Complete Time: 20:35 EDMS 05/21 20:07 Order name: Urine --Ancillary (enter results); Complete Time: 20:35 ds4 05/21 19:49 Order name: CT Abd/Pelvis - IV Contrast Only; Complete Time: 22:16 ms3 05/21 19:49 Order name: IV Saline Lock; Complete Time: 20:28 ms3 05/21 19:49 Order name: Labs collected and sent; Complete Time: 20:05 ms3 05/21 19:49 Order name: Urine Dipstick-Ancillary (obtain specimen); Complete Time: 20:06 ms3 05/21 19:49 Order name: Urine Test (obtain specimen); Complete Time: 20:06 ms3 05/21 20:35 Order name: Urine Culture EDMS Administered Medications: 20:18 Drug: NS 0.9% 1000 ml Route: IV; Rate: 1 bolus; Site: left antecubital; kl 22:27 Follow up: Response: No adverse reaction; IV Status: Completed infusion; IV Intake: as6 1000ml Disposition Summary: 05/21/22 22:20 Discharge Ordered Location: Home ms3 Condition: Stable ms3 Diagnosis - Lower abdominal pain, unspecified ms3 Followup: ms3 - With: Private Physician - When: 2 - 3 days - Reason: Recheck today's complaints Discharge Instructions: - Discharge Summary Sheet ms3 - Abdominal Pain, Adult ms3 Forms: - Medication Reconciliation Form ms3 - Thank You Letter ms3 - Antibiotic Education ms3 - Prescription Opioid Use ms3 Prescriptions: - Augmentin 875-125 mg Oral Tablet - take 1 tablet by ORAL route every 12 hours for 10 days; 20 tablet; Refills: 0, ms3 Product Selection Permitted Signatures: Dispatcher [employer] Verito Simeon, RN RN Modesto Zurita DO DO ms3 Barbara Mcknight RN RN bh1 Kamar Patiño RN as6
--- NOTE | 2022-05-21 22:20 | ER ---
Nurse's Notes [facility] Name: Mary Torres Age: 36 yrs Sex: Female : 1985 Arrival Date: 05/21/2022 Time: 18:49 Bed 4 Private MD: Diagnosis: Lower abdominal pain, unspecified Presentation: 05/21 19:49 Chief complaint: Patient states: STOMACH PAIN ON THE LOWER LEFT SIDE, FEELS IT IS HER [facility] DIVERTICULITIS AGAIN. THE PAIN STARTED YESTERDAY. Coronavirus screen: Vaccine status: Patient reports receiving the 2nd dose of the covid vaccine. At this time, the client does not indicate any symptoms associated with coronavirus-19. Ebola Screen: Patient negative for fever greater than or equal to 101.5 degrees Fahrenheit, and additional compatible Ebola Virus Disease symptoms. Initial Sepsis Screen: Does the patient meet any 2 criteria? No. Patient's initial sepsis screen is negative. Does the patient have a suspected source of infection? No. Patient's initial sepsis screen is negative. Risk Assessment: Do you want to hurt yourself or someone else? Patient reports no desire to harm self or others. Onset of symptoms was May 20, 2022. 19:49 Method Of Arrival: Ambulatory [facility] 19:49 Acuity: MARCELA 3 [facility] Triage Assessment: 19:50 General: Appears in no apparent distress. uncomfortable, Behavior is calm, cooperative, [facility] appropriate for age. Pain: Complains of pain in left lower quadrant. GI: Reports lower abdominal pain. 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 - Social history:: Smoking status: Patient denies any tobacco usage or history of. Screenin:23 Abuse screen: Denies threats or abuse. Nutritional screening: No deficits noted. kl Tuberculosis screening: No symptoms or risk factors identified. Fall Risk None identified. Assessment: 20:20 General: Appears in no apparent distress. well groomed, well developed, well nourished, Behavior is calm, cooperative. Pain: Complains of pain in abdomen and left lower quadrant. Neuro: No deficits noted. Nuno Agitation-Sedation Scale (RASS): 0 - Alert and Calm. Cardiovascular: No deficits noted. Respiratory: No deficits noted. Airway is patent Trachea midline Respiratory effort is even, unlabored, Respiratory pattern is regular. GI: Bowel sounds present X 4 quads. Abd is soft Abdomen is tender to palpation in left lower quadrant. GI: pt reports hospitalized x 3 days for diverticulitis released on April 25. : No deficits noted. No signs and/or symptoms were reported regarding the genitourinary system. EENT: No deficits noted. No signs and/or symptoms were reported regarding the EENT system. Derm: No deficits noted. No signs and/or symptoms reported regarding the dermatologic system. 21:28 General: pt c/o abdominal pain. provider notified . as6 Vital Signs: 19:52 BP 128 / 85; Pulse 73; Resp 18; Temp 97.3; Pulse Ox 100% ; Weight 79.38 kg; Height 5 1 ft. 5 in. (165.10 cm); Pain 8/10; 21:27 BP 118 / 80; Pulse 66; Resp 16 S; Pulse Ox 98% on R/A; as6 22:26 BP 117 / 87; Pulse 63; Resp 16 S; Pulse Ox 97% on R/A; as6 19:52 Body Mass Index 29.12 (79.38 kg, 165.10 cm) 1 ED Course: 18:49 Patient arrived in ED. as 19:13 Modesto Chavez DO is Attending Physician. ms3 19:50 Triage completed. 1 19:50 Arm band placed on right wrist. 1 20:04 Kamar Patiño, DUARTE is Primary Nurse. as6 20:05 Urine Microscopic Only Sent. 5 20:06 Urine collected: clean catch specimen, clear. 5 20:18 CBC with Diff Sent. kl 20:18 CMP Sent. kl 20:18 Lipase Sent. kl 20:18 Inserted saline lock: 20 gauge in left antecubital area, using aseptic technique. kl 21:24 CT Abd/Pelvis - IV Contrast Only In Process Unspecified. EDMS 22:27 Bed in low position. Call light in reach. Side rails up X 1. as6 22:35 No provider procedures requiring assistance completed. IV discontinued, intact, as6 bleeding controlled, No redness/swelling at site. Pressure dressing applied. Administered Medications: 20:18 Drug: NS 0.9% 1000 ml Route: IV; Rate: 1 bolus; Site: left antecubital; 22:27 Follow up: Response: No adverse reaction; IV Status: Completed infusion; IV Intake: as6 1000ml Medication: 22:35 VIS not applicable for this client. as6 Intake: 22:27 IV: 1000ml; Total: 1000ml. as6 Outcome: 22:20 Discharge ordered by MD. ms3 22:35 Discharged to home ambulatory, with family. as6 22:35 Condition: stable 22:35 Discharge instructions given to patient, Instructed on discharge instructions, follow up and referral plans. medication usage, Demonstrated understanding of instructions, follow-up care, medications, Prescriptions given X 1. 22:35 Patient left the ED. as6 Signatures: Dispatcher [employer] EDMS Verito Fletcher RN RN Swati Dudley [facility] Modesto Chavez DO DO ms3 Kamar Patiño RN RN as6 Barbara Mcknight RN RN [facility]
[2022-05-21 23:12] VITALS: TEMP 97.3
[2022-05-21 23:17] VITALS: BP 117/87; O2SAT 97
== END 2022-05-21 22:35 | disposition home or self-care (01) ==
LOC: ER 18:46
DX: R10.32 Left lower quadrant pain (principal); R11.0 Nausea; Z88.5 Allergy status to narcotic agent
CPT/HCPCS: 96361; 87088; 85025; 87086; 36415; 81025; 83690; 80053; 74177; 96360; 99284; Q9967; J7030; 81003; 81015

== ENCOUNTER 2022-12-27 17:53 | Emergency (ER) | payer OTHER ==
--- OUTSIDE RECORDS SUMMARY | 2022-12-27 17:57 | XMS REPORT | Continuity of Care Document ---
:1985 Author Organization [facility] t Address [address] [place]. [address] [place] [address] Care Team Providers Name Role Phone No , Pcp Primary Care Physician Unavailable ANTIONE KERN Attending Clinician Unavailable VELMA KRISHNAMURTHY Attending Clinician Unavailable Kyra FINANCIAL INSTITUTION VICE PRESIDENT, FLOW MANAGER, Deyanira Grijalva Attending Clinician Unavailable SHANIKA WALKER Attending Clinician Unavailable KRISTY COLLINS Attending Clinician Unavailable Shanika Walker MD Attending Clinician Kristy Collins MD Attending Clinician Poppy Espinal MD Attending Clinician [phone] CLAUDY HARRIS Attending Clinician Unavailable Claudy Harris MD Attending Clinician Doctor Unassigned, La Russell Attending Clinician Unavailable Ike_Jan Attending Clinician Unavailable RANDA MALIN Attending Clinician Unavailable MD ANTIONE KERN Attending Clinician Unavailable Alexys Downing Attending Clinician HALEY WHITE Attending Clinician Unavailable POPPY ESPINAL Admitting Clinician Unavailable CLAUDY HARRIS Admitting Clinician Unavailable Lydia Admitting Clinician Unavailable ANTIONE KERN Admitting Clinician Unavailable MD ANTIONE KERN Admitting Clinician Unavailable Alexys Downing Admitting Clinician Payers Payer Name Policy Type Policy Number Effective Date Expiration Date S ource AETNA CHOICE POS [id number] 2021 II 00:00:00 [place] [id number] 2019 OUT OF STATE 00:00:00 AETNA COMMERCIAL [id number] 2021 OUT OF NETWORK 00:00:00 [place] [id number] 2019 00:00:00 Problems Condition Condition Condition Status Onset Resolution Last Treating Co mments Source Name Details Category Date Date Treatment Clinician Date TFCC TFCC Disease Active Last [facility] (triangula (triangula 11-01 [facility] r r 00:00: t & Plan: fibrocarti fibrocarti 00 Formattin dorian rosado of this complex) complex) note injury, injury, might be left, left, different initial initial from the encounter encounter original. Placed in a universal wrist brace today. Recommend occupatio nal therapy. Reassured today. If there is ongoing pain consider x-ray of the left wrist to be done Internal Internal Disease Active Last [facility] derangemen derangemen - [facility] t of right t of right 00:00: t & Plan: knee knee 00 Formattin g of this note might be different from the original. Concern for internal derangeme nt of the right knee history of 2 prior meniscus repairs. She has no catching or locking negative Jae' s test today. And I will order PT for the next 6 weeks follow-up in 6 weeks time is no improveme nt consider MRI of the right knee for further evaluatio n. Right knee Right knee Disease Active 2023-0 U T pain pain 1-03 Health 00:00: 00 Snoring Snoring Disease [facility] Suspected Suspected Disease Active [facility] sleep sleep [facility]27 [facility] apnea apnea 00:[facility]: Medical 00 Center Tachy-handy Tachy-handy Disease Active [facility] y syndrome y syndrome 6-25 Sweta kes 00:00: Medical Center Diverticul Diverticul Disease Active [facility] itis of itis of 6- [facility] intestine intestine 00:00: Medi rosalba with with 00 Center abscess abscess Dyslipidem Dyslipidem Disease Active U nivers ia ia 6-25 ity of 00:00: [place] [facility] Family Family Disease Active Univers history of history of 6-25 it y of premature premature 00:00: Dilma rodriguez CAD CAD 00 Medical Branch Essential Essential Disease Active Uni vers hypertensi hypertensi 6-25 it y of on on 00:00: [place] [facility] Chest pain Chest pain Disease Active U nivers 6-24 ity of 00:00: [place] [facility] Back pain Back pain Disease Active Uni vers 6-25 ity of 00:00: [place] [facility] Left lower Left lower Disease Active 2018 M ethodi quadrant quadrant 6-06 st pain pain 00:00: Hospita 00 l 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 8-22 st 00:00: Hospita 00 l Diverticul Diverticul Disease Active M ethodi itis of itis of 8-22 st large large 00:00: Hospita intestine intestine 00 l without without perforatio perforatio n or n or abscess abscess without without bleeding bleeding Pain Pain Disease Active Univers pelvic pelvic [...] of Disease Active U nivers bilateral bilateral 208 ity of tubal tubal 00:00: [place] ligation ligation 00 Medica l Branch Dysmenorrh Dysmenorrh Disease Active U nivers ea ea 208 ity of 00:00: Medical Branch Lump or Lump or Disease Active Overview: Univ ers mass in mass in 06-26 Formattin ity o f breast breast 00:00: g of this note Medical might be Branch different from [...] it right right - [facility]I thumb thumb [facility] Pain of Pain of Problem Active Common left thumb left thumb Sp yosvany [facility] Trigger Trigger Problem Active Common finger of finger of Spir it left thumb left thumb - [facility] Right Right Problem Active Common wrist pain wrist pain Sp yosvany [facility] Pain in Pain in Diagnosis Active Commo n right hand [facility] Allergies, Adverse Reactions, Alerts Allergy Allergy Status Severity Reaction(s) Onset Inactive Treating Comm ents Source Name Type Date Date Clinician MORPHINE Allergy Active N\\T\\V [facility] Center Morphine Propensi Active Nausea And CH I St ty to Vomiting 04-21kes adverse 00:00: Medical reaction 00 Center s Morphine Propensi Active [facility] And ty to 7-13 Health Related adverse 00:00: reaction 00 s MORPHINE DRUG Active Other-Cmnt Univ ers INGREDI 04-23 ity of 00:00: Medical Branch Morphine Propensi Active Other - See Reports Univers ty to comments 6- migraines ity o f adverse 00:00: . [place] reaction 00 Medical s Branch Morphine Propensi Active Headache Migraine Me thodi ty to 6 st adverse 00:00: Hospita reaction 00 l s to drug MORPHINE Adverse Active Info Not Commo n Reaction Available Spiri t - [facility] Family History Family Member Diagnosis Comments Start Date Stop Date Source Natural father [facility] Social History Social Habit Start Date Stop Date Quantity Comments Source Exposure to 2022-12-09 2022-12-19 Not sure [facility] SARS-CoV-2 00:00:00 19:14:00 (event) Tobacco use and 2021-05-11 2021-05-11 Smokeless tobacco [facility] exposure 00:00:00 00:00:00 non-user Alcohol intake 2020-08-13 2020-08-13 Current drinker [facility] 00:00:00 00:00:00 of alcohol [facility] (finding) Alcohol Comment 2017-06-20 2017-06-20 socially [facility] 00:00:00 00:00:00 Hospital Sex Ass[birth year] At [birth year] [facility] 00:00:00 00:00:00 Medical Center Smoking Status Start Date Stop Date Source Never smoked tobacco [facility] Medications Ordered Filled Start Stop Current Ordering Indication Dosage Frequency Signature Comments Components Source Medication Medication Date Date Medication? Clinician (SIG) Name Name metroNIDAZO 2022-0 Yes 500mg [id number] Take 500 UT LE (Flagyl) 1-03 [id number] mg by H ealth 500 MG 12:01: 3D mouth 3 tablet 30 (three) times a day. neomycin 3-0 Yes 1000mg Q.25D Take 1,000 UT (Mycifradin 1-03 mg by Health ) 500 MG 12:01: mouth 4 tablet 30 (four) times a day. metroNIDAZO 2023-0 Yes 500mg [id number] Take 500 UT LE (Flagyl) 1-03 [id number] mg by H ealth 500 MG 12:01: 3D mouth 3 tablet 30 (three) times a day. neomycin 2023-0 Yes 1000mg Q.25D Take 1,000 UT (Mycifradin 1-03 mg by Health ) 500 MG 12:01: mouth 4 tablet 30 (four) times a day. metroNIDAZO 2023-0 Yes 500mg [id number] Take 500 UT LE (Flagyl) 1-03 [id number] mg by H ealth 500 MG 12:01: 3D mouth 3 tablet 30 (three) times a day. neomycin 2023-0 Yes 1000mg Q.25D Take 1,000 UT (Mycifradin 1-03 mg by Health ) 500 MG 12:01: mouth 4 tablet 30 (four) times a day. acetaminoph Yes 650mg Take [address] en 6-27 tablets [facility] (TYLENOL) 00:00: (650 mg Medic al 325 MG 00 total) by Center tablet mouth every 4 (four) hours as needed for Pain. ondansetron Yes 4mg Take [address] (ZOFRAN-ODT 6-27 tablet (4 Rosalina es ) 4 MG 00:00: mg total) Medica l disintegrat 00 by mouth Cent er ing tablet every 8 (eight) hours as needed for Nausea. HYDROcodone Yes 1{tbl} Take [address] -acetaminop 6-27 tablet by Rosalina es hen (NORCO 00:00: mouth Medica l 5-325) 00 every 8 Center 5-325 mg (eight) per tablet hours as needed for Pain (Pain not relieved by tylenol) Talk to your PCP if pain persists.. Max Daily Amount: 3 tablets amoxicillin 2021- No 1{tbl} Take [address] -clavulanat 6-27 07-07 tablet by Sweta kes e 00:00: 23:59 mouth Medical (AUGMENTIN) 00 :00 every 8 Cente r 875-125 mg (eight) per tablet hours for 10 days. ondansetron 2021- No 4mg 4 mg, Slow Univers (ZOFRAN 04-22 IV Push, ity of (PF)) 03:15: 02:12 ONCE, 1 [place] injection 4 00 :00 dose, On Medi rosalba mg Christen Branch 04/21/22 at 2215, MARIIA FENTanyl PF 2021- No 75ug 75 mcg, Un marley (SUBLIMAZE 04-22 Slow IV ity o f (PF)) 03:15: 02:12 Push, [place] injection 00 :00 ONCE, 1 Medical 75 mcg dose, On Branch Christen 04/21/22 at 2215, Routine FENTanyl PF 2021- No 75ug 75 mcg, Un marley (SUBLIMAZE 6-23 06-23 Slow IV ity o f (PF)) 23:45: 22:35 Push, [place] injection 00 :00 ONCE, 1 Medical 75 mcg dose, On Branch Christen 04/21/22 at 1845, STAT FENTanyl PF 2021- No 75ug 75 mcg, Un marley (SUBLIMAZE 04-21 Slow IV ity o f (PF)) 21:30: 20:48 Push, [place] injection 00 :00 ONCE, 1 Medical 75 mcg dose, On Branch Christen 04/21/22 at 1630, STAT piperacilli 2021- No 3.375g 3.375 g, Univers n-tazobacta 04-21 IV ity of m (ZOSYN) 20:30: 20:32 Piggyback, [place] 3.375 g in 00 :00 ONCE, 1 Medica l NaCl 0.9% dose, On Branch (NS) 50 mL Christen MINI-BAG 04/21/22 at 1530, Administer over 30 Minutes, 50 mL
R segundo for Anti-Infec tive: Documented Infection< br>Documen ben Infection Site: Abdominal< br>Duratio n of Therapy: Other (see Comments) ondansetron 2021- No 4mg 4 mg, Slow Univers (ZOFRAN 04-21 IV Push, ity of (PF)) 19:30: 18:37 ONCE, 1 [place] injection 4 00 :00 dose, On Medi rosalba mg Christen Branch 04/21/22 at 1430, MARIIA FENTanyl PF 2021- No 75ug 75 mcg, Un marley (SUBLIMAZE 04-21 Slow IV ity o f (PF)) 19:30: 18:37 Push, [place] injection 00 :00 ONCE, 1 Medical 75 mcg dose, On Branch Christen 04/21/22 at 1430, STAT iopamidol 2021- No [id number] 60mL 60 mL, U nivers (ISOVUE 04-21 Intravenou ity o f 370-500 mL) 18:50: 18:50 s, ONCE, 1 [place] injection 00 :00 dose, On Medica l 60 mL Christen Branch 04/21/22 at 1400, Routine Isovue-300 2020-0 No 61,200 mg Me moria 06-26 = 100 mL, l 18:00: Injection, [place] 00 IV Push, Once, first dose 06/26/20 13:00:00 CDT, stop date 06/26/20 13:00:00 CDT Smoothie 2019-0 No 450 mL, Memori a Readi-Cat 2 06-26 Susp, l 18:00: Oral, [place] 00 Once, first dose 06/26/20 13:00:00 CDT, stop date 06/26/20 13:00:00 CDT, Out-Patien t Saline Lock 2019-0 No 10 mL, [place] donnie Flush 06-26 Soln, IV l 18:00: Push, As [place] Indicated PRN for flush, first dose 06/26/20 13:00:00 CDT benzonatate 2020-0 Yes [id number] 200mg Take 2 Univers 100 mg 1-19 capsules ity of capsule 00:00: by mouth 3 [place] (three) Medical times Branch daily as needed for Cough. phenylephri 2020-0 Yes [id number] 5mL Take 5 mL Univers ne-prometha 1-19 by mouth 4 it y of zine-codein 00:00: (four[place] 00 times Medical (PROMETHAZI daily as Bran ch NE needed for VC-CODEINE) Cough. 6.25-5-10 mg/5 mL syrup ondansetron 2020-0 Yes [id number] 4mg Take 1 Univers 4 mg 1-19 tablet by ity of disintegrat 00:00: mouth [place] ing tablet 00 every 8 Medica l (eight) Branch hours as needed for Nausea and Vomiting (N/V). benzonatate 2020-0 Yes [id number] 200mg Take 2 Univers 100 mg 1-19 capsules ity of capsule 00:00: by mouth 3 [place] 00 (three) Medical times Branch daily as needed for Cough. phenylephri 2020-0 Yes [id number] 5mL Take 5 mL Univers ne-prometha 1-19 by mouth 4 it y of zine-codein 00:00: (four) [place] 00 times Medical (PROMETHAZI daily as Bran ch NE needed for VC-CODEINE) Cough. 6.25-5-10 mg/5 mL syrup ondansetron 2019-0 Yes [id number] 4mg Take 1 Univers 4 mg 1-19 tablet by ity of disintegrat 00:00: mouth [place] ing tablet 00 every 8 Medica l (eight) Branch hours as needed for Nausea and Vomiting (N/V). Ibuprofen Ibuprofen Yes Mark TK 1 T PO Common Thompson Q 6 H PRN Spirit P SCALE 4 - CHI TO 6 [facility] Immunizations Ordered Filled Immunization Date Status Comments [facility] e Immunization Name Name TDAP 2011-07-29 Completed University of 00:00:00 [facility] Branch TDAP 2011-07-29 Completed [facility] 00:00:00 [facility] Vital Signs Vital Name Observation Time Observation Value Comments Source Body height 2022-11-01 18:01:00 160 cm [facility] Body weight 2022-11-01 18:01:00 88.451 kg [facility] BMI 2022-11-01 18:01:00 34.54 kg/m2 [facility] WEIGHT 2022-04-22 14:00:00 95.074 kg WEIGHT 2022-04-22 14:00:00 95.074 kg WEIGHT 2022-04-22 14:00:00 95.074 kg Systolic blood 2022-04-22 02:00:00 138 mm[Hg] [facility] Di[facility] blood 2022-04-22 02:00:00 99 mm[Hg] Unive [facility] Heart rate 2022-04-22 02:00:00 80 /min [facility] Respiratory rate 2022-04-22 02:00:00 15 /min [facility] Oxygen saturation in 2022-04-22 02:00:00 98 /min [facility] Arterial blood by [facility] Pulse oximetry Branch Body temperature 2022-04-21 17:43:15 36.89 [facility] Body height 2022-04-21 17:32:00 160 cm [facility] Body weight 2022-04-21 17:32:00 90.719 kg [facility] BMI 2022-04-21 17:32:00 35.43 kg/m2 [facility] Heart rate 2022-04-25 12:04:00 69 /min [facility] Respiratory rate 2022-04-25 12:04:00 18 /min [facility] Oxygen saturation in 2022-04-25 12:04:00 95 /min [facility] Arterial blood by Medical Ce nter Pulse oximetry Systolic blood 2022-04-25 11:46:00 113 mm[Hg] [facility] Diastolic blood 2022-04-25 11:46:00 65 mm[Hg] [facility] Body temperature 2022-04-25 11:46:00 36.67 Kita [facility] Body weight 2022-04-22 14:00:00 95.074 kg [facility] Procedures Procedure Date / Time Performing Clinician Source Performed CBC W/PLT COUNT & AUTO 2022-04-25 03:47:00 Kristy Collins [facility] BASIC METABOLIC PANEL 2022-04-25 03:47:00 Kristy Collins [facility] MAGNESIUM 2022-04-25 03:47:00 Kristy Collins [facility] PHOSPHORUS 2022-04-25 03:47:00 Kristy Collins [facility] CBC W/PLT COUNT & AUTO 2022-04-25 03:47:00 Kristy Collins [facility] POCT-GLUCOSE METER 2022-04-24 18:07:00 Kristy Collins [facility] POCT-GLUCOSE METER 2022-04-24 07:18:00 Kristy Collins [facility] BASIC METABOLIC PANEL 2022-04-24 05:11:00 Kristy Collins [facility] MAGNESIUM 2022-04-24 05:11:00 Kristy Collins [facility] PHOSPHORUS 2022-04-24 05:11:00 Kristy Collins [facility] POCT-GLUCOSE METER 2022-04-23 18:01:00 Kristy Collins [facility] POCT-GLUCOSE METER 2022-04-23 12:20:00 Kristy Collins [facility] ECG 12-LEAD 2022-04-23 09:17:15 [facility] ECG 12-LEAD 2022-04-23 09:17:15 Unknown, Hl7 Doctor [facility] HEMOGLOBIN A1C 2022-04-23 05:11:00 Kristy Collins [facility] HEPATIC FUNCTION PANEL 2022-04-23 05:11:00 Kristy Collins [facility] VITAMIN D, 25-HYDROXY 2022-04-23 05:11:00 Kristy Collins [facility] BASIC METABOLIC PANEL 2022-04-23 05:11:00 Kristy Collins [facility] MAGNESIUM 2022-04-23 05:11:00 [facility] 2022-04-23 05:11:00 [facility] CBC W/PLT COUNT & AUTO 2022-04-23 05:11:00 Hemal Kristy [facility] DIFFERENTIAL [place] IRON, TIBC, % SAT. 2022-04-23 05:11:00 [facility] HC LAB HIV-1 AG 2022-04-23 05:11:00 [facility] W/HIV-1&2 AB Center RPR 2022-04-23 05:11:00 [facility] L[facility]EL 2022-04-23 05:11:00 [facility] TSH/FREE T4 IF 2022-04-23 05:11:00 [facility] INDICATED Center CBC W/PLT COUNT & AUTO 2022-04-23 05:11:00 [facility] DIFFERENTIAL Center POCT-GLUCOSE METER 2022-04-23 00:09:00 Kristy Collinszell [facility] POCT-GLUCOSE METER 2022-04-22 16:48:00 Hemal [facility] 12-LEAD 2022-04-22 14:37:52 Hemal [facility] ECG 12-LEAD 2022-04-22 14:37:52 Unknown, Hl7 [facility] POCT-GLUCOSE METER 2022-04-22 12:08:00 Hemal, [facility] SARS-COV2[facility]RT-[facility] ([facility] 2022-04-22 08:41:00 Teddy [facility] & REF LABS) [facility] POCT-GLUCOSE METER 2022-04-22 07:17:00 Shanika Walker [facility] POCT-GLUCOSE METER 2022-04-22 06:08:00 Shanika Walker [facility] BASIC METABOLIC PANEL 2022-04-22 05:12:00 [facility] 2022-04-22 05:12:00 Teddy [facility] PROTHROMBIN TIME/INR 2022-04-22 05:12:00 Teddy [facility] MAGNESIUM 2022-04-22 05:12:00 Teddy [facility] CBC W/PLT COUNT & AUTO 2022-04-22 05:12:00 Teddy [facility] DIFFERENTIAL [facility] CBC W/PLT COUNT & AUTO 2022-04-22 05:12:00 Teddy [facility] DIFFERENTIAL [facility] LACTIC ACID WHOLE BLOOD 2022-04-22 00:39:00 Karyn Villegas [facility] POCT-GLUCOSE METER 2022-04-21 23:48:00 Shanika Walker [facility] LACTIC ACID WHOLE BLOOD 2022-04-21 23:42:[address] [facility] BLOOD CULTURE 2022-04-21 23:24:00 Poppy Espinal [facility] LACTIC ACID, VENOUS 2022-04-21 23:23:00 Javon Espinalith [facility] COVID-19 (ID NOW RAPID 2022-04-21 20:47:00 Claudy Harris [facility] TESTING) Medical Branch CT ABDOMEN PELVIS W 2022-04-21 18:54:00 Claudy Harris [facility] CONTRAST [facility] POCT TEST 2022-04-21 18:03:00 Claudy Harris [facility] PROTHROMBIN TIME / INR 2022-04-21 17:54:00 Claudy Harris [facility] ACTIVATED PARTIAL 2022-04-21 17:54:00 Claudy Harris [facility] THRMPLAS LISA [facility] URINALYSIS 2022-04-21 17:54:00 Claudy Harris [facility] LIPASE 2022-04-21 17:53:00 Claudy Harris [facility] TROPONIN I 2022-04-21 17:53:00 Claudy Harris [facility] COMP. METABOLIC PANEL 2022-04-21 17:53:[address] [facility] ([id number]) [facility] CBC WITH DIFF 2022-04-21 17:53:00 Claudy Harris [facility] NOTICE OF PRIVACY 2022-04-21 17:29:34 Doctor Unassigned, No Univ [facility] PRACTICES Name Medical Branch CONSENT/REFUSAL FOR 2022-04-21 17:28:00 Doctor Unassigned, No Un [facility] DIAGNOSIS AND TREATMENT Name [facility] Plan of Care Planned Activity Planned Date Details Comments Source Future Scheduled 2025-04-[address] [facility] Test 00:00:00 (procedure) [code = Medical Center [id number]] Future Scheduled 2022-11-01 [facility]ACCINE [facility] Test 11:15:10 (#1) [code = COVID-19 VACCINE (#1)] Future Scheduled 2022-11-01 [facility] Test 11:15:10 screening (procedure) [code = 737371348] Future Scheduled 2022-11-01 [facility] for [facility] Test 11:15:10 malignant neoplasm of cervix (procedure) [code = 640498078] Future Scheduled 2022-11-01 INFLUENZA VACCINE Method [facility] Hospital Test 11:15:10 [code = INFLUENZA VACCINE] Future Scheduled 2022-10-[address] [facility] Test 00:00:00 (12+) [code = Medical Center DEPRESSION SCREENING (12+)] Future Scheduled 2022-06-[address] [facility] Test 00:00:00 (#1) [code = [facility] INFLUENZA VACCINE (#1)] Future Scheduled [address] [facility] Test 00:00:00 malignant neoplasm Medical C enter of cervix (procedure) [code = [id number]] Future Scheduled 2002 DTAP/TDAP/TD [facility] Test 00:00:00 VACCINES (1 - Tdap) [facility] [code = DTAP/TDAP/TD VACCINES (1 - Tdap)] Future Scheduled [address] [facility] Test 00:00:00 SCREENING [code = [facility] nt HEPATITIS C SCREENING] Future Scheduled [address] [facility] Test 00:00:00 [facility] r Screening (12+) [code = Tobacco Cessation Counseling and Screening (12+)] Future Scheduled 1984-02-27 COVID-[address] [facility] Test 00:00:00 (#1) [code = [facility] COVID-19 VACCINE (#1)] Encounters Start End Encounter Admission Attending Care Care Encounter Source Date/Time Date/Time Type Type Clinicians Facility Department ID 2022-12-02 Outpatient [facility] [id number] [place] 05:20:27 [id number] [facility] 2022-11-01 Outpatient [facility] [id number] [place] 11:12:36 [id number] [facility] 2022-06-03 Outpatient [facility] [id number] [place] 09:06:03 [id number] [facility] 2021-08-29 Emergency [facility] [id number] Univers 22:46:32 [facility] 2021-08-29 Emergency [facility] [id number] Univers 10:52:06 [facility] 2021-03-06 Outpatient ANTIONE KERN [facility] [id number] [place] 03:47:14 Health 2023-01-03 2023-01-03 Outpatient ANTIONE KERN [facility] [id number] [place] 11:45:00 11:45:00 Health 2022-12-20 2022-12-20 Office Antione Kern [id number] [place] 11:15:00 12:32:58 Visit TOWER [id number] He alth [id number] 2022-12-13 2022-12-13 Outpatient WILEY [facility] [id number] [place] 10:15:00 10:15:00 Counts include 234 beds at the [facility] 2022-12-02 2022-12-02 Office Antione Kern CECE PENNY [id number] [place] 13:30:00 13:54:12 Visit TOWER [id number] He alth [id number] 2022-11-01 2022-11-01 Outpatient [facility] [id number] [place] 12:45:00 13:43:35 Health 2022-11-01 2022-11-01 Office [facility] [id number] [place] 12:45:00 13:43:24 Visit GildaEUFEMIA [id number] H [facility] [id number] 2022-05-13 2022-05-13 Telephone Kyra [facility] [id number] [facility] [address] 00:00:00 00:00:00 [facility] 2022-05-10 2022-05-10 Telephone Kyra [facility] [id number] 00:00[facility]00 00:00:00 [facility] 2022-04-21 2022-04-25 Inpatient RIA CERON G[facility] [id number] [place] 22:05:00 13:40:00 KRISTY 2022-04-21 2022-04-25 [facility] Shanika Walker [facility] [id number] [facility] 22:05:00 13:40:00 Encounter Kristy Collins [facility] 2022-04-22 2022-04-22 Outpatient [facility] [id number] [facility] 00:00:00 23:59:00 [facility] 2022-04-22 2022-04-22 Orders [facility] [id number] [facility] 00:00:00 00:00:00 Only [facility] 2022-04-21 2022-04-21 Emergency [facility] E[facility] [id number] Univers 12:35:00 21:21:[address] [facility] 2022-04-21 2022-04-21 Emergency [facility] [id number] Univers 12:35:00 21:21:00 Claudy CREWS 350.1.13.10 i ty of [place] 4.2.7.2.686 [facility] [id number] [facility] 084 Branch 2022-04-21 2022-04-21 Orders Doctor ALBERTO [id number] [facility] 00:00:00 00:00:00 Only Unassigned, TATUM 350.1.13.10 ity of [facility] 4.2.7.2.686 [facility] [id number] [facility] 009 Branch 2021-04-09 2021-04-09 Outpatient Goldfarb_D [facility] 4422 [id number] [place] 02:18:00 02:18:00 [id number] [facility] 2020-10-20 2020-10-20 Outpatient R KIMO [facility] [id number] Univers 14:20:00 14:20:[address] [facility] 2020-08-11 2020-08-12 Inpatient ANTIONE KERN [facility] 021 [id number] [place] 00:00:00 00:00:[address] 2020-08-04 2020-08-04 Outpatient ANTIONE KERN [facility] [id number] [place] 00:00:00 00:00:[address] 2020-06-26 2020-06-27 Outpatient [facility] 9256 4 Mem[place] 15:49:25 04:59:59 r Matthew sutton [facility] 2020-06-26 2020-06-26 Outpatient Chang, [id number] 564 10:49:25 23:59:59 Alexys Trivedi 2020-06-26 2020-06-26 Outpatient guadalupeFlavo [facility] 80683 [place] 10:49:25 23:59:59 r lesley Castro 2019-05-16 2019-05-16 Outpatient Denise CINDY [facility] [id number] Univers 00:00:00 00:00:[address] [facility] 2018-05-28 2018-05-28 Outpatient [facility] 14 [id number] Common 09:00:00 09:00:00 [facility] Results Test Description Test Time Test [...] affect recovery and/or detection times of some organisms.[id number] 13:42:54 Test Item Value Reference Range Interpretation Comments RPR SCREEN (BEAKER) (test code = Nonreactive Nonreactive 420) [id number] 05:00:20 Test Item Value Reference Range Interpretation Comments MAGNESIUM (BEAKER) (test code = 2.0 mg/dL 1.6-2.6 627) Billet Cutter ID - TD [id number] 05:00:20 Test Item Value Reference Range Interpretation Comments PHOSPHORUS (BEAKER) (test code = 2.8 mg/dL 2.3-4.7 604) Billet Cutter ID - TD GBASIC METABOLIC [id number] 05:00:19 Test Item Value Reference Range Interpretation [...] 697) EGFR (BEAKER) (test 94 mL/min/1.73 ESTIMA BEN GFR IS code = 1092) sq m NOT ACCURATE CREATININE CLEARANCE IN PREDICTING GLOMERULAR FILTRATION RATE . ESTIMATED GFR I S NOT APPLICABLE FOR DIALYSIS PATIEN TS. Billet Cutter ID - TD GCBC W/PLT COUNT & AUTO [id number] 04:20:46 Test Item Value Reference Range Interpretation [...] 0-1 PERCENT (BEAKER) (test code = 2801) POC-Glucose [id number] 18:19:14 Test Item Value Reference Range Interpretation Comments POC-Glucose Meter (test 74 mg/dL 70-110 : TE STED AT [facility] code = 1538) 67[address] [facility], 770 30: Billet Cutter/Techni luis ID = [id number] for LISA CALDERÓN Lab Interpretation (test Normal code = 11487-1) [facility] [id number] 18:19:14 Test Item Value Reference Range Interpretation Comments POC-GLUCOSE METER 74 mg/dL 70-110 : [facility] (BEAKER[facility] (test code = [facility], 153) [address]: Billet Cutter/Techni luis ID = [id number] for SARAY FREY POCT-GLUCOSE [id number] 07:29:39 Test Item Value Reference Range Interpretation Comments POC-GLUCOSE METER 100 mg/dL 70-110 : TESTED A T [facility] 6720 (BEAKER) (test code = [facility], 153) 95792: Billet Cutter/Techni luis ID = [id number] for Ca suzanne, Tran [id number] 05:48:58 Test Item Value Reference Range Interpretation Comments MAGNESIUM (BEAKER) (test code = 2.1 mg/dL 1.6-2.6 627) Billet Cutter ID - [id number] 05:48:58 Test Item Value Reference Range Interpretation Comments PHOSPHORUS (BEAKER) (test code = 2.8 mg/dL 2.3-4.7 604) Billet Cutter ID - ADMINBASIC METABOLIC [id number] 05:48:57 Test Item Value Reference Range Interpretation [...] 697) EGFR (BEAKER) (test 88 mL/min/1.73 ESTIMA BEN GFR IS code = 1092) sq m NOT ACCURATE CREATININE CLEARANCE IN PREDICTING GLOMERULAR FILTRATION RATE . ESTIMATED GFR I S NOT APPLICABLE FOR DIALYSIS PATIEN TS. Billet Cutter ID - ADMINPOCT-GLUCOSE [id number] 18:12:55 Test Item Value Reference Range Interpretation Comments POC-GLUCOSE METER 76 mg/dL 70-110 : TESTED A T [facility] 6720 (BEAKER) (test code = [facility], 1538) [address]: Billet Cutter/Techni luis ID = [id number] for PAT RSON, SARAY POCT-GLUCOSE [id number] 12:32:12 Test Item Value Reference Range Interpretation Comments POC-GLUCOSE METER 88 mg/dL 70-110 : TESTED A T [facility] 6720 (BEAKER) (test code = [facility], 1538) 47137: Billet Cutter/Techni luis ID = [id number] for PAT RSON, SARAY TSH/FREE T4 IF [id number] 10:08:44 Test Item Value Reference Range Interpretation Comments THYROID STIMULATING HORMONE 1.890 uIU/mL 0.350-4.940 (BEAKER) (test code = 772) Billet Cutter ID - SILVIA MHEMOGLOBIN [id number] 09:25:35 Test Item Value Reference Range Interpretation Comments HEMOGLOBIN A1C 5.4 % See_Comment [Automated m essage] ELECTROPHORESIS (BEAKER) The system which (test code = 3811) generated this result transmitted ref erence range: <=5.6%. The reference range was not used to int erpret this result as normal/abnormal . "The A1c is measured using a [facility]-certified method. HbA1c value equal to or greater than 6.5% as thediagnosis cutoff for diabetes. An HbA1c value of 5.7- 6.4% indicates increased risk for diabetes (prediabetes)."Billet Cutter ID - [id number] 08:05:46 Test Item Value Reference Range Interpretation Comments MAGNESIUM (BEAKER) (test code = 2.0 mg/dL 1.6-2.6 627) Billet Cutter ID - SILVIA [id number] 08:05:46 Test Item Value Reference Range Interpretation Comments PHOSPHORUS (BEAKER) (test code = 2.8 mg/dL 2.3-4.7 604) Billet Cutter ID - SILVIA MLIPID [id number] 08:05:46 Test Item Value Reference Range Interpretation Comments TRIGLYCERIDES (BEAKER) (test code = 146 mg/dL 540) CHOLESTEROL (BEAKER) (test code = 169 mg/dL 631) HDL CHOLESTEROL (BEAKER) (test code 39 mg/dL = 976) LDL CHOLESTEROL CALCULATED (BEAKER) 101 mg/dL (test code = 633) Triglyceride Reference Range: Low Risk <150 Borderline 150-199 High Risk 200- 499 Very High Risk >=500Cholesterol Reference Range: Low Risk <200 Borderline 200-239 High Risk >240HDL Cholesterol Reference Range: Low Risk >=60 High Risk <40LDL Cholesterol Reference Range: Optimal <100 Near Optimal 100-129 Borderline 130-159 High 160-189 Very High >=190 Billet Cutter ID - SILVIA MHEPATIC FUNCTION [id number] 08:05:46 Test Item Value Reference Range Interpretation [...] code = 91 U/L 6-55 H 347) Billet Cutter ID - SILVIA MBASIC METABOLIC [id number] 08:05:45 Test Item Value Reference Range Interpretation [...] 697) EGFR (BEAKER) (test 83 mL/min/1.73 ESTIMA BEN GFR IS code = 1092) sq m NOT ACCURATE CREATININE CLEARANCE IN PREDICTING GLOMERULAR FILTRATION RATE . ESTIMATED GFR I S NOT APPLICABLE FOR DIALYSIS PATIEN TS. Billet Cutter ID - SILVIA MVITAMIN D, 26-[id number] 06:16:40 Test Item Value Reference Range Interpretation Comments VITAMIN D 25-OH (BEAKER) (test 22.8 ng/mL 6.6-49.9 code = 2764) Effective 08/09/2017: Reference Range ChangeNew: 6.6-49.9 ng/mL Previous: 13.0- 47.8 ng/mLRecommendedVitamin D Target Range: 30.0-40.0 ng/mLOperator ID - SILVIA M HIV-1 ANTIGEN WITH HIV-1/2 [id number] 06:16:40 Test Item Value Reference Range Interpretation Comments HIV-1 ANTIGEN WITH HIV 1\\T\\2 Nonreactive Nonreactive ANTIBODY (2) (BEAKER) (test code = 2586) Billet Cutter ID - SILVIA LIBIA, TIBC, % SAT. (WITHOUT FERRITIN)2022-04-23 05:51:46 Test Item Value Reference Range Interpretation Comments IRON (BEAKER) (test code = 547) 75.0 ug/dL 40.0-160.0 TOTAL IRON BINDING CAPACITY 304 ug/dL 250-450 (BEAKER) (test code = 769) IRON % SATURATION (2) (BEAKER) 25 % 20-55 (test code = 2590) Billet Cutter ID - SILVIA MCBC W/PLT COUNT & AUTO [id number] 05:45:30 Test Item Value Reference Range Interpretation [...] PERCENT (BEAKER) (test code = 2801) POCT-GLUCOSE [id number] 00:21:13 Test Item Value Reference Range Interpretation Comments POC-GLUCOSE METER 85 mg/dL 70-110 : TESTED A T [facility] 6720 ([facility]) (test code = YIFAN Walker [facility], 1538) [address]: Billet Cutter/Techni luis ID = [id number] for RACHELLE العراقي POCT-GLUCOSE [id number] 16:59:37 Test Item Value Reference Range Interpretation Comments POC-GLUCOSE METER 98 mg/dL 70-110 : Notified RN/MD: Pt. ([facility]) (test code = refuse d rpt tst: TESTED 1538) AT [place] [address] [facility], 770 30: Billet Cutter/Techni luis ID = [id number] for Perdenise y Nidia POCT-GLUCOSE [id number] 12:19:19 Test Item Value Reference Range Interpretation Comments POC-GLUCOSE METER 102 mg/dL 70-110 : Notified RN/MD: Pt. ([facility]) (test code = refuse d rpt tst: TESTED 1538) AT [address], 770 30: Billet Cutter/Techni luis ID = [id number] for Pe rry, Nidia SARS-CoV2/RT-PCR (Asymptomatic ONLY)2022-04-22 11:06:43 Test Item Value Reference Interpretation Comments Range SARS-COV2/RT-PCR Negative Negative The SARS-Co V-2 (test code = target nucleic 04321-4) acids are not detected in thi s specimen. Negat ramírez results do not preclude SARS-C oV-2 infection and should not be u sed as the sole bas is for patient management decisions. Nega tive results must be combined with clinical observations, patient history , and epidemiolog ical information. A false negative result may occu r if a specimen is improperly collected, transported or handled. This S ARS CoV-2 test is a rapid, real-lisa e RT-PCR test intended for th e qualitative detection of nucleic acid fr om SARS-CoV-2 in a nasopharyngeal swab specimen collec ben from individual s suspected of COVID-19 by the ir healthcare provider. VICKY (test code = This test has been VICKY) authorized by FDA under an EUA for use by authorized laboratories. This test is only authorized for the duration of the declaration that circumstances exist justifying the authorization of emergency use of in vitro diagnostic tests for detection and/or diagnosis of COVID-19 under Section 564(b)(1) of the Federal Food, Drug and Cosmetic Act, 21 U.S.C. 360bbb-3(b)(1), unless the authorization is terminated or revoked sooner. Fact Sheet for Healthcare Providers: https://www.[employer]/Documents/Xp ert%20Xpress%20SAR S%20CoV-2/Fact%20S heets/302-3802%20S ARS-COV-2%20HEALTH CARE%20PROVIDERS%2 0FACT%20SHEET.pdf Fact Sheet for Healthcare Patients: https://www.[employer]/Documents/Xp ert%20Xpress%20SAR S%20CoV-2/Fact%20S heets/302-3801%20S ARS-COV-2%20PATIEN T%20FACT%20SHEET.p df Lab Interpretation Normal (test code = 75601-3) [facility]2022-04-22 11:06:43 Test Item Value Reference Range Interpretation Comments SARS-COV2/RT-PCR Negative Negative The SARS-Co V-2 target (test code = nucleic acids a re not 2850072) detected in thi s specimen. Negative result [...] This SARS CoV-2 test is a rapid, real-time RT-PC R test intended for th e qualitative detection [...] Food, Drug and Cosmetic Act, 21 U.S.C. 360bbb-3(b)(1), unless the authorization is terminated or revoked sooner. Fact Sheet for Healthcare Providers: https://www.[employer] m/Documents/Xpert%20Xpress%20SARS%20CoV-2/Fact%20Sheets/3023802%23HBWQ-DIR-6%20 HEALTHCARE%20PROVIDERS%20FACT%20SHEET.pdf Fact Sheet for Healthcare Patients: https://www.[employer]/Documents/Xpert%20Xp ress%20SARS%20CoV-2/Fact%20Sheets/3023801%90CSSJ-VFS-6%20PATIENT%20FACT%20SHEET .pdfPOCT-GLUCOSE [id number] 07:28:56 Test Item Value Reference Range Interpretation Comments POC-GLUCOSE METER 103 mg/dL 70-110 : Notified RN/MD: Pt. (INES) (test code = refuse d rpt tst: TESTED 1538) AT [facility] [address] [facility], 770 30: Billet Cutter/Techni luis ID = [id number] for Pe Nidia sewell [id number] 06:46:26 Test Item Value Reference Range Interpretation Comments MAGNESIUM (BEAKER) (test code = 1.8 mg/dL 1.6-2.6 627) Billet Cutter ID - ADMINHEPATIC FUNCTION [id number] 06:46:26 Test Item Value Reference Range Interpretation [...] code = 70 U/L 6-55 H 347) Billet Cutter ID - ADMINBASIC METABOLIC [id number] 06:46:25 Test Item Value Reference Range Interpretation [...] 697) EGFR (BEAKER) (test 86 mL/min/1.73 ESTIMA BEN GFR IS code = 1092) sq m NOT ACCURATE CREATININE CLEARANCE IN PREDICTING GLOMERULAR FILTRATION RATE . ESTIMATED GFR I S NOT APPLICABLE FOR DIALYSIS PATIEN TS. Billet Cutter ID - ADMINPOCT-GLUCOSE [id number] 06:20:16 Test Item Value Reference Range Interpretation Comments POC-GLUCOSE METER 89 mg/dL 70-110 : TESTED A T [facility] 6720 (BEAKER) (test code = YIFAN NUNE[place], 1538) [address]: Billet Cutter/Techni luis ID = [id number] for VELMA CRUZ PROTHROMBIN TIME/[id number] 05:54:42 Test Item Value Reference Range Interpretation Comments PROTIME (BEAKER) 14.0 seconds 11.9-14.2 (test code = 759) INR (BEAKER) (test 1.10 See_Comment [Automat ed message] code = 370) The system Read[employer] generated this result transmitted ref erence range: <=5.90. The reference range was not used to int erpret this result as normal/abnormal . RECOMMENDED COUMADIN/WARFARIN INR THERAPY RANGESSTANDARD DOSE: 2.0 - 3.0 Includes: PROPHYLAXIS for venous thrombosis, systemic embolization; TREATMENT for venous thrombosis and/or pulmonary embolus.HIGH RISK: Target INR is 2.5-3.5 for patients with mechanical heart valves.CBC W/PLT COUNT & AUTO [id number] 05:39:39 Test Item Value Reference Range Interpretation [...] (test code = 2801) Lactic Acid Whole [id number] 00:48:27 Test Item Value Reference Range Interpretation Comments LACTIC ACID (test code = 0.86 mmol/L 0.50-2.20 1817962111) Lab Interpretation (test code = Normal 04049-9) [facility] [id number] 00:00:02 Test Item Value Reference Range Interpretation Comments POC-GLUCOSE METER 123 mg/dL 70-110 H : [facility] (BEAKER) (test code = [place], 1538) [address]: Billet Cutter/Techni luis ID = [id number] for VELMA LUDWIG Lactic Acid Whole [id number] 23:45:10 Test Item Value Reference Range Interpretation Comments LACTIC ACID (test code = 0.89 mmol/L 0.50-2.20 7864601020) Lab Interpretation (test code = Normal 52498-8) [facility] AC[facility], [id number] 23:44:05 Test Item Value Reference Range Interpretation Comments LACTATE BLOOD VENOUS 0.90 mmol/L 0.50-2.20 Specime n slightly (2) (BEAKER) (test hemolyzed code = 2872) Billet Cutter ID - ADMINACTIVATED PARTIAL THRMPLAS [id number] 18:58:02 Test Item Value Reference Range Interpretation Comments APTT Patient (test See_Comment [Automat ed code = 3173-2) message] The system which generated this result transmitted reference range : 23 - 38 Seconds . The reference range was not used to interpr et this result as normal/abnormal . VICKY (test code = VICKY) The [facility] patient population mean normal value for aPTT is 30 seconds. Lab Interpretation Normal (test code = 90226-3) [facility] / [id number] 18:56:00 Test Item Value Reference Range Interpretation [...] tions. Lab Interpretation (test Normal code = 17745-6) [facility] [id number] 18:31:55 Test Item Value Reference Interpretation Comments Range TROPONIN I (test 0.001 ng/mL See_Comment [Automated code = 5115371096) message] The system which generated this result [...] biotin. Lab Interpretation Normal (test code = 80689-9) [facility]. METABOLIC PANEL (99293)2022-04-21 18:19:51 Test Item Value Reference Range Interpretation Comments NA (test code = 139 mmol/L 135-145 2698128193) K (test code = 4.5 mmol/L 3.5-5.0 3878814265) CL (test code = 101 mmol/L 98-108 4306506164) CO2 TOTAL (test code = 27 mmol/L 23-31 0355284985) AGAP (test code = 2-16 2211673766) BUN (test code = 9 mg/dL 7-23 6872603616) GLUCOSE (test code = 127 mg/dL 70-110 H 5124943352) CREATININE (test code = 0.65 mg/dL 0.50-1.04 4327021370) TOTAL BILI (test code = 0.6 mg/dL 0.1-1.6 0924110628) CALCIUM (test code = 9.7 mg/dL 8.6-10.6 4956284394) T PROTEIN (test code = 7.7 g/dL 6.3-8.2 3734811100) ALBUMIN (test code = 4.6 g/dL 3.5-5.0 6309222963) ALK PHOS (test code = 77 U/L 34-122 0808575114) ALTv (test code = 11 U/L 5-35 1742-6) AST(SGOT) (test code = 17 U/L 13-40 6203672654) eGFR (test code = mL/min/1.73m2 4802241527) VICKY (test code = VICKY) Association of [...] tests). Lab Interpretation Abnormal (test code = 16999-3) [facility] 18:19[facility]16 Test Item Value Reference Range Interpretation Comments LIPASE (test code = 2963441590) 35 U/L 0-220 Lab Interpretation (test code = Normal 93462-4) [facility] [id number] 18:09:30 Test Item Value Reference Range Interpretation Comments WBC (test code = See_Comment H [Automated 2553-2) message] The system which generated this result transmit ben reference range : 4.30 - 11.10 10*3/?L. The reference range was not used to interpret this result as normal/abnormal . RBC (test code = See_Comment [Automated 300-8) message] The system which generated this result transmit ben reference range : 3.93 - 5.25 10*6/?L. [...] RDW-SD (test code = 41.1 fL 39.0-49.9 36100-8) RDW-CV (test code = 12.3 % 12.0-15.5 788-0) PLT (test code = See_Comment [Automated 777-3) message] The system which generated this result transmit ben reference range : 166 - 358 10*3/ ?L. The reference range was not u sed to interpret th is result as normal/abnormal . MPV (test code = 9.6 fL 9.5-12.9 85776-2) NRBC/100 WBC (test See_Comment [Automat ed code = 1159177949) message] The system which generated this result transmit ben reference range : 0.0 - 10.0 /100 WBCs. The reference range was not used to interpret this result as normal/abnormal . NRBC x10^3 (test code <0.01 See_Comment [Auto mated = 7290746377) message] The system which generated this result transmit ben reference range : 10*3/?L. The reference range was not used to interpret this result as normal/abnormal . GRAN MAT (NEUT) % 77.5 % (test code = 770-8) IMM GRAN % (test code 0.50 % = 4039072077) LYMPH % (test code = 16.2 % 736-9) MONO % (test code = 5.3 % 5905-5) EOS % (test code = 0.3 % 713-8) BASO % (test code = 0.2 % 706-2) GRAN MAT x10^3(ANC) 11.03 10*3/uL 1.88-7.09 H (test code = 0886458016) IMM GRAN x10^3 (test 0.07 10*3/uL 0.00-0.06 H code = 1014095941) LYMPH x10^3 (test code 2.31 10*3/uL 1.32-3.29 = 731-0) MONO x10^3 (test code 0.75 10*3/uL 0.33-0.92 = 742-7) EOS x10^3 (test code = 0.04 10*3/uL 0.03-0.39 711-2) BASO x10^3 (test code 0.03 10*3/uL 0.01-0.07 = 704-7) Lab Interpretation Abnormal (test code = 99710-0) [facility] [id number] 18:03:00 Test Item Value Reference Range Interpretation Comments POCT PREG (test code = 1605) negative On board controls acceptable with yes C Line (test code = 3574) POCT PREG LOT # (test code = 3575) [id number] POCT PREG TEST DATE (test 08/29/2023 code = 3576) Lab Interpretation (test code = Normal 98740-8) [facility] ([facility] RNA [Presence] in Respiratory specimen by CONSTANTIN with probe [id number] 09:38:17 Test Item Value Reference Range Interpretation Comments SARS-CoV-2 (COVID-19) RNA Not detected Not-Detected [Presence] in Respiratory specimen by CONSTANTIN with probe detection (test code = 55224-1) ENRIQUE MARTINEZSARS-CoV-2 (COVID-19) RNA [Presence] in Respiratory specimen by CONSTANTIN with probe lhkmzwgjo8392-90-13 16:44:16 Test Item Value Reference Range Interpretation Comments SARS-CoV-2 (COVID-19) RNA Not detected Not-Detected [Presence] in Respiratory specimen by CONSTANTIN with probe detection (test code = 50504-2) ENRIQUE [id number] 18:07:00 Test Item Value Reference Range Interpretation Comments Creatinine (test code = Creatinine) 0.6 0.6-1.3 [facility]is[facility]oXRYQFLPOFP8334-[facility] 18:07:00 Test Item Value Reference Range Interpretation Comments Results (test code = Reported (06/26/20 1:07 Results) PM) [facility]Fw[facility]ugIZGHJCXZRA3009-45-77 18:05:00 Test Item Value Reference Range Interpretation Comments Calculate GFR (test code = Calculate 118 59-120 GFR) [facility]
[2022-12-27 19:16] LABS: Urine Blood Negative (Negative); Urine Glucose Negative (Negative); Urine Protein Negative (Negative); Urine Specific Gravity 1.015 (1.005-1.030); Urine pH 8.5 (5.0-7.0)
[2022-12-27 19:19] LABS: Absolute Lymphocytes (CBC) 3.4 K/uL (0.7-4.9); Hematocrit 37.9 % (36.0-45.0); Lymphocytes % 32.7 % (15.3-44.8); MCV 93.2 fL (80-100); MPV 7.1 fL (7.6-11.3); RBC Red Blood Cell Count 4.07 M/uL (3.86-4.86)
[2022-12-27] MEDS ORDERED: ONDANSETRON 4 MG/2 ML VIAL ONE (19:24)
[2022-12-27] MEDS ORDERED: NA CHLORIDE 0.9% 1,000 ML ONE (19:24)
[2022-12-27] MEDS ORDERED: FENTANYL CITR 100 MCG/2 ML ONE (19:24)
[2022-12-27 19:36] LABS: Albumin 3.7 g/dL (3.4-5.0); Bilirubin Total 0.3 mg/dL (0.2-1.0); Potassium 3.6 mmol/L (3.5-5.1); Protein, Total 7.4 g/dL (6.4-8.2)
[2022-12-27 19:37] LABS: Urine Bacteria <20 /HPF (<20); Urine RBC <5 /HPF (None Seen)
[2022-12-27 19:47] LABS: Urine Specific Gravity/Preg 1.015 (1.005-1.030)
--- NOTE | 2022-12-27 21:46 | RAD REPORT ---
EXAM DESCRIPTION: CTAbdomen Pelvis W Contrast - 12/27/2022 9:23 pm CLINICAL HISTORY: left side abdomen pain COMPARISON: Abdomen Pelvis W Contrast dated 05/21/2022; Abdomen Pelvis W Contrast dated 01/29/2020; Abdomen Pelvis W Contrast dated 01/12/2019; Abdomen Pelvis W Contrast dated 12/24/2017 TECHNIQUE: CT of the abdomen and pelvis was performed. All CT scans are performed using dose optimization technique as appropriate and may include automated exposure control or mA/KV adjustment according to patient size. FINDINGS: Lower chest: No acute abnormality. Liver: No acute abnormality or suspicious lesions. Biliary: No biliary ductal dilatation. Cholecystectomy. Stomach: No significant focal abnormality. Duodenum: No significant focal abnormality. Pancreas: No significant abnormality. Spleen: No significant abnormality. Adrenal: No suspicious lesions. Kidney/ureter: No hydronephrosis. No renal calculi. Retroperitoneum: No retroperitoneal adenopathy. Vascular: No aneurysm. Bowel: Colorectal anastomosis.. Diverticulosis. No evidence acute diverticulitis . Peritoneum: No ascites or free air. Bladder: Grossly unremarkable. Reproductive: No adnexal masses. Bones: No acute fracture. Other: n/a IMPRESSION: No acute intra-abdominal or pelvic finding. Appendectomy.
--- NOTE | 2022-12-27 22:08 | ER ---
Nurse's Notes [facility] Name: Mary Torres Age: 37 yrs Sex: Female : 1985 Arrival Date: 12/27/2022 Time: 17:55 Bed 12 Private MD: Diagnosis: Diverticulosis of intestine, part unspecified, without perforation or abscess without bleeding;Lower abdominal pain, unspecified Presentation: 12/27 18:09 Chief complaint: Patient states: she has been having left lower abdominal pain for ap3 approx one week. patient also reports nausea, but no vomiting. however patient does report mild constipation. Coronavirus screen: At this time, the client does not indicate any symptoms associated with coronavirus-19. Ebola Screen: No symptoms or risks identified at this time. Initial Sepsis Screen: Does the patient meet any 2 criteria? No. Patient's initial sepsis screen is negative. Does the patient have a suspected source of infection? No. Patient's initial sepsis screen is negative. Risk Assessment: Do you want to hurt yourself or someone else? Patient reports no desire to harm self or others. Onset of symptoms was December 20, 2022. 18:09 Method Of Arrival: Ambulatory ap3 18:09 Acuity: MARCELA 3 ap3 Triage Assessment: 18:10 General: Appears in no apparent distress. Behavior is calm, cooperative, appropriate ap3 for age. Pain: Complains of pain in left lower quadrant Pain currently is 8 out of 10 on a pain scale. Pain began approx one week ago. Neuro: Level of Consciousness is awake, alert, obeys commands, Oriented to person, place, time, situation, Appropriate for age. Cardiovascular: Patient's skin is warm and dry. Respiratory: Airway is patent Respiratory effort is even, unlabored, Respiratory pattern is regular, symmetrical. GI: Reports constipation, nausea. COLOR TESTER: 18:11 LMP N/A - control method ap3 Historical: - Allergies: 18:10 Morphine; ap3 - Home Meds: 18:10 None [Active]; ap3 - PMHx: 18:10 Diverticulitis; ap3 - Immunization history:: Client reports receiving the 2nd dose of the Covid vaccine, Flu vaccine is not up to date. - Social history:: Smoking status: Patient denies any tobacco usage or history of. Patient uses street drugs, marijuana. Screenin:11 [facility] ED Fall Risk Assessment (Adult) History of falling in the last 3 months, ap3 including since admission No falls in past 3 months (0 pts). Abuse screen: Denies threats or abuse. Nutritional screening: No deficits noted. Tuberculosis screening: No symptoms or risk factors identified. Assessment: 22:22 GI: Bowel sounds present X 4 quads. Abd is soft X 4 quads. kd3 Vital Signs: 18:09 BP 114 / 76; Pulse 86; Resp 17; Temp 98.2; Pulse Ox 100% ; Weight 88.45 kg; Pain 8/10; ap3 20:41 BP 106 / 69; Pulse 62; Resp 18; Temp 98.2; Pulse Ox 100% ; ls5 ED Course: 17:55 Patient arrived in ED. mr 17:59 Donald Foley PA is PHCP. cp 17:59 Conor Tam MD is Attending Physician. cp 18:10 Triage completed. ap3 18:11 Arm band placed on right wrist. ap3 18:11 Patient has correct armband on for positive identification. Adult w/ patient. ap3 19:13 Inserted saline lock: 20 gauge in left antecubital area, using aseptic technique. Blood ds4 collected. 20:59 Pat Raya, RN is Primary Nurse. kd3 21:28 CT Abd/Pelvis - IV Contrast Only In Process Unspecified. EDMS 22:22 No provider procedures requiring assistance completed. IV discontinued, intact, kd3 bleeding controlled, No redness/swelling at site. Pressure dressing applied. Administered Medications: 19:25 Drug: Zofran (Ondansetron) 4 mg Route: IVP; Site: left antecubital; kd3 22:22 Follow up: Response: No adverse reaction; Nausea is decreased kd3 19:26 Drug: NS 0.9% 1000 ml Route: IV; Rate: 1 bolus; Site: left antecubital; kd3 22:23 Follow up: IV Status: Completed infusion kd3 19:26 Drug: fentaNYL (PF) 25 mcg Route: IVP; Site: left antecubital; kd3 22:22 Follow up: Response: No adverse reaction kd3 22:21 Drug: Cipro (ciprofloxacin) 500 mg Route: PO; kd3 22:23 Follow up: Response: No adverse reaction kd3 22:21 Drug: metroNIDAZOLE 500 mg Route: PO; kd3 22:23 Follow up: Response: No adverse reaction kd3 Medication: 22:22 VIS not applicable for this client. kd3 Outcome: 22:08 Discharge ordered by . radha 22:22 Discharged to home ambulatory. kd3 22:22 Condition: stable 22:22 Discharge instructions given to patient, Instructed on discharge instructions, follow up and referral plans. Demonstrated understanding of instructions, follow-up care, Prescriptions given X 4. 22:23 Patient left the ED. kd3 Signatures: Dispatcher [employer] EDFL Casper Marifer NewmanTyler ds4 Donald Foley PA PA cp Prokisch, Amanda RN RN ap3 Pat Raya RN RN kd3 Arron Salas ls5
--- NOTE | 2022-12-27 22:08 | EDPHYS ---
Physician Documentation [facility] Name: Mary Torres Age: 37 yrs Sex: Female : 1985 Arrival Date: 12/27/2022 Time: 17:55 Bed 12 Private MD: ED Physician Conor Tam HPI: 12/27 18:30 This 37 yrs old Female presents to ER via Ambulatory with complaints of cp Abdominal Pain. 18:30 The patient presents with abdominal pain in the left lower quadrant. Onset: The cp symptoms/episode began/occurred 1 week(s) ago. The symptoms do not radiate. Associated signs and symptoms: Pertinent positives: constipation, Pertinent negatives: anorexia, blood in stools, diarrhea, dysuria, fever, shortness of breath, vaginal discharge, vomiting. The symptoms are described as constant. Severity of pain: in the emergency department the pain is unchanged despite home interventions. The patient has experienced similar episodes in the past, a few times, today's symptoms are similar, to when the patient was apparently diagnosed with diverticulitis. 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 - Social history:: Smoking status: Patient denies any tobacco usage or history of. Patient uses street drugs, marijuana. ROS: 18:33 Constitutional: Negative for body aches, chills, fever, poor PO intake. cp 18:33 Eyes: Negative for injury, pain, redness, and discharge. cp 18:33 ENT: Negative for drainage from ear(s), ear pain, sore throat, difficulty swallowing, difficulty handling secretions. 18:33 Cardiovascular: Negative for chest pain, palpitations. 18:33 Respiratory: Negative for cough, shortness of breath, wheezing. 18:33 Abdomen/GI: Positive for abdominal pain, constipation, Negative for vomiting, diarrhea, anorexia. 18:33 Back: Negative for pain at rest, pain with movement. 18:33 : Negative for urinary symptoms, vaginal bleeding, vaginal discharge. 18:33 Neuro: Negative for altered mental status, headache, weakness. 18:33 All other systems are negative. Exam: 18:35 Constitutional: The patient appears in no acute distress, alert, awake, non-toxic, well cp developed, well nourished. 18:35 Head/Face: Normocephalic, atraumatic. cp 18:35 Eyes: Periorbital structures: appear normal, Conjunctiva: normal, no exudate, no injection, Sclera: no appreciated abnormality, Lids and lashes: appear normal, bilaterally. 18:35 ENT: External ear(s): are unremarkable, Nose: is normal, Mouth: Lips: moist, Oral mucosa: moist, Posterior pharynx: is normal, airway is patent, no erythema, no exudate. 18:35 Chest/axilla: Inspection: normal. 18:35 Cardiovascular: Rate: normal, Rhythm: regular. 18:35 Respiratory: the patient does not display signs of respiratory distress, Respirations: normal, no use of accessory muscles, no retractions, labored breathing, is not present, Breath sounds: are clear throughout, no decreased breath sounds, no stridor, no wheezing. 18:35 Abdomen/GI: Inspection: abdomen appears normal, Bowel sounds: active, all quadrants, Palpation: soft, in all quadrants, mild abdominal tenderness, in the left lower quadrant, rebound tenderness, is not appreciated, involuntary guarding, is not appreciated. 18:35 Back: CVA tenderness, is absent. 18:35 Skin: no rash present. 18:35 Neuro: Orientation: to person, place \T\ time. Mentation: is normal, Motor: moves all fours, strength is normal, Gait: is steady, at a normal pace, without difficulty. Vital Signs: 18:09 BP 114 / 76; Pulse 86; Resp 17; Temp 98.2; Pulse Ox 100% ; Weight 88.45 kg; Pain 8/10; ap3 20:41 BP 106 / 69; Pulse 62; Resp 18; Temp 98.2; Pulse Ox 100% ; ls5 MDM: 18:14 Patient medically screened. cp 19:00 Differential diagnosis: bowel obstruction, diverticulitis, Ectopic , cp non-specific abd pain, Ovarian Torsion, Pelvic Inflammatory Disease, Pyelonephritis, Tubal Ovarian Abcess, Ureterolithiasis, urinary tract infection. 22:07 Data reviewed: vital signs, nurses notes, lab test result(s), radiologic studies, CT cp scan. 22:07 Consideration of Admission/Observation Escalation of care including cp admission/observation considered. I considered the following discharge prescriptions or medication management in the emergency department Medications were administered in the Emergency Department. See MAR. Test considered but Not performed: Ultrasound pelvis. Counseling: I had a detailed discussion with the patient and/or guardian regarding: the historical points, exam findings, and any diagnostic results supporting the discharge/admit diagnosis, lab results, radiology results, the need for outpatient follow up, a family practitioner, to return to the emergency department if symptoms worsen or persist or if there are any questions or concerns that arise at home. Response to treatment: the patient's symptoms have mildly improved after treatment, and as a result, I will discharge patient. Special discussion: Based on the patient's Hx, exam, and Dx evaluation, there is no indication for emergent surgery or inpatient Tx. It is understood by the patient/guardian that if the Sx's persist or worsen they need to return immediately for re-evaluation. 12/27 18:15 Order name: CBC with Diff; Complete Time: 20:34 cp 12/27 20:34 Interpretation: Normal except: MPV 7.1. cp 12/27 18:15 Order name: CMP; Complete Time: 20:34 cp 12/27 21:58 Interpretation: AST 11; GLOB 3.7; A/G 1.0; Reviewed. cp 12/27 18:15 Order name: Lipase; Complete Time: 20:34 cp 12/27 18:15 Order name: Urine Microscopic Only; Complete Time: 20:34 cp 12/27 18:15 Order name: IV Saline Lock; Complete Time: 19:13 cp 12/27 18:15 Order name: Labs collected and sent; Complete Time: 19:13 cp 12/27 18:15 Order name: Urine Dipstick-Ancillary (obtain specimen); Complete Time: 19:20 cp 12/27 18:15 Order name: Urine Test (obtain specimen); Complete Time: 19:20 cp 12/27 18:54 Order name: CT Abd/Pelvis - IV Contrast Only; Complete Time: 21:57 cp 12/27 21:58 Interpretation: Report reviewed. cp 12/27 19:17 Order name: Urine Dipstick-Ancillary; Complete Time: 20:34 EDMS 12/27 19:25 Order name: Urine --Ancillary (enter results); Complete Time: 20:34 ds4 Administered Medications: 19:25 Drug: Zofran (Ondansetron) 4 mg Route: IVP; Site: left antecubital; kd3 22:22 Follow up: Response: No adverse reaction; Nausea is decreased kd3 19:26 Drug: NS 0.9% 1000 ml Route: IV; Rate: 1 bolus; Site: left antecubital; kd3 22:23 Follow up: IV Status: Completed infusion kd3 19:26 Drug: fentaNYL (PF) 25 mcg Route: IVP; Site: left antecubital; kd3 22:22 Follow up: Response: No adverse reaction kd3 22:21 Drug: Cipro (ciprofloxacin) 500 mg Route: PO; kd3 22:23 Follow up: Response: No adverse reaction kd3 22:21 Drug: metroNIDAZOLE 500 mg Route: PO; kd3 22:23 Follow up: Response: No adverse reaction kd3 Disposition Summary: 12/27/22 22:08 Discharge Ordered Location: Home cp Problem: new cp Symptoms: have improved cp Condition: Stable cp Diagnosis - Diverticulosis of intestine, part unspecified, without perforation or abscess cp without bleeding - Lower abdominal pain, unspecified cp Followup: cp - With: Private Physician - When: 2 - 3 days - Reason: Recheck today's complaints Discharge Instructions: - Discharge Summary Sheet cp - Abdominal Pain, Adult cp - Diverticulosis cp Forms: - Medication Reconciliation Form cp - Thank You Letter cp - Antibiotic Education cp - Prescription Opioid Use cp Prescriptions: - Zofran 4 mg Oral Tablet - take 1 tablet by ORAL route every 12 hours As needed; 20 tablet; Refills: 0, cp Product Selection Permitted - Cipro 500 mg Oral Tablet - take 1 tablet by ORAL route every 12 hours for 7 days; 20 tablet; Refills: 0, cp Product Selection Permitted - Metronidazole 500 mg Oral Tablet - take 1 tablet by ORAL route every 8 hours; 30 tablet; Refills: 0, Product cp Selection Permitted - dicyclomine 20 mg Oral Tablet - take 1 tablet by ORAL route 4 times per day; 30 tablet; Refills: 0, Product cp Selection Permitted Addendum: 12/29/2022 10:29 Co-signature as Attending Physician, Conor Tam MD I reviewed the patient's care r n provided by the Advanced Practice Provider and agree with the diagnosis and treatment plan. Signatures: Dispatcher [employer] Conor Cartagena MD MD rn Donald Foley PA PA cp Prokisch, Amanda RN RN ap3 Pat Raya RN RN kd3 Corrections: (The following items were deleted from the chart) 12/27 21:58 21:58 Reviewed. cp cp
[2022-12-27] MEDS ORDERED: metroNIDAZOLE 500 MG TABLET ONE (22:18)
[2022-12-27] MEDS ORDERED: CIPROFLOXACIN HCL 500 MG TAB ONE (22:19)
[2022-12-27 22:39] VITALS: TEMP 98.2; O2SAT 100
[2022-12-27 22:45] VITALS: BP 106/69
== END 2022-12-27 22:23 | disposition home or self-care (01) ==
LOC: ER 17:53
DX: K57.30 Diverticulosis of large intestine without perforation or abscess without bleeding (principal); Z88.5 Allergy status to narcotic agent
CPT/HCPCS: 96361; 85025; 36415; 81025; 83690; 80053; 74177; 96375; 96374; 99284; Q9967; J3010; J7030; J2405; 81003; 81015

== ENCOUNTER 2023-03-27 08:05 | Emergency (ER) | payer OTHER ==
--- OUTSIDE RECORDS SUMMARY | 2023-03-27 08:09 | XMS REPORT | Continuity of Care Document ---
:[address] [facility] t Address [address] [facility]. [address] [place] [address] Care Team Providers Name Role Phone No , Pcp Primary Care Physician Unavailable ANTIONE KERN Attending Clinician Unavailable Denver Sterling DO Attending Clinician VELMA KRISHNAMURTHY Attending Clinician Unavailable Kyra STEVENS, APPLICATION INTEGRATION ARCHITECT, Deyanira Grjialva Attending Clinician Unavailable Denise TIERNEY, Hoang Attending Clinician Kristy Collins MD Attending Clinician Poppy Espinal MD Attending Clinician [phone] KRISTY COLLINS Attending Clinician Unavailable CLAUDY HARRIS Attending Clinician Unavailable Claudy Harris MD Attending Clinician Doctor Unassigned, [place] Attending Clinician Unavailable Lydia Attending Clinician Unavailable RANDA MALIN Attending Clinician [...] Expiration Date S ource AETNA CHOICE POS [id number] 2021 II 00:00:00 [place] - [id number] 2019 OUT OF STATE 00:00:00 AETNA COMMERCIAL [id number] 2021 OUT OF [place]WORK 00[place]00:[place] [id number] 2019 00:00:00 Problems Condition Condition Condition Status Onset Resolution Last Treating Co mments Source Name Details Category Date Date Treatment Clinician Date TFCC TFCC Disease Active Last UT (triangula (triangula 11-01 [facility]ess[facility] r r 00:00: t & Plan: fibrocarti fibrocarti 00 Formattin dorian alarcon g of this complex) complex) note injury, injury, [...] n. 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 nce 6-25 Sweta kes 00:00: Medical 00 Center Diverticul Diverticul Disease Active C [facility] itis of itis of 6- [facility] intestine intestine 00:00: Medi rosalba with with 00 Center abscess abscess Dyslipidem Dyslipidem Disease Active U nivers ia ia 6-25 ity of 00:00: [place] [facility] Family Family Disease Active Univers history of history of 6-25 it y of premature premature 00:00: Dilma rodriguez CAD CAD 00 Medical Branch Essential Essential Disease Active Uni vers hypertensi hypertensi 6-25 it y of on on 00:00: [place] [facility] Chest pain Chest pain Disease Active U nivers 6-24 ity of 00:00: [place] [facility] Back pain Back pain Disease Active Uni vers 6-25 ity of 00:00: [place] [facility] Left lower Left lower Disease Active M ethodi quadrant quadrant 6-06 st pain pain 00:00: Hospita 00 l Diverticul Diverticul Disease Active M ethodi itis of itis of 8-22 st large large 00:00: Hospita intestine intestine 00 l without without perforatio perforatio n or n or abscess abscess without without bleeding bleeding 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 8-22 st 00:00: Hospita 00 l Pain Pain Disease Active Univers pelvic pelvic 7-11 ity of 00:00: [place] 00 [facility] Cervical Cervical Disease Active Unive [...] it right right - [facility] thumb thumb [facility] Pain of Pain of Problem Active Common left thumb left thumb Sp yosvany [facility] Trigger Trigger Problem Active Common finger of finger of Spir it left thumb left thumb - CH[facility] Right Right Problem Active Common wrist pain wrist pain Sp [facility] Pain in Pain in Diagnosis Active Commo n right hand right hand Sp [facility] Allergies, Adverse Reactions, Alerts Allergy Allergy Status Severity Reaction(s) Onset Inactive Treating Comm ents Source Name Type Date Date Clinician MORPHINE Allergy Active N\\T\\V [facility] 00[facility] 00 Center Morphine Propensi Active Nausea And [facility] I [facility] ty to Vomiting 04-21 [facility] adverse 00:00: Medical reaction 00 Center s Morphine Propensi Active UT And ty to 7-13 Health Related adverse 00:00: reaction 00 s MORPHINE DRUG Active Other-Cmnt Univ ers INGREDI 04-23 ity of 00:00: 00 Medical Branch Morphine Propensi Active Other - See Reports Univers ty to comments 04-23 migraines ity o f adverse 00:00: . [place] reaction 00 Medical s Branch Morphine Propensi Active Headache Migraine Me thodi ty to 04-04 st adverse 00:00: Hospita reaction 00 l s to drug MORPHINE Adverse Active Info Not Commo n Reaction Available Spiri t - [facility] Family History Family Member Diagnosis Comments Start Date Stop Date Source Natural father [facility] Social History Social Habit Start Date Stop Date Quantity Comments Source Gender [facility] Exposure to 2023-02-16 2023-02-26 Not sure [facility] SARS-CoV-2 (event) 00:00:00 18:16:00 History of Social 2023-01-29 2023-01-[address] function 00:00:00 00:00:00 Hospital Alcohol intake 2023-01-29 2023-01-29 Current drinker [facility] 00:00:00 00:00:00 of alcohol Hospital (finding) Tobacco use and 2021-05-11 2021-05-11 Smokeless [facility] exposure 00:00:00 00:00:00 tobacco non-user Alcohol Comment 2017-06-20 2017-06-20 socially [facility] 00:[facility] [birth year] [facility] 00:[facility]00 [facility] Smoking Status Start Date Stop Date Source Never smoked tobacco [facility] Medications Ordered Filled Start Stop Current Ordering Indication Dosage Frequency Signature Comments Components Source Medication Medication Date Date Medication? Clinician (SIG) Name Name polyethylen 2022- No 17g QD Take 17 g Methodi e glycol -02 05-[address] (MIRALAX) 00:00: 04:59 daily for Ho spita 17 gram 00 :00 30 days. l packet polyethylen 2022- No 2000mL Take 2,000 Methodi e glycol 01-29 04-[address] (Golytely) 00:00: 04:59 mouth once Hospita 236-22.74-6 00 :00 for 1 l .74 -5.86 dose. gram solution methocarbam Yes [id number] 500mg Q.25D Take 1 UT ol 3-16 tablet Health (Robaxin) 00:00: (500 mg 500 MG 00 total) by tablet mouth in the morning and 1 tablet (500 mg total) at noon and 1 tablet (500 mg total) in the evening and 1 tablet (500 mg total) before bedtime. Do all this for 10 days. methocarbam 2023-0 Yes [id number] 500mg Q.25D Take 1 UT ol 3-16 tablet Health (Robaxin) 00:00: (500 mg 500 MG 00 total) by tablet mouth in the morning and 1 tablet (500 mg total) at noon and 1 tablet (500 mg total) in the evening and 1 tablet (500 mg total) before bedtime. Do all this for 10 days. metroNIDAZO 2023-0 Yes 500mg Q.[id number] Take 500 UT LE (Flagyl) 1-03 [id number] mg by H ealth 500 MG 12:01: 3D mouth 3 tablet 30 (three) times a day. neomycin 2023-0 Yes 1000mg Q.25D Take 1,000 UT (Mycifradin 1-03 mg by Health ) 500 MG 12:01: mouth 4 tablet 30 (four) times a day. metroNIDAZO 2023-0 Yes 500mg Q.[id number] Take 500 UT LE (Flagyl) 1-03 [id number] mg by H ealth 500 MG 12:01: 3D mouth 3 tablet 30 (three) times a day. neomycin 2023-0 Yes 1000mg Q.25D Take 1,000 UT (Mycifradin 1-03 mg by Health ) 500 MG 12:01: mouth 4 tablet 30 (four) times a day. metroNIDAZO 2023-0 Yes 500mg Q.[id number] Take 500 UT LE (Flagyl) 1-03 [id number] mg by H ealth 500 MG 12:01: 3D mouth 3 tablet 30 (three) times a day. neomycin 2023-0 Yes 1000mg Q.25D Take 1,000 UT (Mycifradin 1-03 mg by Health ) 500 MG 12:01: mouth 4 tablet 30 (four) times a day. metroNIDAZO 2023-0 Yes 500mg Q.[id number] Take 500 UT LE (Flagyl) 1-03 [id number] mg by H ealth 500 MG 12:01: 3D mouth 3 tablet 30 (three) times a day. neomycin 2023-0 Yes 1000mg Q.25D Take 1,000 UT (Mycifradin 1-03 mg by Health ) 500 MG 12:01: mouth 4 tablet 30 (four) times a day. metroNIDAZO 2023-0 Yes 500mg Q.[id number] Take 500 UT LE (Flagyl) 1-03 [id number] mg by H ealth 500 MG 12:01: 3D mouth 3 tablet 30 (three) times a day. neomycin 2023-0 Yes 1000mg Q.25D Take 1,000 UT (Mycifradin 1-03 mg by Health ) 500 MG 12:01: mouth 4 tablet 30 (four) times a day. metroNIDAZO 2023-0 Yes 500mg Q.[id number] Take 500 UT LE (Flagyl) 1-03 [id number] mg by H ealth 500 MG 12:01: 3D mouth 3 tablet 30 (three) times a day. neomycin 2023-0 Yes 1000mg Q.25D Take 1,000 UT (Mycifradin 1-03 mg by Health ) 500 MG 12:01: mouth 4 tablet 30 (four) times a day. acetaminoph 2022-0 Yes 650mg Take [address] [facility] 6[facility]27 tablets [facility] (TYLENOL) 00:00: (650 mg Medic al 325 MG 00 total) by Center tablet mouth every 4 (four) hours as needed for Pain. ondansetron 2022-0 Yes 4mg Take [address] (ZOFRAN-ODT 6-27 tablet (4 Rosalina es ) 4 MG 00:00: mg total) Medica l disintegrat 00 by mouth Cent er ing tablet every 8 (eight) hours as needed for Nausea. HYDROcodone 2-0 Yes 1{tbl} Take [address] -acetaminop 6-27 tablet by Rosalina es hen (NORCO 00:00: mouth Medica l 5-325) 00 every 8 Center 5-325 mg (eight) per tablet hours as needed for Pain (Pain not relieved by tylenol) Talk to your PCP if pain persists.. Max Daily Amount: 3 tablets acetaminoph 2022-0 Yes 650mg Take [address] [facility]27 tablets [facility] (TYLENOL) 00:00: (650 mg Medic al 325 MG 00 total) by Center tablet mouth every 4 (four) hours as needed for Pain. ondansetron 2022-0 Yes 4mg Take [address] (ZOFRAN-ODT [...] (eight) per tablet hours for 10 days. amoxicillin 2021- No 1{tbl} Take [address] -clavulanat 6-27 -07 tablet by Sweta kes e 00:00: 23:59 mouth Medical (AUGMENTIN) 00 :00 every 8 Cente r 875-125 mg (eight) per tablet hours for 10 days. ondansetron 2021- No 4mg 4 mg, Slow Univers (ZOFRAN 04-22 IV Push, ity of (PF)) 03:15: 02:12 ONCE, 1 [place] injection 4 00 :00 dose, On Medi rosalba mg [facility] 04/21/22 at 2215, MARIIA FENTanyl PF 2021- No 75ug 75 mcg, Un marley (SUBLIMAZE 04-22 Slow IV ity o f (PF)) 03:15: 02:12 Push, [place] injection 00 :00 ONCE, 1 Medical 75 mcg dose, On Branch [facility] 04/21/22 at 2215, Routine FENTanyl PF 2021-2021- No 75ug 75 mcg, Un marley (SUBLIMAZE 04-21 Slow IV ity o f (PF)) 23:45: 22:35 Push, [place] injection 00 :00 ONCE, 1 Medical 75 mcg dose, On Branch [facility] 04/21/22 at 1845, STAT FENTanyl PF 2021- [...] 04/21/22 at 1430, STAT iopamidol 2021- No [id number] 60mL 60 mL, U nivers (ISOVUE 04-21 Intravenou ity o f 370-500 mL) 18:50: 18:50 s, ONCE, 1 [place] injection 00 :00 dose, On Medica l 60 mL Christen Branch 04/21/22 at 1400, Routine Saline Lock No 10 mL, [place] donnie Flush 06-26 Soln, IV l 18:00: Push, As Indicated PRN for flush, first dose 06/26/20 13:00:00 CDT Isovue-300 2020-0 No 61,200 mg Me moria 8-28 = 100 mL, l 18:00: Injection, Matthew 00 IV Push, Once, first dose 06/26/20 13:00:00 CDT, stop date 06/26/20 13:00:00 CDT Smoothie 2020-0 No 450 mL, Memori a Readi-Cat 2 8- Susp, l 18:00: Oral, [place] 00 Once, first dose 06/26/20 13:00:00 CDT, stop date 06/26/20 13:00:00 CDT, Out-Patien t Saline Lock 2020-0 No 10 mL, [place] donnie Flush 06-26 Soln, IV l 18:00: Push, As Matthew Indicated PRN for flush, first dose 06/26/20 13:00:00 CDT Isovue-300 2020-0 No 61,200 mg Me moria 8-28 = 100 mL, l 18:00: Injection, [place] 00 IV Push, Once, first dose 06/26/20 13:00:00 CDT, stop date 06/26/20 13:00:00 CDT Smoothie 2020-0 No 450 mL, Memori a Readi-Cat 2 - Susp, l 18:00: Oral, Matthew 00 Once, first dose 06/26/20 13:00:00 CDT, stop date 06/26/20 13:00:00 CDT, Out-Patien t Isovue-300 2020-0 No 61,200 mg Me moria 8-28 = 100 mL, l 18:00: Injection, Matthew 00 IV Push, Once, first dose 06/26/20 13:00:00 CDT, stop date 06/26/20 13:00:00 CDT Smoothie 2020-0 No 450 mL, Memori a Readi-Cat 2 - Susp, l 18:00: Oral, Matthew 00 Once, first dose 06/26/20 13:00:00 CDT, stop date 06/26/20 13:00:00 CDT, Out-Patien t Saline Lock 2020-0 No 10 mL, [place] donnie Flush 06-26 Soln, IV l 18:00: Push, As Matthew Indicated PRN for flush, first dose 06/26/20 13:00:00 CDT benzonatate 2020-0 Yes [id number] 200mg Take 2 Univers 100 mg 1-19 capsules ity of capsule 00:00: [place] mouth 3 [place] (three) Medical times Branch daily as needed for Cough. phenylephri 2020-0 Yes [id number] 5mL Take 5 mL Univers ne-prometha 1-19 by mouth 4 it y of zine-codein 00:00: (four[place] 00 times Medical (PROMETHAZI daily as Bran ch NE needed for VC-CODEINE) Cough. 6.25-5-10 mg/5 mL syrup ondansetron 2020-0 Yes [id number] 4mg Take 1 Univers 4 mg 1-19 tablet by ity of disintegrat 00:00: mouth [place] ing tablet 00 every 8 Medica l (eight) Branch hours as needed for Nausea and Vomiting (N/V). benzonatate 2020-0 Yes [id number] 200mg Take 2 Univers 100 mg 1-19 capsules ity of capsule 00:00: [place] mouth 3 [place] 00 (three) Medical times Branch daily as needed for Cough. phenylephri 2020-0 Yes [id number] 5mL Take 5 mL Univers ne-prometha 1-19 by mouth 4 it y of zine-codein 00:00: (four[place] 00 times Medical (PROMETHAZI daily as Bran ch NE needed for VC-CODEINE) Cough. 6.25-5-10 mg/5 mL syrup ondansetron 2020-0 Yes [id number] 4mg Take 1 Univers 4 mg 1-19 tablet by ity of disintegrat 00:00: mouth [place] ing tablet 00 every 8 Medica l (eight) Branch hours as needed for Nausea and Vomiting (N/V). Ibuprofen Ibuprofen Yes Mark TK 1 T PO [facility] Q 6 H PRN Spirit P SCALE 4 - [facility]I TO 6 [facility] Immunizations Ordered Filled Immunization Date Status Comments [facility] e Immunization Name Name TDAP 2011-07-29 Completed University of 00:00:00 [facility] TDAP 2011-07-29 Completed [facility] 00:00:00 [facility] Vital Signs Vital Name Observation Time Observation Value Comments Source Body height 2022-11-01 18:01:00 160 [facility] 2022-11-01 18:01:00 [facility] 2022-11-01 18:01:00 34.54 [facility]m2 [facility] WEIGHT 2022-04-22 14:00:00 95.074 kg WEIGHT 2022-04-22 14:00:00 95.074 kg WEIGHT 2022-04-22 14:00:00 95.074 kg Systolic blood 2022-04-22 02:00:00 138 mm[Hg] Univer sity of pressure [facility] Diastolic blood 2022-04-22 02:00:00 99 mm[Hg] Unive rsity of pressure [facility] Heart rate 2022-04-22 02:00:00 80 /min [facility] [place] [facility] Respiratory rate 2022-04-22 02:00:00 15 /min [facility] Oxygen saturation in 2022-04-22 02:00:00 98 /min University Arterial blood by [facility] Pulse oximetry [place] Body temperature 2022-04-21 17:43:15 36.89 Kita [facility] Body height 2022-04-21 17:32:00 160 cm [facility] Body weight 2022-04-21 17:32:00 90.719 kg [facility] BMI 2022-04-21 17:32:00 35.43 kg/m2 [facility] Systolic blood 2023-01-29 18:52:00 113 mm[Hg] Method [facility] pressure Diastolic blood 2023-01-29 18:52:00 57 mm[Hg] [facility] pressure Heart rate 2023-01-29 18:52:00 58 /min [facility] [place] [facility] Respiratory rate 2023-01-29 18:52:00 16 /min [facility] Oxygen saturation in 2023-01-29 18:52:00 100 /min [facility] Arterial blood by Pulse oximetry Body temperature 2023-01-29 15:50:00 36.44 Kita [facility] Body height 2023-01-29 15:50:00 160 cm [facility] Heart rate 2022-04-25 12:04:00 69 /min [facility] Respiratory rate 2022-04-25 12:04:00 18 /min [facility] Oxygen saturation in 2022-04-25 12:04:00 95 /min [facility] Arterial blood by Medical Ce nter Pulse oximetry Systolic blood 2022-04-25 11:46:00 113 mm[Hg] [facility] Diastolic blood 2022-04-25 11:46:00 65 mm[Hg] [facility] Body temperature 2022-04-25 11:46:00 36.67 Kita [facility] Body weight 2022-04-22 14:00:00 95.074 kg [facility] Procedures Procedure Date / Time Performing Clinician Source Performed CT ABDOMEN PELVIS WO 2023-01-29 18:14:28 [facility] WITH PLATELET AND 2023-01-29 16:25:[address] [facility] DIFFERENTIAL COMPREHENSIVE METABOLIC 2023-01-29 16:25:00 Denver Sterling [facility] PANEL LACTIC ACID, I-STAT 2023-01-29 16:25:00 [facility] 2023-01-29 16:25:00 Denver Sterling Ho spital URINALYSIS 2023-01-29 16:06:00 Denver Sterling spital HCG QUALITATIVE, URINE 2023-01-29 16:06:00 Denver Sterling [facility] SCREEN CBC W/PLT COUNT & AUTO 2022-04-25 03:47:00 Kristy Collins [facility] CBC W/PLT COUNT & AUTO 2022-04-25 03:47:00 Kristy Collins [facility] BASIC METABOLIC PANEL 2022-04-25 03:47:00 Kristy Collins [facility] MAGNESIUM 2022-04-25 03:47:00 Kristy Collins [facility] PHOSPHORUS 2022-04-25 03:47:00 Kristy Collins [facility] POCT-GLUCOSE METER 2022-04-24 18:07:00 Kristy Collins [facility] POCT-GLUCOSE METER 2022-04-24 07:18:00 Kristy Collins [facility] BASIC METABOLIC PANEL 2022-04-24 05:11:00 Kristy Collins [facility] MAGNESIUM 2022-04-24 05:11:00 Kristy Collins [facility] PHOSPHORUS 2022-04-24 05:11:00 Kristy Collins [facility] POCT-GLUCOSE METER 2022-04-23 18:01:00 Kristy Collins [facility] POCT-GLUCOSE METER 2022-04-23 12:20:00 Kristy Collins [facility] ECG 12-LEAD 2022-04-23 09:17:15 Kristy Collins [facility] ECG 12-LEAD 2022-04-23 09:17:15 Unknown, [facility] ECG 12-LEAD 2022-04-23 09:17:15 Unknown, H[facility] CBC W/PLT COUNT & AUTO 2022-04-23 05:11:00 Kristy Collins [facility] HEMOGLOBIN A1C 2022-04-23 05:11:00 Kristy Collins [facility] HEPATIC FUNCTION PANEL 2022-04-23 05:11:00 Kristy Collins [facility] VITAMIN D, 25-HYDROXY 2022-04-23 05:11:00 Kristy Collins [facility] BASIC METABOLIC PANEL 2022-04-23 05:11:00 Kristy Collins [facility] MAGNESIUM 2022-04-23 05:11:00 Kristy Collins [facility] PHOSPHORUS 2022-04-23 05:11:00 Kristy Collins [facility] CBC W/PLT COUNT & AUTO 2022-04-23 05:11:00 Kristy Collins [facility] IRON, TIBC, % SAT. 2022-04-23 05:11:00 [facility] HIV-1 AG 2022-04-23 05:11:00 [facility] RPR 2022-04-23 05:11:00 [facility] 2022-04-23 05:11:00 [facility]FREE T4 IF INDICATED 2022-04-23 05:11:00 [facility] POCT-[facility]SE METER 2022-04-23 00:09:00 [facility] PO[facility]SE METER 2022-04-22 16:48:00 [facility] 12-LEAD 2022-04-22 14:37:52 Hemal Kristy [facility] ECG 12-LEAD 2022-04-22 14:37:52 Unknown, H[facility] ECG 12-LEAD 2022-04-22 14:37:52 Unknown, Hl7 [facility] POCT-GLUCOSE METER 2022-04-22 12:08:00 Hemal [facility] SARS-COV2/RT-PCR ([facility] & 2022-04-22 08:41:00 Poppy Espinal I [facility] REF LABS) [facility] POCT-GLUCOSE METER 2022-04-22 07:17:00 Hoang Walker [facility] POCT-GLUCOSE METER 2022-04-22 06:08:00 Hoang Walker [facility] CBC W/PLT COUNT & AUTO 2022-04-22 05:12:00 Poppy Espinal [facility] DIFFERENTIAL [facility] BASIC METABOLIC PANEL 2022-04-22 05:12:00 Poppy Espinal [facility] HEPATIC FUNCTION PANEL 2022-04-22 05:12:00 Teddy [facility] PROTHROMBIN TIME/INR 2022-04-22 05:12:00 Teddy [facility] MAGNESIUM 2022-04-22 05:12:00 Teddy [facility] CBC W/PLT COUNT & AUTO 2022-04-22 05:12:[address] [facility] LACTIC ACID WHOLE BLOOD 2022-04-22 00:39:00 Karyn Villegas [facility] POCT-GLUCOSE METER 2022-04-21 23:48:00 Hoang Walker [facility] LACTIC ACID WHOLE BLOOD 2022-04-21 23:42:[address] [facility] BLOOD CULTURE 2022-04-21 23:24:00 Espinal, [facility] LACTIC ACID, VENOUS 2022-04-21 23:23:00 Teddy [facility] COVID-19 (ID NOW RAPID 2022-04-21 20:47:00 Claudy Harris [facility] TESTING) [facility] CT ABDOMEN PELVIS W 2022-04-21 18:54:00 Claudy Harris [facility] CONTRAST [facility] POCT TEST 2022-04-21 18:03:00 Claudy Harris [facility] PROTHROMBIN TIME / INR 2022-04-21 17:54:00 Claudy Harris [facility] ACTIVATED PARTIAL 2022-04-21 17:54:00 Claudy Harris [facility] THRMPLAS LISA [facility] URINALYSIS 2022-04-21 17:54:00 Claudy Harris [facility] LIPASE 2022-04-21 17:53:00 Claudy Harris [facility] TROPONIN I 2022-04-21 17:53:00 Claudy Harris [facility] COMP. METABOLIC PANEL 2022-04-21 17:53:00 Claudy Harris [facility] ([id number]) [facility] CBC WITH DIFF 2022-04-21 17:53:00 Claudy Harris [place] [facility] NOTICE OF PRIVACY 2022-04-21 17:29:34 Doctor Unassigned, No Univ ersity [facility] PRACTICES Name Medical Branch CONSENT/REFUSAL FOR 2022-04-21 17:28:00 Doctor Unassigned, No Un iversity [facility] DIAGNOSIS AND TREATMENT Name [facility] Plan of Care Planned Activity Planned Date Details Comments Source Future Scheduled 2025-04-[address] [facility] Test 00:[facility]:00 (procedure) [code = [facility] 83112856] Future Scheduled 2025-04-[address] [facility] Test 00:00:00 (procedure) [code = [facility] 37094668] Future Scheduled 2023-06-[address] [facility] Test 00:00:00 (Season Ended) [code Medical Center = INFLUENZA VACCINE (Season Ended)] Future Scheduled 2023-01-29 [facility] 13:40:07 screening (procedure) [code = 934726540] Future Scheduled 2023-01-29 [facility] for [facility] Test 13:40:07 malignant neoplasm of cervix (procedure) [code = 433265518] Future Scheduled 2023-01-29 COVID-19 VACCINE ([facility] Test 13:40:07 - Booster for Pfizer series) [code = COVID-19 VACCINE (4 - Booster for Pfizer series)] Future Scheduled 2023-01-29 INFLUENZA VACCINE [facility] Test 13:40:07 [code = INFLUENZA VACCINE] Future Scheduled 2022-11-01 COVID-[address] [facility] Test 11:15:10 (#1) [code = COVID-19 VACCINE (#1)] Future Scheduled 2022-11-01 [facility] 11:15:10 screening (procedure) [code = 935675962] Future Scheduled 2022-11-01 [facility] Test 11:15:10 malignant neoplasm of cervix (procedure) [code = 409381242] Future Scheduled 2022-11-01 INFLUENZA VACCINE [facility] Test 11:15:10 [code = INFLUENZA VACCINE] Future Scheduled 2022-10-[address] [facility] Test 00:00:00 (12+) [code = Medical Center DEPRESSION SCREENING (12+)] Future Scheduled 2022-10-[address] [facility] Test 00:00:00 (12+) [code = [facility] DEPRESSION SCREENING (12+)] Future Scheduled 2022-06-[address] [facility] Test 00:00:00 (#1) [code = [facility] INFLUENZA VACCINE (#1)] Future Scheduled [address] [facility] Test 00:00:00 malignant neoplasm Medical C enter of cervix (procedure) [code = 630859290] Future Scheduled [address] [facility] Test 00:00:00 malignant neoplasm Medical C enter of cervix (procedure) [code = 158371633] Future Scheduled 2002 DTAP/TDAP/TD [facility] Test 00:00:00 VACCINES (1 - Tdap) [facility] [code = DTAP/TDAP/TD VACCINES (1 - Tdap)] Future Scheduled 2002 DTAP/TDAP/TD [facility]:00 VACCINES (1 - Tdap) [facility] [code = DTAP/TDAP/TD VACCINES (1 - Tdap)] Future Scheduled [address] [facility] 00:00:00 SCREENING [code = Medical Ce nter HEPATITIS C SCREENING] Future Scheduled [address] [facility] 00:00:00 SCREENING [code = Medical Ce nter HEPATITIS C SCREENING] Future Scheduled [address] [facility] 00:[facility] (12+) [code = Tobacco Cessation Counseling and Screening (12+)] Future Scheduled [address] [facility] 00:00:00 [facility] Scre[facility] (12+) [code = Tobacco Cessation Counseling and Screening (12+)] Future Scheduled 1984-02-27 COVID-[address] [facility] Test 00:00:00 (#1) [code = [facility] COVID-19 VACCINE (#1)] Future Scheduled 1984-02-27 COVID-[address] [facility] 00:00:00 (#1) [code = [facility] COVID-19 VACCINE (#1)] Encounters Start End Encounter Admission Attending Care Care Encounter Source Date/Time Date/Time Type Type Clinicians Facility Department ID 2023-02-23 Outpatient [facility] [id number] [place] 06:44:39 [id number] [facility] 2023-01-03 Outpatient [facility] [id number] [place] 13:05:58 [id number] [facility] 2023-01-02 Outpatient [facility] [id number] [place] 05:03:53 [id number] [facility] 2022-12-02 Outpatient [facility] [id number] [place] 05:20:27 [id number] [facility] 2022-11-01 Outpatient [facility] [id number] [place] 11:12:36 [id number] [facility] 2022-06-03 Outpatient [facility] [id number] [place] 09:06:03 [id number] [facility] 2021-08-[address] [facility] [id number] Univers 22:46:32 [facility] 2021-08-[address] [facility] [id number] Univers 10:52:06 [facility] 2021-03-06 Outpatient ANTIONE KERN [facility] [id number] [place] 03:47:14 [facility] 2023-05-29 2023-05-29 Outpatient ANTIONE KERN [facility] [id number] [place] 15:00:00 15:00:00 [facility] 2023-02-27 2023-02-27 Office Antione Kern 1.2.840.114 [id number] [place] 15:45:00 15:48:30 Visit TOWER 350.1.13.58 He alth 9.2.7.2.686 [id number] 3 2023-01-29 2023-01-29 Emergency Nuszen, 1.2.840.1 [id number] Methodi 10:46:00 13:53:00 [place] A[address].1.[address] 3.430.2.7 Hospit a .3.026103 l .8 2023-01-29 2023-01-29 Travel 1.2.840.1 1.2.610.896 [id number] Methodi 00:00:00 00:00:[address] 3.430.2.7 0.2.7.3.698 spita .3.822420 084.8 l .8 2023-01-29 2023-01-29 Emergency VANNA, [facility] [id number] [place] [address] 00:00:00 00:00:[address] 2023-01-27 2023-01-27 Office KernAntione CECE PENNY 1.2.840.114 [id number] [place] 11:30:00 12:46:21 Visit TOWER 350.1.13.58 He alth 9.2.7.2.686 [id number] 3 2023-01-12 2023-01-12 Outpatient ANTIONE KERN [facility] [id number] [place] 12:30:00 12:30:00 Health 2023-01-03 2023-01-03 Office Antione Kern CECE EPNNY 1.2.840.114 [id number] [place] 11:45:00 13:03:45 Visit TOWER 350.1.13.58 He alth 9.2.7.2.686 [id number] 3 2022-12-20 2022-12-20 Office Antione Kern CECE PENNY 1.2.840.114 [id number] [place] 11:15:00 12:32:58 Visit TOWER 350.1.13.58 He alth 9.2.7.2.686 [id number] 3 2022-12-13 2022-12-13 Outpatient [facility] [id number] [place] 10:15:00 10:15:00 Dora AGUILAR 2022-12-02 2022-12-02 Office Antione Kern 1.2.840.114 [id number] [place] 13:30:00 13:54:12 Visit TOWER 350.1.13.58 He alth 9.2.7.2.686 [id number] 3 2022-11-01 2022-11-01 Outpatient [facility] [id number] [place] 12:45:00 13:43:35 Health 2022-11-01 2022-11-[address] [facility] 1.2.840.114 [id number] [place] 12:45:00 13:43:24 Visit EUFEMIA Aguilar 350.1.13.58 H [facility] 9.2.7.2.686 [place] 9 [id number] 7 2022-05-13 2022-05-13 Telephone [facility] [id number] [facility]00 [facility] 2022-05-13 2022-05-13 Telephone [facility] [id number] [facility] 00[facility]00 [facility] 2022-05-10 2022-05-10 Telephone [facility] [id number] 00:[facility] 00:00[facility]00 [facility] 2022-05-10 2022-05-10 Telephone [facility] [id number] [facility] St 00:00:00 00:00:00 [facility] 2022-04-21 2022-04-25 Hospital ER Hoang Walker [facility] [id number] [facility] 22:05:00 13:40:00 [facility] 2022-04-25 Inpatient ER RIA COLLINS Gastro [id number] SLEAntoni 22:05:00 13:40:00 KRISTY 2022-04-21 2022-04-25 [facility] DeniseHoang [facility] [id number] [facility] St 22:05:00 13:40:00 [facility] 2022-[facility]-22 2022-04-22 Outpatient [facility] [id number] [facility] 00:00:00 23:59:00 Abbi 2022-04-22 2022-04-[address] [facility] [id number] 00:00:00 00:00:00 [facility] 2022-04-22 2022-04-[address] [facility] [id number] [facility]I 00:00:00 00:00:00 Only [facility] 2022-04-21 2022-04-21 Emergency X EDWIN, [facility] ERT [id number] Univers 12:35:00 21:21:00 CLAUDY ity of [facility] 2022-04-21 2022-04-21 Emergency [facility] 1.2.018.127 [id number] Univers 12:35:00 21:21:00 Cluady ELEONORA 350.1.13.10 i ty of [place] 4.2.7.2.686 [facility] [id number] [facility] [address] 2022-04-21 2022-04-21 Orders Doctor ALBERTO 1.2.840.114 [id number] Univers 00:00:00 00:00:00 Only Unassigned, TATUM 350.1.13.10 ity of [facility] 4.2.7.2.686 [facility] [id number] [facility] 00[address] 2021-04-09 2021-04-09 Outpatient Goldfarb_D [facility] 4422 [id number] [place] 02:18:00 02:18:00 [id number] [facility] 2020-10-20 2020-10-20 Outpatient Denise MALIN, [facility] [id number] [facility] 14:20:00 14:20:00 RANDA ittorres [facility] 2020-08-11 2020-08-12 Inpatient ANTIONE KERN [facility] 021 [id number] [place] 00:00:00 00:00:[address] 2020-08-04 2020-08-04 Outpatient ANTIONE KERN [facility] [id number] [place] 00:00:00 00:00:00 431 Method i 2020-06-26 2020-06-27 Outpatient [facility] [id number] Memoria 15:49:25 04:59:59 denise [facility] 2020-06-26 2020-06-27 Outpatient [facility] [id number] 4 Memoria 15:49:25 04:59:59 denise [facility] 2020-06-26 2020-06-26 Outpatient Chang [id number] 564 10:49:25 23:59:59 Alexys Trivedi 2020-06-26 2020-06-26 Outpatient nullFlavo [facility] 6[address]30 [facility] 10:49:25 23:59:59 denise Castro 2019-05-16 2019-05-16 Outpatient Denise WHITE [facility] [id number] Univers 00:00:00 00:00:00 HALEY carroll [facility] 2018-05-28 2018-05-28 Outpatient [facility] [id number] Common 09:00:00 09:00:00 [facility] Results Test Description Test Time Test [...] affect recovery and/or detection times of some organisms.[id number] 13:42:54 Test Item Value Reference Range Interpretation Comments RPR SCREEN (BEAKER) (test code = Nonreactive Nonreactive 420) [id number] 05:00:20 Test Item Value Reference Range Interpretation Comments MAGNESIUM (BEAKER) (test code = 2.0 mg/dL 1.6-2.6 627) Truck Body Builder ID - TD [id number] 05:00:20 Test Item Value Reference Range Interpretation Comments PHOSPHORUS (BEAKER) (test code = 2.8 mg/dL 2.3-4.7 604) Truck Body Builder ID - TD GBASIC METABOLIC [id number] 05:00:19 Test Item Value Reference Range Interpretation [...] S NOT APPLICABLE FOR DIALYSIS PATIEN TS. Truck Body Builder ID - TD GCBC W/PLT COUNT & AUTO [id number] 04:20:46 Test Item Value Reference Range Interpretation [...] PERCENT (BEAKER) (test code = 2801) POC-Glucose [id number] 18:19:14 Test Item Value Reference Range Interpretation Comments POC-Glucose Meter (test 74 mg/dL 70-110 : TE STED AT [facility] code = 1538) [address] [place] [address], 770 30: Truck Body Builder/Techni luis ID = [id number] for LISA CALDERÓN Lab Interpretation (test Normal code = 91223-0) [facility] [id number] 18:19:14 Test Item Value Reference Range Interpretation Comments POC-Glucose Meter (test 74 mg/dL 70-110 : TE STED AT [facility] code = 1538) [address] [place] [address], 770 30: Truck Body Builder/Techni luis ID = [id number] for LISA CALDERÓN Lab Interpretation (test Normal code = 03818-1) [facility]-GLUCOSE [id number] 18:19:14 Test Item Value Reference Range Interpretation Comments POC-GLUCOSE METER 74 mg/dL 70-110 : [facility] (BEAKER[facility] (test code = [facility], 1538) 15193: Truck Body Builder/Techni luis ID = [id number] for SARAY FREY POCT-GLUCOSE [id number] 07:29:39 Test Item Value Reference Range Interpretation Comments POC-GLUCOSE METER 100 mg/dL 70-110 : [facility] (BEAKER) (test code = [facility], 1538) 18902: Truck Body Builder/Techni luis ID = [id number] for Ca suzanne, Tran [id number] 05:48:58 Test Item Value Reference Range Interpretation Comments MAGNESIUM (BEAKER) (test code = 2.1 mg/dL 1.6-2.6 627) Truck Body Builder ID - [id number] 05:48:58 Test Item Value Reference Range Interpretation Comments PHOSPHORUS (BEAKER) (test code = 2.8 mg/dL 2.3-4.7 604) Truck Body Builder ID - ADMINBASIC METABOLIC [id number] 05:48:57 Test Item Value Reference Range Interpretation [...] S NOT APPLICABLE FOR DIALYSIS PATIEN TS. Truck Body Builder ID - ADMINPOCT-GLUCOSE [id number] 18:12:55 Test Item Value Reference Range Interpretation Comments POC-GLUCOSE METER 76 mg/dL 70-110 : TESTED A T [facility] 6720 (BEAKER) (test code = [facility] [employer] [facility], 1538) 11741: Truck Body Builder/Techni luis ID = [id number] for SARAY FREY POCT-GLUCOSE [id number] 12:32:12 Test Item Value Reference Range Interpretation Comments POC-GLUCOSE METER 88 mg/dL 70-110 : TESTED A T [facility] 6720 (BEAKER) (test code = [facility] [employer] [facility], 1538) 91254: Truck Body Builder/Techni luis ID = [id number] for SARAY FREY TSH/FREE T4 IF [id number] 10:08:44 Test Item Value Reference Range Interpretation Comments THYROID STIMULATING HORMONE 1.890 uIU/mL 0.350-4.940 (OLIMPIAAKER) (test code = 772) Truck Body Builder ID - SILVIA MHEMOGLOBIN [id number] 09:25:35 Test Item Value Reference Range Interpretation Comments HEMOGLOBIN A1C 5.4 % See_Comment [Automated m essage] ELECTROPHORESIS (INES) The system which (test code = 3811) generated this result transmitted ref erence range: <=5.6%. The reference range was not used to int erpret this result as normal/abnormal . "The A1c is measured using a [facility]-certified method. HbA1c value equal to or greater than 6.5% as thediagnosis cutoff for diabetes. An HbA1c value of 5.7- 6.4% indicates increased risk for diabetes (prediabetes)."Truck Body Builder ID - [id number] 08:05:46 Test Item Value Reference Range Interpretation Comments MAGNESIUM (BEAKER) (test code = 2.0 mg/dL 1.6-2.6 627) Truck Body Builder ID - SILVIA [id number] 08:05:46 Test Item Value Reference Range Interpretation Comments PHOSPHORUS (BEAKER) (test code = 2.8 mg/dL 2.3-4.7 604) Truck Body Builder ID - SILVIA MLIPID [id number] 08:05:46 Test Item Value Reference Range Interpretation [...] Borderline 130-159 High 160-189 Very High >=190 Truck Body Builder ID - SILVIA MHEPATIC FUNCTION [id number] 08:05:46 Test Item Value Reference Range Interpretation [...] code = 91 U/L 6-55 H 347) Truck Body Builder ID - SILVIA MBASIC METABOLIC [id number] 08:05:45 Test Item Value Reference Range Interpretation [...] S NOT APPLICABLE FOR DIALYSIS PATIEN TS. Truck Body Builder ID - SILVIA MVITAMIN D, 23-[id number] 06:16:40 Test Item Value Reference Range Interpretation Comments VITAMIN D 25-OH (BEAKER) (test 22.8 ng/mL 6.6-49.9 code = 2764) Effective 08/09/2017: Reference Range ChangeNew: 6.6-49.9 ng/mL Previous: 13.0- 47.8 ng/mLRecommendedVitamin D Target Range: 30.0-40.0 ng/mLOperator KEENAN Grijalva HIV-1 ANTIGEN WITH HIV-1/2 [id number] 06:16:40 Test Item Value Reference Range Interpretation Comments HIV-1 ANTIGEN WITH HIV 1\\T\\2 Nonreactive Nonreactive ANTIBODY (2) (BEAKER) (test code = 2586) Truck Body Builder ID - SILVIA LIBIA, TIBC, % SAT. (WITHOUT FERRITIN)2022-04-23 05:51:46 Test Item Value Reference Range Interpretation Comments IRON (BEAKER) (test code = 547) 75.0 ug/dL 40.0-160.0 TOTAL IRON BINDING CAPACITY 304 ug/dL 250-450 (BEAKER) (test code = 769) IRON % SATURATION (2) (BEAKER) 25 % 20-55 (test code = 2590) Truck Body Builder ID - SILVIA MCBC W/PLT COUNT & AUTO [id number] 05:45:30 Test Item Value Reference Range Interpretation [...] PERCENT (BEAKER) (test code = 2801) POCT-GLUCOSE [id number] 00:21:13 Test Item Value Reference Range Interpretation Comments POC-GLUCOSE METER 85 mg/dL 70-110 : TESTED A T [facility] 6720 ([facility]) (test code = YIFAN Walker [facility], 1538) 55987: Truck Body Builder/Techni luis ID = [id number] for RACHELLE العراقي POCT-GLUCOSE [id number] 16:59:37 Test Item Value Reference Range Interpretation Comments POC-GLUCOSE METER 98 mg/dL 70-110 : Notified RN/MD: Pt. ([facility]) (test code = refuse d rpt tst: TESTED 1538) AT [facility] 6720 B [facility], 770 30: Truck Body Builder/Techni luis ID = [id number] for Salvador macdonald Nidia POCT-GLUCOSE [id number] 12:19:19 Test Item Value Reference Range Interpretation Comments POC-GLUCOSE METER 102 mg/dL 70-110 : Notified RN/MD: Pt. ([facility]) (test code = refuse d rpt tst: TESTED 1538) AT [facility] [address] [place], 770 [address]: Truck Body Builder/Techni luis ID = [id number] for Nidia Shea SARS-CoV2/RT-PCR (Asymptomatic ONLY)2022-04-22 11:06:43 Test Item Value Reference Interpretation Comments Range SARS-COV2/RT-PCR Negative Negative The SARS-Co V-2 (test code = target nucleic 06574-6) acids are not detected in thi s [...] om SARS-CoV-2 in a nasopharyngeal swab specimen colle ben from individual s suspected of COVID-19 [...] revoked sooner. Fact Sheet for Healthcare Providers: https://www.4 the stars/Documents/Xp ert%20Xpress%20SAR S%20CoV-2/Fact%20S heets/302-5272%20S ARS-COV-2%20HEALTH CARE%20PROVIDERS%2 0FACT%20SHEET.pdf Fact Sheet for Healthcare Patients: https://www.4 the stars/Documents/Xp ert%20Xpress%20SAR S%20CoV-2/Fact%20S heets/3023801%20S ARS-COV-2%20PATIEN T%20FACT%20SHEET.p df Lab Interpretation Normal (test code = 99720-9) [facility]2022-04-22 11:06:43 Test Item Value Reference Interpretation Comments Range SARS-COV2/RT-PCR Negative Negative The SARS-Co V-2 (test code = target nucleic 19216-9) acids are not detected in thi s [...] revoked sooner. Fact Sheet for Healthcare Providers: https://www.4 the stars/Documents/Xp ert%20Xpress%20SAR S%20CoV-2/Fact%20S heets/3023802%20S ARS-COV-2%20HEALTH CARE%20PROVIDERS%2 0FACT%20SHEET.pdf Fact Sheet for Healthcare Patients: https://www.4 the stars/Documents/Xp ert%20Xpress%20SAR S%20CoV-2/Fact%20S heets/3023801%20S ARS-COV-2%20PATIEN T%20FACT%20SHEET.p df Lab Interpretation Normal (test code = 90281-7) [facility])2022-04-22 11:06:43 Test Item Value Reference Range Interpretation Comments SARS-COV2/RT-PCR Negative Negative The SARS-Co V-2 target (test code = nucleic acids a re not 5110052) detected in thi s specimen. Negative result [...] revoked sooner. Fact Sheet for Healthcare Providers: https://www.Liquiverse.co m/Documents/Xpert%20Xpress%20SARS%20CoV-2/Fact%20Sheets/3023802%21OKDP-HYX-2%20 HEALTHCARE%20PROVIDERS%20FACT%20SHEET.pdf Fact Sheet for Healthcare Patients: https://www.[employer]/Documents/Xpert%20Xp ress%20SARS%20CoV-2/Fact%20Sheets/3023801%72INJZ-TIX-3%20PATIENT%20FACT%20SHEET .pdfPOCT-GLUCOSE [id number] 07:28:56 Test Item Value Reference Range Interpretation Comments POC-GLUCOSE METER 103 mg/dL 70-110 : Notified RN/MD: Pt. (INES) (test code = refuse d rpt tst: TESTED 1538) AT [facility] [address] [place], [address]: Truck Body Builder/Techni luis ID = [id number] for Pe Nidia sewell [id number] 06:46:26 Test Item Value Reference Range Interpretation Comments MAGNESIUM (BEAKER) (test code = 1.8 mg/dL 1.6-2.6 627) Truck Body Builder ID - ADMINHEPATIC FUNCTION [id number] 06:46:26 Test Item Value Reference Range Interpretation [...] code = 70 U/L 6-55 H 347) Truck Body Builder ID - ADMINBASIC METABOLIC [id number] 06:46:25 Test Item Value Reference Range Interpretation [...] S NOT APPLICABLE FOR DIALYSIS PATIEN TS. Truck Body Builder ID - ADMINPOCT-GLUCOSE [id number] 06:20:16 Test Item Value Reference Range Interpretation Comments POC-GLUCOSE METER 89 mg/dL 70-110 : TESTED Nehemias T [facility] 6720 (BEAKER) (test code = [place], 1538) [address]: Truck Body Builder/Techni luis ID = [id number] for VELMA CRUZ PROTHROMBIN TIME/[id number] 05:54:42 Test Item Value Reference Range Interpretation Comments PROTIME (BEAKER) 14.0 seconds 11.9-14.2 (test code = 759) INR (BEAKER) (test 1.10 See_Comment [Automat ed message] code = 370) The system [employer] generated this result transmitted ref erence range: <=5.90. The reference range was not used to int erpret this result as normal/abnormal . RECOMMENDED COUMADIN/WARFARIN INR THERAPY RANGESSTANDARD DOSE: 2.0 - 3.0 Includes: PROPHYLAXIS for venous thrombosis, systemic embolization; TREATMENT for venous thrombosis and/or pulmonary embolus.HIGH RISK: Target INR is 2.5-3.5 for patients with mechanical heart valves.CBC W/PLT COUNT & AUTO [id number] 05:39:39 Test Item Value Reference Range Interpretation [...] (test code = 2801) Lactic Acid Whole [id number] 00:48:27 Test Item Value Reference Range Interpretation Comments LACTIC ACID (test code = 0.86 mmol/L 0.50-2.20 1746432370) Lab Interpretation (test code = Normal 41778-6) [facility] [id number] 00:00:02 Test Item Value Reference Range Interpretation Comments POC-GLUCOSE METER 123 mg/dL 70-110 H : TESTED A T [facility] 6720 (BEAKER) (test code = [place], 1538) [address]: Truck Body Builder/Techni luis ID = [id number] for VELMA LUDWIG Lactic Acid Whole [id number] 23:45:10 Test Item Value Reference Range Interpretation Comments LACTIC ACID (test code = 0.89 mmol/L 0.50-2.20 7620738101) Lab Interpretation (test code = Normal 43071-5) [facility] CenterLACT[facility] ACID, [id number] 23:44:05 Test Item Value Reference Range Interpretation Comments LACTATE BLOOD VENOUS 0.90 mmol/L 0.50-2.20 Specime n slightly (2) (BEAKER) (test hemolyzed code = 2872) Truck Body Builder ID - ADMINACTIVATED PARTIAL THRMPLAS [id number] 18:58:02 Test Item Value Reference Range Interpretation Comments APTT Patient (test See_Comment [Automat ed code = 3173-2) message] The system which generated this result transmitted reference range : 23 - 38 Seconds . The reference range was not used to interpr et this result as normal/abnormal . VICKY (test code = VICKY) The [facility] patient population mean normal value for aPTT is 30 seconds. Lab Interpretation Normal (test code = 94711-5) [facility] CenterPROTHROMBIN TIME / [id number] 18:56:00 Test Item Value Reference Range Interpretation [...] tions. Lab Interpretation (test Normal code = 34817-4) [facility] CenterTROPONIN [id number] 18:31:55 Test Item Value Reference Interpretation Comments Range TROPONIN I (test 0.001 ng/mL See_Comment [Automated code = 6126224780) message] The system which generated this result [...] biotin. Lab Interpretation Normal (test code = 72857-4) [facility]. METABOLIC PANEL (60833)2022-04-21 18:19:51 Test Item Value Reference Range Interpretation Comments NA (test code = 139 mmol/L 135-145 6710979525) K (test code = 4.5 mmol/L 3.5-5.0 3500393883) CL (test code = 101 mmol/L 98-108 0355525152) CO2 TOTAL (test code = 27 mmol/L 23-31 0259537963) AGAP (test code = 2-16 5437458595) BUN (test code = 9 mg/dL 7-23 5181343477) GLUCOSE (test code = 127 mg/dL 70-110 H 7704605656) CREATININE (test code = 0.65 mg/dL 0.50-1.04 5720180810) TOTAL BILI (test code = 0.6 mg/dL 0.1-1.7 3819611810) CALCIUM (test code = 9.7 mg/dL 8.6-10.6 5927276808) T PROTEIN (test code = 7.7 g/dL 6.3-8.2 7264190317) ALBUMIN (test code = 4.6 g/dL 3.5-5.0 8630830213) ALK PHOS (test code = 77 U/L 34-122 9507954923) ALTv (test code = 11 U/L 5-35 1742-6) AST(SGOT) (test code = 17 U/L 13-40 1949775958) eGFR (test code = mL/min/1.73m2 1994091461) VICKY (test code = VICKY) Association of [...] tests). Lab Interpretation Abnormal (test code = 19070-5) [facility] CenterLIPASE2022-06-23 18:19:16 Test Item Value Reference Range Interpretation Comments LIPASE (test code = 0512676685) 35 U/L 0-220 Lab Interpretation (test code = Normal 44615-7) [facility] WITH [id number] 18:09:30 Test Item Value Reference Range Interpretation Comments WBC (test code = See_Comment H [Automated 7153-2) message] The system which generated this result transmit ben reference range : 4.30 - 11.10 10*3/?L. The reference range was not used to interpret this result as normal/abnormal . RBC (test code = See_Comment [Automated 573-8) message] The system which generated this result [...] RDW-SD (test code = 41.1 fL 39.0-49.9 65197-5) RDW-CV (test code = 12.3 % 12.0-15.5 788-0) PLT (test code = See_Comment [Automated 777-3) message] The system which generated this result transmit ben reference range : 166 - 358 10*3/ ?L. The reference range was not u sed to interpret th is result as normal/abnormal . MPV (test code = 9.6 fL 9.5-12.9 06941-0) NRBC/100 WBC (test See_Comment [Automat ed code = 5741898124) message] The system which generated this result transmit ben reference range : 0.0 - 10.0 /100 WBCs. The reference range was not used to interpret this result as normal/abnormal . NRBC x10^3 (test code <0.01 See_Comment [Auto mated = [id number]) message] The system which generated this result transmit ben reference range : 10*3/?L. The reference range was not used to interpret this result as normal/abnormal . GRAN MAT (NEUT) % 77.5 % (test code = 770-8) IMM GRAN % (test code 0.50 % = [id number]) LYMPH % (test code = 16.2 % 736-9) MONO % (test code = 5.3 % 5905-5) EOS % (test code = 0.3 % 713-8) BASO % (test code = 0.2 % 706-2) GRAN MAT x10^3(ANC) 11.03 10*3/uL 1.88-7.09 H (test code = [id number]) IMM GRAN x10^3 (test 0.07 10*3/uL 0.00-0.06 H code = [id number]) LYMPH x10^3 (test code 2.31 10*3/uL 1.32-3.29 = 731-0) MONO x10^3 (test code 0.75 10*3/uL 0.33-0.92 = 742-7) EOS x10^3 (test code = 0.04 10*3/uL 0.03-0.39 711-2) BASO x10^3 (test code 0.03 10*3/uL 0.01-0.07 = 704-7) Lab Interpretation Abnormal (test code = 99564-3) [facility] [id number] 18:03:00 Test Item Value Reference Range Interpretation Comments POCT PREG (test code = 1605) negative On board controls acceptable with yes C Line (test code = 3574) POCT PREG LOT # (test code = 3575) [id number] POCT PREG TEST DATE (test 08/29/2023 code = 3576) Lab Interpretation (test code = Normal 39012-1) [facility] RNA [Presence] in Respiratory specimen by CONSTANTIN with probe [id number] 09:38:17 Test Item Value Reference Range Interpretation Comments SARS-CoV-2 (COVID-19) RNA Not detected Not-Detected [Presence] in Respiratory specimen by CONSTANTIN with probe detection (test code = 17721-5) ENRIQUE MARTINEZSARS-CoV-2 (COVID-19) RNA [Presence] in Respiratory specimen by CONSTANTIN with probe [id number] 16:44:16 Test Item Value Reference Range Interpretation Comments SARS-CoV-2 (COVID-19) RNA Not detected Not-Detected [Presence] in Respiratory specimen by CONSTANTIN with probe detection (test code = 70085-2) ENRIQUE [id number] 18:07:00 Test Item Value Reference Range Interpretation Comments Creatinine (test code = Creatinine) 0.6 0.6-1.3 [id number] 18:07:00 Test Item Value Reference Range Interpretation Comments Results (test code = Reported (06/26/20 1:07 Results) PM) [facility] H[id number] 18:07:00 Test Item Value Reference Range Interpretation Comments Creatinine (test code = Creatinine) 0.6 0.6-1.3 [facility] [id number] 18:07:00 Test Item Value Reference Range Interpretation Comments Results (test code = Reported (06/26/20 1:07 Results) PM) [id number] 18:07:00 Test Item Value Reference Range Interpretation Comments Creatinine (test code = Creatinine) 0.6 0.6-1.3 [id number] 18:07:00 Test Item Value Reference Range Interpretation Comments Results (test code = Reported (06/26/20 1:07 Results) PM) [id number] 18:05:00 Test Item Value Reference Range Interpretation Comments Calculate GFR (test code = Calculate 118 59-120 GFR) [id number] 18:05:00 Test Item Value Reference Range Interpretation Comments Calculate GFR (test code = Calculate 118 59-120 GFR) [id number] 18:05:00 Test Item Value Reference Range Interpretation Comments Calculate GFR (test code = Calculate 118 59-120 GFR) [facility]
[2023-03-27 08:30] LABS: Specific Gravity 1.016 (1.005-1.030); Urine Bilirubin NEGATIVE (Negative); Urine Blood Negative (Negative); Urine Clarity Clear (Clear); Urine Color Light-Yellow (Yellow); Urine Glucose NEGATIVE (Negative); Urine Protein NEGATIVE (Negative); Urine Urobilinogen Normal (Normal); Urine pH 6.5 (5.0-7.0)
[2023-03-27] MEDS ORDERED: KETOROLAC 30 MG/ML INJ ONE (08:32)
--- NOTE | 2023-03-27 08:44 | ER ---
Nurse's Notes [facility] Name: Mary Torres Age: 37 yrs Sex: Female : 1985 Arrival Date: 03/27/2023 Time: 08:05 Bed 13 Private MD: Diagnosis: Muscle spasm of back Presentation: 03/27 08:16 Chief complaint: Patient states: she started having mid back pain around March 13 that ap3 has progressively gotten worse. patient denies any urinary symptoms at this time. Coronavirus screen: At this time, the client does not indicate any symptoms associated with coronavirus-19. Ebola Screen: No symptoms or risks identified at this time. Initial Sepsis Screen: Does the patient meet any 2 criteria? No. Patient's initial sepsis screen is negative. Does the patient have a suspected source of infection? No. Patient's initial sepsis screen is negative. Risk Assessment: Do you want to hurt yourself or someone else? Patient reports no desire to harm self or others. Onset of symptoms was March 13, 2023. 08:16 Method Of Arrival: Ambulatory ap3 08:16 Acuity: MARCELA 4 ap3 Triage Assessment: 08:19 General: Appears in no apparent distress. Behavior is calm, cooperative, appropriate ap3 for age. Pain: Complains of pain in right mid back and left mid back Pain currently is 9 out of 10 on a pain scale. Pain began gradually. Neuro: Level of Consciousness is awake, alert, obeys commands, Oriented to person, place, time, situation. Cardiovascular: Patient's skin is warm and dry. Respiratory: Airway is patent Respiratory effort is even, unlabored, Respiratory pattern is regular, agonal. Musculoskeletal: Range of motion: intact in all extremities. 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 - Social history:: Smoking status: Patient denies any tobacco usage or history of. Patient uses alcohol, occasionally. street drugs, marijuana. Screenin:19 [facility] ED Fall Risk Assessment (Adult) History of falling in the last 3 months, ap3 including since admission No falls in past 3 months (0 pts). Abuse screen: Denies threats or abuse. Nutritional screening: No deficits noted. Tuberculosis screening: No symptoms or risk factors identified. Vital Signs: 08:16 BP 121 / 79; Pulse 59; Resp 17; Temp 98.4; Pulse Ox 98% on R/A; Weight 88 kg; Height 5 ap3 ft. 3 in. ; Pain 9/10; 08:16 Body Mass Index 34.37 (88.00 kg, 160.02 cm) ap3 08:16 Pain Scale: Adult ap3 ED Course: 08:06 Patient arrived in ED. ts1 08:07 Josse Williamson PA is [facility]. jr8 08:07 Conor Tam MD is Attending Physician. jr8 08:16 Nidia Del Valle, RN is Primary Nurse. ap3 08:18 Triage completed. ap3 08:19 Arm band placed on right wrist. ap3 08:19 Patient has correct armband on for positive identification. Call light in reach. Side ap3 rails up X 1. Adult w/ patient. Pulse ox on. NIBP on. 09:16 No provider procedures requiring assistance completed. Patient did not have IV access ap3 during this emergency room visit. Administered Medications: 08:29 Drug: Ketorolac IM 30 mg Route: IM; Site: right gluteus; ap3 09:17 Follow up: Response: No adverse reaction ap3 Medication: 09:17 VIS not applicable for this client. ap3 Outcome: 08:43 Discharge ordered by . jr8 09:17 Discharged to home ambulatory, with family. ap3 09:17 Condition: good 09:17 Discharge instructions given to patient, family, Instructed on discharge instructions, follow up and referral plans. medication usage, Demonstrated understanding of instructions, follow-up care, medications, Prescriptions given X 3. 09:17 Patient left the ED. ap3 Signatures: Josse Williamson PA PA jrNidia Bailey, DUARTE RN ap3 Jeannine Levi PAS PAS ts1
--- NOTE | 2023-03-27 08:44 | EDPHYS ---
Physician Documentation [facility] Name: Mary Torres Age: 37 yrs Sex: Female : 1985 Arrival Date: 03/27/2023 Time: 08:05 Bed 13 Private MD: ED Physician Conor Tam HPI: 03/27 08:13 This 37 yrs old Female presents to ER via Unassigned with complaints of Back jr8 Pain. 08:13 The patient presents with pain that is acute, with no known mechanism of injury. The jr8 symptoms are located in the left mid back and right mid back. Onset: The symptoms/episode began/occurred acutely, 2 week(s) ago. The pain does not radiate. Associated signs and symptoms: Pertinent positives: nausea. The problem was sustained from unknown cause. Modifying factors: The patient symptoms are alleviated by nothing, the patient symptoms are aggravated by bending, lifting, movement. Severity of symptoms: At their worst the symptoms were moderate, in the emergency department the symptoms are unchanged. The patient has not experienced similar symptoms in the past. The patient has not recently seen a physician. 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 - Social history:: Smoking status: Patient denies any tobacco usage or history of. Patient uses alcohol, occasionally. street drugs, marijuana. ROS: 08:13 Eyes: Negative for injury, pain, redness, and discharge, ENT: Negative for injury, jr8 pain, and discharge, Neck: Negative for injury, pain, and swelling, Cardiovascular: Negative for chest pain, palpitations, and edema, Respiratory: Negative for shortness of breath, cough, wheezing, and pleuritic chest pain, MS/Extremity: Negative for injury and deformity, Skin: Negative for injury, rash, and discoloration, Neuro: Negative for headache, weakness, numbness, tingling, and seizure. 08:13 Abdomen/GI: Positive for nausea, Negative for abdominal pain, vomiting, diarrhea. 08:13 Back: Positive for decreased range of motion, pain at rest, pain with movement, Negative for radiated pain. Exam: 08:13 Constitutional: This is a well developed, well nourished patient who is awake, alert, jr8 and in no acute distress. Cardiovascular: Regular rate and rhythm with a normal S1 and S2. No gallops, murmurs, or rubs. Normal PMI, no JVD. No pulse deficits. Respiratory: Lungs have equal breath sounds bilaterally, clear to auscultation and percussion. No rales, rhonchi or wheezes noted. No increased work of breathing, no retractions or nasal flaring. Abdomen/GI: Soft, non-tender, with normal bowel sounds. No distension or tympany. No guarding or rebound. No evidence of tenderness throughout. Skin: Warm, dry with normal turgor. Normal color with no rashes, no lesions, and no evidence of cellulitis. MS/ Extremity: Pulses equal, no cyanosis. Neurovascular intact. Full, normal range of motion. Neuro: Awake and alert, GCS 15, oriented to person, place, time, and situation. Motor strength 5/5 in all extremities. Sensory grossly intact. 08:13 Back: pain, that is moderate, of the left mid back and right mid back, ROM is painful, with all movement, normal spinal alignment noted, CVA tenderness, is absent, muscle spasm, is appreciated in the left mid back and right mid back. Vital Signs: 08:16 BP 121 / 79; Pulse 59; Resp 17; Temp 98.4; Pulse Ox 98% on R/A; Weight 88 kg; Height 5 ap3 ft. 3 in. ; Pain 9/10; 08:16 Body Mass Index 34.37 (88.00 kg, 160.02 cm) ap3 08:16 Pain Scale: Adult ap3 MDM: 08:09 Patient medically screened. jr8 08:13 Differential diagnosis: Pyelonephritis sprain, Ureterolithiasis muscle jr8 strain. Data reviewed: vital signs, nurses notes. I considered the following discharge prescriptions or medication management in the emergency department I discussed and recommended Over The Counter medications, Medications were administered in the Emergency Department. See MAR. Test considered but Not performed: X-ray: No traumatic injury. No vertebral point tenderness . 08:41 Data reviewed: lab test result(s), urinalysis. Counseling: I had a detailed discussion jr8 with the patient and/or guardian regarding: the historical points, exam findings, and any diagnostic results supporting the discharge/admit diagnosis, lab results, the need for outpatient follow up, a family practitioner, to return to the emergency department if symptoms worsen or persist or if there are any questions or concerns that arise at home. Response to treatment: the patient's symptoms have mildly improved after treatment. ED course: Patient feeling better after Toradol shot. Vital signs stable and afebrile. Patient without abdominal findings on physical exam or CVA tenderness. Urinalysis clean no bacteria, blood. Unlikely that is a renal stone or infection at this time. Patient had elicited pain on physical exam to mid back bilaterally with muscle spasm. This is most likely musculoskeletal in origin we will treat as such. Discussed with patient if she were to worsen at any point time to come back for further evaluation. We will put her on steroids, NSAIDs, pain medicine for the time being. Needs to try heat at home as well and can use tkba-ibs-chdcafz lidocaine patches as needed. Patient understood instructions and good with plan at this time. Will come back if she worsens at any point otherwise to follow-up with PCP.. 03/27 08:13 Order name: Test, Urine; Complete Time: 08:41 jr8 03/27 08:13 Order name: Urinalysis w/ reflexes; Complete Time: 08:41 jr8 Administered Medications: :29 Drug: Ketorolac IM 30 mg Route: IM; Site: right gluteus; ap3 09:17 Follow up: Response: No adverse reaction ap3 Disposition: 11:58 Co-signature as Attending Physician, Conor Tam MD I reviewed the patient's care rn provided by the Advanced Practice Provider and agree with the diagnosis and treatment plan. Disposition Summary: 03/27/23 08:43 Discharge Ordered Location: Home jr8 Problem: new jr8 Symptoms: have improved jr8 Condition: Stable jr8 Diagnosis - Muscle spasm of back jr8 Followup: jr8 - With: Private Physician - When: 2 - 3 days - Reason: Recheck today's complaints, Continuance of care, Re-evaluation by your physician Discharge Instructions: - Discharge Summary Sheet jr8 - Acute Back Pain, Adult jr8 - Heat Therapy jr8 Forms: - Medication Reconciliation Form jr8 - Thank You Letter jr8 - Antibiotic Education jr8 - Prescription Opioid Use jr8 Prescriptions: - Ibuprofen 800 mg Oral Tablet - take 1 tablet by ORAL route every 12 hours As needed take with food; 20 tablet; jr8 Refills: 0, Product Selection Permitted - Cyclobenzaprine 10 mg Oral Tablet - take 1 tablet by ORAL route every 8 hours As needed; 30 tablet; Refills: 0, jr8 Product Selection Permitted - Medrol (Govind) 4 mg Oral Tablets, Dose Pack - take 1 tablet by ORAL route as directed - follow package instructions; 1 jr8 packet; Refills: 0, Product Selection Permitted Signatures: Dispatcher [employer] EDMS Conor Tam MD MD rn Roszak, Josh, PA PA jr8 Nidia Del Valle RN RN ap3
[2023-03-27 09:37] VITALS: BP 121/79; TEMP 98.4; O2SAT 98
== END 2023-03-27 09:17 | disposition home or self-care (01) ==
LOC: ER 08:05
DX: M62.830 Muscle spasm of back (principal); Z88.5 Allergy status to narcotic agent; Z88.8 Allergy status to other drugs, medicaments and biological substances
CPT/HCPCS: 81003; 81025; 96372; 99284